=== PATIENT | male | born 1945 | race Caucasian/White ===

== ENCOUNTER 2017-02-10 12:51 | Inpatient (IN) | payer OTHER ==
[~2017-02-10] VITALS: Ht 198.1 cm; Wt 105.4 kg
[~2017-02-10 12:51] MED LIST: ALBU1NEB10 IN; FINA5TAB PO; METO50TA16 PO; SNG10 PO
[2017-02-10 13:45] LABS: BASO % 0.2 %; BASO ABS # 0.02 K/uL (0-0.2); COMPLETE YES; EOS % 2.7 %; HEMATOCRIT 46.3 % (42-52); IG% 0.4 %; LYMPH % 15.8 %; LYMPH ABS # 1.45 K/uL (1.2-3.4); MEAN CELL VOLUME 89.4 fL (80-100); MEAN CORPUSCULAR HEMOGLOBIN 29.3 pg (25-34); MEAN CORPUSCULAR HGB CONC 32.8 g/dl (32-36); MEAN PLATELET VOLUME 9.6 fL (7.4-10.4); MONO % 9.8 %; NEUT % 71.1 %; PLATELET COUNT 287 K/uL (130-400); RED BLOOD COUNT 5.18 M/uL (4.7-6.1); WHITE BLOOD COUNT 9.17 K/uL (4.8-10.8)
[2017-02-10] MEDS ORDERED: SODIUM CHLORIDE 0.9% 1000ML 1,000 ML IV STA (13:46)
[2017-02-10] MEDS ORDERED: ALBUT/IPRATROP 3MG/0.5MG NEB 3 ML VIAL INH STA (13:46)
[2017-02-10 13:53] LABS: ALT/SGPT 26 U/L (12-78); AST/SGOT 17 U/L (15-37); BLOOD UREA NITROGEN 12 mg/dl (7-18); BUN/CREATININE RATIO 13.6 (10-20); CARBON DIOXIDE 33 mmol/L (21-32); CHLORIDE 101 mmol/L (98-107); CREATININE 0.86 mg/dl (0.60-1.40); GLUCOSE 116 mg/dl (70-99); PARTIAL THROMBOPLASTIN RATIO 1.1; POTASSIUM 4.2 mmol/L (3.5-5.1); PROTHROMBIN TIME (PATIENT) 11.2 SECONDS (9.0-12.0); SODIUM 139 mmol/L (136-145)
[2017-02-10 13:56] LABS: ALB/GLOB RATIO 0.6 (0.9-2); ALKALINE PHOSPHATASE 76 U/L (45-117)
[2017-02-10] MEDS ORDERED: LEVA45AE INH (14:15)
[2017-02-10] MEDS ORDERED: PRS5 PO (14:15)
[2017-02-10] MEDS ORDERED: MONT1TAB3 PO (14:15)
[2017-02-10] MEDS ORDERED: METO50TA16 PO (14:15)
[2017-02-10] MEDS ORDERED: ASTN NAE (14:15)
[2017-02-10 14:20] LABS: URINE APPEARANCE CLOUDY (CLEAR); URINE BILIRUBIN NEG (NEG); URINE COLOR DK YELLOW; URINE NITRITE NEG (NEG); URINE SPECIFIC GRAVITY 1.017 (1.000-1.030); UROBILINOGEN NEG (NEG); ZZUR CULT IF INDIC CLEAN CATCH NO
[2017-02-10 14:26] LABS: CKMB/CK RATIO 2.3 (0-3.0); THYROID STIMULATING HORMONE 0.952 uIu/ml (0.300-4.500)
[2017-02-10 14:28] LABS: MANUAL MICROSCOPIC REQUIRED? NO; REVIEW REQ? NO
--- NOTE | 2017-02-10 14:35 | DIAGNOSTIC IMAGING REPORT ---
CHEST ONE VIEW PORTABLE CLINICAL HISTORY: Altered mental status. Weakness. COMPARISON STUDY: Chest radiograph December 11, 2014. FINDINGS: Lung volumes are at the upper limits of normal. No consolidation is identified. There is no evidence of pulmonary edema. Cardiomediastinal silhouette is normal. There is no pneumothorax or pleural effusion. IMPRESSION: No acute cardiopulmonary findings. Electronically signed by: Tim Hayden M.D. 02/10/2017 2:34 PM Dictated Date/Time: 02/10/2017 2:33 PM
--- NOTE | 2017-02-10 15:14 | EMERGENCY ROOM VISIT NOTE ---
History Report prepared by Galindo: Arnold Valdivia Under the Supervision of: Dr. Davey Maciel D.O. First contact with patient: 13:35 Chief Complaint: WEAKNESS Stated Complaint: GENERAL WEAKNESS History of Present Illness The patient is a 71 year old male with neuropathy in his legs who presents to the Emergency Room via EMS with complaints of intermittent weakness in his legs that started a couple weeks ago. He says that every once in a while, his knees just give out and buckle on him. The patient then falls, and he has a hard time getting up. He says that the weakness has been worsening, but he has had this intermittent weakness for a couple years. The patient says that his brother got nervous about these symptoms and called an ambulance. The patient adds that he has also been a bit short of breath the past few weeks. He has been coughing up white and yellow phlegm for the last few weeks. He notes that he has been putting cream on his knees for pain. The patient states that he has a history of asthma and bronchitis, and he is an ex-smoker. He quit more than 20 years ago. He says that he does not wear oxygen at home. The patient has been eating and drinking okay. The patient's brother says that the patient's left leg has specifically lost strength recently. The patient agrees that his left leg has been weaker than his right leg. Source of History: patient Onset: A couple weeks ago Position: leg (bilateral) Quality: other (weakness) Timing: intermittent, worsening Associated Symptoms: + SOB, + cough Note: Associated symptoms: Legs/knees buckle up and he falls, has hard time getting up. Knee pain. Left arm weaker than right arm. Review of Systems See HPI for pertinent positives & negatives. A total of 10 systems reviewed and were otherwise negative. Past Medical & Surgical Medical Problems: (1) Hypertension (2) Neuropathy Family History Cancer Heart disease Social History Smoking Status: Former Smoker Marital Status: single Housing Status: lives alone Occupation Status: retired Current/Historical Medications Scheduled Azelastine Hcl (Astelin Nasal [place]), 274 MCG RAIZA BID Finasteride (Finasteride), 5 MG PO DAILY Metoprolol Tartrate (Lopressor) (Lopressor), 100 MG PO BID Montelukast Sodium (Singulair), 10 MG PO DAILY Scheduled PRN Levalbuterol Tartrate (Levalbuterol Tartrate Hfa), 2 PUFFS INH Q4 PRN for SOB/ Wheezing Allergies Coded Allergies: BEE STING (Verified Allergy, Severe, 01/21/16) Cefadroxil (Unverified Allergy, Intermediate, UNKNOWN, 02/10/17) Cephalexin (Unverified Allergy, Intermediate, UNKNOWN, 02/10/17) Escitalopram (Unverified Allergy, Intermediate, UNKNOWN, 02/10/17) Omeprazole (Unverified Allergy, Intermediate, UNKNOWN, 02/10/17) Pantoprazole (Unverified Allergy, Intermediate, UNKNOWN, 02/10/17) Wheat (Unverified Allergy, Intermediate, UNKNOWN, 02/10/17) Physical Exam Vital Signs Date Time Temp Pulse Resp B/P Pulse Ox O2 Delivery O2 Flow Rate FiO2 02/10/17 14:24 93 18 141/73 91 Nasal Cannula 2.0 02/10/17 13:34 83 02/10/17 13:23 94 Nasal Cannula 2.0 02/10/17 13:04 Nasal Cannula 2.0 02/10/17 12:58 37.5 68 20 143/82 85 Room Air Physical Exam VITAL SIGNS: were reviewed as above. GENERAL:Non-toxic in appearance. SKIN: Warm dry and pink. HEAD: Normocephalic and atraumatic. OROPHARYNX: Is clear and moist NECK: Supple without lymphadenopathy or meningismus. LUNGS: clear. HEART: Regular rate and rhythm. ABDOMEN: Soft and nontender. EXTREMITIES: Warm and well perfused. NEUROLOGICALLY: Awake alert and oriented without focal deficit. Cranial nerves 2 -12 are intact. There is no pronator drift. Cerebellar testing is within normal limits. There is no nystagmus. There is no facial droop. Speech is clear. Vision is grossly normal. MUSCULOSKELETAL: Good muscle tone. No evidence of trauma. Medical Decision & Procedures ER Provider Diagnostic Interpretation: X ray results and stated below per my interpretation and radiology interpretation. CHEST ONE VIEW PORTABLE CLINICAL HISTORY: Altered mental status. Weakness. COMPARISON STUDY: Chest radiograph December 11, 2014. FINDINGS: Lung volumes are at the upper limits of normal. No consolidation is identified. There is no evidence of pulmonary edema. Cardiomediastinal silhouette is normal. There is no pneumothorax or pleural effusion. IMPRESSION: No acute cardiopulmonary findings. Electronically signed by: Tim Hayden M.D. 02/10/2017 2:34 PM Dictated Date/Time: 02/10/2017 2:33 PM Laboratory Results 02/10/17 13:19 Red Blood Count 5.18, Mean Corpuscular Volume 89.4, Mean Corpuscular Hemoglobin 29.3, Mean Corpuscular Hemoglobin Concent 32.8, Mean Platelet Volume 9.6, Neutrophils (%) (Auto) 71.1, Lymphocytes (%) (Auto) 15.8, Monocytes (%) (Auto) 9.8, Eosinophils (%) (Auto) 2.7, Basophils (%) (Auto) 0.2, Neutrophils # (Auto) 6.51, Lymphocytes # (Auto) 1.45, Monocytes # (Auto) 0.90, Eosinophils # (Auto) 0.25, Basophils # (Auto) 0.02 02/10/17 13:19 Test 02/10/17 13:19 02/10/17 14:03 White Blood Count 9.17 K/uL (4.8-10.8) Red Blood Count 5.18 M/uL (4.7-6.1) Hemoglobin 15.2 g/dL (14.0-18.0) Hematocrit 46.3 % (42-52) Mean Corpuscular Volume 89.4 fL (80-100) Mean Corpuscular Hemoglobin 29.3 pg (25-34) Mean Corpuscular Hemoglobin Concent 32.8 g/dl (32-36) Platelet Count 287 K/uL (130-400) Mean Platelet Volume 9.6 fL (7.4-10.4) Neutrophils (%) (Auto) 71.1 % Lymphocytes (%) (Auto) 15.8 % Monocytes (%) (Auto) 9.8 % Eosinophils (%) (Auto) 2.7 % Basophils (%) (Auto) 0.2 % Neutrophils # (Auto) 6.51 K/uL (1.4-6.5) Lymphocytes # (Auto) 1.45 K/uL (1.2-3.4) Monocytes # (Auto) 0.90 K/uL (0.11-0.59) Eosinophils # (Auto) 0.25 K/uL (0-0.5) Basophils # (Auto) 0.02 K/uL (0-0.2) RDW Standard Deviation 43.2 fL (36.4-46.3) RDW Coefficient of Variation 13.2 % (11.5-14.5) Immature Granulocyte % (Auto) 0.4 % Immature Granulocyte # (Auto) 0.04 K/uL (0.00-0.02) Prothrombin Time 11.2 SECONDS (9.0-12.0) Prothromb Time International Ratio 1.0 (0.9-1.1) Activated Partial Thromboplast Time 28.9 SECONDS (21.0-31.0) Partial Thromboplastin Ratio 1.1 Anion Gap 5.0 mmol/L (3-11) Estimated GFR () 102.5 Estimated GFR (Non- 88.5 BUN/Creatinine Ratio 13.6 (10-20) Calcium Level 9.0 mg/dl (8.5-10.1) Total Bilirubin 0.3 mg/dl (0.2-1) Aspartate Amino Transf (AST/SGOT) 17 U/L (15-37) Alanine Aminotransferase (ALT/SGPT) 26 U/L (12-78) Alkaline Phosphatase 76 U/L (45-117) Total Creatine Kinase 61 U/L (39-308) Creatine Kinase MB 1.4 ng/ml (0.5-3.6) Creatine Kinase MB Ratio 2.3 (0-3.0) Troponin I < 0.015 ng/ml (0-0.045) Total Protein 8.5 gm/dl (6.4-8.2) Albumin 3.3 gm/dl (3.4-5.0) Globulin 5.2 gm/dl (2.5-4.0) Albumin/Globulin Ratio 0.6 (0.9-2) Thyroid Stimulating Hormone (TSH) 0.952 uIu/ml (0.300-4.500) Urine Color DK YELLOW Urine Appearance CLOUDY (CLEAR) Urine pH 8.0 (4.5-7.5) Urine Specific [place] 1.017 (1.000-1.030) Urine Protein NEG (NEG) Urine Glucose (UA) NEG (NEG) Urine Ketones NEG (NEG) Urine Occult Blood NEG (NEG) Urine Nitrite NEG (NEG) Urine Bilirubin NEG (NEG) Urine Urobilinogen NEG (NEG) Urine Leukocyte Esterase NEG (NEG) Urine WBC (Auto) 0 /hpf (0-5) Urine RBC (Auto) 0-4 /hpf (0-4) Urine Hyaline Casts (Auto) 0 /lpf (0-5) Urine Epithelial Cells (Auto) 5-10 /lpf (0-5) Urine Bacteria (Auto) NEG (NEG) Laboratory results as stated above per my review. Medications Administered Medications (Trade) Dose Ordered Sig/Agustina Route Start Time Stop Time Status Last Admin Dose Admin Sodium Chloride (Nss 1000ml) 1,000 ml @ 100 mls/hr Q10H STAT IV 02/10/17 13:46 02/10/17 23:45 02/10/17 14:08 100 MLS/HR Albuterol/ Ipratropium (Duoneb) 3 ml NOW STAT INH 02/10/17 13:46 02/10/17 13:48 DC 02/10/17 14:06 3 ML ECG Indication: weakness Rate (beats per minute): 87 Rhythm: sinus rhythm Findings: PAC, no ectopy, other (no acute injury) ED Course 1336: Previous medical records were reviewed. The patient was evaluated in room B11B. A complete history and physical examination was performed. 1346: Ordered Duoneb 3 ml INH, NSS 1000 ml @ 100 mls/hr IV. 1501: I discussed the patient with Dr. Srikanth Person personal loan specialist - she will evaluate the patient for further treatment. 1505: I reevaluated the patient and he is resting comfortably. The patient verbally expressed understanding and agreement of the treatment plan. The patient will be evaluated for further treatment. Medical Decision Differential includes acute coronary syndrome, myocardial infarction, CVA, TIA, anemia, infection, pneumonia, UTI, pyelonephritis, poor nutrition, dehydration, electrolyte disturbance,hypoglycemia. Medication Reconciliation: I attest that I have personally reviewed the patient' s current medication list. Blood pressure Screening: Patient was found to have normal blood pressure on screening and does not require follow-up. This is a 71-year-old male who presents to the ED with a chief of generalized weakness, malaise bad as well as a cough. The patient has had the symptoms for several weeks. He states that he gets exertional dyspnea and has had a cough that is occasionally productive for yellow white sputum. He reports a history of sore in the past/COPD. The patient states that he has neuropathy and his legs occasionally give out on him. This has been occurring with increased frequency. The patient's oxygen saturations were 85% on room air. He is not on home oxygen. An EKG shows a sinus rhythm without ischemic changes. CBC and complete metabolic panel were unremarkable. Troponin is negative. Chest x-ray did not show acute disease. The patient's hypoxia improved with additional oxygen. He is in no distress. The patient's Brother would like to see him go to [facility] after his breathing issues are improved. His symptoms are likely related to COPD/acute bronchitis. Consults Time Called: [phone] Consulting Physician: Dr. Srikanth Person personal loan specialist Returned Call: [phone] I discussed the patient with Dr. Srikanth Person personal loan specialist - she will evaluate the patient for further treatment. Impression Primary Impression: COPD exacerbation Additional Impressions: Hypoxia Weakness Scribe Attestation The scribe's documentation has been prepared under my direction and personally reviewed by me in its entirety. I confirm that the note above accurately reflects all work, treatment, procedures, and medical decision making performed by me. Departure Information Dispostion Being Evaluated By Hospitalist Referrals No Doctor, Assigned (PCP) Patient Instructions My [facility] [address] Problem Qualifiers
[2017-02-10] MEDS ORDERED: ONDANSETRON INJ 2 MG/ML 2 ML VIAL IV PRN (16:00)
[2017-02-10] MEDS ORDERED: MAGNESIUM HYDROXIDE SUSP 30 ML UDC PO PRN (16:00)
[2017-02-10] MEDS ORDERED: ACETAMINOPHEN 325 MG TAB PO PRN (16:00)
--- NOTE | 2017-02-10 16:25 | History and Physical ---
History & Physical Date & Time of Service: February 10, 2017 at 16:11 Chief Complaint: General Weakness Primary Care Physician: No Doctor, Assigned History of Present Illness Source: patient, family, hospital records This patient is a 71-year-old male that presents the emergency department with his brother with complaints of more frequent falls over the last 1 -2 years. The patient's brother witnessed him fall today. He was having difficulty lifting his left leg, and then his left knee gave out. He reports landing on his knees. He did not hit his head area he denies any significant pain in his knees. He does note that he has been diagnosed with neuropathy and has numbness in his legs. He has seen Dr. Adorno in the outpatient setting. The patient does admit to having lower back pain that is chronic. He has reportedly had an MRI of his lumbar spine. No abnormalities were noted by the patient. Patient is a fairly poor historian. The patient's brother does also note that he has had a productive cough over the last several weeks. The patient denies any fever or chills. The patient denies any shortness of breath with rest. He does not get up and move around very well because of his neuropathy and weakness in his lower extremities. He does have a history of COPD. He quit smoking in his 40s. He denies any chest pain or pressure. He denies any dizziness or lightheadedness. No heart palpitations. The patient denies any nausea, vomiting or diarrhea. He reports eating and drinking normally at home. He does live by himself. The brother has concerns that he is having frequent falls, and that he may not be able to get up for severely injure himself with one of these falls. He is inquiring about the patient going to [facility]. Past Medical/Surgical History COPD Peripheral neuropathy Hypertension History of renal mass s/p surgery of some sort at [place] ?BPH Family History Cancer Heart disease Social History Smoking Status: Former Smoker Alcohol Use: none Marital Status: single Housing status: lives alone Occupational Status: retired Immunizations History of Influenza Vaccine: No Influenza Vaccine Date: Jul 20, 2009 History of Tetanus Vaccine?: No History of Pneumococcal: No History of Hepatitis B Vaccine: No Multi-Drug Resistant Organisms History of MDRO: No Allergies Coded Allergies: BEE STING (Verified Allergy, Severe, 01/21/16) Cefadroxil (Unverified Allergy, Intermediate, UNKNOWN, 02/10/17) Cephalexin (Unverified Allergy, Intermediate, UNKNOWN, 02/10/17) Escitalopram (Unverified Allergy, Intermediate, UNKNOWN, 02/10/17) Omeprazole (Unverified Allergy, Intermediate, UNKNOWN, 02/10/17) Pantoprazole (Unverified Allergy, Intermediate, UNKNOWN, 02/10/17) Wheat (Unverified Allergy, Intermediate, UNKNOWN, 02/10/17) Home Medications Scheduled Azelastine Hcl (Astelin Nasal [place]), 274 MCG RAIZA BID Finasteride (Finasteride), 5 MG PO DAILY Metoprolol Tartrate (Lopressor) (Lopressor), 100 MG PO BID Montelukast Sodium (Singulair), 10 MG PO DAILY Scheduled PRN Levalbuterol Tartrate (Levalbuterol Tartrate Hfa), 2 PUFFS INH Q4 PRN for SOB/ Wheezing Review of Systems 10 system review performed and negative unless noted in HPI or below Physical Exam Vital Signs Date Time Temp Pulse Resp B/P Pulse Ox O2 Delivery O2 Flow Rate FiO2 02/10/17 15:17 95 Nasal Cannula 6.0 02/10/17 15:01 127/85 02/10/17 14:51 82 19 91 02/10/17 14:24 93 18 141/73 91 Nasal Cannula 2.0 02/10/17 14:21 87 21 141/73 89 02/10/17 13:51 84 15 90 02/10/17 13:34 83 02/10/17 13:23 94 Nasal Cannula 2.0 02/10/17 13:22 131/85 02/10/17 13:04 Nasal Cannula 2.0 02/10/17 12:58 37.5 68 20 143/82 85 Room Air General Appearance: + mild distress (mild respiratory distress.) Head: normocephalic Eyes: EOMI Neck: no JVD Respiratory/Chest: + pertinent finding (moderate diffuse wheezing. Decreased breath sounds at the right base.) Cardiovascular: regular rate, rhythm Abdomen/GI: normal bowel sounds, non tender, soft Neurologic/Psych: oriented x 3, + pertinent finding (decreased sensation to sharp in the lateral aspect of the lower extremities distal to the knee bilaterally) Skin: warm/dry Diagnostics Laboratory Results Results Past 24 Hours Test 02/10/17 13:19 02/10/17 14:03 Range/Units White Blood Count 9.17 4.8-10.8 K/uL Red Blood Count 5.18 4.7-6.1 M/uL Hemoglobin 15.2 14.0-18.0 g/dL Hematocrit 46.3 42-52 % Mean Corpuscular Volume 89.4 80-100 fL Mean Corpuscular Hemoglobin 29.3 25-34 pg Mean Corpuscular Hemoglobin Concent 32.8 32-36 g/dl Platelet Count 287 130-400 K/uL Mean Platelet Volume 9.6 7.4-10.4 fL Neutrophils (%) (Auto) 71.1 % Lymphocytes (%) (Auto) 15.8 % Monocytes (%) (Auto) 9.8 % Eosinophils (%) (Auto) 2.7 % Basophils (%) (Auto) 0.2 % Neutrophils # (Auto) 6.51 1.4-6.5 K/uL Lymphocytes # (Auto) 1.45 1.2-3.4 K/uL Monocytes # (Auto) 0.90 0.11-0.59 K/uL Eosinophils # (Auto) 0.25 0-0.5 K/uL Basophils # (Auto) 0.02 0-0.2 K/uL RDW Standard Deviation 43.2 36.4-46.3 fL RDW Coefficient of Variation 13.2 11.5-14.5 % Immature Granulocyte % (Auto) 0.4 % Immature Granulocyte # (Auto) 0.04 0.00-0.02 K/uL Prothrombin Time 11.2 9.0-12.0 SECONDS Prothromb Time International Ratio 1.0 0.9-1.1 Activated Partial Thromboplast Time 28.9 21.0-31.0 SECONDS Partial Thromboplastin Ratio 1.1 Sodium Level 139 136-145 mmol/L Potassium Level 4.2 3.5-5.1 mmol/L Chloride Level 101 98-107 mmol/L Carbon Dioxide Level 33 21-32 mmol/L Anion Gap 5.0 3-11 mmol/L Blood Urea Nitrogen 12 7-18 mg/dl Creatinine 0.86 0.60-1.40 mg/dl Estimated GFR () 102.5 Estimated GFR (Non- 88.5 BUN/Creatinine Ratio 13.6 10-20 Random Glucose 116 70-99 mg/dl Calcium Level 9.0 8.5-10.1 mg/dl Total Bilirubin 0.3 0.2-1 mg/dl Aspartate Amino Transf (AST/SGOT) 17 15-37 U/L Alanine Aminotransferase (ALT/SGPT) 26 12-78 U/L Alkaline Phosphatase 76 45-117 U/L Total Creatine Kinase 61 39-308 U/L Creatine Kinase MB 1.4 0.5-3.6 ng/ml Creatine Kinase MB Ratio 2.3 0-3.0 Troponin I < 0.015 0-0.045 ng/ml Total Protein 8.5 6.4-8.2 gm/dl Albumin 3.3 3.4-5.0 gm/dl Globulin 5.2 2.5-4.0 gm/dl Albumin/Globulin Ratio 0.6 0.9-2 Thyroid Stimulating Hormone (TSH) 0.952 0.300-4.500 uIu/ml Urine Color DK YELLOW Urine Appearance CLOUDY CLEAR Urine pH 8.0 4.5-7.5 Urine Specific [place] 1.017 1.000-1.030 Urine Protein NEG NEG Urine Glucose (UA) NEG NEG Urine Ketones NEG NEG Urine Occult Blood NEG NEG Urine Nitrite NEG NEG Urine Bilirubin NEG NEG Urine Urobilinogen NEG NEG Urine Leukocyte Esterase NEG NEG Urine WBC (Auto) 0 0-5 /hpf Urine RBC (Auto) 0-4 0-4 /hpf Urine Hyaline Casts (Auto) 0 0-5 /lpf Urine Epithelial Cells (Auto) 5-10 0-5 /lpf Urine Bacteria (Auto) NEG NEG Diagnostic Radiology Patient: AHMET OWENS Address1: [address] Rec: [id number] Address2: Acct ID: [id number] [facility] Zip: [place] [address] Date: 1945 Sex: M Room/Bed: Ref Phy: No Doctor, Assigned SC: KATIA Att Phy: Report #: [id number] Michelle Phy: No Doctor, Assigned Test: [id number] Admit Phy: Silver Buffer: CARLOS Interpreting Phy: Tim Hayden MD Diagnosis: GENERAL WEAKNESS Ordering Phy: Davey Maciel D.O. Service Date: 02/10/17 Admit Date: 02/10/17 MNE: [id number] CONF: DICTATED BY: Tim Hayden MD]] CC: Davey Maciel D.O. No Doctor, Assigned Endcc: [~ rep ct add3]] CHEST ONE VIEW PORTABLE CLINICAL HISTORY: Altered mental status. Weakness. COMPARISON STUDY: Chest radiograph December 11, 2014. FINDINGS: Lung volumes are at the upper limits of normal. No consolidation is identified. There is no evidence of pulmonary edema. Cardiomediastinal silhouette is normal. There is no pneumothorax or pleural effusion. IMPRESSION: No acute cardiopulmonary findings. Electronically signed by: Tim Hayden M.D. 02/10/2017 2:34 PM Dictated Date/Time: 02/10/2017 2:33 PM The status of this report is Signed. Draft = Not yet reviewed or approved by Radiologist. Signed = Reviewed and approved by Radiologist. EKG Normal sinus rhythm 87 bpm PACs noted No ischemic changes noted Impression Assessment and Plan 71-year-old male presented to the emergency department with his brother for complaints of a fall today, and in general more frequent falls over the last year or so. He also has a productive cough. In the emergency department, the patient was found to be hypoxic at 89% on room air. The patient is not on oxygen at home. He does report a history of COPD. Acute respiratory failure with hypoxia likely secondary to COPD exacerbation/ acute bronchitis -Admit to medical floor -Duonebs every 6 hrs scheduled, every 2 hrs prn -solumedrol 40 mg q 12 hr -Mucinex 600 mg po BID -continuous pulse ox -If no improvement, consider adding Levaquin and getting CT of the chest Frequent falls, Neuropathy-pt does have impaired sensation in his LE -It sounds like pt has had an extensive w/u with Dr. Adorno as an outpt. Not sure if he has had nerve conduction studies or not. He reportedly has had MRI of his L spine -We will consult Neuro to see if they have any other recs -PT/OT-? may need rehab vs home with HHC/PT HTN -Continue Lopressor 100 mg po BID ? BPH -Continue finasteride 5 mg daily -Monitor for urinary retention DVT prophylaxis -Lovenox 40 mg subQ daily -TEDS, SCDs CODE STATUS -LEVEL I FULL CODE Contacts -Brother Ran [phone] (cell) This chart was completed in part utilizing Dragon Speech Voice Recognition software. Attempts were made to minimize the grammatical errors, random word insertions, pronoun errors and incomplete sentences. Any formal questions or concerns about the content, text or information contained within the body of this dictation should be directly addressed to the provider for clarification. Level of Care Med/Surg Resuscitation Status FULL RESUSCITATION VTE Prophylaxis VTE Risk Assessment Done? Y/N: Yes Risk Level: Moderate Given or contraindicated: Enoxaparin (Lovenox)SQ, T.E.D. Stockings, SCD's Reviewed: Pt Seen/Exam by Me History Pt states he feels he is breathing without issue. Ongoing LE weakness and falls. States he uses inhalers and did not miss dosing. No chest pain. Eating without issue. Agree with HPI/ROS as noted. General Appearance: WD/WN, no apparent distress Respiratory: no respiratory distress, crackles, wheezing Cardiovascular: normal peripheral pulses, regular rate, rhythm Gastrointestinal: non tender, soft Extremities: non-tender, no pedal edema Neurologic/Psychiatric: alert, oriented x 3 Skin Characteristics: normal color, warm/dry Assessment/Plan Agree with plan as outlined above Likely COPD exacerbation nebs/steroids Weakness and falls, hx of neuro w/u with Dr. Adorno, c/s pending Pt will likely need some sort of PT/OT, possibly rehab vs
[2017-02-10] MEDS ORDERED: ALBUT/IPRATROP 3MG/0.5MG NEB 3 ML VIAL INH PRN (17:15)
[2017-02-10] MEDS ORDERED: PATIENT'S HEIGHT AND/OR WEIGHT NEEDED SCH (18:00)
[2017-02-10 18:06] VITALS: BP 167/77; PULSE 82; TEMP 36.7; O2SAT 96
[2017-02-10 18:43] VITALS: Ht 198.1 cm; Wt 105.4 kg
[2017-02-10 19:03] VITALS: BP 156/84
[2017-02-10] MEDS: ALBUT/IPRATROP 3MG/0.5MG NEB 3 ML VIAL INH SCH (19:19)
[2017-02-10 19:27] VITALS: PULSE 88; O2SAT 94
[2017-02-10] MEDS: METOPROLOL TARTRATE 50 MG TAB PO SCH (20:20)
[2017-02-10] MEDS: METHYLPREDNISOLONE IV 40 MG in SYRINGE 0 ML IV SCH (20:20)
[2017-02-10] MEDS: GUAIFENESIN 600 MG TABCR PO SCH (20:22)
[2017-02-10] MEDS: ENOXAPARIN 40 MG/0.4 ML SYR SQ SCH (20:23)
[2017-02-11] VITALS (9 sets, daily range): BP systolic 122–166; BP diastolic 67–82; PULSE 62–77; TEMP 36.6–36.8; O2SAT 90–97
[2017-02-11] MEDS: ALBUT/IPRATROP 3MG/0.5MG NEB 3 ML VIAL INH SCH ×4 (07:14→19:01)
[2017-02-11] MEDS: GUAIFENESIN 600 MG TABCR PO SCH ×2 (08:05→20:20)
[2017-02-11] MEDS: MONTELUKAST SOD 10 MG TAB PO SCH (08:05)
[2017-02-11] MEDS: METHYLPREDNISOLONE IV 40 MG in SYRINGE 0 ML IV SCH ×2 (08:05→20:18)
[2017-02-11] MEDS: METOPROLOL TARTRATE 50 MG TAB PO SCH ×2 (08:05→20:19)
[2017-02-11] MEDS: FINASTERIDE 5 MG TAB PO SCH (08:05)
[2017-02-11] MEDS: POLYETHYLENE (MIRALAX) 17 GM PACK PO PRN ×2 (08:14→22:33)
[2017-02-11] MEDS ORDERED: ALUMINUM/MAGNESIUM SUSP 30 ML UDC PO STA (08:21)
--- NOTE | 2017-02-11 17:59 | Progress Note ---
Subjective Date of Service: February 11, 2017. Subjective Pt evaluation today including: conversation w/ patient, physical exam, chart review, lab review, review of inpatient medication list breathing feeling better just notes sinuses "are a mess" leg weakness ongoing - progressive - for years, but worse recently with more falling notes that L leg gives out more easily than R. feels like it's more of a weakness problem than a numbness problem. notes he's had MRI entire spine and EMG/NCV with conclusion that he has neuropathy but he's not sure what the underlying etiology is. wonders if it relates to sugar - on questioning he notes he's only prediabetic, and has only been so for abotu 7 years. believes he was told MRI Lspine was OK, but doesn't entirely recall specific results Problem List Medical Problems: (1) COPD exacerbation Status: Acute (2) Hypoxia Status: Acute (3) Weakness Status: Acute Review of Systems ros otherwise negative except for as above Objective Vital Signs Date Time Temp Pulse Resp B/P Pulse Ox O2 Delivery O2 Flow Rate FiO2 02/11/17 15:28 36.7 62 22 166/82 97 Nasal Cannula 2.0 02/11/17 15:25 Nasal Cannula 2.0 02/11/17 11:07 70 16 90 Nasal Cannula 2.0 02/11/17 08:30 Nasal Cannula 2.0 02/11/17 07:39 36.6 77 20 142/75 92 Nasal Cannula 2.0 02/11/17 07:15 74 16 96 Nasal Cannula 4.0 02/11/17 00:23 36.8 72 16 122/67 94 4.0 02/11/17 00:00 94 Nasal Cannula 4.0 02/10/17 19:27 88 18 94 Nasal Cannula 4.0 02/10/17 19:03 156/84 02/10/17 18:06 36.7 82 18 167/77 96 5.0 Physical Exam General Appearance: no apparent distress Eyes: EOMI ENT: hearing grossly normal Neck: trachea midline Respiratory/Chest: no respiratory distress, no accessory muscle use Extremities: + pertinent finding (see below for neuro otherwise, no c/c/e no calf tenderness) Neurologic/Psychiatric: therapist II-XII nml as tested, alert, + pertinent finding ( L leg ~4/5 strength flex/ex at knee. great toe raise weak both sides. R foot great toe raise weak but no other noted deficits. strong hip flex/ex b/l. no light touch deficit. bad proprioception b/l equally bad) Skin: normal color, warm/dry Assessment and Plan Frequent falls, Neuropathy- -with asymmetry would suspect low back disease as possible culprit, also ?B12 deficiency -before ordering other tests, will await neurology input as extensive w/u has already been done - neurology may already be aware of underlying etiology for neuropathy -PT/OT, likely to need rehab Acute respiratory failure with hypoxia likely secondary to COPD exacerbation/ acute bronchitis -improving - continue Duonebs every 6 hrs scheduled, every 2 hrs prn -continue solumedrol 40 mg q 12 hr - probably start to wean tomorrow -Mucinex 600 mg po BID HTN -Continue Lopressor 100 mg po BID, BP up some but given hospitalization/illness - continue meds as current ? BPH -Continue finasteride 5 mg daily -Monitor for urinary retention - none noted DVT prophylaxis -Lovenox 40 mg subQ daily -TEDS, SCDs CODE STATUS -LEVEL I FULL CODE Contacts -Brother Ran [phone] (cell)
--- NOTE | 2017-02-11 18:04 | CONSULTATION REPORT ---
DATE OF CONSULTATION: 02/11/2017 FOR: Dr. Fisher. 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 He has had extensive spinal imaging, brain imaging, EMGs, laboratory studies for the usual suspects in producing such as neuropathy and no cause has been found, and he has had progression with a lot of proprioceptive loss, lot of vibratory loss but not much in the way of actual muscle weakness and has had a lot of falling. I last saw him in 2014, send him off for physical therapy, he thinks that helped a little bit. He started using a cane but then has begun using a walker. He was going to have more physical therapy started, but unfortunately developed renal cell carcinoma and had to have a procedure done to eliminate this and is now inactive. He did not receive any chemotherapy, but he is not gotten back to evaluation of his peripheral nerve disease. Again, I have not seen him for about 2 years. Interestingly enough, he did seek chiropractor advice and was treated with some form of electrotherapy and hot water baths and according to him, he had return of a lot of his sensory function, but unfortunately not much of his ambulatory abilities returned. This was probably about a year ago and he has not gone back for another trial. He has been admitted now for frequent falls. He was said to have had a productive cough, but he denies a lot of this and thinks that because of his fall and his brother became alarmed, brought him to the hospital and he is now here being evaluated. He does live by himself and the brother is appropriately concerned that he needs to perhaps have an adjustment in his living condition and another evaluation. PAST MEDICAL HISTORY: Otherwise, reveals COPD, hypertension, history of a renal mass, now resected and BPH. FAMILY HISTORY: Positive for cancer and heart disease. SOCIAL HISTORY: Reveals him to be a former smoker. He is single. He lives alone. He does not consume ethanol. IMMUNIZATIONS: Theoretically up to date. He does not have a history of multiple drug-resistant organisms. ALLERGIES: HE HAS ALLERGIES TO BEE STINGS, CEPHALOSPORINS, OMEPRAZOLE, PANTOPRAZOLE, WHEAT AND POSSIBLY CITALOPRAM. MEDICATIONS AT HOME: Include finasteride, Astelin nasal spray, metoprolol and Singulair. Luckily, he does not have a lot of neuropathic pain, most of his pain is mechanical and he has failed in the past to respond to Neurontin and I believe Cymbalta. REVIEW OF SYSTEMS: Reveals some volitional weight loss, otherwise no systemic issues. He has no complaints referable to head, eyes, ears, nose and throat, cardiovascular, pulmonary, gastrointestinal, genitourinary, musculoskeletal systems other than those described above on his past medical history and his neuropathy does continue to progress with increasing gait instability, requirement of a walker for ambulation and frequent falls. PHYSICAL EXAMINATION: VITAL SIGNS: His blood pressure was 127/85, pulse was 82 and regular, respirations were 19. He was afebrile. GENERAL: He was well developed, well nourished; he was quite tall individual measuring about 6 feet 6 inches. He appeared to be in a little bit of respiratory distress. HEENT: There were no deformities or abnormalities on examination of head, eyes, ears, nose and throat. NECK: Supple. No carotid bruits were heard. LUNGS: Clear. HEART: Had a regular rhythm. No murmurs were heard. ABDOMEN: Soft, nontender. NEUROLOGICAL: He was alert, oriented in 3 spheres and has some loss of peripheral sensation. Today, neurologically, he is awake, alert, oriented in 3 spheres. Eye movements are normal. There is no nystagmus, no pupillary abnormalities. There is good. Visual acuity, normal visual gustafson, normal facial sensation, normal oropharyngeal and lingual movements. Gait is a little broad based and dystaxic. He has some slight tremor of the outstretched hands and legs, which apparently has been present intermittently for some time now. He has no cerebellar dysmetria. There is no choreiform activity, drift or pronation sign. Reflexes are absent at the ankles and reduced at the knees, normal in the upper extremities. Toes are downgoing. No Lois signs are seen. Strength testing is actually good without any significant distal weakness other than perhaps a half greater weakness in the anterior compartment muscles and there may be a little atrophy developing now. Sensory examination reveals a significant reduction in vibratory appreciation the knees, temperature to about the mid calves and proprioception being virtually absent over the toes and grossly present in the ankle and knee movements. LABORATORY AND IMAGING STUDIES: Unremarkable. There is no leukocytosis. Basic chemistry screen was unremarkable. Chest x-ray was clear and no active cardiopulmonary findings were noted. EKG showed normal sinus rhythm with a few PACs, no ischemic changes. IMPRESSION AND PLAN: At this point, neurology unfortunately does not have a lot more to offer at all. I think he probably could benefit from a little time in [facility] to have a reassessment of his gait and advice regarding some assistive devices he might need to beyond the walker. He wants to go back to the chiropractor, I have no problem with that but this is something can wait until he has had his [facility] evaluation. I do not think he is going to need an AFO as there really is not a significant degree of muscle weakness and the primary deficits here remain as they always have with proprioceptive loss and large fiber sensory modality loss. Apparently, he is being discharged to [facility]. I am going to sign off the case, I will see him on an as-needed basis and would be happy to take a look at him in the office again after his discharge from [facility]. ARUNA
[2017-02-11] MEDS: ENOXAPARIN 40 MG/0.4 ML SYR SQ SCH (20:18)
[2017-02-11] MEDS: ALUMINUM/MAGNESIUM SUSP 30 ML UDC PO PRN (22:33)
[2017-02-12] VITALS (10 sets, daily range): BP systolic 146–175; BP diastolic 71–97; PULSE 61–74; TEMP 36.5–36.8; O2SAT 93–98
[2017-02-12] MEDS: ALBUT/IPRATROP 3MG/0.5MG NEB 3 ML VIAL INH SCH ×4 (07:09→19:10)
[2017-02-12] MEDS: FINASTERIDE 5 MG TAB PO SCH (08:55)
[2017-02-12] MEDS: METOPROLOL TARTRATE 50 MG TAB PO SCH ×2 (08:55→19:53)
[2017-02-12] MEDS: MONTELUKAST SOD 10 MG TAB PO SCH (08:55)
[2017-02-12] MEDS: POLYETHYLENE (MIRALAX) 17 GM PACK PO PRN (08:55)
[2017-02-12] MEDS: ALUMINUM/MAGNESIUM SUSP 30 ML UDC PO PRN ×2 (08:55→16:14)
[2017-02-12] MEDS: GUAIFENESIN 600 MG TABCR PO SCH ×2 (08:55→19:53)
[2017-02-12] MEDS: METHYLPREDNISOLONE IV 40 MG in SYRINGE 0 ML IV SCH (09:34)
[2017-02-12] MEDS ORDERED: HYDROCORTISONE HC 2.5% CRM 30GM TUBE EXT PRN (14:45)
[2017-02-12] MEDS ORDERED: SIMETHICONE 40 MG/0.6 ML 30ML PO PRN (14:45)
--- NOTE | 2017-02-12 17:55 | Progress Note ---
Subjective Date of Service: Feb 12, 2017. Subjective Pt evaluation today including: conversation w/ patient, physical exam, chart review, lab review, review of inpatient medication list neurology input appreciated. pt notes feeling about the same. discussed rehab he wants to go. discussed chiropractic again since it seemed to help before. discussed idiopathic neruopathy - and while likely to be low yield after extensive w/u done by dr sutherland - would be worth considering tertiary neurology eval as outpt at some point in near future Problem List Medical Problems: (1) COPD exacerbation Status: Acute (2) Hypoxia Status: Acute (3) Weakness Status: Acute Review of Systems ros otherwise negative except for as above Objective Vital Signs Date Time Temp Pulse Resp B/P (MAP) Pulse Ox O2 Delivery O2 Flow Rate FiO2 02/12/17 16:00 94 Nasal Cannula 3.0 02/12/17 15:23 74 18 94 Nasal Cannula 3.0 02/12/17 14:58 36.5 69 20 175/97 (123) 98 02/12/17 11:06 61 16 95 Nasal Cannula 3.0 02/12/17 08:00 93 Nasal Cannula 3.0 02/12/17 07:09 65 16 93 Nasal Cannula 3.0 02/12/17 06:48 36.8 72 20 155/73 (100) 93 Nasal Cannula 3.0 02/12/17 00:00 94 Nasal Cannula 2.0 02/11/17 23:13 36.8 76 20 158/71 (100) 94 Nasal Cannula 3.0 02/11/17 20:00 94 Nasal Cannula 2.0 02/11/17 19:01 76 16 92 Nasal Cannula 2.0 Physical Exam General Appearance: no apparent distress Eyes: EOMI ENT: hearing grossly normal Neck: trachea midline Respiratory/Chest: no respiratory distress, no accessory muscle use Extremities: normal range of motion Neurologic/Psychiatric: landscaper II-XII nml as tested, alert, normal mood/affect Skin: normal color, warm/dry Laboratory Results Last 24 Hours Test 02/12/17 09:32 Vitamin B12 Level > 2000 pg/mL 25-Hydroxy Vitamin D Total 22.7 ng/ml Assessment and Plan Frequent falls, Neuropathy- -unfortunately currently appears to be idiopathic neuropathy despite extensive w /u -discussed resumption of chiropractic since it helped before, discussed tertiary neurology eval for further attempt at ?etiology although would likely be low yield -PT/OT, needs rehab Acute respiratory failure with hypoxia likely secondary to COPD exacerbation/ acute bronchitis -improving - continue Duonebs every 6 hrs scheduled, every 2 hrs prn -wean steroids -Mucinex 600 mg po BID vitamin D insufficiency -replace, recheck ~12wks HTN -Continue Lopressor 100 mg po BID, BP up some but given hospitalization/illness - continue meds as current, readings elevated but for now will continue to follow (asymptomatic) ? BPH -Continue finasteride 5 mg daily -Monitor for urinary retention - none noted still DVT prophylaxis -Lovenox 40 mg subQ daily -TEDS, SCDs CODE STATUS -LEVEL I FULL CODE Contacts -Brother Ran [phone] (cell)
[2017-02-12] MEDS ORDERED: ERGOCALCIFEROL 50,000 INTER.UNIT CAP PO ONE (19:00)
[2017-02-12] MEDS: ENOXAPARIN 40 MG/0.4 ML SYR SQ SCH (19:54)
[2017-02-13] VITALS (8 sets, daily range): BP systolic 144–156; BP diastolic 74–81; PULSE 60–76; TEMP 36.6; O2SAT 90–94
[2017-02-13 07:33] LABS: HEMATOCRIT 46.4 % (42-52); MEAN CELL VOLUME 87.2 fL (80-100); MEAN CORPUSCULAR HEMOGLOBIN 27.3 pg (25-34); MEAN CORPUSCULAR HGB CONC 31.3 g/dl (32-36); MEAN PLATELET VOLUME 9.2 fL (7.4-10.4); PLATELET COUNT 301 K/uL (130-400); RED BLOOD COUNT 5.32 M/uL (4.7-6.1); WHITE BLOOD COUNT 12.24 K/uL (4.8-10.8)
[2017-02-13] MEDS: ALBUT/IPRATROP 3MG/0.5MG NEB 3 ML VIAL INH SCH ×3 (07:40→15:26)
[2017-02-13 07:59] LABS: CREATININE 0.82 mg/dl (0.60-1.40)
[2017-02-13] MEDS ORDERED: CHOLECALCIFEROL 1000 INTER.UNIT TAB PO SCH (08:00)
[2017-02-13] MEDS: METOPROLOL TARTRATE 50 MG TAB PO SCH (08:37)
[2017-02-13] MEDS: POLYETHYLENE (MIRALAX) 17 GM PACK PO PRN (08:40)
[2017-02-13] MEDS: ALUMINUM/MAGNESIUM SUSP 30 ML UDC PO PRN (08:41)
[2017-02-13] MEDS: GUAIFENESIN 600 MG TABCR PO SCH (08:42)
[2017-02-13] MEDS: MONTELUKAST SOD 10 MG TAB PO SCH (08:43)
[2017-02-13] MEDS: FINASTERIDE 5 MG TAB PO SCH (08:43)
[2017-02-13] MEDS ORDERED: VTMD1000 PO (10:34)
[2017-02-13] MEDS ORDERED: ERGO50002 PO (10:34)
[2017-02-13] MEDS ORDERED: PRED10TA PO (10:34)
[2017-02-13] MEDS ORDERED: SPRIN/30 INH (10:37)
--- NOTE | 2017-02-13 10:37 | Discharge Instructions ---
Discharge Instructions Date of Service Feb 13, 2017. 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 Additional Information Patient informed of condition: Yes Advance Directives: Yes DNR: No Level of Care: Acute Rehab Communicable Disease: No Prognosis: Improving Instructions / Follow-Up Instructions / Follow-Up a) idiopathic neuropathy -has been worked up extensively by neurology - has neuropathy - exact etiology not clear -goal at rehab is to increase strength/functional independence -recommended return to caregivers non medical after discharge from [facility] because he had noted in the past when working with his chiropractor he actually had less weakness and less neurologic symptoms -recommend tertiary neurology evaluation as outpatient for another look at possible underlying etiologies b) COPD w bronchitis-type exacerbation -wean O2 as tolerated, currently stable on 2L -taper prednisone -inhalers as Rx'd c) vitamin D insufficiency -level was 22.7 -drisdol 50,000 IU weekly x 6wks -vitamin D3 2000 IU indefinitely -repeat D level in ~12wks Current Hospital Diet Patient's current hospital diet: Regular Diet Discharge Diet Recommended Diet: Regular Diet Pending Studies Studies pending at discharge: no Medical Emergencies . Who to Call and When: Medical Emergencies: If at any time you feel your situation is an emergency, please call 911 immediately. . Non-Emergent Contact Non-Emergency issues call your: Primary Care Provider . . "Provider Documentation" section prepared by Leonard Fisher. . Core Measure Problem Core Measures: None
--- NOTE | 2017-02-13 13:45 | Discharge Summary ---
Discharge Summary Date of Service Feb 13, 2017. Discharge Summary Admission Date: February 10, 2017 at 16:10 Discharge Date: Feb 13, 2017 Discharge Disposition: Rehab Principal Diagnosis: weakness Problems/Secondary Diagnoses: idiopathic neuropathy COPD exacerbation - mild - bronchitis-type Immunizations: Have You Had Influenza Vaccine: No Influenza Vaccine Date: Jul 20, 2009 History of Tetanus Vaccine?: No History of Pneumococcal: No History of Hepatitis B Vaccine: No Procedures: [~ rep ct add3]] CHEST ONE VIEW PORTABLE CLINICAL HISTORY: Altered mental status. Weakness. COMPARISON STUDY: Chest radiograph December 11, 2014. FINDINGS: Lung volumes are at the upper limits of normal. No consolidation is identified. There is no evidence of pulmonary edema. Cardiomediastinal silhouette is normal. There is no pneumothorax or pleural effusion. IMPRESSION: No acute cardiopulmonary findings. Electronically signed by: Tim Hayden M.D. 02/10/2017 2:34 PM Dictated Date/Time: 02/10/2017 2:33 PM Last Resulted CBC 02/13/17 07:05 Last Resulted BMP 02/10/17 13:19 02/13/17 07:05 Consultations: neurology Medication Reconciliation New Medications: Ergocalciferol (Drisdol) 50,000 Unit Cap 1 CAP PO WK, #6 CAP Prednisone Tab (Prednisone) 10 Mg Tab 10 MG PO UD, #6 TAB 20mg x 2 days then 10mg x 2 days then stop Tiotropium [place] (Spiriva Handihaler) 30 Puff/540 Mcg Aerp 1 CAP INH DAILY for 30 Days, #30 CAP 3 Refills Cholecalciferol (Vitamin D3) 1,000 Inter.unit Tab 2000 INTER.UNIT PO QAM, #30 TAB Continued Medications: Azelastine Hcl (Astelin Nasal [place]) 200 Sprays/30 Ml [place] 274 MCG RAIZA BID 137MCG DOSE. 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 II-XII nml as tested, alert Skin: normal color, warm/dry Hospital Course Frequent falls, Neuropathy- -unfortunately currently appears to be idiopathic neuropathy despite extensive w /u -discussed resumption of chiropractic since it helped before, discussed tertiary neurology eval for further attempt at ?etiology although would likely be low yield -PT/OT, for rehab today Acute respiratory failure with hypoxia likely secondary to COPD exacerbation/ acute bronchitis -improving -continue inhalers (home regimen and added spiriva) -wean steroids -Mucinex 600 mg po BID vitamin D insufficiency -replace, recheck ~12wks HTN -Continue Lopressor 100 mg po BID, BP up some but given hospitalization/illness - continue meds as current, readings elevated but for now will continue to follow (asymptomatic) ? BPH -Continue finasteride 5 mg daily -Monitor for urinary retention - none noted during his stay DVT prophylaxis -Lovenox 40 mg subQ daily -TEDJaneen SCDs CODE STATUS -LEVEL I FULL CODE Contacts -Brother Ran [phone] (cell) stable for transfer to rehab Total Time Spent: Less than 30 minutes This includes examination of the patient, discharge planning, medication reconciliation, and communication with other providers. Discharge Instructions Please refer to the electronic Patient Visit Report (Discharge Instructions) for additional information. Additional Copies To [facility]
[2017-03-04] MEDS ORDERED: LEVA45AE INH (16:36)
[2017-03-04] MEDS ORDERED: FRRS300 PO (16:36)
[2017-03-04] MEDS ORDERED: SDMC1 PO (16:36)
[2017-03-04] MEDS ORDERED: PRT40 PO (16:36)
[2017-05-21] MEDS ORDERED: IPRASOL4 INH ×2 (12:52)
[2017-05-21] MEDS ORDERED: CHOL1TAB42 PO (12:52)
[2017-05-21] MEDS ORDERED: FERR1TAB13 PO (12:52)
[2017-05-21] MEDS ORDERED: LEVA45AE INH (12:52)
[2017-05-21] MEDS ORDERED: CARB10TA4 PO (12:52)
[2017-05-21] MEDS ORDERED: SENN1TAB80 PO (12:52)
[2017-05-21] MEDS ORDERED: TERB1CRE32 TOP (12:52)
[2017-05-21] MEDS ORDERED: LANS15CA6 PO (12:52)
[2017-05-21] MEDS ORDERED: CARB25TA14 PO (12:52)
[2017-05-21] MEDS ORDERED: TRAM-10 PO (12:52)
== END 2017-02-13 19:08 | DRG 189 ==
LOC: ENRESERVDT → ENRESERVTM → C.EDB 12:52 → C.MS4W 16:10
PROVIDERS: ADMIT Family Medicine; ATTEND Family Medicine
DX: J96.01 Acute respiratory failure with hypoxia (principal); J44.1 Chronic obstructive pulmonary disease with (acute) exacerbation; J44.0 Chronic obstructive pulmonary disease with (acute) lower respiratory infection; J20.9 Acute bronchitis, unspecified; I10 Essential (primary) hypertension; N40.0 Benign prostatic hyperplasia without lower urinary tract symptoms; G60.9 Hereditary and idiopathic neuropathy, unspecified; G89.29 Other chronic pain; M54.9 Dorsalgia, unspecified; R26.9 Unspecified abnormalities of gait and mobility; E55.9 Vitamin D deficiency, unspecified; Z85.528 Personal history of other malignant neoplasm of kidney; Z91.030 Bee allergy status; Z91.018 Allergy to other foods; Z88.8 Allergy status to other drugs, medicaments and biological substances; Z79.899 Other long term (current) drug therapy; Z80.9 Family history of malignant neoplasm, unspecified; Z82.49 Family history of ischemic heart disease and other diseases of the circulatory system

== ENCOUNTER 2017-02-16 05:23 | Inpatient (IN) | payer OTHER ==
[~2017-02-16] VITALS: Ht 198.1 cm; Wt 106.7 kg
[~2017-02-16 05:23] MED LIST changes: -ALBU1NEB10 IN; +ASTN NAE; +ERGO50002 PO; -FINA5TAB PO; +LEVA45AE INH; +MONT1TAB3 PO; +PRED10TA PO; +PRS5 PO; -SNG10 PO; +SPRIN/30 INH; +VTMD1000 PO
[2017-02-16 05:54] LABS: ISTAT CREATININE 1.2 mg/dl (0.6-1.3); ISTAT HEMOGLOBIN 14.6 g/dl (14.0-18.0); ISTAT IONIZED CALCIUM 1.21 mmol/l (1.12-1.32)
[2017-02-16] MEDS ORDERED: DOCU-94 PO (05:54)
[2017-02-16] MEDS ORDERED: ENOX40IN SQ (05:55)
[2017-02-16] MEDS ORDERED: POLY335019 PO (05:56)
[2017-02-16 05:57] LABS: HEMATOCRIT 41.5 % (42-52); MEAN CELL VOLUME 87.4 fL (80-100); MEAN CORPUSCULAR HEMOGLOBIN 28.4 pg (25-34); MEAN CORPUSCULAR HGB CONC 32.5 g/dl (32-36); MEAN PLATELET VOLUME 9.7 fL (7.4-10.4); PLATELET COUNT 345 K/uL (130-400); RED BLOOD COUNT 4.75 M/uL (4.7-6.1); WHITE BLOOD COUNT 26.15 K/uL (4.8-10.8)
[2017-02-16] MEDS ORDERED: SENN-65 PO (05:57)
--- NOTE | 2017-02-16 05:57 | EMERGENCY ROOM VISIT NOTE ---
History Report prepared by Galindo: Kevon Eisenberg Under the Supervision of: Dr. Nitza Polk D.O. First contact with patient: 05:28 Chief Complaint: RECTAL BLEEDING Stated Complaint: RECTAL BLEED Nursing Triage Summary: Patient presents BLS from [facility] for evaluation of bright red rectal bleeding that began yesterday. 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 Patient also had a fall x2 days ago. Large ecchymotic area noted to chest. Patient states he hit his chest on the foot board of his bed; currently undergoing therapy for this. Denies any pain or complaints. History of Present Illness The patient is a 71 year old male who presents to the Emergency Room with complaints of intermittent rectal bleeding starting yesterday. He has been noticing blood with stool. He has had two blood bowel movements, one occurring yesterday and one occurring today. He has a history of rectal bleeding occurring many years ago with hemorrhoids. He has been having intermittent constipation for the past few months and has been occasionally straining to make a bowel movement. He had a fall on February 14 at [facility] where he hit his chest on a foot board of the bed. He has a chest contusion and is receiving therapy. He has worsening chest pain with coughing. He denies receiving any x- rays for the fall. He denies hitting anything else. He had a fever yesterday and received Tylenol. The patient is at [facility] for idiopathic neuropathy. He denies any history of blood transfusion. He has a history of COPD. Source of History: patient Onset: yesterday Position: other (global) Quality: other (rectal bleeding) Timing: intermittent Associated Symptoms: + fevers, + chest pain Review of Systems See HPI for pertinent positives & negatives. A total of 10 systems reviewed and were otherwise negative. Past Medical & Surgical Medical Problems: (1) Hypertension (2) Neuropathy COPD exacerbation Family History Cancer Heart disease Social History Smoking Status: Never Smoker Marital Status: single Housing Status: lives alone Occupation Status: retired Current/Historical Medications Scheduled Azelastine Hcl (Astelin Nasal [place]), 2 SPRAYS RAIZA DAILY Cholecalciferol (Vitamin D3), 2,000 INTER.UNIT PO QAM Docusate Sodium (Colace), 1 CAP PO BID Enoxaparin (Lovenox), 40 MG SQ DAILY Ergocalciferol (Drisdol), 1 CAP PO WK Finasteride (Finasteride), 5 MG PO DAILY Metoprolol Tartrate (Lopressor) (Lopressor), 100 MG PO BID Montelukast Sodium (Singulair), 10 MG PO DAILY Polyethylene Glycol 3350 (Miralax), 17 GM PO DAILY Prednisone Tab (Prednisone), 10 MG PO UD Senna/Docusate Sod (Senokot S), 1 TAB PO DAILY Tiotropium [place] (Spiriva Handihaler), 1 CAP INH DAILY Scheduled PRN Acetaminophen (Acetaminophen), 1 TAB PO Q4 PRN for Pain or Fever Alum & Mag Hydrox-Simethicone (Maalox Max Susp), 30 ML PO Q4 PRN for HEARTBURN/ GAS Bisacodyl (Bisacodyl), 10 MG RE Q24H PRN for NO BM >2DAYS/CONSTIPATION Levalbuterol Tartrate (Levalbuterol Tartrate Hfa), 2 PUFFS INH Q4 PRN for SOB/ Wheezing Magnesium Hydroxide (Milk Of Magnesia), 30 ML PO Q24H PRN for NO BM>1 DAY/ CONSTIPATION Phenylephrine-Shark Liver Oil- (Preparation H), 1 SUPP RE DAILY PRN for Hemorrhoids Simethicone (Gas Relief Extra Strength), 125 MG PO BID PRN for GAS Sodium Phosphate/Biphosphate (Fleet Enema), 1 EA AZ Q24 PRN for NO BM >3 DAYS/ CONSTIPATION Allergies Coded Allergies: BEE STING (Verified Allergy, Severe, 02/16/17) Cefadroxil (Unverified Allergy, Intermediate, UNKNOWN, 02/16/17) Cephalexin (Unverified Allergy, Intermediate, UNKNOWN, 02/16/17) Escitalopram (Unverified Allergy, Intermediate, UNKNOWN, 02/16/17) Omeprazole (Unverified Allergy, Intermediate, UNKNOWN, 02/16/17) Pantoprazole (Unverified Allergy, Intermediate, UNKNOWN, 02/16/17) Wheat (Unverified Allergy, Intermediate, UNKNOWN, 02/16/17) Physical Exam Vital Signs Date Time Temp Pulse Resp B/P (MAP) Pulse Ox O2 Delivery O2 Flow Rate FiO2 02/16/17 07:16 76 15 134/73 97 Nasal Cannula 2.0 02/16/17 06:33 80 18 119/55 98 Nasal Cannula 2.0 02/16/17 06:19 77 18 100/53 98 Nasal Cannula 2.0 02/16/17 05:50 94 18 86/57 96 Nasal Cannula 2.0 02/16/17 05:32 93 Room Air 02/16/17 05:29 94 02/16/17 05:28 36.7 94 18 86/61 93 Room Air Physical Exam HEENT: Head - normocephalic and atraumatic Pupils are equal, round, and reactive to light. Extraocular eye muscles are intact, and sclera are anicteric. Nose - moist nasal mucosa without discharge. Mouth - moist buccal mucosa. Oropharynx is nonerythematous and there is no tonsillar exudate or edema noted. Neck: Supple; no JVD, nuchal rigidity, cervical lymphadenopathy, or auscultated bruits. Chest: Contusion on anterior chest wall over the sternum. Heart: Regular rate and rhythm. There is a normal S1 and S2 with no murmurs, clicks, or gallops appreciated. Lungs: Clear to auscultation bilaterally with no wheezes, rales, or rhonchi. Abdomen: Soft, completely nontender, nondistended, with good bowel sounds. There are no palpable pulsatile masses or hepatosplenomegaly. There is no guarding, rigidity, or rebound noted. Rectal: Bloody stool noted. Extremities: No evidence of cyanosis, clubbing, or edema. There are easily palpable peripheral pulses. Skin: Pale and diaphoretic. Warm with good turgor and no rashes. Medical Decision & Procedures ER Provider Diagnostic Interpretation: CT results as stated below per my review and radiologist interpretation: CT ABD/PELVIS IV CONTRAST ONLY CLINICAL HISTORY: Abdominal trauma. Rectal bleeding. COMPARISON STUDY: 01/15/2016 TECHNIQUE: Following the IV administration of 93 mL of Optiray-320, CT scan of the abdomen and pelvis was performed from the lung bases to the proximal femurs. Images are reviewed in the axial, sagittal, and coronal planes. IV contrast was administered without complication. CT DOSE: 2186.25 mGy.cm FINDINGS: Lower chest: The heart is normal in size and configuration, without pericardial effusion. The lung bases and pleural spaces are clear. Liver: The contrast-enhanced liver is normal in size, contour, and attenuation. There is no intrahepatic biliary ductal dilatation. The hepatic veins and portal veins are patent. Gallbladder: Unremarkable. Spleen: Normal in size and attenuation. Pancreas: Unremarkable. Adrenal glands: Unremarkable. Kidneys: There is a 3.3 cm indeterminate right renal mass. The prior CT scan confirmed that this was an enhancing mass is therefore suspicious for a renal cell carcinoma. Bowel: There are no transition zones indicate bowel obstruction. There are no acute inflammatory changes. Peritoneum: There is no intraperitoneal free air or abdominal ascites. Vasculature: The abdominal aorta is normal in course and caliber. Adenopathy: None. Pelvic viscera: The bladder, and pelvic viscera are unremarkable. Skeletal structures: No destructive osseous lesions are seen. IMPRESSION: 1. Stable 3.3 cm indeterminate right renal mass, previously suspected to represent a renal cell carcinoma 2. No evidence of acute intra-abdominal or pelvic injury. Electronically signed by: Vineet Mallory M.D. 02/16/2017 6:51 AM Dictated Date/Time: 02/16/2017 6:[address] CHEST WITH CONTRAST Ground glass densities in the left lung anteriorly, may be due to pulmonary contusion. No pneumothorax. No pleural effusions. Acute nondepressed fracture of the sternum inferiorly with adjacent small hematoma, extending into the mediastinum. Acute fractures of the right third, fourth, fifth, and sixth ribs anteriorly. Anterior chest wall subcutaneous contusion. Evidence of air trapping. There are a few scattered pulmonary nodules. Followup to exclude malignancy may be useful. CT ABDOMEN & PELVIS Enhancing, exophytic right renal lesion measuring approximately 2.7 cm, likely representing renal cell carcinoma. No free air. No free fluid. No evidence of solid organ injury. No evidence of acute fracture or subluxation. Radiologist: Emily Lawrence MD Laboratory Results 02/16/17 05:35 Red Blood Count 4.75, Mean Corpuscular Volume 87.4, Mean Corpuscular Hemoglobin 28.4, Mean Corpuscular Hemoglobin Concent 32.5, Mean Platelet Volume 9.7, Neutrophils (%) (Auto) 84.0, Lymphocytes (%) (Auto) 6.7, Monocytes (%) (Auto) 8.5, Eosinophils (%) (Auto) 0.0, Basophils (%) (Auto) 0.0, Neutrophils # (Auto) 21.92, Lymphocytes # (Auto) 1.76, Monocytes # (Auto) 2.23, Eosinophils # (Auto) 0.01, Basophils # (Auto) 0.01 02/16/17 05:35 Test 02/16/17 05:35 02/16/17 05:36 02/16/17 05:41 02/16/17 07:05 White Blood Count 26.15 K/uL (4.8-10.8) Red Blood Count 4.75 M/uL (4.7-6.1) Hemoglobin 13.5 g/dL (14.0-18.0) Hematocrit 41.5 % (42-52) Mean Corpuscular Volume 87.4 fL (80-100) Mean Corpuscular Hemoglobin 28.4 pg (25-34) Mean Corpuscular Hemoglobin Concent 32.5 g/dl (32-36) Platelet Count 345 K/uL (130-400) Mean Platelet Volume 9.7 fL (7.4-10.4) Neutrophils (%) (Auto) 84.0 % Lymphocytes (%) (Auto) 6.7 % Monocytes (%) (Auto) 8.5 % Eosinophils (%) (Auto) 0.0 % Basophils (%) (Auto) 0.0 % Neutrophils # (Auto) 21.92 K/uL (1.4-6.5) Lymphocytes # (Auto) 1.76 K/uL (1.2-3.4) Monocytes # (Auto) 2.23 K/uL (0.11-0.59) Eosinophils # (Auto) 0.01 K/uL (0-0.5) Basophils # (Auto) 0.01 K/uL (0-0.2) RDW Standard Deviation 42.3 fL (36.4-46.3) RDW Coefficient of Variation 13.2 % (11.5-14.5) Immature Granulocyte % (Auto) 0.8 % Immature Granulocyte # (Auto) 0.22 K/uL (0.00-0.02) Hypersegmented Polys 1+ Prothrombin Time 11.6 SECONDS (9.0-12.0) Prothromb Time International Ratio 1.1 (0.9-1.1) Activated Partial Thromboplast Time 26.5 SECONDS (21.0-31.0) Partial Thromboplastin Ratio 1.0 Est Creatinine Clear Calc Drug Dose 75.1 ml/min Estimated GFR () 71.1 Estimated GFR (Non- 61.3 BUN/Creatinine Ratio 57.3 (10-20) Calcium Level 8.5 mg/dl (8.5-10.1) Total Bilirubin 0.8 mg/dl (0.2-1) Aspartate Amino Transf (AST/SGOT) 15 U/L (15-37) Alanine Aminotransferase (ALT/SGPT) 44 U/L (12-78) Alkaline Phosphatase 53 U/L (45-117) Total Creatine Kinase 67 U/L (39-308) Creatine Kinase MB 1.0 ng/ml (0.5-3.6) Creatine Kinase MB Ratio 1.5 (0-3.0) Troponin I 0.027 ng/ml (0-0.045) Total Protein 7.1 gm/dl (6.4-8.2) Albumin 2.9 gm/dl (3.4-5.0) Globulin 4.2 gm/dl (2.5-4.0) Albumin/Globulin Ratio 0.7 (0.9-2) Bedside Lactic Acid Venous 2.05 mmol/L (0.90-1.70) Bedside Troponin I 0.010 ng/ml (0-0.045) Bedside Hemoglobin 14.6 g/dl (14.0-18.0) Bedside Hematocrit 43 % (42-52) Bedside Sodium 131 mEq/L (135-144) Bedside Potassium 5.6 mEq/L (3.3-5.0) Bedside Chloride 96 mEq/L (101-112) Bedside Total CO2 25 mEq/l (24-31) Anion Gap 16.0 mmol/L (16-25) Bedside Blood Urea Nitrogen 62 mg/dl (7-18) Bedside Creatinine 1.2 mg/dl (0.6-1.3) Bedside Glucose (other) 130 mg/dl (70-99) Bedside Ionized Calcium (Arleen) 1.21 mmol/l (1.12-1.32) Laboratory results per my review. Medications Administered Medications (Trade) Dose Ordered Sig/Agustina Route Start Time Stop Time Status Last Admin Dose Admin Sodium Chloride 1,000 ml @ 999 mls/hr Q1H1M STAT IV 02/16/17 06:11 02/16/17 07:11 DC 02/16/17 06:18 999 MLS/HR Piperacillin Sod/ Tazobactam Sod (Zosyn Iv) 4.5 gm NOW STAT IV 02/16/17 06:11 6/5/17 06:12 DC 02/16/17 06:18 4.5 GM Daptomycin 600 mg/ Sodium Chloride 62 ml @ 100 mls/hr NOW STAT IV 02/16/17 06:11 02/16/17 06:48 DC 02/16/17 06:51 100 MLS/HR Procedure Daptomycin 600 mg/Sodium Chloride 62 ml @ 100 mls/hr IV, Zosyn IV 4.5 gm IV, Sodium Chloride 1000 ml @ 999 mls/hr IV ECG Indication: chest pain Rate (beats per minute): 97 Rhythm: normal sinus Findings: no acute ischemic change, no ectopy ED Course 05: Past medical records reviewed. The patient was evaluated in room B07. A complete history and physical exam was performed. 2 IV locks were initiated and the patient was bolused with IV normal saline solution for hypotension. A twelve-lead EKG was obtained I attest that I have personally reviewed the patient's current medication list. Patient was found to have normal blood pressure on screening and does not require follow-up. As the patient received IV fluids, he went for CT scan of the chest, abdomen and pelvis as described above. 0608: I discussed the patient's case with Dr. Green, from [facility]. 0611: The patient had a significant leukocytosis and elevated lactate. I was concerned for septic shock. The patient was given Daptomycin 600 mg/Sodium Chloride 62 ml @ 100 mls/hr IV, Zosyn IV 4.5 gm IV, Sodium Chloride 1000 ml @ 999 mls/hr IV 0619: I reevaluated the patient. His blood pressure is no 100/53. 0646: I reevaluated the patient who is feeling better. His systolic blood pressure was 119. 0709: I discussed the patient's case with Dr. Santos, 3d specialist with [facility]. 0720: I discussed the patient's case with Silke Crystal PA-C with [facility]. 0725: Upon reevaluation, I discussed findings and results of the CT scans with him. He verbalized agreement of the treatment plan. The patient will be evaluated for further management and care. Medical Decision The patient presents to the Emergency Room with complaints of rectal bleeding. Differential diagnosis includes but is not limited to sepsis, abdominal trauma, chest trauma, GI bleeding. His labs showed white blood cell count of 26.1, hemoglobin 13.5, patellate count of 345, last lactic acid 2.0, troponin of 0.027, glucose 124, LFTs are normal, BUN 69, creatinine 1.2, sodium 133, potassium 5.4, normal coags. Previous records from February 14 showed the patient had a white count of 12 and hemoglobin of 15.2. This is a 71-year-old male patient with a history of COPD who was currently admitted at [facility] for idiopathic neuropathy. Over the past 2 days, the patient has developed a fever and some rectal bleeding. The patient describes suffering a fall days ago where he struck his chest on the footboard. It seems that he suffered an acute sternal fracture along with multiple rib fractures and pulmonary contusion as a result of this. During the patient's most recent admission to the hospital, he was treated for COPD exacerbation and had a cough. The cough continues. He is in no respiratory distress and has adequate O2 saturation. The patient was treated with daptomycin and Zosyn out of concern for septic shock with an unknown source. I discussed the case with the 3d specialist as well as the hospitalist and they will admit the patient to the ICU. Consults Time Called: 06 Consulting Physician: Dr. Green, from [facility] Returned Call: [phone] I discussed the patient's case with Dr. Green, from [facility]. Additional Consults: Time Called: 06 Consulted Physician: Dr. Santos, 3d specialist with [facility] Returned Call: [phone] Additional Comments: I discussed the patient's case with Dr. Santos, 3d specialist with [facility]. Time Called: 06 Consulted Physician: Silke Crystal PA-C with [facility] Returned Call: 0720 Additional Comments: I discussed the patient's case with Silke Crystal PA-C with [facility]. Impression Primary Impression: Septic shock Additional Impressions: GI bleed Sternal fracture Fracture of rib of right side Critical Care I have personally spent greater than 90 minutes of critical care time in the direct management of this patient. This includes bedside care, interpretation of diagnostic studies, and testing, discussion with consultants, patient, and family members, and other required patient management activities. This 90 minutes is in excess of all separately billable procedures. Scribe Attestation The scribe's documentation has been prepared under my direction and personally reviewed by me in its entirety. I confirm that the note above accurately reflects all work, treatment, procedures, and medical decision making performed by me. Departure Information Dispostion Being Evaluated By Hospitalist Referrals No Doctor, Assigned (PCP) Patient Instructions My [facility] Problem Qualifiers
[2017-02-16] MEDS ORDERED: OPTIRAY 320 IV PRN (06:00)
[2017-02-16] MEDS ORDERED: ACET500T57 PO (06:02)
[2017-02-16] MEDS ORDERED: BISA10SU5 RE (06:04)
[2017-02-16] MEDS ORDERED: ALUMSUS2 PO (06:06)
[2017-02-16] MEDS ORDERED: MOML PO (06:06)
[2017-02-16] MEDS ORDERED: SODIENE PR (06:07)
[2017-02-16 06:08] LABS: BUN/CREATININE RATIO 57.3 (10-20); CALCIUM 8.5 mg/dl (8.5-10.1); CREATININE 1.2 mg/dl (0.60-1.40); POTASSIUM 5.4 mmol/L (3.5-5.1)
[2017-02-16] MEDS ORDERED: PHENSUP RE (06:09)
[2017-02-16] MEDS ORDERED: SIME125C52 PO (06:09)
[2017-02-16] MEDS ORDERED: PIPERACILLIN/TAZOBACTAM 4.5 GM/100ML D5W IV STA (06:11)
[2017-02-16] MEDS ORDERED: DAPTOmycin IV 600 MG in SODIUM CHLORIDE 0.9% 50ML 50 ML IV STA (06:11)
[2017-02-16] MEDS ORDERED: SODIUM CHLORIDE 0.9% 1000ML 1,000 ML IV STA (06:11)
[2017-02-16 06:13] LABS: ALB/GLOB RATIO 0.7 (0.9-2); CKMB/CK RATIO 1.5 (0-3.0)
[2017-02-16 06:22] LABS: INR 1.1 (0.9-1.1); PROTHROMBIN TIME (PATIENT) 11.6 SECONDS (9.0-12.0)
[2017-02-16 06:31] LABS: BASO ABS # 0.01 K/uL (0-0.2); COMPLETE YES; HYPERSEGMENTED POLYS 1+; IG% 0.8 %; LYMPH % 6.7 %; LYMPH ABS # 1.76 K/uL (1.2-3.4); MONO % 8.5 %
--- NOTE | 2017-02-16 06:52 | DIAGNOSTIC IMAGING REPORT ---
CT ABD/PELVIS IV CONTRAST ONLY CLINICAL HISTORY: Abdominal trauma. Rectal bleeding. COMPARISON STUDY: 01/15/2016 TECHNIQUE: Following the IV administration of 93 mL of Optiray-320, CT scan of the abdomen and pelvis was performed from the lung bases to the proximal femurs. Images are reviewed in the axial, sagittal, and coronal planes. IV contrast was administered without complication. CT DOSE: 2186.25 mGy.cm FINDINGS: Lower chest: The heart is normal in size and configuration, without pericardial effusion. The lung bases and pleural spaces are clear. Liver: The contrast-enhanced liver is normal in size, contour, and attenuation. There is no intrahepatic biliary ductal dilatation. The hepatic veins and portal veins are patent. Gallbladder: Unremarkable. Spleen: Normal in size and attenuation. Pancreas: Unremarkable. Adrenal glands: Unremarkable. Kidneys: There is a 3.3 cm indeterminate right renal mass. The prior CT scan confirmed that this was an enhancing mass is therefore suspicious for a renal cell carcinoma. Bowel: There are no transition zones indicate bowel obstruction. There are no acute inflammatory changes. Peritoneum: There is no intraperitoneal free air or abdominal ascites. Vasculature: The abdominal aorta is normal in course and caliber. Adenopathy: None. Pelvic viscera: The bladder, and pelvic viscera are unremarkable. Skeletal structures: No destructive osseous lesions are seen. IMPRESSION: 1. Stable 3.3 cm indeterminate right renal mass, previously suspected to represent a renal cell carcinoma 2. No evidence of acute intra-abdominal or pelvic injury. Electronically signed by: Vineet Mallory M.D. 02/16/2017 6:51 AM Dictated Date/Time: 02/16/2017 6:44 AM
--- NOTE | 2017-02-16 07:25 | DIAGNOSTIC IMAGING REPORT ---
CT OF THE CHEST WITH IV CONTRAST CLINICAL HISTORY: Trauma. COMPARISON STUDY: Chest CT September 08, 2006 and chest radiograph February 10, 2017. TECHNIQUE: Following IV administration of 93 mL of Optiray-320, helical axial images of the chest were obtained. Images were viewed in the axial, sagittal and coronal planes. IV contrast was administered without complication. FINDINGS: There is no evidence of traumatic injury to the thoracic aorta. The size of the heart is normal. There are calcified mediastinal and hilar lymph nodes. There is a contusion of the subcutaneous tissues anterior to the sternum with an acute nondisplaced transverse fracture through the inferior sternum. There are acute nondisplaced fractures of the anterior right fourth, fifth and sixth ribs. There is no pneumothorax or pleural effusion. There is no acute thoracic spine fracture. There are scattered groundglass opacities with patchy airspace opacities with the left upper lobe. There is a 7 mm right upper lobe airspace opacity shown on image 135 of 371. The abdomen and pelvis will be reported separately but a right renal mass suspicious for renal cell carcinoma is partially imaged. IMPRESSION: 1. Acute nondisplaced transverse fracture of the inferior sternum. Overlying subcutaneous contusion and small adjacent hematoma. 2. Acute nondisplaced fractures of the right fourth, fifth and sixth ribs. No pneumothorax. 3. Mild left upper lobe opacity which could reflect an infectious process or less likely pulmonary contusion. Scattered groundglass opacities including a few nodular opacities which measure up to 7 mm. These findings are likely benign but a follow-up chest CT in 3 months to ensure resolution is recommended. 4. Redemonstration of the right renal lesion which is suggestive of renal cell carcinoma. Electronically signed by: Tim Hayden M.D. 02/16/2017 7:24 AM Dictated Date/Time: 02/16/2017 7:16 AM
[2017-02-16 07:30] LABS: URINE APPEARANCE CLEAR (CLEAR); URINE BILIRUBIN NEG (NEG); URINE COLOR YELLOW; URINE EPITHELIAL CELL AUTO 20-30 /lpf (0-5); URINE NITRITE NEG (NEG); URINE PH 5.5 (4.5-7.5); URINE SPECIFIC GRAVITY 1.041 (1.000-1.030); UROBILINOGEN NEG (NEG); ZZUR CULT IF INDIC CLEAN CATCH NO
[2017-02-16 07:37] LABS: MANUAL MICROSCOPIC REQUIRED? NO; REVIEW REQ? NO
[2017-02-16 07:57] VITALS: O2SAT 97; Ht 198.1 cm; Wt 106.7 kg
[2017-02-16] MEDS ORDERED: ONDANSETRON INJ 2 MG/ML 2 ML VIAL IV PRN (08:00)
[2017-02-16] MEDS ORDERED: ENOXAPARIN 40 MG/0.4 ML SYR SC SCH (08:00)
[2017-02-16] MEDS ORDERED: POLYETHYLENE (MIRALAX) 17 GM PACK PO PRN (08:00)
[2017-02-16] MEDS ORDERED: LEValbuterol HFA 15GM INHALER INH PRN (08:00)
--- NOTE | 2017-02-16 08:01 | History and Physical ---
History & Physical Date & Time of Service: Feb 16, 2017 at 07:41 Chief Complaint: Rectal Bleed Primary Care Physician: Jose Avila M.D. History of Present Illness Source: patient, family This is a 71 yo M with PMHx of COPD, HTN, hyperlipidemia, hx of hemorrhoids, and frequent falls who presents from [facility] with increased cough, fever, rectal bleed and s/p fall with trauma to the chest wall. 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 The patient notes that he has had a cough for several weeks now, which is nonproductive, but then last night developed a fever. He became diaporetic, although denies any chills or shakes. He admits to some shortness of breath but says its improved since being in the hospital for COPD exacerbation, and was finishing a prednisone taper. His last day of prednisone taper is tomorrow. He reports that he fell on February 14, while he was up walking from the bathroom back to his bed at night he tripped and fell into the foot board injuring his chest, hitting his sternum. He denies losing consciousness or dizziness at that time, or any injury to the head. The patient also notes that he had recently been constipated and had been straining to have a bowel movement. He notes that there was some bright red blood streaking in his stools. The patient does admit to a history of this although has not had a bleed in his bowels for a long time. He was on a daily Lovenox injection while staying at [facility]. He denies any lightheadedness or dizziness recently. Here in the ER upon admission the patient was hypotensive with BP=86/61, blood cultures were drawn, 2 L of NSS administered, and Zosyn and daptomycin were administered. The patient has a WBC 26 with left shift, which is increased from 12K at time of discharge from hospital on February 13. His hemoglobin has dropped in the last 2 days from 15 to13. An EKG was performed that shows normal sinus rhythm without any signs of pericarditis, ischemia or ST wave inversions. CT of the chest completed showing fractures of the distal third sternum, and right 3rd-5th ribs. Past Medical/Surgical History COPD Hypertension Hyperlipidemia Frequent falls Vitamin D deficiency History of hemorrhoids Family History Cancer Heart disease Social History Smoking Status: Never Smoker Smokeless Tobacco Use: No Alcohol Use: none Drug Use: none Marital Status: single Housing status: lives alone Occupational Status: retired Immunizations History of Influenza Vaccine: No Influenza Vaccine Date: Jul 20, 2009 History of Tetanus Vaccine?: No History of Pneumococcal: No History of Hepatitis B Vaccine: No Multi-Drug Resistant Organisms History of MDRO: No Allergies Coded Allergies: BEE STING (Verified Allergy, Severe, 02/16/17) Cefadroxil (Unverified Allergy, Intermediate, UNKNOWN, 02/16/17) Cephalexin (Unverified Allergy, Intermediate, UNKNOWN, 02/16/17) Escitalopram (Unverified Allergy, Intermediate, UNKNOWN, 02/16/17) Omeprazole (Unverified Allergy, Intermediate, UNKNOWN, 02/16/17) Pantoprazole (Unverified Allergy, Intermediate, UNKNOWN, 02/16/17) Wheat (Unverified Allergy, Intermediate, UNKNOWN, 02/16/17) Home Medications Scheduled Azelastine Hcl (Astelin Nasal [place]), 2 SPRAYS RAIZA DAILY Cholecalciferol (Vitamin D3), 2,000 INTER.UNIT PO QAM Docusate Sodium (Colace), 1 CAP PO BID Enoxaparin (Lovenox), 40 MG SQ DAILY Ergocalciferol (Drisdol), 1 CAP PO WK Finasteride (Finasteride), 5 MG PO DAILY Metoprolol Tartrate (Lopressor) (Lopressor), 100 MG PO BID Montelukast Sodium (Singulair), 10 MG PO DAILY Polyethylene Glycol 3350 (Miralax), 17 GM PO DAILY Prednisone Tab (Prednisone), 10 MG PO UD Senna/Docusate Sod (Senokot S), 1 TAB PO DAILY Tiotropium [place] (Spiriva Handihaler), 1 CAP INH DAILY Scheduled PRN Acetaminophen (Acetaminophen), 1 TAB PO Q4 PRN for Pain or Fever Alum & Mag Hydrox-Simethicone (Maalox Max Susp), 30 ML PO Q4 PRN for HEARTBURN/ GAS Bisacodyl (Bisacodyl), 10 MG RE Q24H PRN for NO BM >2DAYS/CONSTIPATION Levalbuterol Tartrate (Levalbuterol Tartrate Hfa), 2 PUFFS INH Q4 PRN for SOB/ Wheezing Magnesium Hydroxide (Milk Of Magnesia), 30 ML PO Q24H PRN for NO BM>1 DAY/ CONSTIPATION Phenylephrine-Shark Liver Oil- (Preparation H), 1 SUPP RE DAILY PRN for Hemorrhoids Simethicone (Gas Relief Extra Strength), 125 MG PO BID PRN for GAS Sodium Phosphate/Biphosphate (Fleet Enema), 1 EA [place] Q24 PRN for NO BM >3 DAYS/ CONSTIPATION Review of Systems Constitutional: + fever, No sweats or chills Eyes: No diplopia, no worsening or blurred vision ENT: normal hearing, no trouble swallowing Respiratory: + cough, no sputum, ongoing minor SOB with exertion, no dyspnea at rest, + R chest wall pain Cardiovascular: No flutter or palpitations Abdomen: No pain, nausea, vomiting, diarrhea . + constipation w/ hx of blood streaked stools Musculoskeletal: No joint pain, calf pain, swelling Neurologic: No weakness, numbness/tingling, + gait disturbance, + frequent falls , + balance problems Psychiatric: No anxiety or depression Skin: No rash or itch Physical Exam Vital Signs Date Time Temp Pulse Resp B/P (MAP) Pulse Ox O2 Delivery O2 Flow Rate FiO2 02/16/17 07:16 76 15 134/73 97 Nasal Cannula 2.0 02/16/17 06:33 80 18 119/55 98 Nasal Cannula 2.0 02/16/17 06:19 77 18 100/53 98 Nasal Cannula 2.0 02/16/17 05:50 94 18 86/57 96 Nasal Cannula 2.0 02/16/17 05:32 93 Room Air 02/16/17 05:29 94 02/16/17 05:28 36.7 94 18 86/61 93 Room Air General: awake, alert, mild apparent distress Head: Normocephalic, atraumatic ENT: PERRL, EOMI, no phangeal exudate, mucous membranes moist Chest: On 2 L O2 via NC, slightly diminished breath sounds in the left upper posterior gustafson. + wheeze, + ecchymosis forming over the distal third of the sternum. Cardiac: Regular rate and rhythm, no murmur, no JVD, normal peripheral pulses, good capillary refill. + orthostatic BP, dropped 20 points from laying flat to sitting. Abdominal: NABS x 4 quadrants, soft, nontender to palpation, no rebound, guarding or tenderness Extremities: Normal inspection, no peripheral edema or erythema, calfs nontender to palpation Psych: Normal mood and affect Neuro: AAO x 3, speech is clear, no peripheral sensory deficits Diagnostics Laboratory Results Results Past 24 Hours Test 02/16/17 05:35 02/16/17 05:36 02/16/17 05:41 02/16/17 07:05 Range/Units White Blood Count 26.15 4.8-10.8 K/uL Red Blood Count 4.75 4.7-6.1 M/uL Hemoglobin 13.5 14.0-18.0 g/dL Hematocrit 41.5 42-52 % Mean Corpuscular Volume 87.4 80-100 fL Mean Corpuscular Hemoglobin 28.4 25-34 pg Mean Corpuscular Hemoglobin Concent 32.5 32-36 g/dl Platelet Count 345 130-400 K/uL Mean Platelet Volume 9.7 7.4-10.4 fL Neutrophils (%) (Auto) 84.0 % Lymphocytes (%) (Auto) 6.7 % Monocytes (%) (Auto) 8.5 % Eosinophils (%) (Auto) 0.0 % Basophils (%) (Auto) 0.0 % Neutrophils # (Auto) 21.92 1.4-6.5 K/uL Lymphocytes # (Auto) 1.76 1.2-3.4 K/uL Monocytes # (Auto) 2.23 0.11-0.59 K/uL Eosinophils # (Auto) 0.01 0-0.5 K/uL Basophils # (Auto) 0.01 0-0.2 K/uL RDW Standard Deviation 42.3 36.4-46.3 fL RDW Coefficient of Variation 13.2 11.5-14.5 % Immature Granulocyte % (Auto) 0.8 % Immature Granulocyte # (Auto) 0.22 0.00-0.02 K/uL Hypersegmented Polys 1+ Prothrombin Time 11.6 9.0-12.0 SECONDS Prothromb Time International Ratio 1.1 0.9-1.1 Activated Partial Thromboplast Time 26.5 21.0-31.0 SECONDS Partial Thromboplastin Ratio 1.0 Sodium Level 133 136-145 mmol/L Potassium Level 5.4 3.5-5.1 mmol/L Chloride Level 97 98-107 mmol/L Carbon Dioxide Level 27 21-32 mmol/L Anion Gap 9.0 16.0 16-25 mmol/L Blood Urea Nitrogen 69 7-18 mg/dl Creatinine 1.20 0.60-1.40 mg/dl Est Creatinine Clear Calc Drug Dose 75.1 ml/min Estimated GFR () 71.1 Estimated GFR (Non- 61.3 BUN/Creatinine Ratio 57.3 10-20 Random Glucose 124 70-99 mg/dl Calcium Level 8.5 8.5-10.1 mg/dl Total Bilirubin 0.8 0.2-1 mg/dl Aspartate Amino Transf (AST/SGOT) 15 15-37 U/L Alanine Aminotransferase (ALT/SGPT) 44 12-78 U/L Alkaline Phosphatase 53 45-117 U/L Total Creatine Kinase 67 39-308 U/L Creatine Kinase MB 1.0 0.5-3.6 ng/ml Creatine Kinase MB Ratio 1.5 0-3.0 Troponin I 0.027 0-0.045 ng/ml Total Protein 7.1 6.4-8.2 gm/dl Albumin 2.9 3.4-5.0 gm/dl Globulin 4.2 2.5-4.0 gm/dl Albumin/Globulin Ratio 0.7 0.9-2 Bedside Lactic Acid Venous 2.05 0.90-1.70 mmol/L Bedside Troponin I 0.010 0-0.045 ng/ml Bedside Hemoglobin 14.6 14.0-18.0 g/dl Bedside Hematocrit 43 42-52 % Bedside Sodium 131 135-144 mEq/L Bedside Potassium 5.6 3.3-5.0 mEq/L Bedside Chloride 96 101-112 mEq/L Bedside Total CO2 25 24-31 mEq/l Bedside Blood Urea Nitrogen 62 7-18 mg/dl Bedside Creatinine 1.2 0.6-1.3 mg/dl Bedside Glucose (other) 130 70-99 mg/dl Bedside Ionized Calcium (Arleen) 1.21 1.12-1.32 mmol/l Urine Color YELLOW Urine Appearance CLEAR CLEAR Urine pH 5.5 4.5-7.5 Urine Specific [place] 1.041 1.000-1.030 Urine Protein NEG NEG Urine Glucose (UA) NEG NEG Urine Ketones NEG NEG Urine Occult Blood NEG NEG Urine Nitrite NEG NEG Urine Bilirubin NEG NEG Urine Urobilinogen NEG NEG Urine Leukocyte Esterase NEG NEG Urine WBC (Auto) 1-5 0-5 /hpf Urine RBC (Auto) 0-4 0-4 /hpf Urine Hyaline Casts (Auto) 1-5 0-5 /lpf Urine Epithelial Cells (Auto) 20-30 0-5 /lpf Urine Bacteria (Auto) NEG NEG Microbiology Results 02/16/17 Blood Culture, Received Pending 02/16/17 Blood Culture, Received Pending Diagnostic Radiology CT of the chest IMPRESSION: 1. Acute nondisplaced transverse fracture of the inferior sternum. Overlying subcutaneous contusion and small adjacent hematoma. 2. Acute nondisplaced fractures of the right fourth, fifth and sixth ribs. No pneumothorax. 3. Mild left upper lobe opacity which could reflect an infectious process or less likely pulmonary contusion. Scattered groundglass opacities including a few nodular opacities which measure up to 7 mm. These findings are likely benign but a follow-up chest CT in 3 months to ensure resolution is recommended. 4. Redemonstration of the right renal lesion which is suggestive of renal cell carcinoma. CT of the abdomen and pelvis IMPRESSION: 1. Stable 3.3 cm indeterminate right renal mass, previously suspected to represent a renal cell carcinoma 2. No evidence of acute intra-abdominal or pelvic injury. EKG EKG reviewed, normal sinus rhythm, no ST-T wave inversions or signs of ischemia. No signs of pericarditis. Impression Assessment and Plan This is a 71 yo M with PMHx of COPD, HTN, hyperlipidemia, hx of hemorrhoids, and frequent falls who presents from [facility] with increased cough, fever, rectal bleed and s/p fall with trauma to the chest wall. Septic shock - Admit to telemetry - Blood cultures, UA, urine culture in process - Patient received 2 L normal saline in the ER, continue IV fluids at 100mL/hr for fluid resuscitation - Orthostatic BPs - Possible source of infection in the left upper lobe, CT of the chest was reviewed. - Continue Zosyn and vancomycin, patient received 1 dose daptomycin ER. - We will hold metoprolol 100 mg twice a day for now with low blood pressures. S/p fall, distal sternal fracture, Right 3,4,5 rib fx. - Supportive therapy with incentive spirometry and flutter to prevent any collapse of lung, - 2D echocardiogram to r/o pericardial effusion Rectal bleed - Continue patient on stool softener with hx of constipation and blood streaked stools. - Start the patient on famotidine 20mg twice a day since he's allergic to omeprazole and pantoprazole. - consider a GI consult - Follow hgb with am labs COPD - Patient was recently admitted for a COPD exacerbation and mild bronchitis, CT of the chest or to review. - We'll continue incentive spirometry, flutter therapy along with his home inhaler therapies including Spiriva and Singulair - Was on prednisone taper and received 10 mg this morning, last dose was scheduled for 02/17/17 of 10 mg. Will hold for now. Frequent falls - PT OT - Ambulation with assistance -Checking a Lyme's titer Hypertension - Hold metoprolol 100 mg BID for now Hyperlipidemia - Diet and exercise - We'll check a lipid panel with a.m. labs Hx Renal Cell Carcinoma? - CT abd pelvis shows a 3.3 cm lesion in the right kidney suggestive of RCC- appears stable, old finding on imaging. - Will run urine cytology to check. DVT prophylaxis: lovenox, teds, scds CODE STATUS: DNR Disposition: From [facility], likely will need rehab stay again. PA Physician Supervision Note: I interviewed and examined the patient. Discussed with Silke Crystal PAC and agree with findings and plan as documented in the note. Any exceptions or clarifications are listed here: None this pt is much improved from his initial presentation, is mentating well and states he just tripped but was lightheaded, he has mostly complaints of dyspepsis and pain in chest consitent with his sternal and rib fractures vitals reviewed car is reg, painful to palpate chest wall lungs decreased at bases, splinting Hypotension with initial concern for Septic shock - Blood cultures, UA, urine culture pending, given markedly high WBC(26K) will also check C Diff Fluid recussitaiton in er and , CT of the chest may suggest pneumonia on Zosyn and vancomycin, hold metoprolol due to low blood pressures. S/p fall, distal sternal fracture, Right 3,4,5 rib fx. -pain control and rule out pericardia or myocardial injury with echo Rectal bleed, clinically follow at present renal mass, / Hx Renal Cell Carcinoma? - CT abd pelvis shows a 3.3 cm lesion in the right kidney suggestive of RCC- appears old DVT prophylaxis: lovenox,cautiously with rectal bleeding CODE STATUS: DNR Documented By: Randell Jones Level of Care Telemetry Resuscitation Status DO NOT RESUSCITATE VTE Prophylaxis Given or contraindicated: Tobin Stockings, SCD's
[2017-02-16 08:54] LABS: LYME DISEASE AB IGG NEG (NEG); LYME DISEASE AB IGM NEG (NEG)
--- NOTE | 2017-02-16 09:01 | Progress Note ---
Progress Note Date of Service Feb 16, 2017. Progress Note ICU Note - We were called by Dr Polk that the pt may be admitted to the ICU, hence we reviewed the chart, and then he was admitted to Telemetry Clare Carrion MD PGY-2 Resident
[2017-02-16] MEDS ORDERED: VANCOMYCIN CONSULT ACTIVE PRN (10:15)
[2017-02-16] MEDS ORDERED: PIPERACILL/TAZOBAC CONSULT ACTIVE PRN (10:15)
[2017-02-16] MEDS: SODIUM CHLORIDE 0.9% 1000ML 1,000 ML IV SCH ×2 (10:19→20:05)
[2017-02-16] MEDS: FAMOTIDINE IV INJ 20 MG in DEXTROSE 5% 100ML 100 ML IV SCH ×2 (10:19→20:32)
[2017-02-16] MEDS: ALUMINUM/MAGNESIUM/SIMETH (MAALOX MAX) 30 ML UDC PO PRN (10:25)
[2017-02-16] MEDS: ACETAMINOPHEN 325 MG TAB PO PRN (10:25)
[2017-02-16] MEDS: DOCUSATE SODIUM 100 MG CAP PO SCH ×2 (10:30→20:32)
[2017-02-16] MEDS: MONTELUKAST SOD 10 MG TAB PO SCH (10:30)
[2017-02-16] MEDS: CHOLECALCIFEROL 1000 INTER.UNIT TAB PO SCH (10:30)
[2017-02-16] MEDS: FINASTERIDE 5 MG TAB PO SCH (10:31)
[2017-02-16] MEDS: TIOTROPIUM BROMIDE 5 PUFF/90 MCG INH INH SCH (10:31)
[2017-02-16 10:41] VITALS: BP 95/57; PULSE 73; TEMP 37.5; O2SAT 96
[2017-02-16] MEDS ORDERED: VANCOMYCIN INJ 2,600 MG in SODIUM CHLORIDE 0.9% 500ML 500 ML IV ONE (11:00)
[2017-02-16] MEDS: PIPERACILL/TAZOBAC IV 4.5 GM in DEXTROSE 5% 100ML 100 ML IV SCH ×2 (12:23→20:05)
[2017-02-16] MEDS ORDERED: ALUMINUM/MAGNESIUM/SIMETH (MAALOX MAX) 30 ML UDC PO PRN (12:45)
[2017-02-16] MEDS ORDERED: MoRPHine SULFATE 2 MG/ML CARP IV PRN (12:45)
[2017-02-16] MEDS ORDERED: OXYCODONE HCL IR 5 MG TAB (IMMEDIATE RELEASE) ONE (13:10)
--- NOTE | 2017-02-16 13:55 | Pharmacy Progress Note ---
Pharmacy Abx Initial Consult Date of Service Feb 16, 2017. Pharmacy Dosing Scope Date of Consult: 02/16/17 Consultation requested by: PITO Clancy Pharmacy is consulted to initiate Vancomycin/Zosyn IV dosing therapy, order appropriate labs and adjust drug dose/frequency. Subjective The patient is a 71 year old male admitted on Feb 16, 2017 at 07:56. Objective Height (Feet): 6 Height (Inches): 6.00 Weight (Kilograms): 104.000 Vital Signs (Past 12Hrs) Vital Signs Past 12 Hours Date Time Temp Pulse Resp B/P (MAP) Pulse Ox O2 Delivery O2 Flow Rate FiO2 02/16/17 10:41 37.5 73 20 95/57 (70) 96 96.0 02/16/17 05:28 36.7 94 18 86/61 93 Room Air Lab Results (24Hrs) Item Value Date Time White Blood Count 26.15 K/uL H 02/16/17 0535 Neutrophils # (Auto) 21.92 K/uL H 02/16/17 0535 Creatinine 1.20 mg/dl 02/16/17 0535 Est Creatinine Clear Calc Drug Dose 75.1 ml/min 02/16/17 0535 Bedside Lactic Acid Venous 2.05 mmol/L H 02/16/17 0536 Item Value Date Time Urine Color YELLOW 02/16/17 0705 Urine Appearance CLEAR 02/16/17 0705 Urine pH 5.5 02/16/17 0705 Urine Specific [place] 1.041 H 02/16/17 0705 Urine Protein NEG 02/16/17 0705 Urine Glucose (UA) NEG 02/16/17 0705 Urine Ketones NEG 02/16/17 0705 Urine Occult Blood NEG 02/16/17 0705 Urine Nitrite NEG 02/16/17 0705 Urine Bilirubin NEG 02/16/17 0705 Urine Urobilinogen NEG 02/16/17 0705 Urine Leukocyte Esterase NEG 02/16/17 0705 Urine WBC (Auto) 1-5 /hpf 02/16/17 0705 Urine RBC (Auto) 0-4 /hpf 02/16/17 0705 Urine Hyaline Casts (Auto) 1-5 /lpf 02/16/17 0705 Urine Epithelial Cells (Auto) 20-30 /lpf H 02/16/17 0705 Urine Bacteria (Auto) NEG 02/16/17 0705 Serology Item Value Date Time Lyme Disease IgG Antibody NEG 02/16/17 0735 Lyme Disease IgM Antibody NEG 02/16/17 0735 Micro Results Date/Time Source Procedure Growth Status 02/16/17 05:35 Blood Blood Culture Pending Received 02/16/17 05:30 Blood Blood Culture Pending Received Risk Factors for Resistance * Resident in a penitentiary or extended-care facility * [facility] * Hospitalization for 48 hours or more within the past 90 days * Admitted 02/10-02/13 for bronchitis/COPD exac * Immunocompromised * Steroids for COPD (near completion of prednisone taper) Assessment & Plan Assessment * 71 year old male admitted with septic shock, ?pneumonia. * On admission: * WBC 26.15, lactic acid 2.05, BP 86/61, HR 94, RR 18, afebrile * Patient received Daptomycin 600mg IV x1 dose and Zosyn 4.5gm IV x1 dose in the ED Plan Vancomycin IV * Loading dose: 2600 mg (25 mg/kg) * Maintenance dose: 1650 mg IV (~16 mg/kg) every 12 hours * Estimated p'kinetic parameters (based on CrCl 75mL/min): * Vd ~ 0.7L/kg Ke ~ 0.067/hr t1/2 ~ 10.3hr * Expect that renal function may improve after hydration (b/l SCr ~ 0.8mg/dL) * Goal trough level for sepsis/pna : 15 to 20 mcg/mL * Trough level ordered for 02/18/17 prior to the 4th maintenance dose. Piperacillin/tazobactam * 4.5 g bolus administered over 30 minutes, then 4.5 g IV extended infusion every 8 hours for CrCl greater than 20 mL/min * Aggressive dosing selected due to critically ill status/BMI 35 or more/ history of cystic fibrosis. Pharmacy will continue to follow and will adjust dose/frequency as necessary. Thank you.
[2017-02-16] MEDS ORDERED: PERFLUTREN LIPID MICROSPHERE (DEFINITY) IV ONE (13:56)
[2017-02-16 15:10] VITALS: BP 122/72; PULSE 99; TEMP 36.7; O2SAT 92
[2017-02-16] MEDS ORDERED: GI COCKTAIL PO PRN (17:30)
--- NOTE | 2017-02-16 18:41 | ECHOCARDIOGRAM REPORT ---
*NOTICE TO RECEIVING DEMOCRAT AGENCY This information is strictly Confidential and protected under [place] law. [place] law prohibits you from making any further disclosure of this information unless further disclosure is expressly permitted by the written consent of the person to whom it pertains or is authorized by law. A general authorization for the release of medical or other information is not sufficient for this purpose. Hospital accepts no responsibility if the information is made available to any other person, INCLUDING THE PATIENT. Interpretation Summary * Name: AHMET OWENS Study Date: 02/16/2017 01:26 PM BP: 95/57 mmHg * Patient Location: .2E\S\E201\S\1 HR: 73 * : 1945 (M/d/yyyy) Gender: Male Height: 78 in * Age: 71 yrs Ethnicity: CA Weight: 229 lb * Ordering Physician: Silke Crystal * Referring Physician: Leonard Fisher D.O. * Performed By: Cookie Charles RDCS * * Reason For Study: pericardial disease * BSA: 2.4 m2 * -- Conclusions -- * 1. Normal LV size. Borderline concentric LVH. * 2. Hyperdynamic LV function. LVEF >70%. No regional wall motion abnormalities. * 3. Normal RV size and function. * 4. No significant valvular pathology. * 5. Normal estimated CVP * 6. No significant pericardial disease * 7. Compared with prior study on 10/10/2011: No significant change Procedure Details * A complete two-dimensional transthoracic echocardiogram was performed (2D, M-mode, Doppler and color flow Doppler). * A contrast injection of Definity was performed to improve assessment of LV function. * Contrast was injected into an intravenous site in the left arm. * One vial of Definity ultrasound contrast was diluted in normal saline to a total volume of 10 ml. A total of '2' ml of solution was administered during imaging. * Lot # [id number] of Definity utilized for procedure. * Expiration date 1 MAR 01. * The attending nurse who injected the contrast agent was Leah Antoine RN. Left Ventricle * The left ventricle is grossly normal size. * There is borderline concentric left ventricular hypertrophy. * Ejection Fraction = >70 %. * No regional wall motion abnormalities noted. Right Ventricle * The right ventricle is grossly normal size. * The right ventricular systolic function is normal as assessed by tricuspid annular plane systolic excursion (TAPSE) (normal >1.5 cm). Atria * The left atrial size is normal. * Right atrial size is normal. * No ASD detected; PFO is not assessed. Mitral Valve * The mitral valve is grossly normal. * There is mild mitral annular calcification. * Mitral stenosis is absent. * Significant mitral regurgitation is absent. Tricuspid Valve * The tricuspid valve is not well visualized, but is grossly normal. * There is no tricuspid stenosis. * Significant tricuspid regurgitation is absent. Aortic Valve * The aortic valve opens well. * The aortic valve is trileaflet. * No hemodynamically significant valvular aortic stenosis. * There is no significant aortic regurgitation. Pulmonic Valve * The pulmonary valve is inadequately visualized, but the Doppler data is adequate for interpretation. * Pulmonic stenosis is absent. * Trace pulmonic valvular regurgitation. Great Vessels * The aortic root and proximal ascending aorta are normal sized. Pericardium/Pleural * There is no pericardial effusion. Great Vessels * Normal inferior vena cava size and collapsability with sniff indicates a normal right atrial pressure of 3 mmHg MMode 2D Measurements and Calculations IVSd 1.2 cm LVIDd 4.1 cm LVIDs 2.5 cm LVPWd 1.1 cm IVS/LVPW 1.1 FS 38.3 % EDV(Teich) 75.3 ml ESV(Teich) 23.4 ml EF(Teich) 68.9 % EDV(cubed) 70.1 ml ESV(cubed) 16.5 ml EF(cubed) 76.5 % LV mass(C)d 161.4 grams LV mass(C)dI 67.5 grams/m\S\2 CO(Teich) 4.8 l/min CI(Teich) 2.0 l/min/m\S\2 SV(Teich) 51.9 ml SI(Teich) 21.7 ml/m\S\2 CO(cubed) 5.0 l/min CI(cubed) 2.1 l/min/m\S\2 SV(cubed) 53.6 ml SI(cubed) 22.4 ml/m\S\2 Ao root diam 3.6 cm Ao root area 10.1 cm\S\2 ACS 1.9 cm asc Aorta Diam 2.7 cm LVOT diam 2.0 cm LVOT area 3.2 cm\S\2 LVAd ap4 28.5 cm\S\2 LVLd ap4 8.2 cm EDV(MOD-sp4) 81.3 ml LVAs ap4 11.2 cm\S\2 LVLs ap4 6.3 cm ESV(MOD-sp4) 16.7 ml EF(MOD-sp4) 79.5 % LVAd ap2 22.1 cm\S\2 LVLd ap2 7.5 cm EDV(MOD-sp2) 54.6 ml LVAs ap2 8.1 cm\S\2 LVLs ap2 4.9 cm ESV(MOD-sp2) 12.1 ml EF(MOD-sp2) 77.8 % CO(MOD-sp4) 6.0 l/min CI(MOD-sp4) 2.5 l/min/m\S\2 SV(MOD-sp4) 64.6 ml SI(MOD-sp4) 27.0 ml/m\S\2 CO(MOD-sp2) 4.0 l/min CI(MOD-sp2) 1.7 l/min/m\S\2 SV(MOD-sp2) 42.5 ml SI(MOD-sp2) 17.8 ml/m\S\2 Doppler Measurements and Calculations MV E max rain 73.2 cm/sec MV A max rain 69.4 cm/sec MV E/A 1.1 MV dec time 0.26 sec Ao V2 max 139.8 cm/sec Ao max PG 7.8 mmHg Ao max PG (full) 3.6 mmHg KAYKAY(V,A) 2.4 cm\S\2 KAYKAY(V,D) 2.4 cm\S\2 LV V1 max PG 4.2 mmHg LV V1 max 102.3 cm/sec PA V2 max 97.7 cm/sec PA max PG 3.8 mmHg PA acc slope 424.4 cm/sec\S\2 PA acc time 0.13 sec PA pr(Accel) 20.4 mmHg
[2017-02-16 18:55] VITALS: BP 127/77; PULSE 106; TEMP 37.2; O2SAT 90
[2017-02-16] MEDS: SUCRALFATE 1 GM TAB PO SCH (20:32)
[2017-02-16] MEDS: OXYCODONE HCL IR 5 MG TAB (IMMEDIATE RELEASE) PO PRN (20:32)
[2017-02-16] MEDS: VANCOMYCIN INJ 1,650 MG in SODIUM CHLORIDE 0.9% 500ML 500 ML IV SCH (21:27)
[2017-02-17] VITALS (7 sets, daily range): BP systolic 116–155; BP diastolic 61–81; PULSE 91–124; TEMP 36.7–37.7; O2SAT 92–97
[2017-02-17] MEDS: SODIUM CHLORIDE 0.9% 1000ML 1,000 ML IV SCH ×2 (03:37→15:52)
[2017-02-17] MEDS: PIPERACILL/TAZOBAC IV 4.5 GM in DEXTROSE 5% 100ML 100 ML IV SCH ×3 (03:37→19:40)
--- NOTE | 2017-02-17 07:14 | Hospitalist Progress Note ---
Hospitalist Progress Note Date of Service Feb 17, 2017. (Silke Crystal PA-C) Subjective Pt evaluation today including: conversation w/ patient, physical exam, chart review, lab review, review of studies Pain: None PO Intake: Good Voiding: no voiding problems, incontinence The patient was seen and examined this morning. Pt reports he's doing better today. His mood is down because he's "tired of being sick", but he denies any acute complaints like shortness of breath, chest pain, abd pain. He has c/o last bowel movement being 3 days ago and is requesting something for this. He takes miralax, maalox and silmethicone for gas relief religiously at home. Constitutional: + fatigue, No fever, No sweats Eyes: No redness, No diplopia ENT: No nasal symptoms, No sore throat, No trouble swallowing Respiratory: + cough, + problem reported (does not wear chronic o2), No sputum, No shortness of breath, No dyspnea on exertion Cardiovascular: No chest pain, No palpitations Abdomen: + constipation, No pain, No nausea, No vomiting, No diarrhea Male : + incontinence, No dysuria Neurologic: No weakness, No numbness/tingling Psychiatric: No anxiety, No insomnia Endo: No fatigue Skin: No rash, No itch (Silke Crystal PA-C) Objective Vital Signs Date Time Temp Pulse Resp B/P (MAP) Pulse Ox O2 Delivery O2 Flow Rate FiO2 02/17/17 04:04 Nasal Cannula 2.0 02/17/17 03:57 36.9 91 18 134/81 (98) 93 1.0 02/17/17 00:44 Nasal Cannula 2.0 02/17/17 00:15 36.7 95 18 116/77 (90) 94 1.0 02/16/17 20:22 Nasal Cannula 2.0 02/16/17 18:55 37.2 106 20 127/77 (94) 90 Nasal Cannula 1.0 02/16/17 16:05 Nasal Cannula 2.0 02/16/17 15:10 36.7 99 18 122/72 (89) 92 Room Air 1.0 02/16/17 12:00 Nasal Cannula 2.0 02/16/17 10:41 37.5 73 20 95/57 (70) 96 96.0 02/16/17 09:30 91 18 106/64 91 02/16/17 08:55 91 18 106/64 91 Nasal Cannula 2.0 02/16/17 08:07 83 14 111/65 97 Nasal Cannula 2.0 02/16/17 08:03 90 02/16/17 07:57 97 Nasal Cannula 2.0 02/16/17 07:16 76 15 134/73 97 Nasal Cannula 2.0 (Silke Crystal PA-C) Physical Exam General Appearance: WD/WN, no apparent distress Eyes: PERRL, EOMI ENT: hearing grossly normal, pharynx normal Neck: supple, no JVD Respiratory/Chest: no respiratory distress, no accessory muscle use, + pertinent finding (On 2 L via NC, + expiratory wheeze, diminished breath sounds at bases) Cardiovascular: regular rate, rhythm, no murmur Abdomen: non tender, soft, no organomegaly, + pertinent finding (hypoactive bowel sounds) Extremities: non-tender, no pedal edema, no calf tenderness Neurologic/Psychiatric: alert, oriented x 3, + pertinent finding (+ mild ataxia with upper extremities, likely baseline.) Skin: normal color, warm/dry (Silke Crystal, [id number]) Laboratory Results Last 24 Hours Test 02/16/17 07:35 02/17/17 05:25 Lyme Disease IgG Antibody NEG Lyme Disease IgM Antibody NEG (Silke Crystal PA-C) Assessment and Plan This is a 71 yo M with PMHx of COPD, HTN, hyperlipidemia, hx of hemorrhoids, and frequent falls who presents from [facility] with increased cough, fever, rectal bleed and s/p fall with trauma to the chest wall. Septic shock - Hypotension resolved with fluid resuscitation and with holding antihypertensives - Leukocytosis with left shift is improving. Down from 26K to 16K - Blood cultures in process, - follow - UA was clean - Orthostatic BPs continue for now - Possible source of infection in the left upper lobe, CT of the chest was reviewed, pt with cough but was recently admitted with copd exacerbation and bronchitis. - Continue Zosyn and vancomycin, patient received 1 dose daptomycin ER. = can switch to po once blood cultures come back - We will hold metoprolol 100 mg BID S/p fall, distal sternal fracture, Right 3,4,5 rib fx. - Supportive therapy with incentive spirometry and flutter to prevent any collapse of lung, - 2D echocardiogram 02/16/17, no pericardial effusion * -- Conclusions -- * 1. Normal LV size. Borderline concentric LVH. * 2. Hyperdynamic LV function. LVEF >70%. No regional wall motion abnormalities. * 3. Normal RV size and function. * 4. No significant valvular pathology. * 5. Normal estimated CVP * 6. No significant pericardial disease * 7. Compared with prior study on 10/10/2011: No significant change Rectal bleed - Continue patient on stool softener with hx of constipation and blood streaked stools. - Continue on famotidine 20mg BID since he's allergic to omeprazole and pantoprazole. - Hgb dropped from 13 to 10.2, got large amount of fluid resuscitation yesterday. Will recheck at hgb at 1800 tonight. Follow hgb with am labs COPD - Patient was recently admitted for a COPD exacerbation and mild bronchitis, CT of the chest or to review. - We'll continue incentive spirometry, flutter therapy along with his home inhaler therapies including Spiriva and Singulair - Was on prednisone taper and received 10 mg this morning, last dose was scheduled for 02/17/17 of 10 mg. Will hold for now. - PT still on 2 L O2 via NC, wean as able. Frequent falls - PT OT - likely discharge back to [facility] - Ambulation with assistance - Lyme's titer is negative. Hypertension - Hold metoprolol 100 mg BID for now Hyperlipidemia - Diet and exercise - We'll check a lipid panel with a.m. labs Hx Renal Cell Carcinoma? - CT abd pelvis shows a 3.3 cm lesion in the right kidney suggestive of RCC- appears stable, old finding on imaging. - Will run urine cytology to check. DVT prophylaxis: lovenox, teds, scds CODE STATUS: DNR Disposition: From [facility], likely will need rehab stay again. (Silke Crystal PA-C) Reviewed: Pt Seen/Exam by Me (Bethany Duke DO) History Feeling improved. Still SOB at times and weak. Did not have a bowel movement for several days, nursing reports large bowel movement with black, tarry, sticky stool. No abd pain. Has been tolerating PO with decreased appetite. Ongoing pain related to sternal and rib fractures Agree with HPI/ROS as noted (Bethany Duke, DO) General Appearance: WD/WN, no apparent distress Respiratory: normal breath sounds, no respiratory distress Cardiovascular: normal peripheral pulses, regular rate, rhythm Gastrointestinal: non tender, soft Extremities: non-tender, no pedal edema Neurologic/Psychiatric: alert, oriented x 3 Skin Characteristics: normal color, warm/dry (Bethany Duke, ) Assessment/Plan Agree with plan as outlined above Sister is present, discussed with her also Stool heme + H/H did decrease, but was on IVF Repeat H/H later tonight and again in AM PNA: ongoing abx Down to 1L NC Sternal/rib fractures: pain meds as able Will need to return to [facility] on d/c (Bethany Duke, DO)
[2017-02-17 07:22] LABS: BUN/CREATININE RATIO 52.8 (10-20); CREATININE 0.67 mg/dl (0.60-1.40); POTASSIUM 4.5 mmol/L (3.5-5.1)
[2017-02-17 07:32] LABS: BASO % 0.1 %; BASO ABS # 0.01 K/uL (0-0.2); COMPLETE YES; EOS % 0.3 %; HEMATOCRIT 30.4 % (42-52); IG% 0.4 %; LYMPH % 12.1 %; LYMPH ABS # 1.97 K/uL (1.2-3.4); MEAN CELL VOLUME 87.1 fL (80-100); MEAN CORPUSCULAR HEMOGLOBIN 29.2 pg (25-34); MEAN CORPUSCULAR HGB CONC 33.6 g/dl (32-36); MEAN PLATELET VOLUME 9.6 fL (7.4-10.4); MONO % 10.8 %; NEUT % 76.3 %; PLATELET COUNT 241 K/uL (130-400); RED BLOOD COUNT 3.49 M/uL (4.7-6.1)
[2017-02-17] MEDS: OXYCODONE HCL IR 5 MG TAB (IMMEDIATE RELEASE) PO PRN (08:04)
[2017-02-17] MEDS: BISACODYL 10 MG SUPP PR PRN (08:05)
[2017-02-17] MEDS: CHOLECALCIFEROL 1000 INTER.UNIT TAB PO SCH (08:05)
[2017-02-17] MEDS: SUCRALFATE 1 GM TAB PO SCH ×4 (08:06→20:12)
[2017-02-17] MEDS: HYDROCORTISONE HC 2.5% CRM 30GM TUBE EXT PRN (08:06)
[2017-02-17] MEDS: TIOTROPIUM BROMIDE 5 PUFF/90 MCG INH INH SCH (08:06)
[2017-02-17] MEDS: NICOTINE 14 MG/24 HR TDSY TD SCH (08:06)
[2017-02-17] MEDS: MONTELUKAST SOD 10 MG TAB PO SCH (08:07)
[2017-02-17] MEDS: DOCUSATE SODIUM 100 MG CAP PO SCH ×2 (08:07→20:12)
[2017-02-17] MEDS: FINASTERIDE 5 MG TAB PO SCH (08:07)
[2017-02-17] MEDS: ALUMINUM/MAGNESIUM SUSP 72 ML, LIDOCAINE HCL 2% VISCOUS SOLN 24 ML, BARCODE IDENTIFIER ... PO PRN ×2 (08:15)
[2017-02-17] MEDS: FAMOTIDINE IV INJ 20 MG in DEXTROSE 5% 100ML 100 ML IV SCH ×2 (08:15→20:12)
[2017-02-17] MEDS: SIMETHICONE 80 MG CHEW PO PRN (09:06)
[2017-02-17] MEDS: POLYETHYLENE (MIRALAX) 17 GM PACK PO SCH (09:06)
[2017-02-17 09:43] LABS: ESTIMATED AVERAGE GLUCOSE 134 mg/dl; HA1C FLAG Normal (Normal)
[2017-02-17] MEDS: VANCOMYCIN INJ 1,650 MG in SODIUM CHLORIDE 0.9% 500ML 500 ML IV SCH ×2 (09:58→21:15)
[2017-02-17] MEDS: ALUMINUM/MAGNESIUM/SIMETH (MAALOX MAX) 30 ML UDC PO PRN (15:52)
[2017-02-17] MEDS: ACETAMINOPHEN 325 MG TAB PO PRN (15:53)
[2017-02-17 18:38] LABS: HEMATOCRIT 25.1 % (42-52)
[2017-02-18 03:00] VITALS: BP 129/75; PULSE 93; TEMP 36.8; O2SAT 96
[2017-02-18] MEDS: PIPERACILL/TAZOBAC IV 4.5 GM in DEXTROSE 5% 100ML 100 ML IV SCH (03:57)
[2017-02-18] MEDS: SODIUM CHLORIDE 0.9% 1000ML 1,000 ML IV SCH ×3 (03:57→20:47)
[2017-02-18 06:19] LABS: BASO % 0.1 %; BASO ABS # 0.01 K/uL (0-0.2); EOS % 1.5 %; HEMATOCRIT 24.5 % (42-52); IG% 0.4 %; LYMPH % 16.2 %; LYMPH ABS # 1.51 K/uL (1.2-3.4); MEAN CELL VOLUME 87.2 fL (80-100); MEAN CORPUSCULAR HEMOGLOBIN 29.9 pg (25-34); MEAN CORPUSCULAR HGB CONC 34.3 g/dl (32-36); MEAN PLATELET VOLUME 9.4 fL (7.4-10.4); MONO % 11.5 %; NEUT % 70.3 %; PLATELET COUNT 218 K/uL (130-400); RED BLOOD COUNT 2.81 M/uL (4.7-6.1); WHITE BLOOD COUNT 9.31 K/uL (4.8-10.8)
[2017-02-18 06:59] LABS: COMPLETE YES
[2017-02-18 07:09] LABS: BUN/CREATININE RATIO 21.3 (10-20); CALCIUM 7.8 mg/dl (8.5-10.1); CREATININE 0.66 mg/dl (0.60-1.40); POTASSIUM 4.2 mmol/L (3.5-5.1)
[2017-02-18 07:28] VITALS: BP 161/92; PULSE 111; TEMP 37; O2SAT 94
--- NOTE | 2017-02-18 07:46 | Clinical Documentation Query ---
QUERY 1 OF 2 CLINICAL DOCUMENTATION QUERY Ms MULLER, In your clinical opinion is this patient being managed for: ( x ) Acute kidney failure ( ) Other explanation of clinical findings (Please Explain) ( ) Unable to determine (Please Define) ( ) Need to Discuss ( ) Not Agree The medical record reflects the following clinical findings, treatment, and risk factors. Clinical Indicators: 71 yo male presenting with hypotension, rectal bleeding, septic shock. BUN 69, Cr 1.20 which has trended down to Cr 0.67. Review of historical Cr shows range of 0.82-0.89 over the past 2 years Treatment: 2L NSS bolus in ER then continuous IV fluids, monitor PRP's. Risk Factors: age, HTN, hypotension, dehydration, septic shock QUERY 2 OF 2 In your clinical opinion is this patient being managed for: ( ) GI bleed due to lovenox therapy ( x ) Other explanation of clinical findings (Please Explain) ( ) Unable to determine (Please Define) ( ) Need to Discuss ( ) Not Agree The medical record reflects the following clinical findings, treatment, and risk factors. Clinical Indicators: Pt presented with rectal bleeding. Documentation by nursing reflects pt with large black tarry stools. FOCB +. H/H initially 13.5/41.5 dropping to 8.4/24.5. Treatment: IV pepcid, serial CBC/H/H, hold lovenox Risk Factors: lovenox therapy Please clarify and document your clinical opinion in the progress notes and discharge summary. Terms such as "probable", "suspected", "likely", "questionable", "possible", or "still to be ruled out" are acceptable. IF IN AGREEMENT, YOU MUST DOCUMENT ABOVE DIAGNOSTIC STATEMENT IN DAILY PROGRESS NOTES AND DISCHARGE SUMMARY. This document is not part of the patient's record. Thank You, Johanna Hidalgo, RN [phone]
--- NOTE | 2017-02-18 07:48 | Clinical Documentation Query ---
QUERY 1 OF [address] RUIZ, In your clinical opinion is this patient being managed for: ( ) Acute kidney failure ( ) Other explanation of clinical findings (Please Explain) ( ) Unable to determine (Please Define) ( ) Need to Discuss (x ) Not Agree The medical record reflects the following clinical findings, treatment, and risk factors. Clinical Indicators: 71 yo male presenting with hypotension, rectal bleeding, septic shock. BUN 69, Cr 1.20 which has trended down to Cr 0.67. Review of historical Cr shows range of 0.82-0.89 over the past 2 years Treatment: 2L NSS bolus in ER then continuous IV fluids, monitor PRP's. Risk Factors: age, HTN, hypotension, dehydration, septic shock QUERY 2 OF 2 In your clinical opinion is this patient being managed for: ( ) GI bleed due to lovenox therapy ( ) Other explanation of clinical findings (Please Explain) ( x ) Unable to determine (Please Define) Uncertain cause of GIB ( ) Need to Discuss ( ) Not Agree The medical record reflects the following clinical findings, treatment, and risk factors. Clinical Indicators: Pt presented with rectal bleeding. Documentation by nursing reflects pt with large black tarry stools. FOCB +. H/H initially 13.5/41.5 dropping to 8.4/24.5. Treatment: IV pepcid, serial CBC/H/H, hold lovenox Risk Factors: lovenox therapy Please clarify and document your clinical opinion in the progress notes and discharge summary. Terms such as "probable", "suspected", "likely", "questionable", "possible", or "still to be ruled out" are acceptable. IF IN AGREEMENT, YOU MUST DOCUMENT ABOVE DIAGNOSTIC STATEMENT IN DAILY PROGRESS NOTES AND DISCHARGE SUMMARY. This document is not part of the patient's record. Thank You, Johanna Hidalgo, DEBRA [phone]
--- NOTE | 2017-02-18 08:15 | Hospitalist Progress Note ---
Hospitalist Progress Note Date of Service Feb 18, 2017. (Silke Crystal PA-C) Subjective Pt evaluation today including: conversation w/ patient, physical exam, chart review, lab review, review of studies Pain: none PO Intake: good Voiding: no voiding problems The patient was seen and examined this morning. Patient reports feeling better today compared to yesterday. She denies having acute abdominal pain and his nausea has improved. He has still not have a bowel movement. Patient is taking his normal home regimen of MiraLAX simethicone Dulcolax , and a Dulcolax suppository if needed. Patient was informed about his dropping hemoglobin, and GI has already been in to see the patient who decided on an KUB today. He is not particularly thrilled with the idea of having a colonoscopy or an endoscopy done, he reports last time this occurred he had severe pain and gas afterwards. This was approximately 5+ years ago. He denies any dark tarry black bowel movements. Additional Comments: 6 point ROS reviewed and otherwise negative. (Silke Crystal PA-C) Objective Vital Signs Date Time Temp Pulse Resp B/P (MAP) Pulse Ox O2 Delivery O2 Flow Rate FiO2 02/18/17 04:00 Nasal Cannula 2.0 02/18/17 03:00 36.8 93 18 129/75 (93) 96 Nasal Cannula 2.0 02/17/17 23:59 Nasal Cannula 2.0 02/17/17 23:00 36.7 103 20 155/75 (101) 97 Nasal Cannula 1.0 02/17/17 20:00 Nasal Cannula 2.0 02/17/17 18:50 37.0 94 18 139/61 (87) 93 Nasal Cannula 1.0 02/17/17 16:24 Nasal Cannula 2.0 02/17/17 15:38 37.5 98 21 121/72 (88) 92 Nasal Cannula 1.0 02/17/17 11:36 37.7 124 20 131/74 (93) 93 02/17/17 08:01 37.3 121 20 120/73 (89) 96 Nasal Cannula 1.0 (Silke Crystal PA-C) Physical Exam Notes: General Appearance: WD/WN, no apparent distress Eyes: PERRL, EOMI ENT: hearing grossly normal, pharynx normal Neck: supple, no JVD Respiratory/Chest: no respiratory distress, no accessory muscle use, + pertinent finding (On 2 L via NC, coarse breath sounds throughout with + expiratory wheeze, diminished breath sounds at bases) Cardiovascular: regular rate, rhythm, no murmur Abdomen: non tender, soft, no organomegaly, + pertinent finding (hypoactive bowel sounds) Extremities: non-tender, no pedal edema, no calf tenderness Neurologic/Psychiatric: alert, oriented x 3, + pertinent finding (+ mild ataxia with upper extremities, likely baseline.) Skin: normal color, warm/dry (Silke Crystal PA-C) Laboratory Results Last 24 Hours Test 02/17/17 11:25 02/17/17 18:20 02/18/17 05:12 Stool Occult Blood POSITIVE Hemoglobin 8.5 g/dL 8.4 g/dL Hematocrit 25.1 % 24.5 % White Blood Count 9.31 K/uL Red Blood Count 2.81 M/uL Mean Corpuscular Volume 87.2 fL Mean Corpuscular Hemoglobin 29.9 pg Mean Corpuscular Hemoglobin Concent 34.3 g/dl Platelet Count 218 K/uL Mean Platelet Volume 9.4 fL Neutrophils (%) (Auto) 70.3 % Lymphocytes (%) (Auto) 16.2 % Monocytes (%) (Auto) 11.5 % Eosinophils (%) (Auto) 1.5 % Basophils (%) (Auto) 0.1 % Neutrophils # (Auto) 6.54 K/uL Lymphocytes # (Auto) 1.51 K/uL Monocytes # (Auto) 1.07 K/uL Eosinophils # (Auto) 0.14 K/uL Basophils # (Auto) 0.01 K/uL RDW Standard Deviation 43.4 fL RDW Coefficient of Variation 13.6 % Immature Granulocyte % (Auto) 0.4 % Immature Granulocyte # (Auto) 0.04 K/uL Red Blood Cell Morphology Unremarkable Sodium Level 136 mmol/L Potassium Level 4.2 mmol/L Chloride Level 102 mmol/L Carbon Dioxide Level 28 mmol/L Anion Gap 6.0 mmol/L Blood Urea Nitrogen 14 mg/dl Creatinine 0.66 mg/dl Est Creatinine Clear Calc Drug Dose 136.5 ml/min Estimated GFR () 114.3 Estimated GFR (Non- 98.6 BUN/Creatinine Ratio 21.3 Random Glucose 140 mg/dl Calcium Level 7.8 mg/dl (Silke Crystal, PITO) Assessment and Plan This is a 71 yo M with PMHx of COPD, HTN, hyperlipidemia, hx of hemorrhoids, and frequent falls who presents from [facility] with increased cough, fever, rectal bleed and s/p fall with trauma to the chest wall. Septic shock - Hypotension resolved with fluid resuscitation and with holding antihypertensives - Leukocytosis with left shift is improving. Down from 26K to 9K - Blood cultures are NGTD, Will deescalate Zosyn and vancomycin to Augmentin and continue for at least 10 days. - UA was clean - Orthostatic BPs continue for now - Possible source of infection in the left upper lobe, CT of the chest was reviewed, pt with cough but was recently admitted with copd exacerbation and bronchitis. - We will hold metoprolol 100 mg BID S/p fall, distal sternal fracture, Right 3,4,5 rib fx. - Supportive therapy with incentive spirometry and flutter to prevent any collapse of lung, - 2D echocardiogram 02/16/17, no pericardial effusion * -- Conclusions -- * 1. Normal LV size. Borderline concentric LVH. * 2. Hyperdynamic LV function. LVEF >70%. No regional wall motion abnormalities. * 3. Normal RV size and function. * 4. No significant valvular pathology. * 5. Normal estimated CVP * 6. No significant pericardial disease * 7. Compared with prior study on 10/10/2011: No significant change Rectal bleed - Hgb continues to trend downward- Hgb dropped from 13 to 8.2 now, got large amount of fluid resuscitation at time of admission, follow H&H. - Will consult GI today for continued hgb drop. - appreciate recs, no acute GI bleed, pt may benefit from edg and colonoscopy although at this time he is not agreeable. - Continue patient on stool softener with hx of constipation and blood streaked stools. - Continue on famotidine 20mg BID since he's allergic to omeprazole and pantoprazole. COPD - Patient was recently admitted for a COPD exacerbation and mild bronchitis, CT of the chest or to review. - Pt with coarse breath sounds, will make xopenex duonebs scheduled Q4H while awake rather than prn. - I spoke with Ananth Dempsey PA-C who see's him as an outpatient. He would like to see him within 1 week after discharge from this admission. Greatly appreciate. - We'll continue incentive spirometry, flutter therapy along with his home inhaler therapies including Spiriva and Singulair - PT still on 2 L O2 via NC, wean as able. Frequent falls - PT OT - likely discharge back to [facility] - Ambulation with assistance - Lyme's titer is negative. Hypertension - Hold metoprolol 100 mg BID for now Hyperlipidemia - Diet and exercise - Lipid panel Hx Renal Cell Carcinoma? - CT abd pelvis shows a 3.3 cm lesion in the right kidney suggestive of RCC- appears stable, old finding on imaging. - urine cytology in process DVT prophylaxis: massiel, jim, scds CODE STATUS: DNR Disposition: From [facility], likely will need rehab stay again (Silke Crystal PA-C) Reviewed: Pt Seen/Exam by Me (Bethany Duke, ) History Pt feels his breathing is doing well. No abd pain. Tolerated PO without issue. He has not had further bowel movements, but also no BRBPR. Feels chest congestion "like I can't bring anything up". Agree with HPI/ROS as noted. (Bethany Duke, DO) General Appearance: WD/WN, no apparent distress Respiratory: normal breath sounds, no respiratory distress Cardiovascular: normal peripheral pulses, regular rate, rhythm Gastrointestinal: non tender, soft Extremities: non-tender, no pedal edema Neurologic/Psychiatric: alert, oriented x 3 Skin Characteristics: normal color, warm/dry (Bethany Duke, DO) Assessment/Plan Agree with plan as outlined above Stool heme +, uncertain cause for GIB H/H with ongoing decrease KUB neg EGD and possible c-scope tomorrow Repeat H/H in AM PNA: ongoing abx Down to 1L NC Add mucinex Sternal/rib fractures: pain meds as able Will need to return to [facility] on d/c (Bethany Duke, DO)
[2017-02-18] MEDS: MONTELUKAST SOD 10 MG TAB PO SCH (09:27)
[2017-02-18] MEDS: FINASTERIDE 5 MG TAB PO SCH (09:27)
[2017-02-18] MEDS: CHOLECALCIFEROL 1000 INTER.UNIT TAB PO SCH (09:27)
[2017-02-18] MEDS: FAMOTIDINE IV INJ 20 MG in DEXTROSE 5% 100ML 100 ML IV SCH ×2 (09:28→20:44)
[2017-02-18] MEDS: SUCRALFATE 1 GM TAB PO SCH ×4 (09:28→20:48)
[2017-02-18] MEDS: TIOTROPIUM BROMIDE 5 PUFF/90 MCG INH INH SCH (09:28)
[2017-02-18] MEDS: SIMETHICONE 80 MG CHEW PO PRN ×2 (09:29→19:07)
[2017-02-18] MEDS: NICOTINE 14 MG/24 HR TDSY TD SCH (09:29)
[2017-02-18] MEDS: POLYETHYLENE (MIRALAX) 17 GM PACK PO SCH ×2 (09:30→20:48)
[2017-02-18] MEDS ORDERED: VANCOMYCIN TROUGH SCH (09:30)
--- NOTE | 2017-02-18 10:00 | Gastrointestinal Consultation ---
Gastrointestinal Consultation Date of Consultation: Feb 18, 2017 Consulting Physician: Hardy Reason for Consultation: anemia, heme + stool History of Present Illness Patient is a 71 year old male with a PMH significant for COPD, HTN, hyperlipidemia, hx of hemorrhoids and falls who presents through the ED for numerous concerns. GI was consulted for rectal bleeding and anemia. Pt was seen and evaluated this AM. He tells me he has not had a BM in two days and has not been passing gas as he normally does. He was experiencing rectal bleeding prior to admission - none presently. He denies any upper abdominal symptoms - no epigastric pain, burning, regurgitation, nausea or vomiting. He has not had a colonoscopy or EGD in many years - he is over due for a colonoscopy for colon CA screening. CT 02/16/17: Stable 3.3 cm indeterminate right renal mass, previously suspected to represent a renal cell carcinoma No evidence of acute intra-abdominal or pelvic injury. Past Medical/Surgical History Medical Problems: (1) COPD exacerbation Status: Acute (2) Fracture of rib of right side Status: Acute (3) GI bleed Status: Acute (4) Hypoxia Status: Acute (5) Septic shock Status: Acute (6) Sternal fracture Status: Acute (7) Weakness Status: Acute Past Medical History: COPD, Hypertension, Hyperlipidemia, Frequent falls, Vitamin D deficiency, History of hemorrhoids, IBS Past Surgical History: Colonoscopy Family History Cancer Heart disease Social History Smoking Status: Never Smoker Drug Use: none Marital Status: single Housing Status: lives alone Occupation Status: retired Allergies Coded Allergies: BEE STING (Verified Allergy, Severe, 02/16/17) Cefadroxil (Unverified Allergy, Intermediate, UNKNOWN, 02/16/17) Cephalexin (Unverified Allergy, Intermediate, UNKNOWN, 02/16/17) Escitalopram (Unverified Allergy, Intermediate, UNKNOWN, 02/16/17) Omeprazole (Unverified Allergy, Intermediate, UNKNOWN, 02/16/17) Pantoprazole (Unverified Allergy, Intermediate, UNKNOWN, 02/16/17) Wheat (Unverified Allergy, Intermediate, UNKNOWN, 02/16/17) Current Medications Home Meds and Scripts Medications Dose Route/Sig Max Daily Dose Days Date Category Dose Instructions Gas Relief Extra Strength (Simethicone) 125 Mg Cap 125 Mg PO BID PRN 02/16/17 Reported Preparation H (Phenylephrine-Shark Liver Oil-) 1 Sup Sup 1 Supp RE DAILY PRN 02/16/17 Reported Fleet Enema (Sodium Phosphate/Biphosphate) Krysta 1 Ea NM Q24 PRN 02/16/17 Reported Maalox Max Susp (Alum & Mag Hydrox-Simethicone) 1 Hali Ahli 30 Ml PO Q4 PRN 02/16/17 Reported Milk Of Magnesia (Magnesium Hydroxide) 30 Ml Susp 30 Ml PO Q24H PRN 02/16/17 Reported Bisacodyl 10 Mg Sup 10 Mg RE Q24H PRN 02/16/17 Reported Acetaminophen 500 Mg Tab 1 Tab PO Q4 PRN 02/16/17 Reported MAX 3GM/24HR USE FOR MILD PAIN RATED 1-3 OR FEVER >101F Senokot S (Senna/Docusate Sodium) 1 Tab Tab 1 Tab PO DAILY 02/16/17 Reported Miralax (Polyethylene Glycol 3350) 1 Pow Pow 17 Gm PO DAILY 02/16/17 Reported Lovenox (Enoxaparin Sodium) 40 Mg/0.4 Ml Inj 40 Mg SQ DAILY 02/16/17 Reported Colace (Docusate Sodium) 100 Mg Cap 1 Cap PO BID 30 02/16/17 Reported Spiriva Handihaler (Tiotropium [place]) 30 Puff/540 Mcg Aerp 1 Cap INH DAILY 30 02/13/17 Rx Drisdol (Ergocalciferol) 50,000 Unit Cap 1 Cap PO WK 02/13/17 Rx Vitamin D3 (Cholecalciferol) 1,000 Inter.unit Tab 2,000 Inter.unit PO QAM 02/13/17 Rx Prednisone 10 Mg Tab 10 Mg PO UD 02/13/17 Rx 20mg x 2 days then 10mg x 2 days then stop Lopressor (Metoprolol Tartrate) 50 Mg Tab 100 Mg PO BID 02/10/17 Reported Astelin Nasal [place] (Azelastine Hcl) 200 Sprays/30 Ml [place] 2 Sprays RAIZA DAILY 02/10/17 Reported Finasteride 5 Mg Tab 5 Mg PO DAILY 02/10/17 Reported Singulair (Montelukast Sodium) 10 Mg Tab 10 Mg PO DAILY 02/10/17 Reported Levalbuterol Tartrate Hfa (Levalbuterol Tartrate) 45 Mcg/Act Aer 2 Puffs INH Q4 PRN 02/10/17 Reported Review of Systems Constitutional: No fever, No chills Respiratory: + cough, + shortness of breath Cardiac: No chest pain Abdomen: + constipation (no BM in 2 days), + GI bleeding (BRBPR on admission), + problem reported (minimal flatus), No pain, No nausea, No vomiting, No diarrhea Musculoskeletal: + see HPI Physical Exam Date Time Temp Pulse Resp B/P (MAP) Pulse Ox O2 Delivery O2 Flow Rate FiO2 02/18/17 07:28 37.0 111 20 161/92 (115) 94 Nasal Cannula 2.0 02/18/17 04:00 Nasal Cannula 2.0 02/18/17 03:00 36.8 93 18 129/75 (93) 96 Nasal Cannula 2.0 02/17/17 23:59 Nasal Cannula 2.0 02/17/17 23:00 36.7 103 20 155/75 (101) 97 Nasal Cannula 1.0 02/17/17 20:00 Nasal Cannula 2.0 02/17/17 18:50 37.0 94 18 139/61 (87) 93 Nasal Cannula 1.0 02/17/17 16:24 Nasal Cannula 2.0 02/17/17 15:38 37.5 98 21 121/72 (88) 92 Nasal Cannula 1.0 02/17/17 11:36 37.7 124 20 131/74 (93) 93 General Appearance: no apparent distress Eyes: PERRL ENT: hearing grossly normal Neck: supple Respiratory/Chest: no respiratory distress, no accessory muscle use, + decreased breath sounds, + crackles, + wheezing, + pertinent finding (wearing O2 ) Cardiovascular: regular rate, rhythm, no gallop Abdomen: non tender, soft, no organomegaly, no pulsatile mass, + abnormal bowel sounds (present but hypoactive) Neurologic/Psych: alert, normal mood/affect, oriented x 3 Skin: normal color Laboratory Results Last 24 Hours Test 02/17/17 11:25 02/17/17 18:20 02/18/17 05:12 02/18/17 09:27 Stool Occult Blood POSITIVE Hemoglobin 8.5 g/dL 8.4 g/dL Hematocrit 25.1 % 24.5 % White Blood Count 9.31 K/uL Red Blood Count 2.81 M/uL Mean Corpuscular Volume 87.2 fL Mean Corpuscular Hemoglobin 29.9 pg Mean Corpuscular Hemoglobin Concent 34.3 g/dl Platelet Count 218 K/uL Mean Platelet Volume 9.4 fL Neutrophils (%) (Auto) 70.3 % Lymphocytes (%) (Auto) 16.2 % Monocytes (%) (Auto) 11.5 % Eosinophils (%) (Auto) 1.5 % Basophils (%) (Auto) 0.1 % Neutrophils # (Auto) 6.54 K/uL Lymphocytes # (Auto) 1.51 K/uL Monocytes # (Auto) 1.07 K/uL Eosinophils # (Auto) 0.14 K/uL Basophils # (Auto) 0.01 K/uL RDW Standard Deviation 43.4 fL RDW Coefficient of Variation 13.6 % Immature Granulocyte % (Auto) 0.4 % Immature Granulocyte # (Auto) 0.04 K/uL Red Blood Cell Morphology Unremarkable Sodium Level 136 mmol/L Potassium Level 4.2 mmol/L Chloride Level 102 mmol/L Carbon Dioxide Level 28 mmol/L Anion Gap 6.0 mmol/L Blood Urea Nitrogen 14 mg/dl Creatinine 0.66 mg/dl Est Creatinine Clear Calc Drug Dose 136.5 ml/min Estimated GFR () 114.3 Estimated GFR (Non- 98.6 BUN/Creatinine Ratio 21.3 Random Glucose 140 mg/dl Calcium Level 7.8 mg/dl Impression Patient is a 71 year old male with anemia without any ongoing evidence of rectal bleeding with a history of a heme + stool. He is overdue for a colonoscopy for colon CA screening.EGD is warranted for evaluation of anemia. Pt tells me he is not interested in either procedure at this time due to his MSK complaints and fractures. Of note he is on O2 with a productive cough and abnormal breath sounds. Plan Trend H&H Transfuse as needed KUB to rule out ileus/obstruction Continue current bowel regimen until imaging is obtained Monitor stools for s/s of GI bleeding EGD/Colonoscopy suggested as an out patient - pt is not agreeable to colonoscopy but would consider EGD as out patient Suggest to optimize respiratory status and acute MSK injuries as he remains stable from a GI standpoint GI will follow. Call with questions. I performed a history and physical examination of the patient. I have discussed the patient's case, impression and plan with GREGG Herman. Her note reflects my findings and plan. Agree with following clinically. No signs of aggressive GI bleeding (no BM in 3 days). Yaw Dash MD
[2017-02-18] MEDS ORDERED: VANCOMYCIN INJ 1,650 MG in SODIUM CHLORIDE 0.9% 500ML 500 ML IV SCH (11:00)
--- NOTE | 2017-02-18 11:03 | DIAGNOSTIC IMAGING REPORT ---
KUB CLINICAL HISTORY: hypoactive bowel sounds, constipation, minimal flatus COMPARISON STUDY: No previous studies for comparison. FINDINGS: The soft tissues, psoas shadows, renal outlines and intestinal gas pattern appear normal. There is no evidence for bowel obstruction. No abnormal abdominal calcifications are seen. IMPRESSION: Normal study. Electronically signed by: Josh Gallardo M.D. 02/18/2017 11:01 AM Dictated Date/Time: 02/18/2017 10:55 AM
[2017-02-18 11:24] VITALS: BP 127/88; PULSE 94; TEMP 37.7; O2SAT 98
[2017-02-18] MEDS: DOCUSATE SODIUM 100 MG CAP PO SCH ×2 (12:27→20:49)
[2017-02-18] MEDS: LEValbuterol HFA 15GM INHALER INH SCH ×3 (12:28→20:44)
[2017-02-18] MEDS: ALUMINUM/MAGNESIUM/SIMETH (MAALOX MAX) 30 ML UDC PO PRN (14:33)
[2017-02-18] MEDS: OXYCODONE HCL IR 5 MG TAB (IMMEDIATE RELEASE) PO PRN (14:33)
[2017-02-18] MEDS: HYDROCORTISONE HC 2.5% CRM 30GM TUBE EXT PRN (14:34)
[2017-02-18 14:40] VITALS: BP 138/86; PULSE 108; TEMP 36.8; O2SAT 96
[2017-02-18] MEDS: AMOXICILLIN/CLAVULANATE TAB 875 MG TAB PO SCH (16:30)
[2017-02-18 18:44] VITALS: BP 114/76; PULSE 112; TEMP 37.3; O2SAT 96
[2017-02-18] MEDS: ALUMINUM/MAGNESIUM SUSP 72 ML, LIDOCAINE HCL 2% VISCOUS SOLN 24 ML, BARCODE IDENTIFIER ... PO PRN ×2 (20:46)
[2017-02-18] MEDS: GUAIFENESIN 600 MG TABCR PO SCH (21:10)
[2017-02-18 23:16] VITALS: BP 166/77; PULSE 94; TEMP 37; O2SAT 96
[2017-02-19] VITALS (8 sets, daily range): BP systolic 110–180; BP diastolic 69–94; PULSE 93–113; TEMP 36.8–37.3; O2SAT 95–99
[2017-02-19] MEDS: SODIUM CHLORIDE 0.9% 1000ML 1,000 ML IV SCH (05:22)
[2017-02-19 07:10] LABS: BASO % 0.2 %; BASO ABS # 0.02 K/uL (0-0.2); EOS % 3.5 %; HEMATOCRIT 25.3 % (42-52); IG% 0.7 %; LYMPH % 13.6 %; LYMPH ABS # 1.33 K/uL (1.2-3.4); MEAN CELL VOLUME 87.5 fL (80-100); MEAN CORPUSCULAR HEMOGLOBIN 29.4 pg (25-34); MEAN CORPUSCULAR HGB CONC 33.6 g/dl (32-36); MEAN PLATELET VOLUME 9.2 fL (7.4-10.4); MONO % 12.8 %; NEUT % 69.2 %; PLATELET COUNT 244 K/uL (130-400); RED BLOOD COUNT 2.89 M/uL (4.7-6.1); WHITE BLOOD COUNT 9.75 K/uL (4.8-10.8)
[2017-02-19] MEDS: OXYCODONE HCL IR 5 MG TAB (IMMEDIATE RELEASE) PO PRN (07:26)
[2017-02-19] MEDS: ALUMINUM/MAGNESIUM/SIMETH (MAALOX MAX) 30 ML UDC PO PRN ×3 (07:26→21:50)
[2017-02-19] MEDS: FAMOTIDINE 20 MG TAB PO SCH ×2 (07:27→21:38)
[2017-02-19] MEDS: DOCUSATE SODIUM 100 MG CAP PO SCH ×2 (07:28→21:37)
[2017-02-19] MEDS: GUAIFENESIN 600 MG TABCR PO SCH ×2 (07:28→21:38)
[2017-02-19] MEDS: MONTELUKAST SOD 10 MG TAB PO SCH (07:28)
[2017-02-19] MEDS: SUCRALFATE 1 GM TAB PO SCH ×4 (07:29→21:36)
[2017-02-19] MEDS: CHOLECALCIFEROL 1000 INTER.UNIT TAB PO SCH (07:29)
[2017-02-19] MEDS: POLYETHYLENE (MIRALAX) 17 GM PACK PO SCH ×2 (07:31→21:37)
[2017-02-19] MEDS: FINASTERIDE 5 MG TAB PO SCH (07:31)
[2017-02-19] MEDS: NICOTINE 14 MG/24 HR TDSY TD SCH (07:32)
[2017-02-19] MEDS: TIOTROPIUM BROMIDE 5 PUFF/90 MCG INH INH SCH (07:33)
[2017-02-19] MEDS: LEValbuterol HFA 15GM INHALER INH SCH ×4 (07:33→21:38)
[2017-02-19] MEDS: AMOXICILLIN/CLAVULANATE TAB 875 MG TAB PO SCH ×2 (07:45→17:11)
[2017-02-19 08:07] LABS: COMPLETE YES
[2017-02-19] MEDS: BISACODYL 10 MG SUPP PR PRN (08:43)
--- NOTE | 2017-02-19 09:04 | Gastroenterology Progress Note ---
Progress Note Date of Service: Feb 19, 2017 Subjective Pt evaluation today including: conversation w/ patient, physical exam, chart review, lab review Pt was seen and examined this AM. No BM x 4 days. KUB without obstruction. No evidence of GI bleeding. No vomiting, no black/bloody stools. + nausea. Main concern is his MSK pain. Perhaps his anemia is secondary to his MSK fractures. KUB: The soft tissues, psoas shadows, renal outlines and intestinal gas pattern appear normal. There is no evidence for bowel obstruction. No abnormal abdominal calcifications are seen. Normal study. Review of Systems Constitutional: No fever, No chills Respiratory: + cough, + shortness of breath Cardiac: No chest pain, No edema Abdomen: + nausea, + constipation, No pain, No vomiting, No diarrhea Medications Current Inpatient Medications Medications (Trade) Dose Ordered Sig/Agustina Route Start Time Stop Time Status Last Admin Dose Admin Ioversol (Optiray 320) 100 ml UD PRN IV 02/16/17 06:00 02/20/17 05:59 Acetaminophen (Tylenol Tab) 650 mg Q4H PRN PO 02/16/17 08:00 03/18/17 07:59 02/17/17 15:53 650 MG Ondansetron HCl (Zofran Inj) 4 mg Q6H PRN IV 02/16/17 08:00 03/18/17 07:59 Al Hydrox/Mg Hydrox/Simethicone (Maalox Max Susp) 30 ml Q4 PRN PO 02/16/17 08:00 03/18/17 07:59 02/19/17 07:26 30 ML Bisacodyl (Dulcolax Supp) 10 mg Q24H PRN OK 02/16/17 08:00 03/18/17 07:59 02/19/17 08:43 10 MG Cholecalciferol (Vitamin D Tab) 2,000 inter.unit QAM PO 02/16/17 09:00 03/18/17 08:59 02/19/17 07:29 2,000 INTER.UNIT Docusate Sodium (coLACE CAP) 100 mg BID PO 02/16/17 09:00 03/18/17 08:59 02/19/17 07:28 100 MG Finasteride (Proscar Tab) 5 mg DAILY PO 02/16/17 09:00 03/18/17 08:59 02/19/17 07:31 5 MG Montelukast Sodium (Singulair Tab) 10 mg DAILY PO 02/16/17 09:00 03/18/17 08:59 02/19/17 07:28 10 MG Tiotropium [place] (Spiriva Handihaler Inhaler) 1 puff DAILY INH 02/16/17 09:00 03/18/17 08:59 02/19/17 07:33 1 PUFF Oxycodone HCl (Roxicodone Immediate Rel Tab) 5 mg Q4H PRN PO 02/16/17 12:45 03/02/17 12:44 02/19/17 07:26 5 MG Al Hydrox/Mg Hydrox/Simethicone (Maalox Max Susp) 15 ml Q6H PRN PO 02/16/17 12:45 03/18/17 12:44 Morphine Sulfate (MoRPHine SULFATE INJ) 1 mg Q1H PRN IV 02/16/17 12:45 03/02/17 12:44 02/18/17 14:34 1 MG Sucralfate (Carafate Tab) 1 gm QID PO 02/16/17 21:00 03/18/17 20:59 02/19/17 07:29 1 GM Hydrocortisone (Proctozone Hc 2.5% Crm) 1 appln Q8H PRN EXT 02/16/17 18:15 03/18/17 18:14 02/18/17 14:34 1 APPLN Nicotine (Nicoderm Cq 14MG Patch) 1 patch QAM TD 02/16/17 18:15 03/18/17 18:14 02/19/17 07:32 1 PATCH Miscellaneous (Remove Nicoderm Patch) 1 ea HS N/A 02/16/17 21:00 03/18/17 20:59 02/18/17 20:48 1 EA Al Hydroxide/Mg Hydroxide/ Lidocaine HCl/ Barcode Q8H PRN PO 02/16/17 18:45 03/18/17 18:44 02/18/17 20:46 24 ML Simethicone (Mylicon Chew Tab) 160 mg BID PRN PO 02/17/17 08:45 03/19/17 08:44 02/18/17 19:07 160 MG Levalbuterol (Xopenex Hfa Inhaler) 2 puffs Q4HWA INH 02/18/17 12:00 03/20/17 11:59 02/19/17 07:33 2 PUFFS Amoxicillin/ Clavulanate Potassium (Augmentin Tab) 875 mg BIDM PO 02/18/17 16:45 02/25/17 16:44 02/19/17 07:45 875 MG Polyethylene (Miralax Powder Packet) 17 gm BID PO 02/18/17 21:00 03/18/17 07:59 02/19/17 07:31 17 GM Guaifenesin (Mucinex Contr Rel Tab) 600 mg Q12 PO 02/18/17 21:00 03/20/17 20:59 02/19/17 07:28 600 MG Famotidine (Pepcid Tab) 20 mg BID PO 02/19/17 09:00 03/18/17 08:59 02/19/17 07:27 20 MG Objective Vital Signs Date Time Temp Pulse Resp B/P (MAP) Pulse Ox O2 Delivery O2 Flow Rate FiO2 02/19/17 04:58 37.3 95 20 151/82 (105) 99 Nasal Cannula 2.0 02/19/17 04:00 Nasal Cannula 2.0 02/19/17 00:00 Nasal Cannula 02/18/17 23:16 37.0 94 20 166/77 (106) 96 Nasal Cannula 2.5 02/18/17 20:00 Nasal Cannula 2.0 02/18/17 18:44 37.3 112 18 114/76 (89) 96 Nasal Cannula 2.0 02/18/17 15:30 Nasal Cannula 2.0 02/18/17 14:40 36.8 108 24 138/86 (103) 96 Nasal Cannula 2.0 02/18/17 12:00 Nasal Cannula 2.0 02/18/17 11:24 37.7 94 20 127/88 (101) 98 Nasal Cannula 2.0 Physical Exam General Appearance: no apparent distress Eyes: PERRL ENT: hearing grossly normal Neck: supple Respiratory/Chest: + decreased breath sounds, + wheezing Abdomen: normal bowel sounds Neurologic/Psych: alert, normal mood/affect, oriented x 3 Skin: normal color Laboratory Results Last 24 Hours Test 02/18/17 09:27 02/19/17 05:49 Vancomycin Level Trough 7.9 mcg/ml White Blood Count 9.75 K/uL Red Blood Count 2.89 M/uL Hemoglobin 8.5 g/dL Hematocrit 25.3 % Mean Corpuscular Volume 87.5 fL Mean Corpuscular Hemoglobin 29.4 pg Mean Corpuscular Hemoglobin Concent 33.6 g/dl Platelet Count 244 K/uL Mean Platelet Volume 9.2 fL Neutrophils (%) (Auto) 69.2 % Lymphocytes (%) (Auto) 13.6 % Monocytes (%) (Auto) 12.8 % Eosinophils (%) (Auto) 3.5 % Basophils (%) (Auto) 0.2 % Neutrophils # (Auto) 6.74 K/uL Lymphocytes # (Auto) 1.33 K/uL Monocytes # (Auto) 1.25 K/uL Eosinophils # (Auto) 0.34 K/uL Basophils # (Auto) 0.02 K/uL RDW Standard Deviation 43.9 fL RDW Coefficient of Variation 13.7 % Immature Granulocyte % (Auto) 0.7 % Immature Granulocyte # (Auto) 0.07 K/uL Red Blood Cell Morphology Unremarkable Assessment and Plan Patient is a 71 year old male with anemia without any ongoing evidence of rectal bleeding with a history of a heme + stool. He is overdue for a colonoscopy for colon CA screening.EGD is warranted for evaluation of anemia. Pt tells me he is not interested in either procedure at this time due to his MSK complaints and fractures. Of note he is on O2 with a productive cough and abnormal breath sounds. No BM in 4 days - KUB unremarkable. Trend H&H Transfuse as needed Miralax BID Colace Suppository --> Enema today if no BM Limit narcotics Relistor tomorrow if no BM Monitor stools for s/s of GI bleeding EGD/Colonoscopy suggested as an out patient - pt is not agreeable to colonoscopy but would consider EGD as out patient Suggest to optimize respiratory status and acute MSK injuries as he remains stable from a GI standpoint Added milk of magnesia. He will need relistor tomorrow if no BM. GI will follow. Call with questions. I performed a history and physical examination of the patient. I have discussed the patient's case, impression and plan with Yelena ESCOBEDO. Her note reflects my findings and plan. Try MOM today and continue Miralax. Yaw Dash MD
--- NOTE | 2017-02-19 09:14 | Hospitalist Progress Note ---
Hospitalist Progress Note Date of Service Feb 19, 2017. (Silke Crystal PA-C) Subjective Pt evaluation today including: conversation w/ patient, physical exam, chart review, lab review, review of studies Pain: Mild PO Intake: Fair Voiding: no voiding problems The patient was seen and examined this morning. Pt reports feeling "lousy" today. He slept well overnight. C/o pain in right chest wall overlying ribs and sternum when he coughs or moves, but otherwise no pain there. He is worried about not having a bowel movement, today is day 4. His breathing is improved today, not wheezing, he is not c/o sob at rest, but states he has not been ambulating much due to unsteady gait and falling prior to this admission. He says "if I'd fall again, it would be hell" Constitutional: No fever, No chills, No sweats Eyes: No eye pain, No diplopia ENT: No nasal symptoms, No trouble swallowing Respiratory: + cough (occasional, nonproductive), No wheezing, No shortness of breath Cardiovascular: No chest pain, No palpitations Abdomen: + nausea (occasional), + constipation, No pain, No vomiting, No diarrhea Musculoskeletal: No joint pain, No muscle pain, No swelling Male : + incontinence, No dysuria Neurologic: + weakness, + balance problems, No vertigo Skin: No rash, No itch (Silke Crystal, PITO) Objective Vital Signs Date Time Temp Pulse Resp B/P (MAP) Pulse Ox O2 Delivery O2 Flow Rate FiO2 02/19/17 04:58 37.3 95 20 151/82 (105) 99 Nasal Cannula 2.0 02/19/17 04:00 Nasal Cannula 2.0 02/19/17 00:00 Nasal Cannula 02/18/17 23:16 37.0 94 20 166/77 (106) 96 Nasal Cannula 2.5 02/18/17 20:00 Nasal Cannula 2.0 02/18/17 18:44 37.3 112 18 114/76 (89) 96 Nasal Cannula 2.0 02/18/17 15:30 Nasal Cannula 2.0 02/18/17 14:40 36.8 108 24 138/86 (103) 96 Nasal Cannula 2.0 02/18/17 12:00 Nasal Cannula 2.0 02/18/17 11:24 37.7 94 20 127/88 (101) 98 Nasal Cannula 2.0 (Silke Crystal PA-C) Physical Exam Notes: General Appearance: WD/WN, no apparent distress, sitting up in bedside chair Eyes: PERRL, EOMI ENT: hearing grossly normal, pharynx normal Neck: supple, no JVD Respiratory/Chest: no respiratory distress, no accessory muscle use, + pertinent finding (On 2 L via NC, breath sounds improved, no rhonchi or crackles , slightly diminished breath sounds at bases) Cardiovascular: regular rate, rhythm, no murmur Abdomen: non tender, soft, no organomegaly, + pertinent finding (hypoactive bowel sounds) Extremities: non-tender, no pedal edema, no calf tenderness Neurologic/Psychiatric: alert, oriented x 3, + pertinent finding (+ mild ataxia with upper extremities, likely baseline.) Skin: normal color, warm/dry (Silke Crystal PA-C) Laboratory Results Last 24 Hours Test 02/18/17 09:27 02/19/17 05:49 Vancomycin Level Trough 7.9 mcg/ml White Blood Count 9.75 K/uL Red Blood Count 2.89 M/uL Hemoglobin 8.5 g/dL Hematocrit 25.3 % Mean Corpuscular Volume 87.5 fL Mean Corpuscular Hemoglobin 29.4 pg Mean Corpuscular Hemoglobin Concent 33.6 g/dl Platelet Count 244 K/uL Mean Platelet Volume 9.2 fL Neutrophils (%) (Auto) 69.2 % Lymphocytes (%) (Auto) 13.6 % Monocytes (%) (Auto) 12.8 % Eosinophils (%) (Auto) 3.5 % Basophils (%) (Auto) 0.2 % Neutrophils # (Auto) 6.74 K/uL Lymphocytes # (Auto) 1.33 K/uL Monocytes # (Auto) 1.25 K/uL Eosinophils # (Auto) 0.34 K/uL Basophils # (Auto) 0.02 K/uL RDW Standard Deviation 43.9 fL RDW Coefficient of Variation 13.7 % Immature Granulocyte % (Auto) 0.7 % Immature Granulocyte # (Auto) 0.07 K/uL Red Blood Cell Morphology Unremarkable (Silke Crystal, PITO) Assessment and Plan This is a 71 yo M with PMHx of COPD, HTN, hyperlipidemia, hx of hemorrhoids, and frequent falls who presents from [facility] with increased cough, fever, rectal bleed and s/p fall with trauma to the chest wall. Septic shock - Hypotension resolved with fluid resuscitation and with holding antihypertensives - Leukocytosis improved, decreased from 26K to 9K - Blood cultures are NGTD, Cont Augmentin (day 2) and continue for at least 10 days. - UA was clean - Orthostatic BPs improved - Possible source of infection in the left upper lobe, CT of the chest was reviewed, pt with cough but was recently admitted with copd exacerbation and bronchitis. - We will hold metoprolol 100 mg BID S/p fall, distal sternal fracture, Right 3,4,5 rib fx. - Supportive therapy with incentive spirometry and flutter to prevent any collapse of lung, - 2D echocardiogram 02/16/17, no pericardial effusion * -- Conclusions -- * 1. Normal LV size. Borderline concentric LVH. * 2. Hyperdynamic LV function. LVEF >70%. No regional wall motion abnormalities. * 3. Normal RV size and function. * 4. No significant valvular pathology. * 5. Normal estimated CVP * 6. No significant pericardial disease * 7. Compared with prior study on 10/10/2011: No significant change Hgb decrease - Trending, has been stable around 8.2-8.4 x 3 days - Source ultimately unknown at this time, possible dilutional as his baseline appears to be 10 as an outpatient and he received large fluid resuscitation at time of admission with septic shock. GI bleed seems to be ruled out at this time without BMs and constipation, no abd pain. More likely, this could be d/t a hematoma/bleed in pleural cavity secondary to trauma to sternum and rib fractures. - Rechecking coags today, at time of admit were negative, not on blood thinners. - Will recheck CXR portable, if worse will obtain ultrasound of the pleural space, can also consider CT of the chest. Rectal bleed - GI consulted- appreciate recs, no acute GI bleed, pt may benefit from edg and colonoscopy- will plan on outpatient scopes per GI. - No Bm in 4 days now, unlikely bleed from GI source Constipation - Continue patient on stool softener, mirilax BID, dulcolax suppository today, GI recs relistor tomorrow if no BM - Continue on famotidine 20mg BID since he's allergic to omeprazole and pantoprazole. COPD - Patient was recently admitted for a COPD exacerbation and mild bronchitis, CT of the chest or to review. - Pt with coarse breath sounds, will make xopenex duonebs scheduled Q4H while awake rather than prn. - breaths sounds improved today. - Will need f/u with pulm: Ananth Dempsey PA-C who see's him as an outpatient. He would like to see him within 1 week after discharge from this admission. Greatly appreciate. - We'll continue incentive spirometry, flutter therapy along with his home inhaler therapies including Spiriva and Singulair - PT still on 2 L O2 via NC, wean as able. Frequent falls - PT OT - likely discharge back to medical center clinic - Ambulation with assistance - Lyme's titer is negative. Hypertension - Hold metoprolol 100 mg BID for now Hyperlipidemia - Diet and exercise - Lipid panel Hx Renal Cell Carcinoma? - CT abd pelvis shows a 3.3 cm lesion in the right kidney suggestive of RCC- appears stable, old finding on imaging. - urine cytology in process DVT prophylaxis: jim rankin, krystynas CODE STATUS: DNR Disposition: From [facility], likely will need rehab stay again (Silke Crystal PA-C) Reviewed: Pt Seen/Exam by Me (Bethany Duke, ) History Pt still has not had a bowel movement, but feels like he is ready to do so. Feeling a bit bloated at times. No issues with PO. No abd pain or SOB. Still with chest pain when coughing related to his fractures. Agree with HPI/ROS as noted. (Bethany Duke, DO) General Appearance: WD/WN, no apparent distress Respiratory: normal breath sounds, no respiratory distress Cardiovascular: normal peripheral pulses, regular rate, rhythm Gastrointestinal: non tender, soft Extremities: non-tender, no pedal edema Neurologic/Psychiatric: alert, oriented x 3 Skin Characteristics: normal color, warm/dry (Bethany Duke, ) Assessment/Plan Agree with plan as outlined above Stool heme +, uncertain cause for GIB H/H stable KUB neg EGD and possible c-scope tomorrow Repeat H/H in AM PNA: ongoing abx Add mucinex Sternal/rib fractures: pain meds as able Pt had large, black, sticky bowel movement late in the afternoon. GI planning for scope tomorrow rather than outpt now. (Bethany Duke, DO)
--- NOTE | 2017-02-19 10:18 | DIAGNOSTIC IMAGING REPORT ---
CHEST ONE VIEW PORTABLE CLINICAL HISTORY: Assess for blood loss into the chest COMPARISON STUDY: Chest CT February 16, 2017. FINDINGS: There is no pneumothorax or pleural effusion. Cardiac size is normal. Mediastinal contours are normal. Pulmonary vascularity is normal. IMPRESSION: No acute cardiopulmonary findings. Electronically signed by: Tim Hayden M.D. 02/19/2017 10:16 AM Dictated Date/Time: 02/19/2017 10:14 AM
[2017-02-19 10:56] LABS: PARTIAL THROMBOPLASTIN RATIO 0.9; PROTHROMBIN TIME (PATIENT) 10.5 SECONDS (9.0-12.0)
[2017-02-19] MEDS ORDERED: MAGNESIUM HYDROXIDE SUSP 30 ML UDC PO PRN (12:30)
[2017-02-19] MEDS: ACETAMINOPHEN 325 MG TAB PO PRN (13:09)
[2017-02-19] MEDS ORDERED: TRAMADOL HCL 50 MG TAB PO PRN (14:00)
[2017-02-19] MEDS ORDERED: MRLP17 PO (14:17)
[2017-02-19] MEDS ORDERED: FAMO20TA12 PO (14:17)
[2017-02-19] MEDS ORDERED: AMOX1TAB43 PO (14:17)
[2017-02-19] MEDS ORDERED: SOD PHOSPHATE/SOD BIPHOSPHATE ENEMA 132 ML BTL PR ONE (14:30)
--- NOTE | 2017-02-19 14:32 | Discharge Instructions ---
Discharge Instructions Date of Service Feb 20, 2017. Admission Reason for Admission: Septic Shock Discharge Discharge Diagnosis / Problem: Septic shock from RML pneumonia Discharge Goals Goal(s): Decrease discomfort, Improve function, Increase independence, Improve disease control Activity Recommendations Activity Limitations: resume your previous activity Lifting Limitations: no more than 10 pounds, gradually increase as tolerated Exercise/Sports Limitations: rest today, gradually increase as tolerated Shower/Bathe: no limitations (with assistance) Driving or Machine Use: DO NOT DRIVE . Instructions / Follow-Up Instructions / Follow-Up You were admitted to [facility] with low blood pressure, fall, and worsening cough/ shortness of breath with an elevated WBC (white blood count) and diagnosed with Right lobe pneumonia, Right 3rd-5th rib fractures, distal sternum fracture, and septic shock secondary to pneumonia. For septic shock due to pneumonia: - You were treated with volume resuscitation and your blood pressure improved. IV Antibiotics were started then were transitioned to oral meds. Blood cultures were negative - You should continue taking Augmentin 875 mg x 7 more days to complete the 10 day course. - Continue using incentive spirometry, flutter, mucinex to help with keeping mucous loose, and inhalers. Hemoglobin - Gastroenterology saw you while admitted and an EGD was completed showing gastritis and inflammation of the stomach, but NO active bleed. - You will need an outpatient colonoscopy, please follow up with GI for this. - Your low hemoglobin was due to fluid resuscitation. - Please have your CBC checked within 2-3 days at [facility] to make sure it's stable. * NURSING: please expect the patient to possibly have dark tarry bowel movements with EGD findings on 02/20. If pt becomes symptomatic with lightheadedness, dizziness, decreased blood pressure, bright red blood per rectum, or increased frequency of bowel movements, etc. then the physician retail personal banker should be contacted immediately For rib and sternum fractures - Continue taking tramadol and oxycodone as needed for pain. Caution with taking oxycodone as this can cause constipation. - Continue taking your increased bowel regimen while taking pain medication Gait instability - You are being discharge to [facility] to continue therapy. Continue taking all other medications as prescribed. Follow up: Follow up with your Primary Care Provider within 1 week. Follow up with pulmonology within 1 week, prior to finishing your course of antibiotics Follow up with Gastroenterology within 1-2 weeks to schedule outpatient upper endoscopy and colonoscopy. Current Hospital Diet Patient's current hospital diet: Diabetes Type 2 Diet Discharge Diet Recommended Diet: Diabetes Type 2 Diet Pending Studies Studies pending at discharge: no Laboratory Results Hemoglobin A1c Test 02/17/17 05:25 Range/Units Estimated Average Glucose 134 mg/dl Hemoglobin A1c 6.3 H 4.5-5.6 % Medical Emergencies . Who to Call and When: Medical Emergencies: If at any time you feel your situation is an emergency, please call 911 immediately. . Non-Emergent Contact Non-Emergency issues call your: Primary Care Provider Call Non-Emergent contact if: you have a fever, temperature is above 100.5, your pain is not controlled, your pain is worsening, you have any medication questions . Past History Medical & Surgical History: (1) Sternal fracture (2) Fracture of rib of right side (3) Septic shock (4) Hypertension (5) Rib contusion (6) GI bleed . "Provider Documentation" section prepared by Christi Crystal. . VTE Core Measure Inpt VTE Proph given/why not?: Tobin Romero, SCD's
--- NOTE | 2017-02-19 14:41 | Discharge Summary ---
Discharge Summary Date of Service Feb 19, 2017. (Silke Crystal PA-C) Discharge Summary Admission Date: Feb 16, 2017 at 07:56 Discharge Date: Feb 20, 2017 Discharge Disposition: Rehab Principal Diagnosis: Septic shock d/t RML pneumonia Problems/Secondary Diagnoses: COPD, HTN, hyperlipidemia, hx of hemorrhoids, and frequent falls, R 3-5 rib fractures, and distal sternum fracture. Immunizations: Have You Had Influenza Vaccine: No Influenza Vaccine Date: Jul 20, 2009 History of Tetanus Vaccine?: No History of Pneumococcal: No History of Hepatitis B Vaccine: No Procedures: CT OF THE CHEST WITH IV CONTRAST 02/16/17 IMPRESSION: 1. Acute nondisplaced transverse fracture of the inferior sternum. Overlying subcutaneous contusion and small adjacent hematoma. 2. Acute nondisplaced fractures of the right fourth, fifth and sixth ribs. No pneumothorax. 3. Mild left upper lobe opacity which could reflect an infectious process or less likely pulmonary contusion. Scattered groundglass opacities including a few nodular opacities which measure up to 7 mm. These findings are likely benign but a follow-up chest CT in 3 months to ensure resolution is recommended. 4. Redemonstration of the right renal lesion which is suggestive of renal cell carcinoma CT ABD/PELVIS IV CONTRAST ONLY 02/16/17 IMPRESSION: 1. Stable 3.3 cm indeterminate right renal mass, previously suspected to represent a renal cell carcinoma 2. No evidence of acute intra-abdominal or pelvic injury. KUB 02/18/17 IMPRESSION: Normal study. CHEST ONE VIEW PORTABLE 02/19/17 IMPRESSION: No acute cardiopulmonary findings. Consultations: Gastroenterology PT/OT (Silke Crystal PA-C) Medication Reconciliation New Medications: Amoxicillin & Pot Clavulanate (Amoxicillin/Clavulanate P) 1 Tab Tab 875 MG PO BIDM for 8 Days, #16 TAB Famotidine (Famotidine) 20 Mg Tab 20 MG PO BID for 30 Days, #60 TAB Nicotine (Nicotine) 14 Mg/24 Hr Dis 1 PATCH TD QAM for 14 Days, #14 PATCH Oxycodone HCl (Oxycodone HCl) 5 Mg Tab 5 MG PO Q4H PRN for Pain for 15 Days, #60 TAB Polyethylene (Miralax) 17 Gm Pow 17 GM PO BID for 30 Days, #60 DOSE Tramadol HCl (Tramadol HCl) 50 Mg Tab 50 MG PO Q4H PRN for Pain for 30 Days, #120 TAB Continued Medications: Acetaminophen (Acetaminophen) 500 Mg Tab 1 TAB PO Q4 PRN for Pain or Fever MAX 3GM/24HR USE FOR MILD PAIN RATED 1-3 OR FEVER >101F Alum & Mag Hydrox-Simethicone (Maalox Max Susp) 1 Hali Hali 30 ML PO Q4 PRN for HEARTBURN/GAS Azelastine Hcl (Astelin Nasal [place]) 200 Sprays/30 Ml [place] 2 SPRAYS RAIZA DAILY Bisacodyl (Bisacodyl) 10 Mg Sup 10 MG RE Q24H PRN for NO BM >2DAYS/CONSTIPATION Cholecalciferol (Vitamin D3) 1,000 Inter.unit Tab 2000 INTER.UNIT PO QAM, #30 TAB Docusate Sodium (Colace) 100 Mg Cap 1 CAP PO BID for 30 Days, #60 CAP Enoxaparin (Lovenox) 40 Mg/0.4 Ml Inj 40 MG SQ DAILY, SYR Ergocalciferol (Drisdol) 50,000 Unit Cap 1 CAP PO WK, #6 CAP Finasteride (Finasteride) 5 Mg Tab 5 MG PO DAILY Levalbuterol Tartrate (Levalbuterol Tartrate Hfa) 45 Mcg/Act Aer 2 PUFFS INH Q4 PRN for SOB/Wheezing Magnesium Hydroxide (Milk Of Magnesia) 30 Ml Susp 30 ML PO Q24H PRN for NO BM>1 DAY/CONSTIPATION Metoprolol Tartrate (Lopressor) (Lopressor) 50 Mg Tab 100 MG PO BID Montelukast Sodium (Singulair) 10 Mg Tab 10 MG PO DAILY Phenylephrine-Shark Liver Oil- (Preparation H) 1 Sup Sup 1 SUPP RE DAILY PRN for Hemorrhoids Senna/Docusate Sod (Senokot S) 1 Tab Tab 1 TAB PO DAILY, TAB Simethicone (Gas Relief Extra Strength) 125 Mg Cap 125 MG PO BID PRN for GAS Sodium Phosphate/Biphosphate (Fleet Enema) Krysta 1 EA DE Q24 PRN for NO BM >3 DAYS/CONSTIPATION, BTL Tiotropium [place] (Spiriva Handihaler) 30 Puff/540 Mcg Aerp 1 CAP INH DAILY for 30 Days, #30 CAP 3 Refills Discontinued Medications: Polyethylene Glycol 3350 (Miralax) 1 Pow Pow 17 GM PO DAILY, #255 GM Prednisone Tab (Prednisone) 10 Mg Tab 10 MG PO UD, #6 TAB 20mg x 2 days then 10mg x 2 days then stop Discharge Exam Subjective Pt evaluation today including: conversation w/ patient, physical exam, chart review, lab review, review of studies Pain: Very minimal PO Intake: NPO Voiding: no voiding problems The patient was seen and examined this morning. Pt reports after having fleets enema yesterday he had dark and tarry bowel movement. He has not had a bowel movement since yesterday afternoon. He denies nausea and vomiting but is irritated that he's not allowed to eat. He denies lightheadedness or dizziness , sob, cp, palpitations or flutter. He has not ambulated much since being here but is working with PT/OT. Constitutional: No fever, No chills, No sweats Eyes: No diplopia ENT: No nasal symptoms, No trouble swallowing Respiratory: + cough, + wheezing, No sputum, No shortness of breath, No dyspnea at rest Cardiovascular: No chest pain, No orthopnea, No palpitations Abdomen: No pain, No nausea, No vomiting, No diarrhea, No constipation Musculoskeletal: No joint pain, No muscle pain Male : No dysuria Endo: No fatigue Skin: No rash, No itch Objective Vital Signs Date Time Temp Pulse Resp B/P (MAP) Pulse Ox O2 Delivery O2 Flow Rate FiO2 02/20/17 08:46 36.9 82 18 137/75 91 Room Air 2.0 02/20/17 08:00 Room Air 02/20/17 07:17 36.9 82 18 137/75 (95) 91 Room Air 02/20/17 03:20 36.9 85 18 163/81 (108) 95 Room Air 02/20/17 03:20 95 Nasal Cannula 2.0 02/20/17 00:17 36.9 81 17 157/82 (107) 97 Nasal Cannula 2.0 02/20/17 00:00 Room Air 02/19/17 21:42 100 143/74 (97) 02/19/17 20:00 98 Nasal Cannula 2.0 02/19/17 20:00 Nasal Cannula 2.0 02/19/17 18:50 37.1 105 16 110/69 (83) 96 Nasal Cannula 2.0 02/19/17 16:00 98 Nasal Cannula 2.0 02/19/17 15:00 36.8 93 15 112/86 (95) 98 Nasal Cannula 2.0 02/19/17 12:00 Nasal Cannula 2.0 02/19/17 11:29 37.1 113 20 141/94 (110) 98 Nasal Cannula 2.0 Physical Exam Notes: General Appearance: WD/WN, no apparent distress, sitting up in bedside chair Eyes: PERRL, EOMI ENT: hearing grossly normal, pharynx normal Neck: supple, no JVD Respiratory/Chest: no respiratory distress, no accessory muscle use, + pertinent finding (On room air, breath sounds improved, no rhonchi or crackles, slightly diminished breath sounds at bases) Cardiovascular: regular rate, rhythm, no murmur Abdomen: non tender, soft, no organomegaly, + pertinent finding (hypoactive bowel sounds) Extremities: non-tender, no pedal edema, no calf tenderness Neurologic/Psychiatric: alert, oriented x 3, + pertinent finding (+ mild ataxia with upper extremities, likely baseline.) Skin: normal color, warm/dry (Silke Crystal PA-C) Hospital Course H&P per Christi Crystal PA-C History of Present Illness Source: patient, family This is a 71 yo M with PMHx of COPD, HTN, hyperlipidemia, hx of hemorrhoids, and frequent falls who presents from [facility] with increased cough, fever, rectal bleed and s/p fall with trauma to the chest wall. 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 The patient notes that he has had a cough for several weeks now, which is nonproductive, but then last night developed a fever. He became diaporetic, although denies any chills or shakes. He admits to some shortness of breath but says its improved since being in the hospital for COPD exacerbation, and was finishing a prednisone taper. His last day of prednisone taper is tomorrow. He reports that he fell on February 14, while he was up walking from the bathroom back to his bed at night he tripped and fell into the foot board injuring his chest, hitting his sternum. He denies losing consciousness or dizziness at that time, or any injury to the head. The patient also notes that he had recently been constipated and had been straining to have a bowel movement. He notes that there was some bright red blood streaking in his stools. The patient does admit to a history of this although has not had a bleed in his bowels for a long time. He was on a daily Lovenox injection while staying at [facility]. He denies any lightheadedness or dizziness recently. Here in the ER upon admission the patient was hypotensive with BP=86/61, blood cultures were drawn, 2 L of NSS administered, and Zosyn and daptomycin were administered. The patient has a WBC 26 with left shift, which is increased from 12K at time of discharge from hospital on February 13. His hemoglobin has dropped in the last 2 days from 15 to13. An EKG was performed that shows normal sinus rhythm without any signs of pericarditis, ischemia or ST wave inversions. CT of the chest completed showing fractures of the distal third sternum, and right 3rd-5th ribs. Physical Exam Vital Signs Date Time Temp Pulse Resp B/P (MAP) Pulse Ox O2 Delivery O2 Flow Rate FiO2 02/16/17 07:16 76 15 134/73 97 Nasal Cannula 2.0 02/16/17 06:33 80 18 119/55 98 Nasal Cannula 2.0 02/16/17 06:19 77 18 100/53 98 Nasal Cannula 2.0 02/16/17 05:50 94 18 86/57 96 Nasal Cannula 2.0 02/16/17 05:32 93 Room Air 02/16/17 05:29 94 02/16/17 05:28 36.7 94 18 86/61 93 Room Air General: awake, alert, mild apparent distress Head: Normocephalic, atraumatic ENT: PERRL, EOMI, no phangeal exudate, mucous membranes moist Chest: On 2 L O2 via NC, slightly diminished breath sounds in the left upper posterior gustafson. + wheeze, + ecchymosis forming over the distal third of the sternum. Cardiac: Regular rate and rhythm, no murmur, no JVD, normal peripheral pulses, good capillary refill. + orthostatic BP, dropped 20 points from laying flat to sitting. Abdominal: NABS x 4 quadrants, soft, nontender to palpation, no rebound, guarding or tenderness Extremities: Normal inspection, no peripheral edema or erythema, calfs nontender to palpation Psych: Normal mood and affect Neuro: AAO x 3, speech is clear, no peripheral sensory deficits Hospital Course: This is a 71 yo M with PMHx of COPD, HTN, hyperlipidemia, hx of hemorrhoids, and frequent falls who presents from [facility] with increased cough, fever, rectal bleed and s/p fall with trauma to the chest wall. Septic shock secondary to RML pneumonia - Hypotension resolved with fluid resuscitation and with holding antihypertensives - BP remained stable without the need for vasopressors. - Leukocytosis from 9K to 14K today, possibly reactive, will trend. - Blood cultures are NGTD, Cont Augmentin (day 3) and continue for at least 10 days. - UA was clean - Orthostatic BPs improved - Pt will follow up with pulm within 1 week with Ananth Dempsey PA-C. Since he was recently admitted prior to this admission with copd exacerbation and bronchitis. - Restarted metoprolol 100 mg BID on 02/19 with increased BP and KI=304 S/p fall, distal sternal fracture, Right 3,4,5 rib fx. - Supportive therapy with incentive spirometry and flutter to prevent any collapse of lung, - 2D echocardiogram 02/16/17, no pericardial effusion * -- Conclusions -- * 1. Normal LV size. Borderline concentric LVH. * 2. Hyperdynamic LV function. LVEF >70%. No regional wall motion abnormalities. * 3. Normal RV size and function. * 4. No significant valvular pathology. * 5. Normal estimated CVP * 6. No significant pericardial disease * 7. Compared with prior study on 10/10/2011: No significant change - Pain controlled with oxycodone and tramadol. Bowel regimen was in place. - Repeat CXR was completed on 02/19 to assess for any sign of bleeding into the chest, however this study showed improvement, Coags were normal, and hgb remained stable above 8. Hgb decrease - stable - Trending, has been stable around 8.2-8.4 x 3 days -- improved to 9.3 today - After fleets enema pt had 1 large tarry bowel movement - EGD was completed 6/9/17: Showing: Large Grade C esophagitis (one more mucosal breaks continuously between one or more mucosal folds, less than 75% with no bleeding, and diffuse moderate inflammation characterized by adherent clot and friability was found in the gastric body and gastric antrum, biopsies were obtained for histology. Duodenum was normal - Source likely also partially due to volume resuscitation as his baseline appears to be 10 as an outpatient and he received large fluid resuscitation at time of admission with septic shock. - hematoma/bleed in pleural cavity secondary to trauma to sternum and rib fractures was ruled out with normal coags and improved CXR. Breath sounds improved although still coarse. Follow up with pulm has been arranged. Rectal bleed - GI consulted- appreciate recs, no acute GI bleed, pt may benefit from edg and colonoscopy- will plan on outpatient scopes per GI. - BM prior to discharge with aggressive bowel regimen. Constipation - Continue patient on stool softener, mirilax BID, dulcolax suppository today, pt did not need relistor, but if needed in the future this could be considered - Very important to continue the patient on a bowel regimen if he requires oxycodone for rib and sternum fx pain. - Continue on famotidine 20mg BID since he's allergic to omeprazole and pantoprazole. COPD - Patient was recently admitted for a COPD exacerbation and mild bronchitis, CT of the chest or to review. - Continue xopenex duonebs scheduled Q4H while awake rather than prn. - breaths sounds slightly improved today, still coarse. Continue Augmentin. No steroids with esophagitis and gastritis. - Will need f/u with pulm: Ananth Dempsey PA-C who see's him as an outpatient. He would like to see him within 1 week after discharge from this admission. Greatly appreciate. - We'll continue incentive spirometry, flutter therapy along with his home inhaler therapies including Spiriva and Singulair - PT still on 2 L O2 via NC, wean as able. Frequent falls - PT OT - discharge back to [facility] for continued gait stability training. - Ambulation with assistance - Lyme's titer is negative. Hypertension -Restarted metoprolol 100 mg BID for now - stable Hyperlipidemia - Diet and exercise - Lipid panel Hx Renal Cell Carcinoma? - CT abd pelvis shows a 3.3 cm lesion in the right kidney suggestive of RCC- appears stable, old finding on imaging. - urine cytology in process DVT prophylaxis: lovenox, teds, scds CODE STATUS: DNR Disposition: From [facility], discharge when medically stable, today. Total Time Spent: Greater than 30 minutes This includes examination of the patient, discharge planning, medication reconciliation, and communication with other providers. (Silke Crystal PA-C) Discharge Instructions Please refer to the electronic Patient Visit Report (Discharge Instructions) for additional information. (Silke Crystal PA-C) Follow-Up Follow up with your Primary Care Provider within 1 week. Follow up with Pulmonology within 1 week. Follow up with GI within 1-2 weeks to schedule outpatient upper endoscopy and colonoscopy. (Silke Crystal PA-C) Additional Copies To Jose Avila M.D. Reviewed: Pt Seen/Exam by Me (Bethany Duke, DO) History Pt is stable. Tolerating full diet as prior. No chest pain or SOB. No further bowel movements today. Agree with HPI/ROS as noted. (Bethany Duke, DO) General Appearance: WD/WN, no apparent distress Respiratory: no respiratory distress, other (coarse but improved) Cardiovascular: normal peripheral pulses, regular rate, rhythm Gastrointestinal: non tender, soft Extremities: non-tender, no pedal edema Neurologic/Psychiatric: alert, oriented x 3 Skin Characteristics: normal color, warm/dry (Bethany Duke, DO) Assessment/Plan Agree with plan as outlined above Stool heme +, gastritis/esophagitis H/H stable but low, monitor KUB neg EGD as noted PNA: ongoing abx Add mucinex Sternal/rib fractures: pain meds as able Pt has had two large, black, sticky bowel movements since admission. This is likely to continue until blood is cleared and should not be returned to [facility] unless his Hb has dropped or there is new bright red bleeding noted. (Bethany Duke, DO)
[2017-02-19] MEDS ORDERED: NICO14DI9 TD (14:44)
[2017-02-19] MEDS ORDERED: ULT50X PO (14:44)
[2017-02-19] MEDS ORDERED: RXC5 PO (14:44)
--- NOTE | 2017-02-19 18:23 | Anesthesiology Progress Note ---
Anesthesia Progress Note Date of Service Feb 19, 2017. Progress Notes Pt is scheduled for EGD on 02/20/17. Pt is a 71M h/o recent COPD exacerbation, HTN , former smoker, frequent falls, LE neuropathy, GERD, borderline DM, renal ca, anemia, BPH who recently presented with septic shock and subsequent anemia. The pt has poor functional status 2/2 LE neuropathy. EKG and echo are unremarkable. The pt is anemic with Hgb at 8.5. On examination, he has coarse rhonchi throughout his lungs. The pt is an acceptable candidate for MAC anesthesia. I received consent from the patient. All questions/concerns were addressed.
[2017-02-19] MEDS: METOPROLOL TARTRATE 50 MG TAB PO SCH (21:42)
[2017-02-20] VITALS (8 sets, daily range): BP systolic 137–163; BP diastolic 75–86; PULSE 72–85; TEMP 36.7–36.9; O2SAT 91–99
[2017-02-20] MEDS: SUCRALFATE 1 GM TAB PO SCH ×3 (07:19→15:35)
[2017-02-20] MEDS: METOPROLOL TARTRATE 50 MG TAB PO SCH (07:20)
[2017-02-20] MEDS: GUAIFENESIN 600 MG TABCR PO SCH (07:20)
[2017-02-20] MEDS: FAMOTIDINE 20 MG TAB PO SCH (07:20)
[2017-02-20] MEDS: SIMETHICONE 80 MG CHEW PO PRN (07:20)
[2017-02-20] MEDS: DOCUSATE SODIUM 100 MG CAP PO SCH (07:20)
[2017-02-20] MEDS: NICOTINE 14 MG/24 HR TDSY TD SCH (07:21)
[2017-02-20] MEDS: CHOLECALCIFEROL 1000 INTER.UNIT TAB PO SCH (07:21)
[2017-02-20] MEDS: FINASTERIDE 5 MG TAB PO SCH (07:21)
[2017-02-20] MEDS: POLYETHYLENE (MIRALAX) 17 GM PACK PO SCH (07:21)
[2017-02-20] MEDS: MONTELUKAST SOD 10 MG TAB PO SCH (07:21)
[2017-02-20] MEDS: TIOTROPIUM BROMIDE 5 PUFF/90 MCG INH INH SCH (07:22)
[2017-02-20] MEDS: LEValbuterol HFA 15GM INHALER INH SCH ×3 (07:22→15:39)
[2017-02-20] MEDS: AMOXICILLIN/CLAVULANATE TAB 875 MG TAB PO SCH ×2 (08:15→15:35)
--- NOTE | 2017-02-20 08:24 | Progress Note ---
Progress Note Date of Service Feb 20, 2017. (Yelena Bahena ., GREGG) Progress Note GI notified of large black, loose sticky BM yesterday before anticipated discharge. No acute events overnight. Anesthesia cleared for EGD in endoscopy this AM. Pt agrees with EGD this AM. (Yelena Bahena ., GREGG)
[2017-02-20 09:17] LABS: BASO % 0.1 %; BASO ABS # 0.01 K/uL (0-0.2); COMPLETE YES; EOS % 1.9 %; HEMATOCRIT 27.2 % (42-52); IG% 0.8 %; LYMPH ABS # 1.57 K/uL (1.2-3.4); MEAN CELL VOLUME 86.9 fL (80-100); MEAN CORPUSCULAR HEMOGLOBIN 29.7 pg (25-34); MEAN CORPUSCULAR HGB CONC 34.2 g/dl (32-36); MEAN PLATELET VOLUME 8.7 fL (7.4-10.4); MONO % 11.1 %; NEUT % 75.1 %; PLATELET COUNT 310 K/uL (130-400); RED BLOOD COUNT 3.13 M/uL (4.7-6.1); WHITE BLOOD COUNT 14.31 K/uL (4.8-10.8)
[2017-02-20] MEDS ORDERED: PROPOFOL IV EMULSION 10 MG/ML 20 ML VIAL IV ONE (09:43)
[2017-02-20] MEDS ORDERED: LIDOCAINE HCL 2% 2 ML VIAL (20MG/ML) ONE (09:43)
--- NOTE | 2017-02-20 09:44 | Hospitalist Progress Note ---
Hospitalist Progress Note Date of Service Feb 20, 2017. (Silke Crystal PA-C) Subjective Pt evaluation today including: conversation w/ patient, physical exam, chart review, lab review, review of studies Pain: Very minimal PO Intake: NPO Voiding: no voiding problems The patient was seen and examined this morning. Pt reports after having fleets enema yesterday he had dark and tarry bowel movement. He has not had a bowel movement since yesterday afternoon. He denies nausea and vomiting but is irritated that he's not allowed to eat. He denies lightheadedness or dizziness , sob, cp, palpitations or flutter. He has not ambulated much since being here but is working with PT/OT. Constitutional: No fever, No chills, No sweats Eyes: No diplopia ENT: No nasal symptoms, No trouble swallowing Respiratory: + cough, + wheezing, No sputum, No shortness of breath, No dyspnea at rest Cardiovascular: No chest pain, No orthopnea, No palpitations Abdomen: No pain, No nausea, No vomiting, No diarrhea, No constipation Musculoskeletal: No joint pain, No muscle pain Male : No dysuria Endo: No fatigue Skin: No rash, No itch (Silke Crystal PA-C) Objective Vital Signs Date Time Temp Pulse Resp B/P (MAP) Pulse Ox O2 Delivery O2 Flow Rate FiO2 02/20/17 08:46 36.9 82 18 137/75 91 Room Air 2.0 02/20/17 08:00 Room Air 02/20/17 07:17 36.9 82 18 137/75 (95) 91 Room Air 02/20/17 03:20 36.9 85 18 163/81 (108) 95 Room Air 02/20/17 03:20 95 Nasal Cannula 2.0 02/20/17 00:17 36.9 81 17 157/82 (107) 97 Nasal Cannula 2.0 02/20/17 00:00 Room Air 02/19/17 21:42 100 143/74 (97) 02/19/17 20:00 98 Nasal Cannula 2.0 02/19/17 20:00 Nasal Cannula 2.0 02/19/17 18:50 37.1 105 16 110/69 (83) 96 Nasal Cannula 2.0 02/19/17 16:00 98 Nasal Cannula 2.0 02/19/17 15:00 36.8 93 15 112/86 (95) 98 Nasal Cannula 2.0 02/19/17 12:00 Nasal Cannula 2.0 02/19/17 11:29 37.1 113 20 141/94 (110) 98 Nasal Cannula 2.0 (Silke Crystal PA-C) Physical Exam Notes: General Appearance: WD/WN, no apparent distress, sitting up in bedside chair Eyes: PERRL, EOMI ENT: hearing grossly normal, pharynx normal Neck: supple, no JVD Respiratory/Chest: no respiratory distress, no accessory muscle use, + pertinent finding (On room air, breath sounds improved, no rhonchi or crackles, slightly diminished breath sounds at bases) Cardiovascular: regular rate, rhythm, no murmur Abdomen: non tender, soft, no organomegaly, + pertinent finding (hypoactive bowel sounds) Extremities: non-tender, no pedal edema, no calf tenderness Neurologic/Psychiatric: alert, oriented x 3, + pertinent finding (+ mild ataxia with upper extremities, likely baseline.) Skin: normal color, warm/dry (Silke Crystal PA-C) Laboratory Results Last 24 Hours Test 02/19/17 10:22 02/20/17 09:10 Prothrombin Time 10.5 SECONDS Prothromb Time International Ratio 1.0 Activated Partial Thromboplast Time 23.0 SECONDS Partial Thromboplastin Ratio 0.9 White Blood Count 14.31 K/uL Red Blood Count 3.13 M/uL Hemoglobin 9.3 g/dL Hematocrit 27.2 % Mean Corpuscular Volume 86.9 fL Mean Corpuscular Hemoglobin 29.7 pg Mean Corpuscular Hemoglobin Concent 34.2 g/dl Platelet Count 310 K/uL Mean Platelet Volume 8.7 fL Neutrophils (%) (Auto) 75.1 % Lymphocytes (%) (Auto) 11.0 % Monocytes (%) (Auto) 11.1 % Eosinophils (%) (Auto) 1.9 % Basophils (%) (Auto) 0.1 % Neutrophils # (Auto) 10.75 K/uL Lymphocytes # (Auto) 1.57 K/uL Monocytes # (Auto) 1.59 K/uL Eosinophils # (Auto) 0.27 K/uL Basophils # (Auto) 0.01 K/uL RDW Standard Deviation 42.6 fL RDW Coefficient of Variation 13.4 % Immature Granulocyte % (Auto) 0.8 % Immature Granulocyte # (Auto) 0.12 K/uL (Silke Crystal PA-C) Assessment and Plan Hospital Course: This is a 71 yo M with PMHx of COPD, HTN, hyperlipidemia, hx of hemorrhoids, and frequent falls who presents from [facility] with increased cough, fever, rectal bleed and s/p fall with trauma to the chest wall. Septic shock secondary to RML pneumonia - Hypotension resolved with fluid resuscitation and with holding antihypertensives - BP remained stable without the need for vasopressors. - Leukocytosis from 9K to 14K today, possibly reactive, will trend. - Blood cultures are NGTD, Cont Augmentin (day 3) and continue for at least 10 days. - UA was clean - Orthostatic BPs improved - Pt will follow up with pulm within 1 week with Ananth Dempsey PA-C. Since he was recently admitted prior to this admission with copd exacerbation and bronchitis. - Restarted metoprolol 100 mg BID on 02/19 with increased BP and NP=771 S/p fall, distal sternal fracture, Right 3,4,5 rib fx. - Supportive therapy with incentive spirometry and flutter to prevent any collapse of lung, - 2D echocardiogram 02/16/17, no pericardial effusion * -- Conclusions -- * 1. Normal LV size. Borderline concentric LVH. * 2. Hyperdynamic LV function. LVEF >70%. No regional wall motion abnormalities. * 3. Normal RV size and function. * 4. No significant valvular pathology. * 5. Normal estimated CVP * 6. No significant pericardial disease * 7. Compared with prior study on 10/10/2011: No significant change - Pain controlled with oxycodone and tramadol. Bowel regimen was in place. - Repeat CXR was completed on 02/19 to assess for any sign of bleeding into the chest, however this study showed improvement, Coags were normal, and hgb remained stable above 8. Hgb decrease - stable - Trending, has been stable around 8.2-8.4 x 3 days -- improved to 9.3 today - After fleets enema pt had 1 large tarry bowel movement and with this GI decided it would be better to perform EGD, scheduled today. - Source likely also partially due to volume resuscitation as his baseline appears to be 10 as an outpatient and he received large fluid resuscitation at time of admission with septic shock. - hematoma/bleed in pleural cavity secondary to trauma to sternum and rib fractures was ruled out with normal coags and improved CXR. Breath sounds improved although still coarse. Follow up with pulm has been arranged. Rectal bleed - GI consulted- appreciate recs, no acute GI bleed, pt may benefit from edg and colonoscopy- will plan on outpatient scopes per GI. - BM prior to discharge with aggressive bowel regimen. Constipation - Continue patient on stool softener, mirilax BID, dulcolax suppository today, pt did not need relistor, but if needed in the future this could be considered - Very important to continue the patient on a bowel regimen if he requires oxycodone for rib and sternum fx pain. - Continue on famotidine 20mg BID since he's allergic to omeprazole and pantoprazole. COPD - Patient was recently admitted for a COPD exacerbation and mild bronchitis, CT of the chest or to review. - Continue xopenex duonebs scheduled Q4H while awake rather than prn. - breaths sounds slightly improved today, still coarse. Continue Augmentin. Will consider adding a prednisone taper today after EGD results. - Will need f/u with pulm: Ananth Dempsey PA-C who see's him as an outpatient. He would like to see him within 1 week after discharge from this admission. Greatly appreciate. - We'll continue incentive spirometry, flutter therapy along with his home inhaler therapies including Spiriva and Singulair - PT still on 2 L O2 via NC, wean as able. Frequent falls - PT OT - discharge back to [facility] for continued gait stability training. - Ambulation with assistance - Lyme's titer is negative. Hypertension -Restarted metoprolol 100 mg BID for now - stable Hyperlipidemia - Diet and exercise - Lipid panel Hx Renal Cell Carcinoma? - CT abd pelvis shows a 3.3 cm lesion in the right kidney suggestive of RCC- appears stable, old finding on imaging. - urine cytology in process DVT prophylaxis: lovenox, teds, scds CODE STATUS: DNR Disposition: From [facility], discharge when medically stable. (Silke Crystal, PITO) Reviewed: Pt Seen/Exam by Me (Bethany Duke, ) History See d/c summary for details. (Bethany Duke, ) Assessment/Plan Agree with plan as outlined above Stool heme +, gastritis/esophagitis H/H stable but low, monitor KUB neg EGD as noted PNA: ongoing abx Add mucinex Sternal/rib fractures: pain meds as able Pt has had two large, black, sticky bowel movements since admission. This is likely to continue until blood is cleared and should not be returned to [facility] unless his Hb has dropped or there is new bright red bleeding noted. (Bethany Duke, )
[2017-02-20 09:50] LABS: BUN/CREATININE RATIO 20.8 (10-20); CALCIUM 8.1 mg/dl (8.5-10.1); CREATININE 0.52 mg/dl (0.60-1.40); POTASSIUM 4.3 mmol/L (3.5-5.1)
--- NOTE | 2017-02-20 10:10 | GI REPORT ---
Procedure Date: 02/20/2017 9:42 AM Procedure: Upper GI endoscopy Indications: Melena Medicines: General Anesthesia Complications: No immediate complications. Estimated blood loss: None. Estimated Blood Loss: Estimated blood loss: none. Procedure: Pre-Anesthesia Assessment: - Pre-Anesthesia Assessment: - Prior to the procedure, a History and Physical was performed, and patient medications, allergies and sensitivities were reviewed. The patient's tolerance of previous anesthesia was reviewed. Please see [employer] for complete details. - The risks and benefits of the procedure and the sedation options and risks were discussed with the patient. All questions were answered and informed consent was obtained. - Patient identification and proposed procedure were verified prior to the procedure by the physician and the nurse. The procedure was verified in the pre-procedure area in the procedure room. After obtaining informed consent, the endoscope was passed carefully and meticuously under direct vision and only advanced when the lumen was clearly identified, C02 insuflation was utilized throughout the entirity of the procedure. Throughout the procedure, the patient's blood pressure, pulse, and oxygen saturations were monitored continuously. After obtaining informed consent, the endoscope was passed under direct vision. Throughout the procedure, the patient's blood pressure, pulse, and oxygen saturations were monitored continuously. The scope was introduced through the mouth, and advanced to the second part of duodenum. The upper GI endoscopy was accomplished without difficulty. The patient tolerated the procedure well. Findings: LA Grade C (one or more mucosal breaks continuous between tops of 2 or more mucosal folds, less than 75% circumference) esophagitis with no bleeding was found. Diffuse moderate inflammation characterized by adherent blood and friability was found in the gastric body and in the gastric antrum. Biopsies were taken with a cold forceps for histology. The examined duodenum was normal. Impression: - LA Grade C reflux esophagitis. - Gastritis. Biopsied. - Normal examined duodenum. Recommendation: - Await pathology results. - Return patient to hospital [facility] for ongoing care. - Use Prilosec (omeprazole) 40 mg PO BID for 2 months. - After confirming allergy to medication, patient reports that reaction is diarrhea, not true allergy. - Ok to advance diet Rafael Beauchamp MD 02/20/2017 10:09:05 AM This report has been signed electronically. Note Initiated On: 02/20/2017 9:42 AM I attest to the content of the Intraoperative Record and orders documented therein, exceptions below
--- NOTE | 2017-02-20 10:28 | Anesthesiology Progress Note ---
Anesthesia Post Op Note Date & Time Feb 20, 2017 at 10:28 Vital Signs Pain Intensity: 0.0 Vital Signs Past 12 Hours Date Time Temp Pulse Resp B/P (MAP) Pulse Ox O2 Delivery O2 Flow Rate FiO2 02/20/17 10:15 66 18 126/67 (86) 99 Nasal Cannula 2 02/20/17 09:58 66 18 110/65 (80) 100 Mask 10 02/20/17 09:38 36.7 69 20 143/ (47) 95 Room Air 02/20/17 08:46 36.9 82 18 137/75 91 Room Air 2.0 02/20/17 08:00 Room Air 02/20/17 07:17 36.9 82 18 137/75 (95) 91 Room Air 02/20/17 03:20 36.9 85 18 163/81 (108) 95 Room Air 02/20/17 03:20 95 Nasal Cannula 2.0 02/20/17 00:17 36.9 81 17 157/82 (107) 97 Nasal Cannula 2.0 02/20/17 00:00 Room Air Notes Mental Status: alert / awake / arousable, participated in evaluation Pt Amnestic to Procedure: Yes Nausea / Vomiting: adequately controlled Pain: adequately controlled Airway Patency, RR, SpO2: stable & adequate BP & HR: stable & adequate Hydration State: stable & adequate Anesthetic Complications: no major complications apparent
[2017-02-20] MEDS: ALUMINUM/MAGNESIUM/SIMETH (MAALOX MAX) 30 ML UDC PO PRN (12:30)
[2017-03-04] MEDS ORDERED: FRRS300 PO (16:36)
[2017-03-04] MEDS ORDERED: PRT40 PO (16:36)
[2017-03-04] MEDS ORDERED: SDMC1 PO (16:36)
[2017-03-04] MEDS ORDERED: LEVA45AE INH (16:36)
[2017-05-21] MEDS ORDERED: TERB1CRE32 TOP (12:52)
[2017-05-21] MEDS ORDERED: CHOL1TAB42 PO (12:52)
[2017-05-21] MEDS ORDERED: LANS15CA6 PO (12:52)
[2017-05-21] MEDS ORDERED: LEVA45AE INH (12:52)
[2017-05-21] MEDS ORDERED: IPRASOL4 INH ×2 (12:52)
[2017-05-21] MEDS ORDERED: TRAM-10 PO (12:52)
[2017-05-21] MEDS ORDERED: FERR1TAB13 PO (12:52)
[2017-05-21] MEDS ORDERED: SENN1TAB80 PO (12:52)
[2017-05-21] MEDS ORDERED: CARB25TA14 PO (12:52)
[2017-05-21] MEDS ORDERED: CARB10TA4 PO (12:52)
== END 2017-02-20 17:02 | DRG 871 ==
LOC: EDBD 05:23 → C.EDB 05:24 → C.2E 07:56 → ENRESERV 08:15
PROVIDERS: ADMIT Internal Medicine; ATTEND Family Medicine
PROC: 0DB68ZX Excision of Stomach, Via Natural or Artificial Opening Endoscopic, Diagnostic (ICD-10-PCS; principal; 2017-02-20 09:45)
DX: A41.9 Sepsis, unspecified organism (principal); R65.21 Severe sepsis with septic shock; J18.9 Pneumonia, unspecified organism; J44.0 Chronic obstructive pulmonary disease with (acute) lower respiratory infection; S22.41XA Multiple fractures of ribs, right side, initial encounter for closed fracture; S22.20XA Unspecified fracture of sternum, initial encounter for closed fracture; N17.9 Acute kidney failure, unspecified; K92.2 Gastrointestinal hemorrhage, unspecified; R19.5 Other fecal abnormalities; E55.9 Vitamin D deficiency, unspecified; K58.9 Irritable bowel syndrome, unspecified; K29.70 Gastritis, unspecified, without bleeding; R26.9 Unspecified abnormalities of gait and mobility; R32 Unspecified urinary incontinence; J44.9 Chronic obstructive pulmonary disease, unspecified; I10 Essential (primary) hypertension; E78.5 Hyperlipidemia, unspecified; Z66 Do not resuscitate; K21.9 Gastro-esophageal reflux disease without esophagitis; K59.00 Constipation, unspecified; R29.6 Repeated falls; Z99.81 Dependence on supplemental oxygen; Z79.899 Other long term (current) drug therapy; Z80.9 Family history of malignant neoplasm, unspecified; Z82.49 Family history of ischemic heart disease and other diseases of the circulatory system; Z79.52 Long term (current) use of systemic steroids; Z91.030 Bee allergy status; Z91.018 Allergy to other foods; Z88.8 Allergy status to other drugs, medicaments and biological substances; W01.0XXA Fall on same level from slipping, tripping and stumbling without subsequent striking against object, initial encounter; T45.515A Adverse effect of anticoagulants, initial encounter

== ENCOUNTER 2017-02-25 11:33 | Inpatient (IN) | payer OTHER ==
[~2017-02-25] VITALS: Ht 198.1 cm; Wt 111.4 kg
[~2017-02-25 11:33] MED LIST changes: +ACET500T57 PO; +ALUMSUS2 PO; +AMOX1TAB43 PO; +BISA10SU5 RE; +DOCU-94 PO; +ENOX40IN SQ; +FAMO20TA12 PO; +MOML PO; +NICO14DI9 TD; +PHENSUP RE; +POLY335019 PO; -PRED10TA PO; +RXC5 PO; +SENN-65 PO; +SIME125C52 PO; +SODIENE PR; +ULT50X PO
--- NOTE | 2017-02-25 12:26 | EMERGENCY ROOM VISIT NOTE ---
History Report prepared by Galindo: Liliane Huynh Under the Supervision of: Rebecca MaddoxO. First contact with patient: 11:52 Chief Complaint: GI ASSESSMENT Stated Complaint: POTENTIAL GI BLEED Nursing Triage Summary: pt arrives via EMS from [facility] , staff reports black tarry stool this AM , pt reports abdominal pain X 2 weeks worse today , staff reports low hbg of 6.7 History of Present Illness The patient is a 71 year old male who presents to the Emergency Room with complaints of persistent epigastric abdominal pain that began several days ago. He currently rates his discomfort as an 8/10 in severity. The patient states that this morning he was found to have melanotic stools. Per staff from [facility], the patient's hemoglobin was down to 6.7 today. The patient states that he has a history of melanotic stools and is unsure where the blood is coming from. He denies being on aspirin or other anti-coagulants. The patient denies any previous blood transfusions or surgeries due to his previous GI bleeds. Today he notes increased gas, abdominal bloating, and abdominal distension. The patient reports a decrease in appetite. He states that certain foods worsen his pain. The patient reports difficulty breathing recently and states that he was just started on supplemental oxygen. He denies any history of an ulcer, Crohn's Disease, or ulcerative colitis. The patient states that he takes Gas-X often. He denies any cough, cold, fever, chills, or chest pain. After reviewing the patient's EMR, his 2006 Colonoscopy was normal. Patient with recent admission for pneumonia and during that time developed anemia and septic with GI bleed. Patient underwent endoscopy which showed esophagitis and gastritis. Patient discharged on Protonix twice a day as well as Carafate. Of note the group home records for the patient show that he is also getting Lovenox injections as DVT prophylaxis, no other antiplatelet or anticoagulation. Source of History: patient Onset: several days ago Position: abdomen (epigastric) Symptom Intensity: 8/10 Timing: other (persistent) Modifying Factors (Worsening): other (certain foods) Associated Symptoms: + SOB, + melena, No fevers, No chills, No cough, No chest pain Note: Associated Symptoms: increased gas, abdominal bloating, abdominal distension, decrease in appetite Review of Systems See HPI for pertinent positives & negatives. A total of 10 systems reviewed and were otherwise negative. Past Medical & Surgical Medical Problems: (1) GI bleed (2) Hypertension (3) Neuropathy Family History Cancer Heart disease Social History Smoking Status: Never Smoker Drug Use: none Marital Status: single Housing Status: lives alone Occupation Status: retired Current/Historical Medications Scheduled Amoxicillin & Pot Clavulanate (Amoxicillin/Clavulanate P), 875 MG PO BIDM Azelastine Hcl (Astelin Nasal [place]), 2 SPRAYS RAIZA DAILY Cholecalciferol (Vitamin D3), 2,000 INTER.UNIT PO QAM Docusate Sodium (Colace), 1 CAP PO BID Enoxaparin (Lovenox), 40 MG SQ DAILY Ergocalciferol (Drisdol), 1 CAP PO WK Famotidine (Famotidine), 20 MG PO BID Finasteride (Finasteride), 5 MG PO DAILY Metoprolol Tartrate (Lopressor) (Lopressor), 100 MG PO BID Montelukast Sodium (Singulair), 10 MG PO DAILY Nicotine (Nicotine), 1 PATCH TD QAM Polyethylene Glycol 3350 (Miralax), 17 GM PO DAILY Senna/Docusate Sod (Senokot S), 1 TAB PO DAILY Sucralfate (Carafate), 1 GM PO ACHS Tiotropium [place] (Spiriva Handihaler), 1 CAP INH DAILY Umeclidinium [place] (Incruse Ellipta), 1 PUFF INH QAM Scheduled PRN Acetaminophen (Acetaminophen), 1 TAB PO Q4 PRN for Pain or Fever Alum & Mag Hydrox-Simethicone (Maalox Max Susp), 30 ML PO Q4 PRN for HEARTBURN/ GAS Bisacodyl (Bisacodyl), 10 MG RE Q24H PRN for NO BM >2DAYS/CONSTIPATION Levalbuterol Tartrate (Levalbuterol Tartrate Hfa), 2 PUFFS INH Q4 PRN for SOB/ Wheezing Magnesium Hydroxide (Milk Of Magnesia), 30 ML PO Q24H PRN for NO BM>1 DAY/ CONSTIPATION Oxycodone HCl (Oxycodone HCl), 5 MG PO Q4H PRN for Pain Phenylephrine-Shark Liver Oil- (Preparation H), 1 SUPP RE DAILY PRN for Hemorrhoids Simethicone (Gas Relief Extra Strength), 125 MG PO BID PRN for GAS Sodium Phosphate/Biphosphate (Fleet Enema), 1 EA CA Q24 PRN for NO BM >3 DAYS/ CONSTIPATION Tramadol HCl (Tramadol HCl), 50 MG PO Q4H PRN for Pain Allergies Coded Allergies: BEE STING (Verified Allergy, Severe, 02/25/17) Cefadroxil (Unverified Allergy, Intermediate, UNKNOWN, 02/25/17) Cephalexin (Unverified Allergy, Intermediate, UNKNOWN, 02/25/17) Escitalopram (Unverified Allergy, Intermediate, UNKNOWN, 02/25/17) Omeprazole (Unverified Allergy, Intermediate, UNKNOWN, 02/25/17) Pantoprazole (Unverified Allergy, Intermediate, UNKNOWN, 02/25/17) Wheat (Unverified Allergy, Intermediate, UNKNOWN, 02/25/17) Physical Exam Vital Signs Date Time Temp Pulse Resp B/P (MAP) Pulse Ox O2 Delivery O2 Flow Rate FiO2 02/25/17 14:00 75 16 126/79 100 Nasal Cannula 2.0 02/25/17 12:33 78 19 100 2.0 02/25/17 12:31 132/76 02/25/17 12:30 71 02/25/17 12:01 131/81 02/25/17 11:47 100 Nasal Cannula 2.0 02/25/17 11:37 36.5 75 20 119/69 100 Room Air Physical Exam GENERAL: Pale, alert, well appearing, well nourished, no distress, non-toxic EYE EXAM: normal conjunctiva, PERRL and EOM's grossly intact OROPHARYNX: no exudate, no erythema, lips, buccal mucosa, and tongue normal and mucous membranes are moist NECK: supple, no nuchal rigidity, no adenopathy, non-tender CHEST WALL: Bruise to the inferior aspect of the sternum consistent with the patient's fall history and fracture of his sternum and ribs. LUNGS: Clear to auscultation. Normal chest wall mechanics HEART: no murmurs, S1 normal and S2 normal ABDOMEN: abdomen soft, non-tender, normo-active bowel sounds, no masses, no rebound or guarding. BACK: Back is symmetrical on inspection and there is no deformity, no midline tenderness, no CVA tenderness. RECTAL: No hemorrhoids or fissures. Melena noted, heme tested positive. SKIN: no rashes and no bruising UPPER EXTREMITIES: upper extremities are grossly normal. LOWER EXTREMITIES: No pitting edema. NEURO EXAM: Normal sensorium, cranial nerves II-XII grossly intact, normal speech, no gross weakness of arms, no gross weakness of legs. Medical Decision & Procedures ER Provider Diagnostic Interpretation: Radiology results have been interpreted by the radiologist and reviewed by me. CT ANGIOGRAPHY OF THE ABDOMEN AND PELVIS CT DOSE: 1012.16 mGy.cm CLINICAL HISTORY: Abdominal pain. Possible GI bleed. TECHNIQUE: Helical axial images of the abdomen and pelvis were obtained during arterial phase following intravenous injection of 120 cc of Optiray 320 IV. Sagittal and coronal reconstructions were viewed on an independent 3-D workstation. COMPARISON STUDY: CT of the abdomen and pelvis February 16, 2017. FINDINGS: Visualized portions of the lower chest demonstrate a minimally displaced inferior sternal fracture as well as several right-sided rib fractures which were shown on chest CT of February 16, 2017. There is no pneumatosis, free air or portal venous gas. Arterial phase images of liver, spleen, adrenal glands and pancreas are unremarkable. A 3.2 cm intermediate attenuation mass-like abnormality within the medial cortex of the midpole of the right kidney has minimal adjacent infiltration. This is at site of previous renal mass. There is no hydronephrosis. There is no evidence for a bowel obstruction. There is a moderate amount of poorly formed stool within the colon. Note is made of mild infiltration adjacent to the distal stomach and proximal duodenum. This is new since prior exam. There is moderate plaque of the abdominal aorta. The caliber of the vessels normal. The major mesenteric vessels are patent. There is colonic diverticulosis without evidence for acute diverticulitis. No suspicious osseous lesions are identified. There is no lymphadenopathy. Sensitivity for detection of mucosal lesions is diminished given CT technique. IMPRESSION: 1. Mild infiltration adjacent to the distal stomach and proximal duodenum. This may reflect gastritis/duodenitis in the setting of peptic ulcer disease. Less likely, this could reflect acute pancreatitis. 2. Moderate plaque of the abdominal aorta. Patent mesenteric vessels. 3. Moderate amount of poorly formed stool within the colon. No bowel obstruction. 4. 3.2 cm intermediate attenuation mass-like abnormality within the midpole of the right kidney. Minimal adjacent infiltration. This infiltration is nonspecific and could be related to prior procedure or extension of tumor. Correlation with procedural history is recommended as a renal cell carcinoma is the diagnosis of exclusion. Electronically signed by: Tim Hayden M.D. 02/25/2017 2:08 PM Dictated Date/Time: 02/25/2017 1:42 PM CHEST ONE VIEW PORTABLE CLINICAL HISTORY: Leukocytosis. Upper abdominal pain. COMPARISON STUDY: Chest CT February 16, 2017 and chest radiograph February 19, 2017. FINDINGS: There is no pneumothorax or pleural effusion. There is no consolidation. Pulmonary vascularity is normal. Cardiac size is normal. IMPRESSION: No acute cardiopulmonary findings. Electronically signed by: Tim Hayden M.D. 02/25/2017 1:31 PM Dictated Date/Time: 02/25/2017 1:23 PM Laboratory Results Test 02/25/17 12:05 02/25/17 14:07 Immature Granulocyte % (Auto) 3.0 % White Blood Count 20.77 K/uL (4.8-10.8) Red Blood Count 2.49 M/uL (4.7-6.1) Hemoglobin 7.3 g/dL (14.0-18.0) Hematocrit 21.1 % (42-52) Mean Corpuscular Volume 84.7 fL (80-100) Mean Corpuscular Hemoglobin 29.3 pg (25-34) Mean Corpuscular Hemoglobin Concent 34.6 g/dl (32-36) Platelet Count 591 K/uL (130-400) Mean Platelet Volume 8.6 fL (7.4-10.4) Neutrophils (%) (Auto) 74.6 % Lymphocytes (%) (Auto) 13.7 % Monocytes (%) (Auto) 8.6 % Eosinophils (%) (Auto) 0.0 % Basophils (%) (Auto) 0.1 % Neutrophils # (Auto) 15.47 K/uL (1.4-6.5) Lymphocytes # (Auto) 2.84 K/uL (1.2-3.4) Monocytes # (Auto) 1.79 K/uL (0.11-0.59) Eosinophils # (Auto) 0.01 K/uL (0-0.5) Basophils # (Auto) 0.03 K/uL (0-0.2) Immature Granulocyte # (Auto) 0.63 K/uL (0.00-0.02) Large Platelets 1+ Prothrombin Time 11.1 SECONDS (9.0-12.0) Prothromb Time International Ratio 1.0 (0.9-1.1) Lactic Acid Level 2.6 mmol/L (0.4-2.0) Total Bilirubin 0.2 mg/dl (0.2-1) Aspartate Amino Transf (AST/SGOT) 98 U/L (15-37) Alanine Aminotransferase (ALT/SGPT) 194 U/L (12-78) Alkaline Phosphatase 58 U/L (45-117) Troponin I < 0.015 ng/ml (0-0.045) Total Protein 6.7 gm/dl (6.4-8.2) Albumin 2.7 gm/dl (3.4-5.0) Globulin 4.0 gm/dl (2.5-4.0) Albumin/Globulin Ratio 0.7 (0.9-2) Lipase 280 U/L (73-393) Urine Color YELLOW Urine Appearance CLEAR (CLEAR) Urine pH 6.0 (4.5-7.5) Urine Specific [place] > 1.045 (1.000-1.030) Urine Protein NEG (NEG) Urine Glucose (UA) NEG (NEG) Urine Ketones NEG (NEG) Urine Occult Blood NEG (NEG) Urine Nitrite NEG (NEG) Urine Bilirubin NEG (NEG) Urine Urobilinogen NEG (NEG) Urine Leukocyte Esterase NEG (NEG) Laboratory results per my review. Medications Administered Medications (Trade) Dose Ordered Sig/Agustina Route Start Time Stop Time Status Last Admin Dose Admin Fentanyl Citrate (Fentanyl Inj) 50 mcg NOW STAT IV 02/25/17 12:55 02/25/17 13:00 DC 02/25/17 13:17 50 MCG Pantoprazole Sodium 40 mg/ Syringe 10 ml @ 5 mls/min NOW ONCE IV 02/25/17 13:00 02/25/17 13:01 DC 02/25/17 13:12 5 MLS/MIN Sodium Chloride 1,000 ml @ 125 mls/hr Q8H STAT IV 02/25/17 12:55 02/25/17 16:35 DC 02/25/17 13:08 125 MLS/HR ECG Indication: abdominal pain Rate (beats per minute): 70 Rhythm: sinus rhythm Findings: no acute ischemic change, no ectopy, other (normal axis, normal intervals) ED Course 1204: The patient was evaluated in room C7. A complete history and physical exam was performed. 1255: Ordered Sodium Chloride 1000 ml @ 125 mls/hr IV, Fentanyl Inj 50 mcg IV. 1300: Ordered Pantoprazole Sodium 40 mg/Syringe 10 ml @ 5 mls/min IV. 1332: I went to reevaluate the patient and he is currently at CT scan. 1348: I performed the rectal exam at this time. See physical exam for further detail. I discussed all the exam findings with him and I discussed the treatment plan. He verbalized complete understanding and agreement. He will be evaluated for further treatment. 1455: I discussed the patients case with HOLLEY Mar. He is going to evaluate the patient for further treatment. Medical Decision Differential diagnosis includes etiologies such as diverticulosis, AVM, coagulopathy, colitis, inflammatory bowel disease, malignancy, Aranza-Chauhan tear, esophagitis, peptic ulcer disease, variceal bleed, gastritis, epistaxis, fissure, hemorrhoids, as well as others were entertained. Medication Reconciliation: I attest that I have personally reviewed the patient' s current medication list. Blood pressure screening: Patient was found to have an elevated blood pressure and was referred to their primary doctor for recheck and further treatment. Patient's hemoglobin today down 2 gm compared to that at discharge. Patient found to have melena was guaiac positive. Was given a dose of an IV PPI here. Vital signs did remain stable, and blood transfusion ordered. Patient with mild abdominal pain, and CAT scan ordered as a precaution, likely related to esophagitis gastritis and mild duodenitis noted on the CT today, and consistent with likely findings from recent EGD. No other evidence of perforation or ischemia, no evidence of bowel obstruction. Doubt additional lower GI bleed. Patient with leukocytosis noted, no obvious source, possible inflammatory or stress reaction. However culture sent and patient covered with antibiotics given recent hospitalization and pneumonia. No recurrent infiltrate noted on chest x-ray and urine clean. Mild elevation of lactic acid likely secondary to anemia and GI bleed. Consults Time Called: 1422 Consulting Physician: HOLLEY Kelley Returned Call: [phone] I discussed the patients case with HOLLEY Mar. He is going to evaluate the patient for further treatment. Impression Primary Impression: GI bleed Additional Impressions: Upper abdominal pain Anemia Leukocytosis Critical Care I have personally spent greater than 35 minutes of critical care time in the direct management of this patient. This includes bedside care, interpretation of diagnostic studies, and testing, discussion with consultants, patient, and family members, and other required patient management activities. This 35 minutes is in excess of all separately billable procedures. Scribe Attestation The scribe's documentation has been prepared under my direction and personally reviewed by me in its entirety. I confirm that the note above accurately reflects all work, treatment, procedures, and medical decision making performed by me. Departure Information Dispostion Being Evaluated By Hospitalist Jose Mays M.D. (PCP) Problem Qualifiers Primary Impression: GI bleed GI bleed type/associated pathology: unspecified gastrointestinal hemorrhage type Qualified Codes: K92.2 - Gastrointestinal hemorrhage, unspecified Additional Impressions: Anemia Anemia type: other cause Other causes of anemia: acute posthemorrhagic Qualified Codes: D62 - Acute posthemorrhagic anemia Leukocytosis Leukocytosis type: unspecified Qualified Codes: D72.829 - Elevated white blood cell count, unspecified
[2017-02-25 12:28] LABS: BASO % 0.1 %; BASO ABS # 0.03 K/uL (0-0.2); HEMATOCRIT 21.1 % (42-52); LYMPH % 13.7 %; LYMPH ABS # 2.84 K/uL (1.2-3.4); MEAN CELL VOLUME 84.7 fL (80-100); MEAN CORPUSCULAR HEMOGLOBIN 29.3 pg (25-34); MEAN CORPUSCULAR HGB CONC 34.6 g/dl (32-36); MEAN PLATELET VOLUME 8.6 fL (7.4-10.4); MONO % 8.6 %; NEUT % 74.6 %; PLATELET COUNT 591 K/uL (130-400); RED BLOOD COUNT 2.49 M/uL (4.7-6.1); WHITE BLOOD COUNT 20.77 K/uL (4.8-10.8)
[2017-02-25] MEDS ORDERED: UMEC1INH INH (12:37)
[2017-02-25] MEDS ORDERED: SUCR1TAB29 PO (12:39)
[2017-02-25 12:41] LABS: PROTHROMBIN TIME (PATIENT) 11.1 SECONDS (9.0-12.0)
[2017-02-25 12:50] LABS: ALT/SGPT 194 U/L (12-78); AST/SGOT 98 U/L (15-37); BLOOD UREA NITROGEN 44 mg/dl (7-18); BUN/CREATININE RATIO 54.5 (10-20); CARBON DIOXIDE 27 mmol/L (21-32); CHLORIDE 95 mmol/L (98-107); CREATININE 0.81 mg/dl (0.60-1.40); GLUCOSE 93 mg/dl (70-99); POTASSIUM 4.7 mmol/L (3.5-5.1); SODIUM 130 mmol/L (136-145)
[2017-02-25] MEDS ORDERED: FENTANYL CITRATE INJ 50 MCG/1 ML 2 ML VIAL IV STA (12:55)
[2017-02-25] MEDS ORDERED: SODIUM CHLORIDE 0.9% 1000ML 1,000 ML IV STA (12:55)
[2017-02-25 13:00] LABS: COMPLETE YES; LARGE PLATELETS 1+
[2017-02-25] MEDS ORDERED: PANTOprazole INJ 40 MG in SYRINGE 0 ML IV ONE (13:00)
[2017-02-25 13:01] LABS: ALB/GLOB RATIO 0.7 (0.9-2); ALKALINE PHOSPHATASE 58 U/L (45-117)
[2017-02-25] MEDS ORDERED: OPTIRAY 320 IV PRN (13:15)
--- NOTE | 2017-02-25 13:33 | DIAGNOSTIC IMAGING REPORT ---
CHEST ONE VIEW PORTABLE CLINICAL HISTORY: Leukocytosis. Upper abdominal pain. COMPARISON STUDY: Chest CT February 16, 2017 and chest radiograph February 19, 2017. FINDINGS: There is no pneumothorax or pleural effusion. There is no consolidation. Pulmonary vascularity is normal. Cardiac size is normal. IMPRESSION: No acute cardiopulmonary findings. Electronically signed by: Tim Hayden M.D. 02/25/2017 1:31 PM Dictated Date/Time: 02/25/2017 1:23 PM
--- NOTE | 2017-02-25 14:10 | DIAGNOSTIC IMAGING REPORT ---
CT ANGIOGRAPHY OF THE ABDOMEN AND PELVIS CT DOSE: 1012.16 mGy.cm CLINICAL HISTORY: Abdominal pain. Possible GI bleed. TECHNIQUE: Helical axial images of the abdomen and pelvis were obtained during arterial phase following intravenous injection of 120 cc of Optiray 320 IV. Sagittal and coronal reconstructions were viewed on an independent 3-D workstation. COMPARISON STUDY: CT of the abdomen and pelvis February 16, 2017. FINDINGS: Visualized portions of the lower chest demonstrate a minimally displaced inferior sternal fracture as well as several right-sided rib fractures which were shown on chest CT of February 16, 2017. There is no pneumatosis, free air or portal venous gas. Arterial phase images of liver, spleen, adrenal glands and pancreas are unremarkable. A 3.2 cm intermediate attenuation mass-like abnormality within the medial cortex of the midpole of the right kidney has minimal adjacent infiltration. This is at site of previous renal mass. There is no hydronephrosis. There is no evidence for a bowel obstruction. There is a moderate amount of poorly formed stool within the colon. Note is made of mild infiltration adjacent to the distal stomach and proximal duodenum. This is new since prior exam. There is moderate plaque of the abdominal aorta. The caliber of the vessels normal. The major mesenteric vessels are patent. There is colonic diverticulosis without evidence for acute diverticulitis. No suspicious osseous lesions are identified. There is no lymphadenopathy. Sensitivity for detection of mucosal lesions is diminished given CT technique. IMPRESSION: 1. Mild infiltration adjacent to the distal stomach and proximal duodenum. This may reflect gastritis/duodenitis in the setting of peptic ulcer disease. Less likely, this could reflect acute pancreatitis. 2. Moderate plaque of the abdominal aorta. Patent mesenteric vessels. 3. Moderate amount of poorly formed stool within the colon. No bowel obstruction. 4. 3.2 cm intermediate attenuation mass-like abnormality within the midpole of the right kidney. Minimal adjacent infiltration. This infiltration is nonspecific and could be related to prior procedure or extension of tumor. Correlation with procedural history is recommended as a renal cell carcinoma is the diagnosis of exclusion. Electronically signed by: Tim Hayden M.D. 02/25/2017 2:08 PM Dictated Date/Time: 02/25/2017 1:42 PM
[2017-02-25 15:29] VITALS: BP 141/67; PULSE 78; TEMP 36.8; O2SAT 100
[2017-02-25 15:45] VITALS: BP 141/92; PULSE 79; PULSE 85; TEMP 37; O2SAT 99
[2017-02-25] MEDS ORDERED: LEValbuterol HFA 15GM INHALER INH PRN (15:45)
--- NOTE | 2017-02-25 15:51 | History and Physical ---
History & Physical Date & Time of Service: Feb 25, 2017 at 15:26 Chief Complaint: Potential Gi Bleed Primary Care Physician: No Doctor, Assigned History of Present Illness Source: patient 71 y/o M COPD, HTN, unstable gait. Recently admitted with multiple fractures and PNM. The pt had a declining hemoglobin during his recent admission and an EGD was done showing esophagitis and gastritis. The pt was D/Cd to rehab with a PPi and Carafate but was also prescribed Lovenox for DVT prophylaxis. He returns to the hospital today as he is having melena and his hemoglobin reflects a 2 point drop. He denies CP, SOB, lightheadedness, abdominal pain or fever. He is a very poor historian. Past Medical/Surgical History 1) COPD 2) Unstable gait and frequent falls 3) Recent sternal and rib fractures 4) 3.3 cm renal mass - likely renal CA 5) HTN Family History Cancer Heart disease Social History Smoking Status: Never Smoker Drug Use: none Marital Status: single Housing status: lives alone Occupational Status: retired Immunizations History of Influenza Vaccine: No Influenza Vaccine Date: Jul 20, 2009 History of Tetanus Vaccine?: No History of Pneumococcal: No History of Hepatitis B Vaccine: No Multi-Drug Resistant Organisms History of MDRO: No Allergies Coded Allergies: BEE STING (Verified Allergy, Severe, 02/25/17) Cefadroxil (Unverified Allergy, Intermediate, UNKNOWN, 02/25/17) Cephalexin (Unverified Allergy, Intermediate, UNKNOWN, 02/25/17) Escitalopram (Unverified Allergy, Intermediate, UNKNOWN, 02/25/17) Omeprazole (Unverified Allergy, Intermediate, UNKNOWN, 02/25/17) Pantoprazole (Unverified Allergy, Intermediate, UNKNOWN, 02/25/17) Wheat (Unverified Allergy, Intermediate, UNKNOWN, 02/25/17) Home Medications Scheduled Amoxicillin & Pot Clavulanate (Amoxicillin/Clavulanate P), 875 MG PO BIDM Azelastine Hcl (Astelin Nasal [place]), 2 SPRAYS RAIZA DAILY Cholecalciferol (Vitamin D3), 2,000 INTER.UNIT PO QAM Docusate Sodium (Colace), 1 CAP PO BID Enoxaparin (Lovenox), 40 MG SQ DAILY Ergocalciferol (Drisdol), 1 CAP PO WK Famotidine (Famotidine), 20 MG PO BID Finasteride (Finasteride), 5 MG PO DAILY Metoprolol Tartrate (Lopressor) (Lopressor), 100 MG PO BID Montelukast Sodium (Singulair), 10 MG PO DAILY Nicotine (Nicotine), 1 PATCH TD QAM Polyethylene Glycol 3350 (Miralax), 17 GM PO DAILY Senna/Docusate Sod (Senokot S), 1 TAB PO DAILY Sucralfate (Carafate), 1 GM PO ACHS Tiotropium Arnot (Spiriva [place]), 1 CAP INH DAILY Umeclidinium Ar[place] (Incruse Ellipta), 1 PUFF INH QAM Scheduled PRN Acetaminophen (Acetaminophen), 1 TAB PO Q4 PRN for Pain or Fever Alum & Mag Hydrox-Simethicone (Maalox Max Susp), 30 ML PO Q4 PRN for HEARTBURN/ GAS Bisacodyl (Bisacodyl), 10 MG RE Q24H PRN for NO BM >2DAYS/CONSTIPATION Levalbuterol Tartrate (Levalbuterol Tartrate Hfa), 2 PUFFS INH Q4 PRN for SOB/ Wheezing Magnesium Hydroxide (Milk Of Magnesia), 30 ML PO Q24H PRN for NO BM>1 DAY/ CONSTIPATION Oxycodone HCl (Oxycodone HCl), 5 MG PO Q4H PRN for Pain Phenylephrine-Shark Liver Oil- (Preparation H), 1 SUPP RE DAILY PRN for Hemorrhoids Simethicone (Gas Relief Extra Strength), 125 MG PO BID PRN for GAS Sodium Phosphate/Biphosphate (Fleet Enema), 1 EA NC Q24 PRN for NO BM >3 DAYS/ CONSTIPATION Tramadol HCl (Tramadol HCl), 50 MG PO Q4H PRN for Pain Review of Systems Constitutional: No fever, No chills, No sweats Eyes: No worsening of vision, No eye pain ENT: No hearing loss, No unusual epistaxis, No nasal symptoms Respiratory: No cough, No sputum, No wheezing Cardiovascular: + chest pain (chest wall pain), No orthopnea, No PND Abdomen: + pain, + GI bleeding, No nausea, No vomiting Musculoskeletal: No joint pain Genitourinary - Male: No hematuria, No dysuria, No urinary frequency, No urinary urgency Neurologic: + balance problems, No memory loss, No paralysis, No weakness Psychiatric: No depression symptoms Endocrine: No fatigue Hematologic / Lymphatic: No abnormal bleeding/bruising Integumentary: No rash Allergic / Immunologic: No environmental allergies Physical Exam Vital Signs Date Time Temp Pulse Resp B/P (MAP) Pulse Ox O2 Delivery O2 Flow Rate FiO2 02/25/17 14:00 75 16 126/79 100 Nasal Cannula 2.0 02/25/17 12:33 78 19 100 2.0 02/25/17 12:31 132/76 02/25/17 12:30 71 02/25/17 12:01 131/81 02/25/17 11:47 100 Nasal Cannula 2.0 02/25/17 11:37 36.5 75 20 119/69 100 Room Air General Appearance: WD/WN, no apparent distress Head: normocephalic Eyes: normal inspection, EOMI ENT: normal ENT inspection, pharynx normal Neck: supple, no JVD Respiratory/Chest: lungs clear, normal breath sounds Cardiovascular: regular rate, rhythm, no edema, no gallop, no JVD Abdomen/GI: normal bowel sounds, non tender Back: normal inspection, no CVA tenderness Extremities/Musculoskelatal: normal inspection, no calf tenderness, normal capillary refill Neurologic/Psych: lens inspector II-XII nml as tested, no motor/sensory deficits, alert, oriented x 3 Skin: normal color, warm/dry, no rash Diagnostics Laboratory Results Results Past 24 Hours Test 02/25/17 12:05 Range/Units White Blood Count 20.77 4.8-10.8 K/uL Red Blood Count 2.49 4.7-6.1 M/uL Hemoglobin 7.3 14.0-18.0 g/dL Hematocrit 21.1 42-52 % Mean Corpuscular Volume 84.7 80-100 fL Mean Corpuscular Hemoglobin 29.3 25-34 pg Mean Corpuscular Hemoglobin Concent 34.6 32-36 g/dl Platelet Count 591 130-400 K/uL Mean Platelet Volume 8.6 7.4-10.4 fL Neutrophils (%) (Auto) 74.6 % Lymphocytes (%) (Auto) 13.7 % Monocytes (%) (Auto) 8.6 % Eosinophils (%) (Auto) 0.0 % Basophils (%) (Auto) 0.1 % Neutrophils # (Auto) 15.47 1.4-6.5 K/uL Lymphocytes # (Auto) 2.84 1.2-3.4 K/uL Monocytes # (Auto) 1.79 0.11-0.59 K/uL Eosinophils # (Auto) 0.01 0-0.5 K/uL Basophils # (Auto) 0.03 0-0.2 K/uL RDW Standard Deviation 42.6 36.4-46.3 fL RDW Coefficient of Variation 14.0 11.5-14.5 % Immature Granulocyte % (Auto) 3.0 % Immature Granulocyte # (Auto) 0.63 0.00-0.02 K/uL Nucleated RBC Absolute Count (auto) 0.11 0-0 K/uL Nucleated Red Blood Cells % 0.6 % Large Platelets 1+ Prothrombin Time 11.1 9.0-12.0 SECONDS Prothromb Time International Ratio 1.0 0.9-1.1 Sodium Level 130 136-145 mmol/L Potassium Level 4.7 3.5-5.1 mmol/L Chloride Level 95 98-107 mmol/L Carbon Dioxide Level 27 21-32 mmol/L Anion Gap 8.0 3-11 mmol/L Blood Urea Nitrogen 44 7-18 mg/dl Creatinine 0.81 0.60-1.40 mg/dl Est Creatinine Clear Calc Drug Dose 121.0 ml/min Estimated GFR () 105.1 Estimated GFR (Non- 90.7 BUN/Creatinine Ratio 54.5 10-20 Random Glucose 93 70-99 mg/dl Lactic Acid Level 2.6 0.4-2.0 mmol/L Calcium Level 8.0 8.5-10.1 mg/dl Total Bilirubin 0.2 0.2-1 mg/dl Aspartate Amino Transf (AST/SGOT) 98 15-37 U/L Alanine Aminotransferase (ALT/SGPT) 194 12-78 U/L Alkaline Phosphatase 58 45-117 U/L Troponin I < 0.015 0-0.045 ng/ml Total Protein 6.7 6.4-8.2 gm/dl Albumin 2.7 3.4-5.0 gm/dl Globulin 4.0 2.5-4.0 gm/dl Albumin/Globulin Ratio 0.7 0.9-2 Lipase 280 73-393 U/L Microbiology Results 02/25/17 Blood Culture, Received Pending 02/25/17 Blood Culture, Received Pending 02/25/17 Urine Culture, Received Pending Diagnostic Radiology FINDINGS: There is no pneumothorax or pleural effusion. There is no consolidation. Pulmonary vascularity is normal. Cardiac size is normal. CXR normal Impression Assessment and Plan 71 y/o M COPD, HTN, unstable gait. Recently admitted with multiple fractures and PNM. The pt had a declining hemoglobin during his recent admission and an EGD was done showing esophagitis and gastritis. The pt was D/Cd to rehab with a PPi and Carafate but was also prescribed Lovenox for DVT prophylaxis. He returns to the hospital today as he is having melena and his hemoglobin reflects a 2 point drop. He denies CP, SOB, lightheadedness, abdominal pain or fever. 1) GI bleed - likely upper related to recent findings of gastritis/esophagitis combined with Lovenox use. Pt placed on a Protonix drip and will be evaluated by GI. Receiving a transfusion. Serial Hb ordered. He is asymptomatic and vital signs have been stable. 2) Recent PNM - continues to exhibit a productive cough - CXR is clear - afebrile - has leukocytosis which may be related to his bleed. Will provide breathing treatments and hold off on additional antibiotics presently. He completed a course of Augmentin one day prior. 3) HTN - Cont Metoprolol with parameters. 4) Unstable gait - PT will be consulted. Full code SCDs Total time for this admit including review of labs, meds, EKG - discussion with pt and ER attending - 38 min Level of Care Med/Surg Resuscitation Status FULL RESUSCITATION VTE Prophylaxis VTE Risk Assessment Done? Y/N: Yes Risk Level: Moderate Given or contraindicated: SCD's
[2017-02-25 16:00] VITALS: BP 141/74; PULSE 72; TEMP 36.8; O2SAT 99
[2017-02-25] MEDS ORDERED: HYDROmorphone INJ 1 MG/ML SYR IV PRN (16:00)
[2017-02-25 16:13] VITALS: Ht 198.1 cm; Wt 111.4 kg
[2017-02-25 16:32] VITALS: BP 120/71; PULSE 73; TEMP 36.5; O2SAT 97
[2017-02-25 17:05] VITALS: BP 117/69; PULSE 71; TEMP 36.5; O2SAT 96
[2017-02-25 18:04] VITALS: BP 134/73; PULSE 71; TEMP 36.4; O2SAT 99
--- NOTE | 2017-02-25 18:23 | GASTROINTESTINAL CONSULTATION ---
DATE OF CONSULTATION: 02/25/2017 REQUESTING PHYSICIAN: Dr. Roberto Carlos France. CHIEF COMPLAINT: Dark stool. HISTORY OF PRESENT ILLNESS: The patient is a 71-year-old male with a past medical history notable for COPD, hypertension, gastritis and esophagitis who was recently admitted for multiple fractures. The patient was in a nursing facility on Lovenox and notes having dark sticky stools since hospital discharge last Thursday. The patient recently had an upper endoscopy by Dr. Rafael Beauchamp notable for severe esophagitis and gastritis. This was done for the same symptoms as the patient presenting today. He denies having fevers, chills, sweats or rigors. The patient denies having difficulty swallowing, pain with swallowing. During the last hospital evaluation the patient was offered a colonoscopy; however, this was declined. PAST MEDICAL HISTORY: 1. COPD. 2. Hypertension. 3. Renal mass followed by urology and nephrology. SOCIAL HISTORY: Nonsmoker, currently patient did smoke 1-2 packs per day for over 30 years and has COPD as a result. Drug use none. Alcohol use denies. PAST SURGICAL HISTORY: No abdominal surgeries noted. ALLERGIES: BEE STINGS, KEFLEX, CITALOPRAM, WHEAT ALLERGY, KEFLEX. PPI allergy listed but patient denies this today and was on a PPI during his recent admission. OUTPATIENT MEDICATIONS: 1. Augmentin. 2. Astelin nasal spray. 3. Vitamin D3. 4. Docusate 1 tablet daily. 5. Enoxaparin 40 mg subcutaneous daily. 6. Famotidine 20 mg twice daily. 7. Finasteride 5 mg daily. 8. Metoprolol 100 mg daily. 9. Singulair 10 mg at bedtime. 10. Nicotine patch. 11. MiraLax 17 grams daily. 12. Senna. 13. Carafate 1 gram t.i.d. Please see other dictation (phone cut out during dictation) MTDD
[2017-02-25] MEDS: D5W AND NSS 1,000 ML IV SCH (18:40)
--- NOTE | 2017-02-25 19:09 | GASTROINTESTINAL CONSULTATION ---
DATE OF CONSULTATION: 02/25/2017 CHIEF COMPLAINT: Melena. HISTORY OF PRESENT ILLNESS: The patient is a 71-year-old male with a past medical history significant for COPD and hypertension who presented to the Emergency Room for evaluation of melena. The patient was recently admitted after having a number of fractures after a recent fall. The patient underwent a recent upper endoscopy approximately 4 days ago for similar complaints. That examination was notable for severe esophagitis and gastritis, but no evidence of peptic ulcer disease. The patient denies having fevers, chills, sweats or rigors. The patient was admitted today due to recurrent melena on anticoagulation. PAST MEDICAL HISTORY: 1. COPD. 2. Hypertension. 3. Renal mass. 4. Esophagitis. FAMILY HISTORY: No history of esophageal cancer or stomach cancer. SOCIAL HISTORY: The patient is a prior smoker, 1-2 packs per day for over 20 years. Drug use negative. Alcohol use, denies. PAST SURGICAL HISTORY: No abdominal surgeries. OUTPATIENT MEDICATIONS: 1. Augmentin twice daily. 2. Docusate 1 tablet twice daily. 3. Lovenox 40 mg daily. 4. Famotidine 20 mg twice daily. 5. Finasteride 5 mg daily. 6. Metoprolol 100 mg twice daily. 7. Singulair 10 mg daily. 8. Nicotine patch. 9. Polyethylene 17 grams daily. 10. Senna. 11. Carafate 1 gram q.i.d. 12. Spiriva. 13. Incruse Ellipta. REVIEW OF SYSTEMS: CONSTITUTIONAL: No fevers, no chills, no sweats. EYES: No worsening of vision, no eye pain. ENT: No difficulty swallowing. RESPIRATORY: No cough. The patient does have baseline shortness of breath from his COPD. CARDIOVASCULAR: No chest pain today. ABDOMEN: Please see HPI. MUSCULOSKELETAL: No new joint pains. No new muscle pains. GENITOURINARY: Dysuria. NEUROLOGIC: History of balance problems. No other new issues today. PSYCHIATRIC: No depression. No suicidal ideation. PHYSICAL EXAMINATION: VITAL SIGNS: Pulse 75, respiratory rate 16, blood pressure is 126/79, pulse ox 100% on 2 liters. GENERAL: In no apparent distress. HEENT: No scleral icterus noted. No JVD noted. LUNGS: Delayed expiratory phase without wheezes today. CARDIAC: Regular rhythm without a murmur. ABDOMEN: Soft, nontender. No hepatosplenomegaly appreciated. No caput medusa seen. DERMATOLOGY: No spider nevi noted. EXTREMITIES: 1+ pitting edema bilaterally. NEUROLOGIC: Cranial nerves grossly intact. No asterixis noted. LABS: White blood cell count 20.7, hemoglobin 7.3, hematocrit 21.1, platelet count is 591. PT 1. Sodium 130, potassium 4.7, chloride is 95, BUN 44, creatinine 0.81, calcium 8.0. Total bilirubin 0.2, AST 98, ALT 194, alkaline phosphatase 58, albumin 2.7. IMPRESSION: A 71-year-old male with a history of severe esophagitis, presenting with recurrent melena. I suspect that this is a result of his anticoagulation and would suggest discontinuation of Lovenox. Would also suggest initiation of her proton pump inhibitor as it appears that this was discontinued prior to his discharge last time. At this time, I am not certain that upper endoscopy would add much of benefit this patient. We could certainly revisit the issue tomorrow if the patient has continued melena and drop in his hemoglobin and hematocrit overnight. RECOMMENDATIONS: 1. Begin Protonix 40 mg twice daily. 2. Please discontinue anticoagulation if possible. 3. Would hold NSAIDs. 4. N.p.o. at midnight. Please call with any questions or concerns. ARUNA
[2017-02-25 19:17] LABS: URINE APPEARANCE CLEAR (CLEAR); URINE BILIRUBIN NEG (NEG); URINE COLOR YELLOW; URINE NITRITE NEG (NEG); URINE SPECIFIC GRAVITY > 1.045 (1.000-1.030); UROBILINOGEN NEG (NEG)
[2017-02-25 19:27] LABS: MANUAL MICROSCOPIC REQUIRED? NO; REVIEW REQ? NO
[2017-02-25] MEDS: METOPROLOL TARTRATE 50 MG TAB PO SCH (20:00)
[2017-02-25] MEDS: PANTOprazole INJ 40 MG in SYRINGE 0 ML IV SCH (20:56)
[2017-02-26] VITALS (16 sets, daily range): BP systolic 132–176; BP diastolic 70–78; PULSE 64–96; TEMP 36.4–36.9; O2SAT 20–98
[2017-02-26] MEDS: D5W AND NSS 1,000 ML IV SCH ×2 (04:20→13:06)
--- NOTE | 2017-02-26 07:43 | Clinical Documentation Query ---
CLINICAL DOCUMENTATION QUERY Dr. MORENO, In your clinical opinion is this patient being managed for: ( x ) Acute blood loss anemia ( ) Other explanation of clinical findings (Please Explain) ( ) Unable to determine (Please Define) ( ) Need to Discuss ( ) Not Agree The medical record reflects the following clinical findings, treatment, and risk factors. Clinical Indicators: 71 yo male presenting with epigastric pain and melanotic stools. Initially Hgb 7.3, Hct 21.1, has dropped to 6.7. Treatment: IV protonix, IV fluids, PRBC transfusion, GI consult, O2 support, stop lovenox Risk Factors: anticoagulation therapy with lovenox, esophagitis/gastritis Please clarify and document your clinical opinion in the progress notes and discharge summary. Terms such as "probable", "suspected", "likely", "questionable", "possible", or "still to be ruled out" are acceptable. IF IN AGREEMENT, YOU MUST DOCUMENT ABOVE DIAGNOSTIC STATEMENT IN DAILY PROGRESS NOTES AND DISCHARGE SUMMARY. This document is not part of the patient's record. Thank You, Johanna Hidalgo, RN [phone]
[2017-02-26] MEDS ORDERED: NON-FORMULARY MEDICATION (Umeclidinium Bromide (Incruse Ellipta) 1 PUFF) INH SCH (08:00)
[2017-02-26] MEDS: MONTELUKAST SOD 10 MG TAB PO SCH (08:31)
[2017-02-26] MEDS: FINASTERIDE 5 MG TAB PO SCH (08:31)
[2017-02-26] MEDS: METOPROLOL TARTRATE 50 MG TAB PO SCH ×2 (08:32→20:37)
[2017-02-26] MEDS: NICOTINE 14 MG/24 HR TDSY TD SCH (08:33)
[2017-02-26] MEDS: TIOTROPIUM BROMIDE 5 PUFF/90 MCG INH INH SCH (10:14)
[2017-02-26] MEDS: PANTOprazole INJ 40 MG in SYRINGE 0 ML IV SCH ×2 (10:14→20:36)
[2017-02-26] MEDS ORDERED: PROPOFOL IV EMULSION 10 MG/ML 20 ML VIAL IV ONE (11:25)
[2017-02-26] MEDS ORDERED: LIDOCAINE HCL 2% 2 ML VIAL (20MG/ML) ONE ×3 (11:25→12:14)
--- NOTE | 2017-02-26 11:33 | History & Physical Bridge Note ---
H&P Re-Evaluation Bridge Note: I have examined the patient, reviewed the History & Physical and in the interval since the performance of the History & Physical I have noted the following changes of clinical significance: No changes noted. The patient continues to pass melena this am, will therefore eval with an EGD today.
--- NOTE | 2017-02-26 12:19 | GI REPORT ---
Procedure Date: 02/26/2017 11:52 AM Procedure: Upper GI endoscopy Indications: Melena Medicines: Monitored Anesthesia Care Complications: No immediate complications. Estimated blood loss: Minimal. Estimated Blood Loss: Estimated blood loss was minimal. Procedure: Pre-Anesthesia Assessment: - Prior to the procedure, a History and Physical was performed, and patient medications, allergies and sensitivities were reviewed. The patient's tolerance of previous anesthesia was reviewed. - The risks and benefits of the procedure and the sedation options and risks were discussed with the patient. All questions were answered and informed consent was obtained. - Patient identification and proposed procedure were verified prior to the procedure by the physician, the nurse and the statistician theoretical. The procedure was verified in the procedure room. - Pre-procedure physical examination revealed no contraindications to sedation. - ASA Grade Assessment: III - A patient with severe systemic disease. - After reviewing the risks and benefits, the patient was deemed in satisfactory condition to undergo the procedure. - The anesthesia plan was to use monitored anesthesia care (MAC). - Immediately prior to administration of medications, the patient was re-assessed for adequacy to receive sedatives. - The heart rate, respiratory rate, oxygen saturations, blood pressure, adequacy of pulmonary ventilation, and response to care were monitored throughout the procedure. - The physical status of the patient was re-assessed after the procedure. After obtaining informed consent, the endoscope was passed under direct vision. Throughout the procedure, the patient's blood pressure, pulse, and oxygen saturations were monitored continuously. The scope was introduced through the mouth, and advanced to the third part of duodenum. The upper GI endoscopy was accomplished without difficulty. The patient tolerated the procedure well. Findings: LA Grade D (one or more mucosal breaks involving at least 75% of esophageal circumference) esophagitis with no bleeding was found in the lower third of the esophagus. Estimated blood loss was minimal. Diffuse mild inflammation characterized by congestion (edema), erythema and granularity was found in the entire examined stomach. One non-obstructing non-bleeding cratered duodenal ulcer with a visible vessel and active oozing was found in the duodenal bulb. The lesion was at least 30 mm in largest dimension. Area was successfully injected with 3 mL of a 1:10,000 solution of epinephrine for hemostasis. Coagulation for hemostasis using a 7 [place] Multipolar silver probe was successful. Estimated blood loss was minimal. The 2nd part of the duodenum was normal. Impression: - LA Grade D reflux esophagitis. - Gastritis. - One non-obstructing non-bleeding duodenal ulcer with a visible vessel. Suspicious for stress / NSAIDS induced etiology. Injected. Treated with bipolar cautery. - Normal 2nd part of the duodenum. - No specimens collected. Recommendation: - Return patient to hospital wills for ongoing care. - Give Protonix (pantoprazole): 8 mg/hr IV by continuous infusion for 3 days. Then Protonix 40 mg twice daily for 4 weeks, then 1 time daily - Carafate 1 gm QID - May advance to a full liquid diet today. - No aspirin, ibuprofen, naproxen, or other non-steroidal anti-inflammatory drugs for 4 weeks. - Repeat the upper endoscopy in 12 weeks for surveillance. - Send stool for H pylori Rema Alvares D.O. Rema Alvares, 02/26/2017 12:19:07 PM This report has been signed electronically. Note Initiated On: 02/26/2017 11:52 AM I attest to the content of the Intraoperative Record and orders documented therein, exceptions below
--- NOTE | 2017-02-26 12:23 | Progress Note ---
Progress Note Date of Service Feb 26, 2017. Progress Note Large duodenal ulcer on EGD today. Treated with thermaltherapy. Plan: Protonix drip x 72 yrs total, then BID PPI continuing through DC until recheck EGD in 6-8 weeks. Our office will contact him to arrange. Will check stool for H Pylori. Please consider no NSAIDs. Could continue Lovenox if deemed necessary. OK for full liquids today and if no further bleeding, advance tomorro.
--- NOTE | 2017-02-26 12:52 | Anesthesiology Progress Note ---
Anesthesia Post Op Note Date & Time Feb 26, 2017 at 12:52 Vital Signs Pain Intensity: 0 Vital Signs Past 12 Hours Date Time Temp Pulse Resp B/P (MAP) Pulse Ox O2 Delivery O2 Flow Rate FiO2 02/26/17 12:48 72 18 145/66 (92) 93 Nasal Cannula 2 02/26/17 12:33 72 18 149/66 (93) 95 Mask 5 02/26/17 12:18 78 18 140/68 (92) 96 Mask 5 02/26/17 11:33 37 70 16 143/72 (95) 93 Nasal Cannula 2 02/26/17 09:50 36.6 64 132/73 94 2.0 02/26/17 08:20 36.8 85 20 149/72 94 2.0 02/26/17 07:50 36.8 82 20 133/70 95 2.0 02/26/17 07:35 36.8 91 20 144/73 94 2.0 02/26/17 07:31 36.9 74 20 156/75 (102) 93 Nasal Cannula 2.0 02/26/17 07:18 36.8 96 20 156/71 Notes Mental Status: alert / awake / arousable, participated in evaluation Pt Amnestic to Procedure: Yes Nausea / Vomiting: adequately controlled Pain: adequately controlled Airway Patency, RR, SpO2: stable & adequate BP & HR: stable & adequate Hydration State: stable & adequate Anesthetic Complications: no major complications apparent
--- NOTE | 2017-02-26 13:42 | Progress Note ---
Subjective Date of Service: Feb 26, 2017. 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/ real estate consultant, review of inpatient medication list Pain: denies pain PO Intake: NPO for EGD, advanced to clears Voiding: no voiding problems patient returned with melena, no melena this AM, no abdominal pain, no vomiting patient says he feels fatigued and weak overall still with rib and sternal pain, no dyspnea, no cough EGD today - large duodenal ulcer, treated with thermal therapy, Protonix gtt 72 hours and clear liquids per GI reviewed outpatient records, the right renal mass was treated with ablation therapy, repeat CT scans have shown stability reviewed prior discharge summary, the Lovenox was due to immobility and DVT prophylaxis Problem List Medical Problems: (1) Anemia Status: Acute (2) COPD exacerbation Status: Acute (3) Fracture of rib of right side Status: Acute (4) GI bleed Status: Acute (5) Hypoxia Status: Acute (6) Septic shock Status: Acute (7) Sternal fracture Status: Acute (8) Upper abdominal pain Status: Acute (9) Weakness Status: Acute Review of Systems Constitutional: + weakness, + fatigue Abdomen: + GI bleeding (melena) Neurologic: + weakness, + balance problems All Other Systems: Reviewed and Negative Medications Current Inpatient Medications Medications (Trade) Dose Ordered Sig/Agustina Route Start Time Stop Time Status Last Admin Dose Admin Ioversol (Optiray 320) 100 ml UD PRN IV 02/25/17 13:15 03/01/17 13:14 Pantoprazole Sodium 40 mg/ Syringe 10 ml @ 5 mls/min DAILY@ IV 02/25/17 21:00 03/27/17 20:59 02/26/17 10:14 5 MLS/MIN Finasteride (Proscar Tab) 5 mg DAILY PO 02/26/17 08:00 03/28/17 08:59 02/26/17 08:31 5 MG Levalbuterol (Xopenex Hfa Inhaler) 2 puffs Q4H PRN INH 02/25/17 15:45 03/27/17 15:44 Metoprolol Tartrate (Lopressor Tab) 100 mg BID PO 02/25/17 20:00 03/27/17 20:59 02/26/17 08:32 100 MG Montelukast Sodium (Singulair Tab) 10 mg DAILY PO 02/26/17 08:00 03/28/17 08:59 02/26/17 08:31 10 MG Nicotine (Nicoderm Cq 14MG Patch) 1 patch QAM TD 02/26/17 08:00 03/28/17 08:59 Tiotropium [place] (Spiriva Handihaler Inhaler) 1 puff DAILY INH 02/26/17 08:00 03/28/17 08:59 02/26/17 10:14 1 PUFF Miscellaneous (Remove Nicoderm Patch) 1 ea HS N/A 02/25/17 21:00 03/27/17 20:59 02/25/17 20:56 1 EA Dextrose/Sodium Chloride 1,000 ml @ 100 mls/hr Q10H IV 02/25/17 15:45 03/27/17 15:44 02/26/17 13:06 100 MLS/HR Hydromorphone HCl (Dilaudid Inj) 1 mg Q4H PRN IV 02/25/17 16:00 03/11/17 15:59 Objective Vital Signs Date Time Temp Pulse Resp B/P (MAP) Pulse Ox O2 Delivery O2 Flow Rate FiO2 02/26/17 13:00 36.8 72 20 151/75 (100) 95 Nasal Cannula 3.0 02/26/17 12:48 72 18 145/66 (92) 93 Nasal Cannula 2 02/26/17 12:33 72 18 149/66 (93) 95 Mask 5 02/26/17 12:18 78 18 140/68 (92) 96 Mask 5 02/26/17 11:33 37 70 16 143/72 (95) 93 Nasal Cannula 2 02/26/17 09:50 36.6 64 132/73 94 2.0 02/26/17 08:20 36.8 85 20 149/72 94 2.0 02/26/17 07:50 36.8 82 20 133/70 95 2.0 02/26/17 07:35 36.8 91 20 144/73 94 2.0 02/26/17 07:31 36.9 74 20 156/75 (102) 93 Nasal Cannula 2.0 02/26/17 07:30 96 Room Air 2.0 6/15/17 07:18 36.8 96 20 156/71 02/26/17 00:18 36.4 79 20 139/72 (94) 96 Room Air 02/26/17 00:00 Nasal Cannula 2.0 02/25/17 18:04 36.4 71 18 134/73 99 02/25/17 17:05 36.5 71 18 117/69 96 2.0 02/25/17 16:32 36.5 73 18 120/71 97 02/25/17 16:13 Nasal Cannula 2.0 02/25/17 16:00 36.8 72 18 141/74 99 2.0 02/25/17 15:45 37.0 85 17 141/92 99 2.0 02/25/17 15:45 37.0 79 17 141/92 99 2.0 02/25/17 15:29 36.8 78 20 141/67 100 2.0 02/25/17 14:00 75 16 126/79 100 Nasal Cannula 2.0 Physical Exam General Appearance: WD/WN, no apparent distress Eyes: normal inspection, EOMI, sclerae normal ENT: normal ENT inspection, hearing grossly normal, pharynx normal Neck: supple, no adenopathy, no JVD, trachea midline Respiratory/Chest: lungs clear, normal breath sounds, no respiratory distress, no accessory muscle use, + pertinent finding (sternum and posterior ribs tender , previous fractures) Cardiovascular: regular rate, rhythm, no edema, no gallop, no JVD, no murmur Abdomen: normal bowel sounds, non tender, soft, no organomegaly Extremities: normal range of motion, non-tender, no pedal edema, no calf tenderness, normal capillary refill, pelvis stable 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, alert, normal mood/affect, oriented x 3, + abnormal gait, + motor weakness Skin: warm/dry, no rash, + pallor Lymphatic: no adenopathy Laboratory Results Last 24 Hours Test 02/25/17 14:07 02/25/17 20:26 02/26/17 00:37 02/26/17 04:15 Urine Color YELLOW Urine Appearance CLEAR Urine pH 6.0 Urine Specific [place] > 1.045 Urine Protein NEG Urine Glucose (UA) NEG Urine Ketones NEG Urine Occult Blood NEG Urine Nitrite NEG Urine Bilirubin NEG Urine Urobilinogen NEG Urine Leukocyte Esterase NEG Hemoglobin 7.2 g/dL 7.2 g/dL 6.7 g/dL Test 02/26/17 10:35 Assessment and Plan 71 y/o M COPD, HTN, unstable gait. Recently admitted with multiple fractures and PNM. The pt had a declining hemoglobin during his recent admission and an EGD was done showing esophagitis and gastritis. The pt was D/Cd to rehab with a PPi and Carafate but was also prescribed Lovenox for DVT prophylaxis. He returns to the hospital today as he is having melena and his hemoglobin reflects a 2 point drop. He denies CP, SOB, lightheadedness, abdominal pain or fever. -Upper GI bleed, large duodenal ulcer: EGD on 02/27 showed ulcer, treated with thermotherapy, H pylori sent GI recommends Protonix gtt 72 hours, clears today, can advance tomorrow hold antiplatelets and Lovenox -Acute blood loss anemia from GI bleed: transfused 3 units, awaiting repeat Hb this afternoon BP stable, no need for further transfusion at this point -Recent Pneumonia: less cough today, continue nebulizers, hold on antibiotics, was treated with Augmentin recently -Right renal mass: was treated with ablation twice [place] [facility] [place] CT scans, mass stable in size, no increased adenopathy follows with Dr. Mejia - HTN: can continue metoprolol with hold parameters - Unstable gait: chronic issue, PT consulted keep in hospital for 72 hours on PPI drip, return to rehab once medically stable
[2017-02-26 14:33] LABS: HEMATOCRIT 23.8 % (42-52); MEAN CELL VOLUME 85.3 fL (80-100); MEAN CORPUSCULAR HGB CONC 32.8 g/dl (32-36); MEAN PLATELET VOLUME 8.2 fL (7.4-10.4); PLATELET COUNT 388 K/uL (130-400); RED BLOOD COUNT 2.79 M/uL (4.7-6.1); WHITE BLOOD COUNT 11.36 K/uL (4.8-10.8)
[2017-02-26 14:51] LABS: BUN/CREATININE RATIO 21.8 (10-20); CALCIUM 7.6 mg/dl (8.5-10.1); CREATININE 0.78 mg/dl (0.60-1.40); POTASSIUM 4.5 mmol/L (3.5-5.1)
[2017-02-26] MEDS: ACETAMINOPHEN 325 MG TAB PO PRN (16:23)
[2017-02-27 00:01] VITALS: BP 162/76; PULSE 67; TEMP 36.7; O2SAT 94
[2017-02-27] MEDS: D5W AND NSS 1,000 ML IV SCH ×3 (01:38→17:31)
[2017-02-27] MEDS: ACETAMINOPHEN 325 MG TAB PO PRN (01:51)
[2017-02-27 06:38] LABS: BASO % 0.3 %; BASO ABS # 0.03 K/uL (0-0.2); EOS % 0.6 %; HEMATOCRIT 26.6 % (42-52); IG% 2.6 %; LYMPH % 21.2 %; MEAN CELL VOLUME 84.4 fL (80-100); MEAN CORPUSCULAR HEMOGLOBIN 27.6 pg (25-34); MEAN CORPUSCULAR HGB CONC 32.7 g/dl (32-36); MEAN PLATELET VOLUME 8.3 fL (7.4-10.4); MONO % 7.8 %; NEUT % 67.5 %; PLATELET COUNT 370 K/uL (130-400); RED BLOOD COUNT 3.15 M/uL (4.7-6.1); WHITE BLOOD COUNT 11.78 K/uL (4.8-10.8)
[2017-02-27 07:14] LABS: BUN/CREATININE RATIO 17.9 (10-20); CALCIUM 7.6 mg/dl (8.5-10.1); CREATININE 0.57 mg/dl (0.60-1.40); MAGNESIUM 1.9 mg/dl (1.8-2.4); POTASSIUM 4.1 mmol/L (3.5-5.1)
[2017-02-27 07:35] VITALS: BP 172/73; PULSE 64; TEMP 36.7; O2SAT 100
[2017-02-27 07:47] LABS: COMPLETE YES; POLYCHROMASIA 1+
[2017-02-27] MEDS: MONTELUKAST SOD 10 MG TAB PO SCH (07:55)
[2017-02-27] MEDS: NICOTINE 14 MG/24 HR TDSY TD SCH (07:56)
[2017-02-27] MEDS: PANTOprazole INJ 40 MG in SYRINGE 0 ML IV SCH (07:57)
[2017-02-27] MEDS: TIOTROPIUM BROMIDE 5 PUFF/90 MCG INH INH SCH (08:00)
[2017-02-27] MEDS: METOPROLOL TARTRATE 50 MG TAB PO SCH ×2 (08:01→20:20)
[2017-02-27] MEDS: FINASTERIDE 5 MG TAB PO SCH (08:01)
[2017-02-27] MEDS: PANTOprazole INJ 40 MG in DEXTROSE 5% 100ML IV SCH ×3 (11:56→21:50)
--- NOTE | 2017-02-27 12:15 | Gastroenterology Progress Note ---
Progress Note Date of Service: Feb 27, 2017 Subjective Pt evaluation today including: conversation w/ patient, physical exam, chart review, lab review, review of studies, review of inpatient medication list Ms. Jauregui is a 81 yr old male admitted with melena. EGD yesterday with duodenal ulcer - thermotreated. Hb stable post transfusion. On arrival: 7.2, received 3 units of RBCs, Hb now 8.7. Review of Systems Constitutional: + weakness (chronic), + fatigue, No fever Respiratory: No cough Cardiac: No chest pain Abdomen: + GI bleeding (one small black BM today), No pain, No nausea, No vomiting, No diarrhea, No constipation Male : No dysuria Neuro: No memory loss Psych: No depression symptoms Heme: No abnormal bleeding/bruising Endo: No fatigue Skin: No rash Medications Current Inpatient Medications Medications (Trade) Dose Ordered Sig/Agustina Route Start Time Stop Time Status Last Admin Dose Admin Ioversol (Optiray 320) 100 ml UD PRN IV 02/25/17 13:15 03/01/17 13:14 Finasteride (Proscar Tab) 5 mg DAILY PO 02/26/17 08:00 03/28/17 08:59 02/27/17 08:01 5 MG Levalbuterol (Xopenex Hfa Inhaler) 2 puffs Q4H PRN INH 02/25/17 15:45 03/27/17 15:44 Metoprolol Tartrate (Lopressor Tab) 100 mg BID PO 02/25/17 20:00 03/27/17 20:59 02/27/17 08:01 100 MG Montelukast Sodium (Singulair Tab) 10 mg DAILY PO 02/26/17 08:00 03/28/17 08:59 02/27/17 07:55 10 MG Nicotine (Nicoderm Cq 14MG Patch) 1 patch QAM TD 02/26/17 08:00 03/28/17 08:59 02/27/17 07:56 1 PATCH Tiotropium [place] (Spiriva Handihaler Inhaler) 1 puff DAILY INH 02/26/17 08:00 03/28/17 08:59 02/27/17 08:00 1 PUFF Miscellaneous (Remove Nicoderm Patch) 1 ea HS N/A 02/25/17 21:00 03/27/17 20:59 02/25/17 20:56 1 EA Dextrose/Sodium Chloride 1,000 ml @ 100 mls/hr Q10H IV 02/25/17 15:45 03/27/17 15:44 02/27/17 07:54 100 MLS/HR Hydromorphone HCl (Dilaudid Inj) 1 mg Q4H PRN IV 02/25/17 16:00 03/11/17 15:59 Acetaminophen (Tylenol Tab) 650 mg Q4H PRN PO 02/26/17 16:00 03/28/17 15:59 02/27/17 01:51 650 MG Pantoprazole Sodium 40 mg/ Dextrose 100 ml @ 20 mls/hr Q5H IV 02/27/17 12:00 03/29/17 11:59 02/27/17 11:56 20 MLS/HR Objective Vital Signs Date Time Temp Pulse Resp B/P (MAP) Pulse Ox O2 Delivery O2 Flow Rate FiO2 02/27/17 09:50 Nasal Cannula 4.0 02/27/17 07:35 36.7 64 18 172/73 (106) 100 4.0 02/27/17 00:01 36.7 67 18 162/76 (104) 94 Room Air 02/27/17 00:00 Nasal Cannula 4.0 02/26/17 17:50 36.4 82 20 150/73 20 02/26/17 17:25 36.6 80 20 142/78 94 4.0 02/26/17 17:05 36.8 71 20 146/77 94 02/26/17 16:50 36.6 85 18 153/78 93 3.0 02/26/17 16:50 36.6 85 20 153/78 93 4.0 02/26/17 16:44 36.6 78 18 153/70 93 2.0 02/26/17 16:17 36.4 86 20 176/71 (106) 98 Nasal Cannula 3.0 02/26/17 16:00 96 Nasal Cannula 4.0 02/26/17 13:00 36.8 72 20 151/75 (100) 95 Nasal Cannula 3.0 02/26/17 12:48 72 18 145/66 (92) 93 Nasal Cannula 2 02/26/17 12:33 72 18 149/66 (93) 95 Mask 5 02/26/17 12:18 78 18 140/68 (92) 96 Mask 5 Physical Exam General Appearance: no apparent distress Neck: no adenopathy, no JVD Respiratory/Chest: + crackles (few at bases), + wheezing (mild, scattered) Cardiovascular: regular rate, rhythm, no murmur Abdomen: normal bowel sounds, non tender, soft Extremities: non-tender Neurologic/Psych: alert, normal mood/affect, oriented x 3 Skin: no jaundice Laboratory Results Last 24 Hours Test 02/26/17 14:25 02/27/17 06:08 White Blood Count 11.36 K/uL 11.78 K/uL Red Blood Count 2.79 M/uL 3.15 M/uL Hemoglobin 7.8 g/dL 8.7 g/dL Hematocrit 23.8 % 26.6 % Mean Corpuscular Volume 85.3 fL 84.4 fL Mean Corpuscular Hemoglobin 28.0 pg 27.6 pg Mean Corpuscular Hemoglobin Concent 32.8 g/dl 32.7 g/dl RDW Standard Deviation 43.6 fL 42.5 fL RDW Coefficient of Variation 14.2 % 13.9 % Platelet Count 388 K/uL 370 K/uL Mean Platelet Volume 8.2 fL 8.3 fL Nucleated RBC Absolute Count (auto) 0.10 K/uL 0.07 K/uL Nucleated Red Blood Cells % 0.9 % 0.6 % Sodium Level 135 mmol/L 132 mmol/L Potassium Level 4.5 mmol/L 4.1 mmol/L Chloride Level 101 mmol/L 98 mmol/L Carbon Dioxide Level 27 mmol/L 28 mmol/L Anion Gap 7.0 mmol/L 6.0 mmol/L Blood Urea Nitrogen 17 mg/dl 10 mg/dl Creatinine 0.78 mg/dl 0.57 mg/dl Est Creatinine Clear Calc Drug Dose 125.6 ml/min 171.9 ml/min Estimated GFR () 106.7 121.4 Estimated GFR (Non- 92.1 104.8 BUN/Creatinine Ratio 21.8 17.9 Random Glucose 143 mg/dl 103 mg/dl Calcium Level 7.6 mg/dl 7.6 mg/dl Neutrophils (%) (Auto) 67.5 % Lymphocytes (%) (Auto) 21.2 % Monocytes (%) (Auto) 7.8 % Eosinophils (%) (Auto) 0.6 % Basophils (%) (Auto) 0.3 % Neutrophils # (Auto) 7.95 K/uL Lymphocytes # (Auto) 2.50 K/uL Monocytes # (Auto) 0.92 K/uL Eosinophils # (Auto) 0.07 K/uL Basophils # (Auto) 0.03 K/uL Immature Granulocyte % (Auto) 2.6 % Immature Granulocyte # (Auto) 0.31 K/uL Polychromasia 1+ Magnesium Level 1.9 mg/dl Assessment and Plan Mr. Jauregui is a 71 yr old male with duodenal ulcer, post endoscopic thermal treatment, now stable post transfusion. Melena this morning likely old blood. Plan: 1. Protonix drip x total 3 days then BID PPI x 4 wks. 2. Avoid NSAIDs. 3. OK to use Lovenox if clinically necessary. 4. Advance diet. 5. Repeat EGD in 8 weeks. Our office will call to set up. I saw and evaluated the patient. He was found to have a large duodenal ulcer during upper endoscopy yesterday. Recommendations Protonix drip for another 48 hours Protonix 40 g twice daily for 4 weeks then 40 mg per day Carafate slurry 4 times daily for 4 weeks Advance diet as tolerated Patient should be started on an iron supplement 8-12 weeks Please call with any questions
[2017-02-27 14:53] LABS: HEMATOCRIT 25.6 % (42-52)
--- NOTE | 2017-02-27 15:13 | Progress Note ---
Subjective Date of Service: Feb 27, 2017. Subjective Pt evaluation today including: conversation w/ patient, physical exam, lab review, review of inpatient medication list Pain: denies pain PO Intake: clears, advancing Voiding: no voiding problems patient feeling weak and tired had a large dark, tarry BM but this is expected with old blood Hb stable after 3 units total yesterday appreciate GI recommendations Problem List Medical Problems: (1) Anemia Status: Acute (2) COPD exacerbation Status: Acute (3) Fracture of rib of right side Status: Acute (4) GI bleed Status: Acute (5) Hypoxia Status: Acute (6) Septic shock Status: Acute (7) Sternal fracture Status: Acute (8) Upper abdominal pain Status: Acute (9) Weakness Status: Acute Review of Systems Constitutional: + weakness, + fatigue Abdomen: + GI bleeding (melena) Neurologic: + weakness, + balance problems All Other Systems: Reviewed and Negative Medications Current Inpatient Medications Medications (Trade) Dose Ordered Sig/Agustina Route Start Time Stop Time Status Last Admin Dose Admin Ioversol (Optiray 320) 100 ml UD PRN IV 02/25/17 13:15 03/01/17 13:14 Finasteride (Proscar Tab) 5 mg DAILY PO 02/26/17 08:00 03/28/17 08:59 02/27/17 08:01 5 MG Levalbuterol (Xopenex Hfa Inhaler) 2 puffs Q4H PRN INH 02/25/17 15:45 03/27/17 15:44 Metoprolol Tartrate (Lopressor Tab) 100 mg BID PO 02/25/17 20:00 03/27/17 20:59 02/27/17 08:01 100 MG Montelukast Sodium (Singulair Tab) 10 mg DAILY PO 02/26/17 08:00 03/28/17 08:59 02/27/17 07:55 10 MG Nicotine (Nicoderm Cq 14MG Patch) 1 patch QAM TD 02/26/17 08:00 03/28/17 08:59 02/27/17 07:56 1 PATCH Tiotropium [place] (Spiriva Handihaler Inhaler) 1 puff DAILY INH 02/26/17 08:00 03/28/17 08:59 02/27/17 08:00 1 PUFF Miscellaneous (Remove Nicoderm Patch) 1 ea HS N/A 02/25/17 21:00 03/27/17 20:59 02/25/17 20:56 1 EA Dextrose/Sodium Chloride 1,000 ml @ 100 mls/hr Q10H IV 02/25/17 15:45 03/27/17 15:44 02/27/17 07:54 100 MLS/HR Hydromorphone HCl (Dilaudid Inj) 1 mg Q4H PRN IV 02/25/17 16:00 03/11/17 15:59 Acetaminophen (Tylenol Tab) 650 mg Q4H PRN PO 02/26/17 16:00 03/28/17 15:59 02/27/17 01:51 650 MG Pantoprazole Sodium 40 mg/ Dextrose 100 ml @ 20 mls/hr Q5H IV 02/27/17 12:00 03/29/17 11:59 02/27/17 11:56 20 MLS/HR Objective Vital Signs Date Time Temp Pulse Resp B/P (MAP) Pulse Ox O2 Delivery O2 Flow Rate FiO2 02/27/17 09:50 Nasal Cannula 4.0 02/27/17 07:35 36.7 64 18 172/73 (106) 100 4.0 02/27/17 00:01 36.7 67 18 162/76 (104) 94 Room Air 02/27/17 00:00 Nasal Cannula 4.0 02/26/17 17:50 36.4 82 20 150/73 20 02/26/17 17:25 36.6 80 20 142/78 94 4.0 02/26/17 17:05 36.8 71 20 146/77 94 02/26/17 16:50 36.6 85 18 153/78 93 3.0 02/26/17 16:50 36.6 85 20 153/78 93 4.0 02/26/17 16:44 36.6 78 18 153/70 93 2.0 02/26/17 16:17 36.4 86 20 176/71 (106) 98 Nasal Cannula 3.0 02/26/17 16:00 96 Nasal Cannula 4.0 Physical Exam General Appearance: WD/WN, no apparent distress Neck: supple, no adenopathy, no JVD, trachea midline Respiratory/Chest: chest non-tender, lungs clear, normal breath sounds, no respiratory distress, no accessory muscle use Cardiovascular: regular rate, rhythm, no edema, no gallop, no JVD, no murmur Abdomen: normal bowel sounds, non tender, soft, no organomegaly Extremities: normal range of motion, non-tender, normal inspection, no pedal edema, no calf tenderness, normal capillary refill, pelvis stable 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, alert, oriented x 3, + abnormal gait (unsteady), + motor weakness (generalized), + depressed affect Skin: warm/dry, no rash, + pallor Lymphatic: no adenopathy Laboratory Results Last 24 Hours Test 02/27/17 06:08 02/27/17 14:47 White Blood Count 11.78 K/uL Red Blood Count 3.15 M/uL Hemoglobin 8.7 g/dL 8.6 g/dL Hematocrit 26.6 % 25.6 % Mean Corpuscular Volume 84.4 fL Mean Corpuscular Hemoglobin 27.6 pg Mean Corpuscular Hemoglobin Concent 32.7 g/dl Platelet Count 370 K/uL Mean Platelet Volume 8.3 fL Neutrophils (%) (Auto) 67.5 % Lymphocytes (%) (Auto) 21.2 % Monocytes (%) (Auto) 7.8 % Eosinophils (%) (Auto) 0.6 % Basophils (%) (Auto) 0.3 % Neutrophils # (Auto) 7.95 K/uL Lymphocytes # (Auto) 2.50 K/uL Monocytes # (Auto) 0.92 K/uL Eosinophils # (Auto) 0.07 K/uL Basophils # (Auto) 0.03 K/uL RDW Standard Deviation 42.5 fL RDW Coefficient of Variation 13.9 % Immature Granulocyte % (Auto) 2.6 % Immature Granulocyte # (Auto) 0.31 K/uL Nucleated RBC Absolute Count (auto) 0.07 K/uL Nucleated Red Blood Cells % 0.6 % Polychromasia 1+ Sodium Level 132 mmol/L Potassium Level 4.1 mmol/L Chloride Level 98 mmol/L Carbon Dioxide Level 28 mmol/L Anion Gap 6.0 mmol/L Blood Urea Nitrogen 10 mg/dl Creatinine 0.57 mg/dl Est Creatinine Clear Calc Drug Dose 171.9 ml/min Estimated GFR () 121.4 Estimated GFR (Non- 104.8 BUN/Creatinine Ratio 17.9 Random Glucose 103 mg/dl Calcium Level 7.6 mg/dl Magnesium Level 1.9 mg/dl Assessment and Plan 71 y/o M COPD, HTN, unstable gait. Recently admitted with multiple fractures and PNM. The pt had a declining hemoglobin during his recent admission and an EGD was done showing esophagitis and gastritis. The pt was D/Cd to rehab with a PPi and Carafate but was also prescribed Lovenox for DVT prophylaxis. He returns to the hospital today as he is having melena and his hemoglobin reflects a 2 point drop. He denies CP, SOB, lightheadedness, abdominal pain or fever. -Upper GI bleed, large duodenal ulcer: EGD on 02/27 showed ulcer, treated with thermotherapy, H pylori sent GI recommends Protonix gtt 72 hours, advanced diet to low residue today hold antiplatelets and Lovenox large melena today, likely old blood Hb at 8.6, BP stable -Acute blood loss anemia from GI bleed: transfused 3 units, Hb 8.7 this AM and 8.6 in the PM, will repeat tomorrow BP stable, no need for further transfusion at this point -Recent Pneumonia: no cough today, continue nebulizers, hold on antibiotics, was treated with Augmentin recently -Right renal mass: was [place] with [place] [facility] [place] [facility] [place] scans, mass stable in size, no increased adenopathy follows with Dr. Mejia - HTN: can continue metoprolol with hold parameters - Unstable gait: chronic issue, PT/OT consulted keep in hospital through weekend and look for return to rehab on Thursday
[2017-02-27 15:20] VITALS: BP 157/76; PULSE 74; TEMP 36.7; O2SAT 96
[2017-02-27 16:00] VITALS: O2SAT 96
[2017-02-27] MEDS ORDERED: NURSING VERBAL MED ORDER ONE (18:45)
[2017-02-27] MEDS ORDERED: FUROSEMIDE INJ 20 MG in SYRINGE 0 ML IV ONE (18:45)
[2017-02-28 00:14] VITALS: BP 158/82; PULSE 62; TEMP 36.8; O2SAT 100
[2017-02-28] MEDS: PANTOprazole INJ 40 MG in DEXTROSE 5% 100ML IV SCH ×5 (02:56→23:26)
[2017-02-28 06:10] LABS: BASO % 0.3 %; BASO ABS # 0.03 K/uL (0-0.2); EOS % 1.1 %; IG% 2.2 %; LYMPH % 19.6 %; LYMPH ABS # 2.14 K/uL (1.2-3.4); MEAN CELL VOLUME 84.1 fL (80-100); MEAN CORPUSCULAR HEMOGLOBIN 26.7 pg (25-34); MEAN CORPUSCULAR HGB CONC 31.8 g/dl (32-36); MEAN PLATELET VOLUME 8.1 fL (7.4-10.4); MONO % 7.6 %; NEUT % 69.2 %; PLATELET COUNT 380 K/uL (130-400); RED BLOOD COUNT 3.33 M/uL (4.7-6.1); WHITE BLOOD COUNT 10.94 K/uL (4.8-10.8)
[2017-02-28 06:51] LABS: BUN/CREATININE RATIO 15.1 (10-20); CALCIUM 8.4 mg/dl (8.5-10.1); CREATININE 0.7 mg/dl (0.60-1.40); POTASSIUM 4.5 mmol/L (3.5-5.1)
[2017-02-28 07:04] LABS: COMPLETE YES; HYPERSEGMENTED POLYS 1+; POLYCHROMASIA 1+
[2017-02-28 07:41] VITALS: BP_SYST 161; BP_SYST 162; BP_DIAS 80; BP_DIAS 82; PULSE 66; TEMP 36.6; O2SAT 100
[2017-02-28] MEDS: TIOTROPIUM BROMIDE 5 PUFF/90 MCG INH INH SCH (07:48)
[2017-02-28] MEDS: METOPROLOL TARTRATE 50 MG TAB PO SCH ×2 (07:49→20:19)
[2017-02-28] MEDS: MONTELUKAST SOD 10 MG TAB PO SCH (07:49)
[2017-02-28] MEDS: FINASTERIDE 5 MG TAB PO SCH (07:49)
[2017-02-28] MEDS: NICOTINE 14 MG/24 HR TDSY TD SCH (07:52)
--- NOTE | 2017-02-28 15:10 | Progress Note ---
Subjective Date of Service: Feb 28, 2017. Subjective Pt evaluation today including: conversation w/ patient, conversation w/ family , physical exam, lab review, review of inpatient medication list Pain: no pain PO Intake: adequate Voiding: no voiding problems patient c/o not moving bowels, discussed that he had melena prior to admission no vomiting, no epigastric pain, no further signs of bleeding, Hb and BP stable updated family at the bedside last evening he had some rales, fluids stopped and given Lasix, responded well labs reviewed this AM Problem List Medical Problems: (1) Anemia Status: Acute (2) COPD exacerbation Status: Acute (3) Fracture of rib of right side Status: Acute (4) GI bleed Status: Acute (5) Hypoxia Status: Acute (6) Septic shock Status: Acute (7) Sternal fracture Status: Acute (8) Upper abdominal pain Status: Acute (9) Weakness Status: Acute Review of Systems Constitutional: + weakness, + fatigue Respiratory: + dyspnea on exertion Abdomen: + constipation Neurologic: + weakness, + balance problems All Other Systems: Reviewed and Negative Medications Current Inpatient Medications Medications (Trade) Dose Ordered Sig/Agustina Route Start Time Stop Time Status Last Admin Dose Admin Ioversol (Optiray 320) 100 ml UD PRN IV 02/25/17 13:15 03/01/17 13:14 Finasteride (Proscar Tab) 5 mg DAILY PO 02/26/17 08:00 03/28/17 08:59 02/28/17 07:49 5 MG Levalbuterol (Xopenex Hfa Inhaler) 2 puffs Q4H PRN INH 02/25/17 15:45 03/27/17 15:44 02/27/17 20:19 2 PUFFS Metoprolol Tartrate (Lopressor Tab) 100 mg BID PO 02/25/17 20:00 03/27/17 20:59 02/28/17 07:49 100 MG Montelukast Sodium (Singulair Tab) 10 mg DAILY PO 02/26/17 08:00 03/28/17 08:59 02/28/17 07:49 10 MG Nicotine (Nicoderm Cq 14MG Patch) 1 patch QAM TD 02/26/17 08:00 03/28/17 08:59 02/28/17 07:52 1 PATCH Tiotropium [place] (Spiriva Handihaler Inhaler) 1 puff DAILY INH 02/26/17 08:00 03/28/17 08:59 02/28/17 07:48 1 PUFF Miscellaneous (Remove Nicoderm Patch) 1 ea HS N/A 02/25/17 21:00 03/27/17 20:59 02/27/17 20:20 1 EA Hydromorphone HCl (Dilaudid Inj) 1 mg Q4H PRN IV 02/25/17 16:00 03/11/17 15:59 02/27/17 17:39 1 MG Acetaminophen (Tylenol Tab) 650 mg Q4H PRN PO 02/26/17 16:00 03/28/17 15:59 02/27/17 01:51 650 MG Pantoprazole Sodium 40 mg/ Dextrose 100 ml @ 20 mls/hr Q5H IV 02/27/17 12:00 03/29/17 11:59 02/28/17 13:00 20 MLS/HR Objective Vital Signs Date Time Temp Pulse Resp B/P (MAP) Pulse Ox O2 Delivery O2 Flow Rate FiO2 02/28/17 08:08 Nasal Cannula 2.0 02/28/17 07:41 36.6 66 18 161/82 (108) 100 Nasal Cannula 4.0 162/80 (107) 02/28/17 00:14 36.8 62 18 158/82 (107) 100 Nasal Cannula 4.0 02/28/17 00:00 Nasal Cannula 4.0 02/27/17 16:00 96 Nasal Cannula 4.0 02/27/17 15:20 36.7 74 18 157/76 (103) 96 Nasal Cannula 4.0 Physical Exam General Appearance: WD/WN, no apparent distress Eyes: normal inspection, EOMI, sclerae normal ENT: normal ENT inspection, hearing grossly normal, pharynx normal Neck: supple, no adenopathy, no JVD Respiratory/Chest: chest non-tender, no respiratory distress, no accessory muscle use, + rales Cardiovascular: regular rate, rhythm, no edema, no gallop, no JVD, no murmur Abdomen: normal bowel sounds, non tender, soft, no organomegaly Extremities: normal range of motion, non-tender, normal inspection, no pedal edema, no calf tenderness, pelvis stable Neurologic/Psychiatric: internet sales manager II-XII nml as tested, no motor/sensory deficits, alert, normal mood/affect, oriented x 3 Skin: normal color, warm/dry, no rash Laboratory Results Last 24 Hours Test 02/28/17 05:39 White Blood Count 10.94 K/uL Red Blood Count 3.33 M/uL Hemoglobin 8.9 g/dL Hematocrit 28.0 % Mean Corpuscular Volume 84.1 fL Mean Corpuscular Hemoglobin 26.7 pg Mean Corpuscular Hemoglobin Concent 31.8 g/dl Platelet Count 380 K/uL Mean Platelet Volume 8.1 fL Neutrophils (%) (Auto) 69.2 % Lymphocytes (%) (Auto) 19.6 % Monocytes (%) (Auto) 7.6 % Eosinophils (%) (Auto) 1.1 % Basophils (%) (Auto) 0.3 % Neutrophils # (Auto) 7.58 K/uL Lymphocytes # (Auto) 2.14 K/uL Monocytes # (Auto) 0.83 K/uL Eosinophils # (Auto) 0.12 K/uL Basophils # (Auto) 0.03 K/uL RDW Standard Deviation 41.3 fL RDW Coefficient of Variation 13.6 % Immature Granulocyte % (Auto) 2.2 % Immature Granulocyte # (Auto) 0.24 K/uL Hypersegmented Polys 1+ Polychromasia 1+ Sodium Level 130 mmol/L Potassium Level 4.5 mmol/L Chloride Level 93 mmol/L Carbon Dioxide Level 32 mmol/L Anion Gap 5.0 mmol/L Blood Urea Nitrogen 11 mg/dl Creatinine 0.70 mg/dl Est Creatinine Clear Calc Drug Dose 140.0 ml/min Estimated GFR () 111.6 Estimated GFR (Non- 96.3 BUN/Creatinine Ratio 15.1 Random Glucose 95 mg/dl Calcium Level 8.4 mg/dl Assessment and Plan 71 y/o M COPD, HTN, unstable gait. Recently admitted with multiple fractures and PNM. The pt had a declining hemoglobin during his recent admission and an EGD was done showing esophagitis and gastritis. The pt was D/Cd to rehab with a PPi and Carafate but was also prescribed Lovenox for DVT prophylaxis. He returns to the hospital today as he is having melena and his hemoglobin reflects a 2 point drop. He denies CP, SOB, lightheadedness, abdominal pain or fever. -Upper GI bleed, large duodenal ulcer: EGD on 02/27 showed ulcer, treated with thermotherapy, H pylori sent GI recommends Protonix gtt 72 hours, advanced diet to low residue today hold antiplatelets and Lovenox no further signs of bleeding Hb at 8.9, BP stable -Acute blood loss anemia from GI bleed: transfused 3 units, Hb 8.9 this AM BP stable, no need for further transfusion at this point - Acute diastolic HF: due to volume overload from IV fluids and resuscitation at time of admission responded well to Lasix still with rales, will give Lasix again today and watch for further response -Recent Pneumonia: no cough today, continue nebulizers, hold on antibiotics, was treated with Augmentin recently -Right renal mass: was [place] with [place] [facility] [place], mass stable in size, no increased adenopathy follows with Dr. Mejia - HTN: can continue metoprolol with hold parameters - Unstable gait: chronic issue, PT/OT consulted keep in hospital through weekend and look for return to rehab on Thursday
[2017-02-28 15:36] VITALS: BP 143/74; PULSE 70; TEMP 36.8; O2SAT 96
[2017-02-28] MEDS ORDERED: POLYETHYLENE (MIRALAX) 17 GM PACK PO ONE (16:00)
[2017-02-28] MEDS ORDERED: FUROSEMIDE INJ 20 MG in SYRINGE 0 ML IV ONE (16:00)
[2017-02-28] MEDS ORDERED: NURSING VERBAL MED ORDER ONE (19:00)
[2017-02-28] MEDS ORDERED: BISACODYL 10 MG SUPP PR SCH (20:00)
[2017-02-28] MEDS: SIMETHICONE 80 MG CHEW PO PRN (20:17)
[2017-02-28] MEDS: DOCUSATE SODIUM 100 MG CAP PO SCH (20:17)
[2017-03-01 01:13] VITALS: BP 138/75; PULSE 69; TEMP 36.2; O2SAT 94
[2017-03-01] MEDS: PANTOprazole INJ 40 MG in DEXTROSE 5% 100ML IV SCH ×2 (04:18→08:50)
[2017-03-01 07:46] VITALS: BP 130/74; PULSE 73; TEMP 36.4; O2SAT 92
[2017-03-01] MEDS: POLYETHYLENE (MIRALAX) 17 GM PACK PO SCH (08:00)
[2017-03-01] MEDS: FINASTERIDE 5 MG TAB PO SCH (08:05)
[2017-03-01] MEDS: TIOTROPIUM BROMIDE 5 PUFF/90 MCG INH INH SCH (08:05)
[2017-03-01] MEDS: DOCUSATE SODIUM 100 MG CAP PO SCH ×2 (08:05→20:44)
[2017-03-01] MEDS: METOPROLOL TARTRATE 50 MG TAB PO SCH ×2 (08:05→20:44)
[2017-03-01] MEDS: MONTELUKAST SOD 10 MG TAB PO SCH (08:05)
[2017-03-01] MEDS: NICOTINE 14 MG/24 HR TDSY TD SCH (08:06)
--- NOTE | 2017-03-01 11:02 | Progress Note ---
Subjective Date of Service: Mar 01, 2017. Subjective Pt evaluation today including: conversation w/ patient, physical exam, lab review, review of inpatient medication list Pain: no pain PO Intake: adequate Voiding: no voiding problems moved bowels yesterday, no melena no pain today working with therapy, needs to go back to rehab labs reviewed, Hb up to 9.2 discussed plan with patient, answered questions Problem List Medical Problems: (1) Anemia Status: Acute (2) COPD exacerbation Status: Acute (3) Fracture of rib of right side Status: Acute (4) GI bleed Status: Acute (5) Hypoxia Status: Acute (6) Septic shock Status: Acute (7) Sternal fracture Status: Acute (8) Upper abdominal pain Status: Acute (9) Weakness Status: Acute Review of Systems Constitutional: + weakness, + fatigue Neurologic: + weakness, + balance problems All Other Systems: Reviewed and Negative Medications Current Inpatient Medications Medications (Trade) Dose Ordered Sig/Agustina Route Start Time Stop Time Status Last Admin Dose Admin Ioversol (Optiray 320) 100 ml UD PRN IV 02/25/17 13:15 03/01/17 13:14 Finasteride (Proscar Tab) 5 mg DAILY PO 02/26/17 08:00 03/28/17 08:59 03/01/17 08:05 5 MG Levalbuterol (Xopenex Hfa Inhaler) 2 puffs Q4H PRN INH 02/25/17 15:45 03/27/17 15:44 02/27/17 20:19 2 PUFFS Metoprolol Tartrate (Lopressor Tab) 100 mg BID PO 02/25/17 20:00 03/27/17 20:59 03/01/17 08:05 100 MG Montelukast Sodium (Singulair Tab) 10 mg DAILY PO 02/26/17 08:00 03/28/17 08:59 03/01/17 08:05 10 MG Nicotine (Nicoderm Cq 14MG Patch) 1 patch QAM TD 02/26/17 08:00 03/28/17 08:59 03/01/17 08:06 1 PATCH Tiotropium [place] (Spiriva Handihaler Inhaler) 1 puff DAILY INH 02/26/17 08:00 03/28/17 08:59 03/01/17 08:05 1 PUFF Miscellaneous (Remove Nicoderm Patch) 1 ea HS N/A 02/25/17 21:00 03/27/17 20:59 02/28/17 20:18 1 EA Hydromorphone HCl (Dilaudid Inj) 1 mg Q4H PRN IV 02/25/17 16:00 03/11/17 15:59 02/27/17 17:39 1 MG Acetaminophen (Tylenol Tab) 650 mg Q4H PRN PO 02/26/17 16:00 03/28/17 15:59 02/27/17 01:51 650 MG Pantoprazole Sodium 40 mg/ Dextrose 100 ml @ 20 mls/hr Q5H IV 02/27/17 12:00 03/29/17 11:59 03/01/17 08:50 20 MLS/HR Polyethylene (Miralax Powder Packet) 17 gm DAILY PO 03/01/17 08:00 03/31/17 07:59 Docusate Sodium (coLACE CAP) 100 mg BID PO 02/28/17 20:00 03/30/17 19:59 03/01/17 08:05 100 MG Simethicone (Mylicon Chew Tab) 80 mg Q6H PRN PO 02/28/17 19:30 03/30/17 19:29 02/28/17 20:17 80 MG Objective Vital Signs Date Time Temp Pulse Resp B/P (MAP) Pulse Ox O2 Delivery O2 Flow Rate FiO2 03/01/17 10:40 Room Air 03/01/17 07:46 36.4 73 17 130/74 (92) 92 Room Air 03/01/17 01:13 36.2 69 20 138/75 (96) 94 Room Air 03/01/17 00:00 Room Air 02/28/17 16:00 Room Air 02/28/17 15:36 36.8 70 18 143/74 (97) 96 Room Air Physical Exam General Appearance: WD/WN, no apparent distress Eyes: normal inspection, EOMI, sclerae normal Neck: supple, no adenopathy, no JVD, trachea midline Respiratory/Chest: chest non-tender, normal breath sounds, no respiratory distress, no accessory muscle use, + rales (bibasilar) Cardiovascular: regular rate, rhythm, no edema, no gallop, no JVD, no murmur Abdomen: normal bowel sounds, non tender, soft, no organomegaly Extremities: normal range of motion, non-tender, normal inspection, no pedal edema, no calf tenderness Neurologic/Psychiatric: cytogenetic technician II-XII nml as tested, alert, normal mood/affect, oriented x 3, + abnormal gait, + motor weakness Skin: normal color, warm/dry, no rash Laboratory Results Last 24 Hours Test 03/01/17 09:25 Hemoglobin 9.2 g/dL Hematocrit 28.0 % Assessment and Plan 71 y/o M COPD, HTN, unstable gait. Recently admitted with multiple fractures and PNM. The pt had a declining hemoglobin during his recent admission and an EGD was done showing esophagitis and gastritis. The pt was D/Cd to rehab with a PPi and Carafate but was also prescribed Lovenox for DVT prophylaxis. He returns to the hospital today as he is having melena and his hemoglobin reflects a 2 point drop. He denies CP, SOB, lightheadedness, abdominal pain or fever. -Upper GI bleed, large duodenal ulcer: EGD on 02/27 showed ulcer, treated with thermotherapy, H pylori sent GI recommends Protonix gtt 72 hours, will d/c today, start Protonix PO BID tolerating low residue diet hold antiplatelets and Lovenox, would resume antiplatelets one week from time of bleed, no further Lovenox, was ordered for DVT prophylaxis at [facility] no further signs of bleeding Hb at 9.2, BP stable -Acute blood loss anemia from GI bleed: transfused 3 units, Hb 9.2 this AM, trending up BP stable, no need for further transfusion at this point - Acute diastolic HF: due to volume overload from IV fluids and resuscitation at time of admission responded well to Lasix IV yesterday, will give 40mg PO today, assess everyday for need for diuresis still with some bibasilar rales today -Recent Pneumonia: no cough today, continue nebulizers, hold on antibiotics, was treated with Augmentin recently -Right renal mass: [place] [facility] [place], mass stable in size, no increased adenopathy follows with Dr. Mejia - HTN: can continue metoprolol with hold parameters - Unstable gait: chronic issue, PT/OT consulted plan for rehab Thursday keep in hospital through and look for return to rehab on Thursday
[2017-03-01] MEDS ORDERED: FUROSEMIDE 40 MG TAB PO ONE (11:30)
[2017-03-01 15:44] VITALS: BP 131/75; PULSE 72; TEMP 37; O2SAT 94
[2017-03-01] MEDS: ACETAMINOPHEN 325 MG TAB PO PRN ×2 (16:00→21:49)
[2017-03-01] MEDS: PANTOprazole SOD 40 MG TAB PO SCH (20:44)
[2017-03-01] MEDS: SIMETHICONE 80 MG CHEW PO PRN (21:48)
[2017-03-01 23:29] VITALS: BP 111/67; PULSE 66; TEMP 36.6; O2SAT 93
[2017-03-02] VITALS: O2SAT 93
[2017-03-02 07:48] VITALS: BP 130/75; PULSE 73; TEMP 36.5; O2SAT 94
[2017-03-02] MEDS: DOCUSATE SODIUM 100 MG CAP PO SCH ×2 (08:00→20:29)
[2017-03-02] MEDS: POLYETHYLENE (MIRALAX) 17 GM PACK PO SCH (08:00)
[2017-03-02] MEDS: TIOTROPIUM BROMIDE 5 PUFF/90 MCG INH INH SCH (08:23)
[2017-03-02] MEDS: MONTELUKAST SOD 10 MG TAB PO SCH (08:24)
[2017-03-02] MEDS: FINASTERIDE 5 MG TAB PO SCH (08:24)
[2017-03-02] MEDS: METOPROLOL TARTRATE 50 MG TAB PO SCH ×2 (08:24→20:29)
[2017-03-02] MEDS: PANTOprazole SOD 40 MG TAB PO SCH ×2 (08:24→20:29)
[2017-03-02] MEDS: NICOTINE 14 MG/24 HR TDSY TD SCH (08:25)
[2017-03-02] MEDS: SIMETHICONE 80 MG CHEW PO PRN ×3 (08:25→18:50)
[2017-03-02] MEDS: ACETAMINOPHEN 325 MG TAB PO PRN ×3 (08:25→16:51)
[2017-03-02 09:17] LABS: HEMATOCRIT 29.5 % (42-52); MEAN CELL VOLUME 82.9 fL (80-100); MEAN CORPUSCULAR HEMOGLOBIN 27.5 pg (25-34); MEAN CORPUSCULAR HGB CONC 33.2 g/dl (32-36); MEAN PLATELET VOLUME 7.9 fL (7.4-10.4); PLATELET COUNT 315 K/uL (130-400); RED BLOOD COUNT 3.56 M/uL (4.7-6.1); WHITE BLOOD COUNT 8.67 K/uL (4.8-10.8)
--- NOTE | 2017-03-02 09:28 | Gastroenterology Progress Note ---
Progress Note Date of Service: Mar 02, 2017 Subjective Pt evaluation today including: conversation w/ patient, physical exam, chart review, lab review Pt was seen and evaluated. Feels ok - still complains of rib pain and back pain. He is unsure if he is having any black/bloody stools. No abdominal pain. Unsure of discharge date. Review of Systems Constitutional: No fever, No chills Respiratory: + cough, No shortness of breath Cardiac: No chest pain Abdomen: No pain, No nausea, No vomiting, No diarrhea, No constipation Medications Current Inpatient Medications Medications (Trade) Dose Ordered Sig/Agustina Route Start Time Stop Time Status Last Admin Dose Admin Finasteride (Proscar Tab) 5 mg DAILY PO 02/26/17 08:00 03/28/17 08:59 03/02/17 08:24 5 MG Levalbuterol (Xopenex Hfa Inhaler) 2 puffs Q4H PRN INH 02/25/17 15:45 03/27/17 15:44 02/27/17 20:19 2 PUFFS Metoprolol Tartrate (Lopressor Tab) 100 mg BID PO 02/25/17 20:00 03/27/17 20:59 03/02/17 08:24 100 MG Montelukast Sodium (Singulair Tab) 10 mg DAILY PO 02/26/17 08:00 03/28/17 08:59 03/02/17 08:24 10 MG Nicotine (Nicoderm Cq 14MG Patch) 1 patch QAM TD 02/26/17 08:00 03/28/17 08:59 03/02/17 08:25 1 PATCH Tiotropium [place] (Spiriva Handihaler Inhaler) 1 puff DAILY INH 02/26/17 08:00 03/28/17 08:59 03/02/17 08:23 1 PUFF Miscellaneous (Remove Nicoderm Patch) 1 ea HS N/A 02/25/17 21:00 03/27/17 20:59 03/01/17 20:43 1 EA Hydromorphone HCl (Dilaudid Inj) 1 mg Q4H PRN IV 02/25/17 16:00 03/11/17 15:59 02/27/17 17:39 1 MG Acetaminophen (Tylenol Tab) 650 mg Q4H PRN PO 02/26/17 16:00 03/28/17 15:59 03/02/17 08:25 650 MG Polyethylene (Miralax Powder Packet) 17 gm DAILY PO 03/01/17 08:00 03/31/17 07:59 Docusate Sodium (coLACE CAP) 100 mg BID PO 02/28/17 20:00 03/30/17 19:59 03/01/17 20:44 100 MG Simethicone (Mylicon Chew Tab) 80 mg Q6H PRN PO 02/28/17 19:30 03/30/17 19:29 03/02/17 08:25 80 MG Pantoprazole Sodium (Protonix Tab) 40 mg BID PO 03/01/17 20:00 03/31/17 19:59 03/02/17 08:24 40 MG Sucralfate (Carafate Susp) 1 gm QID PO 03/02/17 09:00 04/01/17 08:59 Objective Vital Signs Date Time Temp Pulse Resp B/P (MAP) Pulse Ox O2 Delivery O2 Flow Rate FiO2 03/02/17 07:48 36.5 73 18 130/75 (93) 94 Room Air 03/02/17 00:00 93 Room Air 03/01/17 23:29 36.6 66 20 111/67 (82) 93 Room Air 03/01/17 16:20 Room Air 03/01/17 15:44 37.0 72 18 131/75 (93) 94 Room Air 03/01/17 10:40 Room Air Physical Exam General Appearance: no apparent distress (pt is upright in bed watching TV) Eyes: PERRL ENT: hearing grossly normal Neck: supple Respiratory/Chest: no respiratory distress, no accessory muscle use, + crackles , + wheezing Cardiovascular: regular rate, rhythm, no gallop, no JVD, no murmur Abdomen: non tender, soft, no organomegaly, no pulsatile mass Neurologic/Psych: alert, normal mood/affect, oriented x 3 Skin: normal color Laboratory Results Last 24 Hours Test 03/01/17 09:25 03/02/17 09:04 Hemoglobin 9.2 g/dL 9.8 g/dL Hematocrit 28.0 % 29.5 % White Blood Count 8.67 K/uL Red Blood Count 3.56 M/uL Mean Corpuscular Volume 82.9 fL Mean Corpuscular Hemoglobin 27.5 pg Mean Corpuscular Hemoglobin Concent 33.2 g/dl RDW Standard Deviation 41.0 fL RDW Coefficient of Variation 13.4 % Platelet Count 315 K/uL Mean Platelet Volume 7.9 fL Assessment and Plan Mr. Jauregui is a 71 yr old male with duodenal ulcer, post endoscopic thermal treatment, now stable post transfusion. No melena x 2 days Completed Protonix drip x total 3 days BID PPI 40 mg x 4 wks. Carafate slurry 4 times daily for 4 weeks FE supplement 8-12 weeks PPI 40 mg daily after BID dosing Avoid NSAIDs. OK to use Lovenox if clinically necessary. Repeat EGD in 8 weeks. Our office will call to set up. Diet as tolerated. GI to sign off. No GI contraindication to discharge. I saw and evaluated the patient -- will plan for a repeat EGD in about 8 to 12 weeks.
[2017-03-02 09:43] LABS: BUN/CREATININE RATIO 17.2 (10-20); CREATININE 0.76 mg/dl (0.60-1.40); POTASSIUM 4.1 mmol/L (3.5-5.1)
[2017-03-02 09:46] LABS: ALB/GLOB RATIO 0.7 (0.9-2)
[2017-03-02 09:57] LABS: CALCIUM 8.1 mg/dl (8.5-10.1)
[2017-03-02] MEDS: SUCRALFATE 1 GM/10 ML UDC PO SCH ×4 (11:12→20:28)
[2017-03-02] MEDS: FERROUS SULFATE 325 MG TAB PO SCH ×2 (12:46→16:48)
[2017-03-02 16:05] VITALS: BP 111/65; PULSE 70; TEMP 36.7; O2SAT 95
[2017-03-02] MEDS: SODIUM CHLORIDE 1 GM TAB PO SCH (16:47)
[2017-03-02 20:27] VITALS: BP 106/64; PULSE 80
[2017-03-02 20:42] VITALS: BP 159/80; PULSE 54
--- NOTE | 2017-03-02 21:57 | Progress Note ---
Subjective Date of Service: Mar 02, 2017. Subjective Pt evaluation today including: conversation w/ patient, conversation w/ family (son at bedside), physical exam, chart review, lab review, conversation w/ lead sales consultant (social work ), review of inpatient medication list Pain: denies PO Intake: tolerating diet, but appetite "has been poor" for several months Voiding: no voiding problems patient anxious to get to [facility] for rehab reports weight loss of 50+ pounds in the last year no significant cough or wheezing denies any dyspnea on exertion reports no obvious BRBPR or melena no abdominal pain Problem List Medical Problems: (1) Anemia Status: Acute (2) COPD exacerbation Status: Acute (3) Fracture of rib of right side Status: Acute (4) GI bleed Status: Acute (5) Hypoxia Status: Acute (6) Septic shock Status: Acute (7) Sternal fracture Status: Acute (8) Upper abdominal pain Status: Acute (9) Weakness Status: Acute Review of Systems Constitutional: No fever Respiratory: No cough, No sputum, No wheezing, No shortness of breath, No dyspnea on exertion Cardiac: No chest pain, No orthopnea Abdomen: No pain, No nausea, No vomiting, No GI bleeding Objective Vital Signs Date Time Temp Pulse Resp B/P (MAP) Pulse Ox O2 Delivery O2 Flow Rate FiO2 03/02/17 20:42 54 159/80 (106) 03/02/17 20:27 80 106/64 (78) 03/02/17 16:05 36.7 70 18 111/65 (80) 95 Room Air 03/02/17 16:00 Room Air 03/02/17 11:04 Room Air 03/02/17 07:48 36.5 73 18 130/75 (93) 94 Room Air 03/02/17 00:00 93 Room Air 03/01/17 23:29 36.6 66 20 111/67 (82) 93 Room Air Physical Exam General Appearance: no apparent distress ENT: pharynx normal Neck: no JVD Respiratory/Chest: no respiratory distress, no accessory muscle use, + wheezing Cardiovascular: regular rate, rhythm, no gallop, no murmur Abdomen: normal bowel sounds, non tender, soft, no organomegaly Extremities: no pedal edema Neurologic/Psychiatric: alert Laboratory Results Last 24 Hours Test 03/02/17 09:04 03/02/17 12:55 White Blood Count 8.67 K/uL Red Blood Count 3.56 M/uL Hemoglobin 9.8 g/dL Hematocrit 29.5 % Mean Corpuscular Volume 82.9 fL Mean Corpuscular Hemoglobin 27.5 pg Mean Corpuscular Hemoglobin Concent 33.2 g/dl RDW Standard Deviation 41.0 fL RDW Coefficient of Variation 13.4 % Platelet Count 315 K/uL Mean Platelet Volume 7.9 fL Sodium Level 130 mmol/L Potassium Level 4.1 mmol/L Chloride Level 94 mmol/L Carbon Dioxide Level 28 mmol/L Anion Gap 8.0 mmol/L Blood Urea Nitrogen 13 mg/dl Creatinine 0.76 mg/dl Est Creatinine Clear Calc Drug Dose 129.0 ml/min Estimated GFR () 107.9 Estimated GFR (Non- 93.1 BUN/Creatinine Ratio 17.2 Random Glucose 126 mg/dl Osmolality 268 mOsm/kg Calcium Level 8.1 mg/dl Total Bilirubin 0.3 mg/dl Aspartate Amino Transf (AST/SGOT) 16 U/L Alanine Aminotransferase (ALT/SGPT) 75 U/L Alkaline Phosphatase 66 U/L Total Protein 6.0 gm/dl Albumin 2.4 gm/dl Globulin 3.6 gm/dl Albumin/Globulin Ratio 0.7 Urine Osmolality 643 mOms/kg Urine Random Sodium 65 mEq/L Assessment and Plan 71yo male with: 1. acute blood loss anemia 2nd to upper GI bleeding - H/H stable, no evidence of ongoing bleeding. Cont iron supplementation, PPI BID, and carafate QID. Hemoglobin in am. 2. upper GI bleeding - 2nd to bleeding duodenal ulcer. Resolved. See #1 above. Tolerating diet. 3. COPD with exacerbation - resolved. Continue bronchodilators. 4. recent community-acquired pneumonia - clinically resolved. 5. HTN - controlled. 6. Acute diastolic CHF - appears euvolemic today. 7. hyponatremia - serum osm, urine osm, and urine Na c/w SIADH. This appears fairly acute. Lasix may have influenced labs. Will fluid restrict to 1500cc daily and add NaCL 1gm daily. BMP in am. Recent TSH was normal. 8. right renal mass: was treated with ablation twice [place] [facility] [place] scans , mass stable in size, no increased adenopathy; follows with Dr. Mejia locally. 9. ambulatory dysfunction - continue PT, OT. [facility] after discharge. 10. DVT proph - GI ok with low-dose chemical DVT proph; will add. hopefully to [facility] tomorrow Discharge planning: rehab hospital
[2017-03-03 00:01] VITALS: BP 139/74; PULSE 69; TEMP 36.7; O2SAT 93
[2017-03-03 07:19] VITALS: BP 119/73; PULSE 73; TEMP 36.6; O2SAT 92
[2017-03-03 07:26] LABS: BUN/CREATININE RATIO 20.1 (10-20); CALCIUM 8.1 mg/dl (8.5-10.1); CREATININE 0.65 mg/dl (0.60-1.40); POTASSIUM 4.3 mmol/L (3.5-5.1)
[2017-03-03] MEDS: DOCUSATE SODIUM 100 MG CAP PO SCH ×2 (07:37→20:36)
[2017-03-03] MEDS: POLYETHYLENE (MIRALAX) 17 GM PACK PO SCH (07:38)
[2017-03-03] MEDS: SUCRALFATE 1 GM/10 ML UDC PO SCH ×4 (07:38→20:36)
[2017-03-03] MEDS: FERROUS SULFATE 325 MG TAB PO SCH ×3 (07:38→17:04)
[2017-03-03] MEDS: MONTELUKAST SOD 10 MG TAB PO SCH (07:39)
[2017-03-03] MEDS: SODIUM CHLORIDE 1 GM TAB PO SCH (07:39)
[2017-03-03] MEDS: PANTOprazole SOD 40 MG TAB PO SCH ×2 (07:39→20:38)
[2017-03-03] MEDS: FINASTERIDE 5 MG TAB PO SCH (07:39)
[2017-03-03] MEDS: SIMETHICONE 80 MG CHEW PO PRN ×2 (07:40→17:02)
[2017-03-03] MEDS: NICOTINE 14 MG/24 HR TDSY TD SCH (07:40)
[2017-03-03] MEDS: ACETAMINOPHEN 325 MG TAB PO PRN ×2 (07:41→16:07)
[2017-03-03] MEDS: METOPROLOL TARTRATE 50 MG TAB PO SCH ×2 (07:41→20:38)
[2017-03-03] MEDS: HEPARIN SOD 5000 UNIT/0.5 ML CARP SQ SCH ×2 (07:43→20:45)
[2017-03-03] MEDS: TIOTROPIUM BROMIDE 5 PUFF/90 MCG INH INH SCH (11:00)
--- NOTE | 2017-03-03 12:24 | DIAGNOSTIC IMAGING REPORT ---
HEAD CT NONCONTRAST CT DOSE: 614.27 mGy.cm HISTORY: Mental status change eval for intra-cranial pathology TECHNIQUE: Multiaxial CT images of the head were performed without the use of intravenous contrast. Comparison: 04/25/2015 Findings: Chronic opacification right mastoid air cells with a chronic soft tissue changes of the middle ear canal. Chronic hydrocephalus. No evidence for acute intracranial hemorrhage. No midline shift. Impression: Chronic change. Chronic hydrocephalus. Electronically signed by: Josh Gallardo M.D. 03/03/2017 12:23 PM Dictated Date/Time: 03/03/2017 12:20 PM
[2017-03-03 15:33] VITALS: BP 124/74; PULSE 72; TEMP 36.3; O2SAT 93
[2017-03-03 20:36] VITALS: BP 150/71; PULSE 74
[2017-03-03 22:59] VITALS: BP 134/69; PULSE 68; TEMP 36.8; O2SAT 90
--- NOTE | 2017-03-04 05:50 | Progress Note ---
Subjective Date of Service: late entry for visit on Mar 03, 2017. Subjective Pt evaluation today including: conversation w/ patient, physical exam, chart review, lab review, review of studies (CT head), review of inpatient medication list Pain: denies PO Intake: normal Voiding: incontinence no issues overnight staff report mild, intermittent cognitive issues/memory issues when patient was asked about his cognition/memory he reports 6-12 months, maybe longer, of such issues "sometimes I'll walk into a room and can't remember why I went there"; misplaces things at home; etc sister states he is "normal" at home but has been confused at [facility] and at [facility] he also reports falls over the last 1-2 years as well as gait disturbance and difficulty ambulating 4 bowel movements over last 24 hours no overt GI bleeding no abdominal pain Problem List Medical Problems: (1) Anemia Status: Acute (2) COPD exacerbation Status: Acute (3) Fracture of rib of right side Status: Acute (4) GI bleed Status: Acute (5) Hypoxia Status: Acute (6) Septic shock Status: Acute (7) Sternal fracture Status: Acute (8) Upper abdominal pain Status: Acute (9) Weakness Status: Acute Review of Systems Constitutional: No fever Respiratory: No cough, No shortness of breath Cardiac: No chest pain Abdomen: No pain Objective Vital Signs Date Time Temp Pulse Resp B/P (MAP) Pulse Ox O2 Delivery O2 Flow Rate FiO2 03/04/17 00:00 Room Air 03/03/17 22:59 36.8 68 20 134/69 (90) 90 Room Air 03/03/17 20:36 74 150/71 (97) 03/03/17 20:00 Room Air 03/03/17 16:10 Room Air 03/03/17 15:33 36.3 72 20 124/74 (91) 93 Room Air 03/03/17 09:50 Room Air 03/03/17 07:19 36.6 73 18 119/73 (88) 92 Physical Exam General Appearance: no apparent distress ENT: pharynx normal Neck: no JVD Respiratory/Chest: lungs clear, no respiratory distress, no accessory muscle use Cardiovascular: regular rate, rhythm, no gallop, no murmur Abdomen: normal bowel sounds, non tender, soft, no organomegaly Extremities: no pedal edema Neurologic/Psychiatric: no motor/sensory deficits (of lower extremities ), alert, + disoriented (thinks he was at [facility], then changed his mind and stated "[facility]"; year - "7, then changed it to 2017") Laboratory Results Last 24 Hours Test 03/03/17 06:28 Hemoglobin 9.6 g/dL Sodium Level 132 mmol/L Potassium Level 4.3 mmol/L Chloride Level 97 mmol/L Carbon Dioxide Level 27 mmol/L Anion Gap 8.0 mmol/L Blood Urea Nitrogen 13 mg/dl Creatinine 0.65 mg/dl Est Creatinine Clear Calc Drug Dose 150.8 ml/min Estimated GFR () 115.1 Estimated GFR (Non- 99.3 BUN/Creatinine Ratio 20.1 Random Glucose 95 mg/dl Calcium Level 8.1 mg/dl Assessment and Plan 71yo male with: 1. acute blood loss anemia 2nd to upper GI bleeding - H/H stable, no evidence of ongoing bleeding. Cont iron supplementation, PPI BID, and carafate QID. Hemoglobin in am for stability. 2. upper GI bleeding - 2nd to bleeding duodenal ulcer. Resolved. See #1 above. Tolerating diet. 3. COPD with exacerbation - resolved. Continue bronchodilators. 4. recent community-acquired pneumonia - clinically resolved. Off abx. 5. HTN - controlled. 6. Acute diastolic CHF - appears euvolemic today. Lasix stopped. 7. hyponatremia - serum osm, urine osm, and urine Na c/w SIADH. This appears fairly acute. Na IS improved today to 132. Lasix may have influenced labs. Will fluid restrict to 1500cc daily and cont NaCL 1gm daily. BMP in am. Recent TSH was normal. 8. right renal mass: was treated with ablation twice at [facility], following CT scans , mass stable in size, no increased adenopathy; follows with Dr. Mejia locally. 9. ambulatory dysfunction - [facility] 10. DVT proph - GI ok with low-dose chemical DVT proph; added heparin BID. 11. cognitive decline/memory impairment, gait disturbance, urinary incontinence - CT head obtained showing "chronic hydrocephalus". Difficult to know if the prominent ventricles is from true hydrocephalus or simply due to significant brain atrophy in setting of a dementia process. Either way will obtain brain MRI. B12, TSH, lyme's all normal/negative. Check RPR Check thiamine level If MRI does in fact show hydrocephalus then he would need neurosurgery eval for possibility of NPH hopefully to [facility] tomorrow Continued [facility] stay due to: voiding difficulties, ambulation difficulties, home environment unsafe for pt Discharge planning: rehab hospital
[2017-03-04 07:01] LABS: BUN/CREATININE RATIO 18.5 (10-20); CREATININE 0.69 mg/dl (0.60-1.40); POTASSIUM 4.5 mmol/L (3.5-5.1)
[2017-03-04] MEDS: TIOTROPIUM BROMIDE 5 PUFF/90 MCG INH INH SCH (08:08)
[2017-03-04] MEDS: FERROUS SULFATE 325 MG TAB PO SCH ×2 (08:09→12:35)
[2017-03-04] MEDS: SODIUM CHLORIDE 1 GM TAB PO SCH (08:09)
[2017-03-04] MEDS: SUCRALFATE 1 GM/10 ML UDC PO SCH ×2 (08:09→12:35)
[2017-03-04] MEDS: FINASTERIDE 5 MG TAB PO SCH (08:09)
[2017-03-04] MEDS: DOCUSATE SODIUM 100 MG CAP PO SCH (08:09)
[2017-03-04] MEDS: METOPROLOL TARTRATE 50 MG TAB PO SCH (08:10)
[2017-03-04] MEDS: PANTOprazole SOD 40 MG TAB PO SCH (08:10)
[2017-03-04] MEDS: MONTELUKAST SOD 10 MG TAB PO SCH (08:10)
[2017-03-04] MEDS: NICOTINE 14 MG/24 HR TDSY TD SCH (08:11)
[2017-03-04] MEDS: POLYETHYLENE (MIRALAX) 17 GM PACK PO SCH (08:13)
[2017-03-04 08:28] VITALS: BP 138/74; PULSE 78; TEMP 36.7; O2SAT 96
[2017-03-04] MEDS: HEPARIN SOD 5000 UNIT/0.5 ML CARP SQ SCH (08:51)
[2017-03-04 15:22] VITALS: BP 115/70; PULSE 73; TEMP 36.4; O2SAT 95
[2017-03-04 16:00] VITALS: O2SAT 95
--- NOTE | 2017-03-04 16:33 | DIAGNOSTIC IMAGING REPORT ---
MRI OF THE BRAIN WITHOUT CONTRAST CLINICAL HISTORY: Gait disturbance. Cognitive changes. COMPARISON STUDY: Head CT dated 03/03/2017 FINDINGS: Sagittal T1, axial diffusion, proton density and T2 weighted axial, coronal FLAIR, and axial T1-weighted images were acquired. No intra or extra-axial mass lesions are visualized Axial diffusion-weighted images reveal no evidence of acute or subacute infarction. There is hydrocephalus with dilatation of the lateral third and fourth ventricles. This remain similar to the preceding study. Proton density T2-weighted and FLAIR images reveal scattered foci of increased T2 signal within the white matter, likely on a small vessel basis. There are no abnormal flow voids. There are foci of increased T2 signal within the right mastoid, likely on an inflammatory basis. Mastoid and right middle ear opacification was described on the recent CT scan. IMPRESSION: 1. Moderate hydrocephalus with dilatation of the third, fourth and lateral ventricles. The findings remain similar to the preceding head CT dated 03/03/2017 2. No evidence of acute or subacute infarction 3. No masses identified on this noncontrast study Electronically signed by: Vineet Mallory M.D. 03/04/2017 4:32 PM Dictated Date/Time: 03/04/2017 4:27 PM
[2017-03-04] MEDS ORDERED: SDMC1 PO (16:36)
[2017-03-04] MEDS ORDERED: LEVA45AE INH (16:36)
[2017-03-04] MEDS ORDERED: PRT40 PO (16:36)
[2017-03-04] MEDS ORDERED: FRRS300 PO (16:36)
--- NOTE | 2017-03-04 16:44 | Discharge Instructions ---
Discharge Instructions Date of Service Mar 04, 2017. Admission Reason for Admission: Gi Bleed Discharge Discharge Diagnosis / Problem: GI bleeding due to large duodenal ulcer Discharge Goals Goal(s): Learn about illness, Diagnostic testing, Therapeutic intervention Activity Recommendations Activity Level: Assistance Required Therapies: Physical Therapy, Occupational Therapy . Additional Information Patient informed of condition: Yes Advance Directives: No DNR: No Level of Care: Acute Rehab Communicable Disease: No Prognosis: Stable Oxygen at (LPM): none Marroquin Catheter: No Instructions / Follow-Up Instructions / Follow-Up 1. Duodenal ulcer - * protonix 40mg twice daily x 1 month, then decrease to 40mg once daily thereafter * carafate 1gm ac/hs x 1 month then stop * NO NSAIDS (no motrin, aspirin, ibuprofen, aleve, etc) * NO excessive caffeinated beverages * repeat EGD with [facility] in 8 weeks - their office will arrange * repeat CBC on 03/06/17 - report results to rn medical inpatient services 2. Low sodium level - * repeat BMP on 03/05/17 and 03/06/17 for stability - report results to rn medical inpatient services * fluid restrict to 1500cc/day * sodium chloride tablet 1gram daily 3. Hydrocephalus - * this has been present since at least 2014 on CAT scan and/or MRI * recommend referral to NEUROSURGERY to exclude "NPH" (normal pressure hydrocephalus) - first appointment [facility] Current Hospital Diet Patient's current hospital diet: AHA Diet (Heart Healthy) Discharge Diet Recommended Diet: AHA Diet (Heart Healthy) Fluid Restriction: 1500 ml (6 cups) Procedures Procedures Performed: EGD with hemostasis of duodenal ulcer. MRI brain with hydrocephalus but NO stroke or masses. Pending Studies Studies pending at discharge: yes List of pending studies: thiamine (B1) level Physician Orders On Transfer Special Precautions: fall precautions Vital Signs: per routine Additional Orders: 1. BMP on AM of 03/05/17 2. CBC, BMP on AM of 03/06/17 POLST Discussion: Not Applicable Laboratory Results Hemoglobin A1c Test 02/17/17 05:25 Range/Units Estimated Average Glucose 134 mg/dl Hemoglobin A1c 6.3 H 4.5-5.6 % Medical Emergencies . Who to Call and When: Medical Emergencies: If at any time you feel your situation is an emergency, please call 911 immediately. . Non-Emergent Contact Non-Emergency issues call your: Primary Care Provider Call Non-Emergent contact if: temperature is above 100.5, you have any medication questions . . "Provider Documentation" section prepared by Wing Louise. . Core Measure Problem Core Measures: None
[2017-03-04 17:00] VITALS: BP 115/70; PULSE 73; TEMP 36.4; O2SAT 95
--- NOTE | 2017-03-05 05:37 | Discharge Summary ---
Discharge Summary Date of Service Mar 05, 2017. Discharge Summary Admission Date: Feb 25, 2017 at 15:18 Discharge Date: Mar 04, 2017 Discharge Disposition: Rehab ([facility]) Principal Diagnosis: acute blood loss anemia 2nd to upper GI bleeding due to duodenal ulcer Problems/Secondary Diagnoses: 1. COPD with exacerbation - latter resolved. 2. mild hyponatremia - suspect SIADH 3. HTN 4. BPH 5. h/o right-sided renal cell carcinoma treated at [facility] 6. recent community-acquired pneumonia - resolved 7. question of acute diastolic CHF - resolved 8. ambulatory dysfunction with falls 9. urinary incontinence 10. cognitive impairment 11. question of normal pressure hydrocephalus - needs additional follow-up 12. mildly abnormal AST/ALT - resolved Immunizations: Have You Had Influenza Vaccine: No Influenza Vaccine Date: Jul 20, 2009 History of Tetanus Vaccine?: No History of Pneumococcal: No History of Hepatitis B Vaccine: No Procedures: 1. CT angiography: IMPRESSION: 1. Mild infiltration adjacent to the distal stomach and proximal duodenum. This may reflect gastritis/duodenitis in the setting of peptic ulcer disease. Less likely, this could reflect acute pancreatitis. 2. Moderate plaque of the abdominal aorta. Patent mesenteric vessels. 3. Moderate amount of poorly formed stool within the colon. No bowel obstruction. 4. 3.2 cm intermediate attenuation mass-like abnormality within the midpole of the right kidney. Minimal adjacent infiltration. This infiltration is nonspecific and could be related to prior procedure or extension of tumor. Correlation with procedural history is recommended as a renal cell carcinoma is the diagnosis of exclusion. 2. CT head - chronic hydrocephalus. 3. MRI brain - moderate hydrocephalus, no stroke or mass. 4. EGD - Ream Alvares DO Impression: - LA Grade D reflux esophagitis. - Gastritis. - One non-obstructing non-bleeding duodenal ulcer with a visible vessel. Suspicious for stress / NSAIDS induced etiology. Injected. Treated with bipolar cautery. - Normal 2nd part of the duodenum. - No specimens collected. 5. PRBCs x 3 units Consultations: 1. [facility] - Rema Alvares DO 2. PT, OT Medication Reconciliation New Medications: Ferrous Sulfate (Ferrous Sulfate) 325 Mg Tab 325 MG PO TIDM, #90 TAB 2 Refills Pantoprazole (Pantoprazole Sodium) 40 Mg Tab 40 MG PO BID, #60 TAB 1 Refill Sodium Chloride (Sodium Chloride) 1 Gm Tab 1 GM PO DAILY, #14 TAB 0 Refills Changed Medications: Levalbuterol Tartrate (Levalbuterol Tartrate Hfa) 45 Mcg/Act Aer 2 PUFFS INH Q6H, #1 INHALER 2 Refills (Changed from: Q4; Removed Reason; Refills : ) Continued Medications: Acetaminophen (Acetaminophen) 500 Mg Tab 1 TAB PO Q4 PRN for Pain or Fever MAX 3GM/24HR USE FOR MILD PAIN RATED 1-3 OR FEVER >101F Alum & Mag Hydrox-Simethicone (Maalox Max Susp) 1 Hali Hali 30 ML PO Q4 PRN for HEARTBURN/GAS Azelastine Hcl (Astelin Nasal [place]) 200 Sprays/30 Ml [place] 2 SPRAYS RAIZA DAILY Bisacodyl (Bisacodyl) 10 Mg Sup 10 MG RE Q24H PRN for NO BM >2DAYS/CONSTIPATION Cholecalciferol (Vitamin D3) 1,000 Inter.unit Tab 2000 INTER.UNIT PO QAM, #30 TAB Docusate Sodium (Colace) 100 Mg Cap 1 CAP PO BID for 30 Days, #60 CAP Finasteride (Finasteride) 5 Mg Tab 5 MG PO DAILY Magnesium Hydroxide (Milk Of Magnesia) 30 Ml Susp 30 ML PO Q24H PRN for NO BM>1 DAY/CONSTIPATION Metoprolol Tartrate (Lopressor) (Lopressor) 50 Mg Tab 100 MG PO BID Montelukast Sodium (Singulair) 10 Mg Tab 10 MG PO DAILY Nicotine (Nicotine) 14 Mg/24 Hr Dis 1 PATCH TD QAM for 14 Days, #14 PATCH Phenylephrine-Shark Liver Oil- (Preparation H) 1 Sup Sup 1 SUPP RE DAILY PRN for Hemorrhoids Polyethylene Glycol 3350 (Miralax) 1 Pow Pow 17 GM PO DAILY, #255 GM Senna/Docusate Sod (Senokot S) 1 Tab Tab 1 TAB PO DAILY, TAB Simethicone (Gas Relief Extra Strength) 125 Mg Cap 125 MG PO BID PRN for GAS Sodium Phosphate/Biphosphate (Fleet Enema) Krysta 1 EA [place] Q24 PRN for NO BM >3 DAYS/CONSTIPATION, BTL Sucralfate (Carafate) 1 Gm Tab 1 GM PO ACHS, TAB [id number] Tiotropium [place] (Spiriva Handihaler) 30 Puff/540 Mcg Aerp 1 CAP INH DAILY for 30 Days, #30 CAP 3 Refills Tramadol HCl (Tramadol HCl) 50 Mg Tab 50 MG PO Q4H PRN for Pain for 30 Days, #120 TAB Discontinued Medications: Amoxicillin & Pot Clavulanate (Amoxicillin/Clavulanate P) 1 Tab Tab 875 MG PO BIDM for 8 Days, #16 TAB Enoxaparin (Lovenox) 40 Mg/0.4 Ml Inj 40 MG SQ DAILY, SYR Ergocalciferol (Drisdol) 50,000 Unit Cap 1 CAP PO WK, #6 CAP Famotidine (Famotidine) 20 Mg Tab 20 MG PO BID for 30 Days, #60 TAB Oxycodone HCl (Oxycodone HCl) 5 Mg Tab 5 MG PO Q4H PRN for Pain for 15 Days, #60 TAB Umeclidinium [place] (Incruse Ellipta) 62.5 Mcg/Inh Inh 1 PUFF INH QAM Discharge Exam Physical Exam: General Appearance: no apparent distress ENT: pharynx normal Neck: no JVD Respiratory/Chest: no respiratory distress, no accessory muscle use, + wheezing (mild, b/l) Cardiovascular: regular rate, rhythm, no gallop, no murmur, normal peripheral pulses Abdomen / GI: normal bowel sounds, non tender, soft, no organomegaly Extremities: no pedal edema Neurologic/Psychiatric: no motor/sensory deficits, alert, + disoriented Hospital Course HISTORY OF PRESENT ILLNESS: 71yo male with history of COPD, HTN, and unstable gait. Recently admitted with multiple rib fractures and pneumonia. During the previous admission he had a declining hemoglobin and thus underwent an EGD which showed esophagitis and gastritis. The patient was discharged to [facility] rehab with a PPI and Carafate but was also prescribed Lovenox for DVT prophylaxis. He returned to the hospital as he was having melena stools and his hemoglobin reflected a 2 point drop from previous hemoglobin levels. He denied CP, SOB, lightheadedness , abdominal pain or fever. He was a very poor historian. HOSPITAL COURSE: 1. acute blood loss anemia 2nd to upper GI bleeding from duodenal ulcer - the patient's hemoglobin at presentation was 7.3, further falling into the high 6' s. He was made NPO and started on IV PPI drip. He received in total 3 units of PRBCs. Fortunately he remained hemodynamically stable his entire course. He was seen in consult by Dr. Rema Alvares [facility], who performed repeat EGD. This demonstrated a duodenal ulcer with visible vessel. The ulcer was injected and cauterized. Gastritis & esophagitis was also seen. He remained on PPI drip for a total of 3 days, and ultimately transitioned to oral protonix 40mg BID. Carafate 1gm QID was also continued. Following his EGD his hemoglobin remained stable for 5+ days. Discharge hemoglobin was 9.6. He was restarted on a diet and this was advanced without difficulty. He had no further signs of bleeding while here. The following were recommended at discharge: * protonix 40mg BID x 4 weeks, then once daily thereafter * carafate 1gm QID x 4 weeks * iron supplementation x 2-3 months * repeat EGD in 8-12 weeks * avoidance of ALL NSAIDS * HOWEVER, it is ok to use chemical DVT prophylaxis, if necessary, at [facility] * repeat CBC within 48 hours for stability 2. hyponatremia - discharge sodium level was 131. Urine osm, serum osm, and urine Na were most consistent with SIADH. The cause of such was unclear - perhaps from recent pneumonia? Renal cell cancer? Other? He was started on 1500cc/day of fluid restriction and a daily salt tablet. Repeat BMPs are advised on 03/05/17 and 03/06/17 & thereafter PRN to ensure stability of the sodium level. 3. COPD with exacerbation - resolved. He will continue on bronchodilators. 4. recent community-acquired pneumonia - clinically resolved and antibiotics have been discontinued. 5. cognitive decline/memory impairment, gait disturbance, urinary incontinence - CT head obtained this admission showed "chronic hydrocephalus" in comparison to head CT done in 2015. Difficult to know if the prominent ventricles are from true hydrocephalus or simply due to significant brain atrophy in setting of a dementia process. Brain MRI also confirmed the presence of moderate hydrocephalus. B12, TSH, lyme's titer, and RPR were all normal/negative. Thiamine level was sent and was pending at discharge. His symptoms and CT/MRI findings are concerning for possible Normal Pressure Hydrocephalus and consultation with neurosurgery is advised. 6. right-sided renal cell cancer - treated with some form of ablation procedure at [facility] in the past. His local urologist is Dr. Junior Mejia. Recommend follow-up with Dr. Mejia in the next 2-3 weeks to ensure the CT findings of the right kidney are stable. Total Time Spent: Greater than 30 minutes This includes examination of the patient, discharge planning, medication reconciliation, and communication with other providers. Discharge Instructions Please refer to the electronic Patient Visit Report (Discharge Instructions) for additional information. Follow-Up 1. see esthetician and [facility] within 24 hours 2. needs neurosurgery consultation [place] for question of normal pressure hydrocephalus 3. [facility] in 8-12 weeks for repeat EGD Additional Copies To Rema Alvares DO; [facility] [facility]; John Santos M.D.; Junior Mejia M.D.
[2017-05-21] MEDS ORDERED: CARB10TA4 PO (12:52)
[2017-05-21] MEDS ORDERED: LEVA45AE INH (12:52)
[2017-05-21] MEDS ORDERED: CARB25TA14 PO (12:52)
[2017-05-21] MEDS ORDERED: TRAM-10 PO (12:52)
[2017-05-21] MEDS ORDERED: IPRASOL4 INH ×2 (12:52)
[2017-05-21] MEDS ORDERED: CHOL1TAB42 PO (12:52)
[2017-05-21] MEDS ORDERED: LANS15CA6 PO (12:52)
[2017-05-21] MEDS ORDERED: SENN1TAB80 PO (12:52)
[2017-05-21] MEDS ORDERED: FERR1TAB13 PO (12:52)
[2017-05-21] MEDS ORDERED: TERB1CRE32 TOP (12:52)
== END 2017-03-04 17:26 | DRG 377 ==
LOC: C.EDB 11:35 → C.4E 15:18 → ENRESERV 15:40
PROVIDERS: ADMIT Internal Medicine; ATTEND Internal Medicine
PROC: 3E0G8GC Introduction of Other Therapeutic Substance into Upper GI, Via Natural or Artificial Opening Endoscopic (ICD-10-PCS; principal; 2017-02-26 11:28)
PROC: 0DJ08ZZ Inspection of Upper Intestinal Tract, Via Natural or Artificial Opening Endoscopic (ICD-10-PCS; principal; 2017-02-26 11:28)
DX: K26.4 Chronic or unspecified duodenal ulcer with hemorrhage (principal); R57.8 Other shock; D62 Acute posthemorrhagic anemia; I50.31 Acute diastolic (congestive) heart failure; G91.9 Hydrocephalus, unspecified; E87.1 Hypo-osmolality and hyponatremia; E22.2 Syndrome of inappropriate secretion of antidiuretic hormone; J44.1 Chronic obstructive pulmonary disease with (acute) exacerbation; K29.70 Gastritis, unspecified, without bleeding; K20.8 Other esophagitis; I10 Essential (primary) hypertension; G62.9 Polyneuropathy, unspecified; R26.2 Difficulty in walking, not elsewhere classified; Z82.49 Family history of ischemic heart disease and other diseases of the circulatory system; T45.515A Adverse effect of anticoagulants, initial encounter; X58.XXXD Exposure to other specified factors, subsequent encounter; S22.20XD Unspecified fracture of sternum, subsequent encounter for fracture with routine healing; S22.49XD Multiple fractures of ribs, unspecified side, subsequent encounter for fracture with routine healing; N28.9 Disorder of kidney and ureter, unspecified; Y92.009 Unspecified place in unspecified non-institutional (private) residence as the place of occurrence of the external cause; Z85.528 Personal history of other malignant neoplasm of kidney; R32 Unspecified urinary incontinence; G31.84 Mild cognitive impairment of uncertain or unknown etiology; F03.90 Unspecified dementia, unspecified severity, without behavioral disturbance, psychotic disturbance, mood disturbance, and anxiety

== ENCOUNTER → 2017-03-18 | Outpatient (CLI) | payer OTHER ==
[~2017-03-18] MED LIST changes: -AMOX1TAB43 PO; +CARB-157 PO; +CARB25TA14 PO; +CHOL1TAB42 PO; -ENOX40IN SQ; -ERGO50002 PO; -FAMO20TA12 PO; +FERR1TAB13 PO; +FRRS300 PO; +GADAVIST IV PRN; +IPRASOL4 INH; +LANS15CA6 PO; +PRT40 PO; -RXC5 PO; +SDMC1 PO; +SENN8.6T13 PO; +SUCR1TAB29 PO; +TERB1CRE31 TOP; +TRAM-10 PO
--- NOTE | 2017-03-18 21:36 | DIAGNOSTIC IMAGING REPORT ---
MRI OF THE CERVICAL SPINE WITH AND WITHOUT CONTRAST CLINICAL HISTORY: Bilateral lower extremity weakness. COMPARISON: MRI of the cervical spine January 31, 2013. TECHNIQUE: Utilizing a 1.5 Barb magnet and dedicated coil, multiplanar, multiecho imaging of the cervical spine was performed before and after intravenous administration of 11 of Gadavist. 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 Reversal of normal cervical lordosis is unchanged since MRI of January 31, 2013. Vertebral body heights are maintained. Discogenic changes are noted. Cervical cord signal and caliber are normal. There is no intracanalicular mass or fluid collection. C2-C3: Central canal and neural foramen are patent. C3-C4: Posterior disc osteophyte complex results in mild narrowing of the central canal. There is moderate narrowing of the left neural foramen. C4-C5: The central canal is patent. There is mild narrowing of both neural foramen. C5-C6: There is mild narrowing of the central canal due to posterior osteophyte complex. There is moderate narrowing of the left neural foramen. C6-C7: The central canal is patent. There is moderate narrowing of the right neural foramen as well as the left neural foramen. C7-T1: Mild bulge is noted. Central canal is patent. There is moderate to severe narrowing of both neural foramen. IMPRESSION: 1. No change in appearance of the cervical spine since MRI of January 31, 2013. 2. Normal cervical cord signal and caliber. 3. Reversal of normal cervical lordosis with mild multilevel central canal stenosis and moderate to severe multilevel neural foraminal stenosis which is unchanged. 4. 2.6 cm subpleural opacity within the left upper lobe which is new since chest CT of February 16, 2017. This is likely infectious or inflammatory. However, a follow-up chest CT in 2 months to ensure resolution is recommended. Electronically signed by: Tim Hayden M.D. 03/18/2017 9:35 PM Dictated Date/Time: 03/18/2017 9:27 PM
--- NOTE | 2017-03-18 21:46 | DIAGNOSTIC IMAGING REPORT ---
THORACIC SPINE COMBO CLINICAL HISTORY: Bilateral lower external weakness. COMPARISON STUDY: MRI of the thoracic spine October 14, 2013. FINDINGS: Vertebral body heights are maintained. A few small disc protrusions are unchanged since exam of October 14, 2013. There is no significant central canal and neural foraminal stenosis. There is no intracanalicular mass or fluid collection. These 2.6 cm subpleural opacity within left upper lobe is noted. This new since chest CT of February 16, 2017. Mailroom Personnel images demonstrate ventricular dilatation. Thoracic cord signal and caliber are normal. IMPRESSION: 1. Normal thoracic cord signal and caliber. 2. No change in appearance of the thoracic spine since MRI of October 14, 2013. A few small disc protrusions without significant central canal or neural foraminal stenosis. 3. Mailroom Personnel images demonstrate ventricular dilatation. This could reflect normal pressure hydrocephalus or be due to atrophy. Electronically signed by: Tim Hayden M.D. 03/18/2017 9:45 PM Dictated Date/Time: 03/18/2017 9:35 PM
--- NOTE | 2017-03-18 21:58 | DIAGNOSTIC IMAGING REPORT ---
MRI OF THE LUMBAR SPINE WITH AND WITHOUT CONTRAST CLINICAL HISTORY: Bilateral lower external weakness. COMPARISON STUDY: Lumbar spine MRI November 09, 2009. TECHNIQUE: Utilizing a 1.5 Barb magnet and dedicated coil, multiplanar, multiecho imaging of the lumbar spine was performed before and after uneventful IV administration of 11 mL of Gadavist. FINDINGS: For purposes of numbering on this exam, the L5-S1 disc space is assigned to axial image 26 of 30. Vertebral body heights are maintained. A few T1 and T2 hyperintense lesions within the lumbar spine reflect hemangiomas. Discogenic changes at the L5-S1 level are noted. The appearance of the lumbar spine is similar to exam of November 09, 2009. Conus terminates at the L1 level. There is no intracanalicular mass or fluid collection. A 3.2 cm right renal lesion is better depicted on prior abdominal CT. L1-2: The central canal and neural foramen are patent. L2-3: The central canal and neural foramen are patent. L3-4: There is mild disc bulge with annular tear. There is facet arthrosis. Central canal and neural foramen are patent. L4-5: There is disc bulge with ligamentous hypertrophy and facet arthrosis. Central canal is patent. Neural foramen are patent. L5-S1: There is disc space narrowing with disc bulge. There is minimal narrowing of the central canal and lateral recesses as well as mild narrowing of both neural foramen. IMPRESSION: 1. No change in mild multilevel degenerative changes of the lumbar spine since exam of November 09, 2009. Mild central canal stenosis at L5-S1. 2. Redemonstration of the indeterminate right renal lesion which is better depicted on CT of February 25, 2017. 3. Mild fluid signal within the L5-S1 disc. This is likely degenerative. No paravertebral edema. Discitis could appear similar although is considered less likely. This could be correlated with clinical evidence for an infectious process. If progressive symptoms, short-term follow-up MRI of the lumbar spine is recommended. Electronically signed by: Tim Hayden M.D. 03/18/2017 9:57 PM Dictated Date/Time: 03/18/2017 9:51 PM
== END | disposition home or self-care (01) ==
LOC: C.MRI 18:06
PROVIDERS: ATTEND Physical Medicine & Rehabilitation
DX: M62.81 Muscle weakness (generalized) (principal)

== ENCOUNTER → 2017-05-06 | Outpatient (CLI) | payer OTHER ==
[~2017-05-06] MED LIST changes: -GADAVIST IV PRN
[2017-05-06 09:33] LABS: HEMATOCRIT 40.6 % (42-52); MEAN CELL VOLUME 84.6 fL (80-100); MEAN CORPUSCULAR HEMOGLOBIN 27.9 pg (25-34); MEAN PLATELET VOLUME 9.5 fL (7.4-10.4); PLATELET COUNT 255 K/uL (130-400); WHITE BLOOD COUNT 6.47 K/uL (4.8-10.8)
[2017-05-06 09:43] LABS: ALT/SGPT 29 U/L (12-78); BLOOD UREA NITROGEN 13 mg/dl (7-18); BUN/CREATININE RATIO 16.2 (10-20); CALCIUM 8.7 mg/dl (8.5-10.1); CARBON DIOXIDE 32 mmol/L (21-32); CHLORIDE 102 mmol/L (98-107); CREATININE 0.79 mg/dl (0.60-1.40); GLUCOSE 90 mg/dl (70-99); POTASSIUM 3.9 mmol/L (3.5-5.1); SODIUM 139 mmol/L (136-145)
[2017-05-06 09:47] LABS: ALB/GLOB RATIO 0.8 (0.9-2); ALKALINE PHOSPHATASE 68 U/L (45-117); AST/SGOT 17 U/L (15-37)
== END | disposition home or self-care (01) ==
LOC: C.LABSPEC 08:58
PROVIDERS: ATTEND Internal Medicine
DX: D64.9 Anemia, unspecified (principal); E55.9 Vitamin D deficiency, unspecified; Z85.528 Personal history of other malignant neoplasm of kidney; M21.379 Foot drop, unspecified foot

== ENCOUNTER → 2017-05-26 | Day surgery (SDC) | payer OTHER ==
[2017-05-21 12:52] VITALS: Ht 198.1 cm; Wt 98.2 kg
[~2017-05-26] VITALS: Ht 198.1 cm; Wt 98.2 kg
[~2017-05-26] MED LIST changes: -ALUMSUS2 PO; -BISA10SU5 RE; -DOCU-94 PO; +FENTANYL CITRATE INJ 50 MCG/1 ML 2 ML VIAL ONE; -FRRS300 PO; +LIDOCAINE HCL 2% 2 ML VIAL (20MG/ML) ONE; -MOML PO; -NICO14DI9 TD; +ONDANSETRON INJ 2 MG/ML 2 ML VIAL IV PRN; +PROPOFOL IV EMULSION 10 MG/ML 20 ML VIAL IV ONE; -PRT40 PO; -SDMC1 PO; -SENN-65 PO; -SIME125C52 PO; -SODIENE PR; -SPRIN/30 INH; -SUCR1TAB29 PO; -ULT50X PO; -VTMD1000 PO
[2017-05-26 11:00] VITALS: TEMP 37.1
--- NOTE | 2017-05-26 11:08 | Endo History and Physical ---
History & Physical Date of Service: May 26, 2017. Chief Complaint: reflux,history of ulcers Referring Physician: unknown History of Present Illness Patient with a history of erosive esophagitis and a large adrenal ulcer presenting for surveillance today. He denies vomiting or reflux symptoms. He is presently taking Protonix 40 mg 1 time daily Past Surgical History Hx Cardiac Surgery: No Hx Abdominal Surgery: No Hx Post-Op Nausea and Vomiting: No Hx Cancer Surgery: Yes (Renal mass w/ ablation x2) Hx Thoracic Surgery: No Hx Orthopedic: No Hx Urinary Tract Surgery: Yes Family History None Social History Smoking Status: Former Smoker Hx Substance Use: No Hx Alcohol Use: No Allergies Coded Allergies: BEE STING (Verified Allergy, Severe, 05/21/17) Cefadroxil (Verified Allergy, Intermediate, UNKNOWN, 05/26/17) Cephalexin (Verified Allergy, Intermediate, UNKNOWN, 05/26/17) Escitalopram (Verified Allergy, Intermediate, UNKNOWN, 05/26/17) Omeprazole (Verified Allergy, Intermediate, UNKNOWN, 05/26/17) Wheat (Verified Allergy, Intermediate, UNKNOWN, 05/26/17) Pantoprazole (Verified Allergy, Unknown, UNKNOWN, 05/21/17) Current Medications Reported Home Medications Medications Dose Route/Sig Max Daily Dose Days Date Category Dose Instructions Levalbuterol Tartrate Hfa (Levalbuterol Tartrate) 45 Mcg/Act Aer 2 Puffs INH QID 05/21/17 Reported Vitamin D (Cholecalciferol) 5,000 Unit Tab 1 Tab PO DAILY 05/21/17 Reported Ultram (Tramadol HCl) 50 Mg Tab 100 Mg PO TID PRN 05/21/17 Reported Lamisil At (Terbinafine Hcl (Topical)) 1 % Cre 1 Dose TOP UD PRN 05/21/17 Reported Senna Lax (Sennosides) 8.6 Mg Tab 2 Tabs PO DAILY 05/21/17 Reported Prevacid (Lansoprazole) 15 Mg Capcr 2 Cap PO DAILY 05/21/17 Reported Duoneb (Ipratropium-Albuterol) 3 Ml Nebu 1 Treatment INH Q8H PRN 05/21/17 Reported Kp Ferrous Sulfate (Ferrous Sulfate) 325 Mg Tab 1 Tab PO DAILY 05/21/17 Reported Duoneb (Ipratropium-Albuterol) 3 Ml Nebu 1 Treatment INH Q4H PRN 05/21/17 Reported Sinemet 25MG/250MG (Carbidopa/Levodopa) Tab 1 Tab PO BID 05/21/17 Reported Sinemet 10MG/100MG (Carbidopa/Levodopa) Tab 1 Tab PO DAILY 05/21/17 Reported Preparation H (Phenylephrine-Shark Liver Oil-) 1 Sup Sup 1 Supp RE DAILY PRN 02/16/17 Reported Acetaminophen 500 Mg Tab 1 Tab PO Q4 PRN 02/16/17 Reported MAX 3GM/24HR USE FOR MILD PAIN RATED 1-3 OR FEVER >101F Miralax (Polyethylene Glycol 3350) 1 Pow Pow 17 Gm PO DAILY 02/16/17 Reported Lopressor (Metoprolol Tartrate) 50 Mg Tab 100 Mg PO BID 02/10/17 Reported Astelin Nasal [place] (Azelastine Hcl) 200 Sprays/30 Ml [place] 2 Sprays RAIZA DAILY 02/10/17 Reported Finasteride 5 Mg Tab 5 Mg PO DAILY 02/10/17 Reported Singulair (Montelukast Sodium) 10 Mg Tab 10 Mg PO DAILY 02/10/17 Reported Vital Signs Weight (Kilograms): 98.18 Height (Feet): 6 Height (Inches): 6 Date Time Temp Pulse Resp B/P (MAP) Pulse Ox O2 Delivery O2 Flow Rate FiO2 05/26/17 11:00 37.1 69 20 144/76 (98) 92 Room Air Physical Exam General Appearance: no apparent distress Respiratory/Chest: Auscultation: deminished air movement Cardiovascular: Heart Auscultation: RRR Abdomen: Inspection & Palpation: soft Assessment and Plan Patient with a history of upper GI bleed esophagitis and a deep duodenal ulcer for surveillance upper endoscopy today. We have discussed the risks and benefits to include bleeding, infection, perforation and pain. The patient is presently not certain who his new primary care provider is.
--- NOTE | 2017-05-26 11:36 | GI REPORT ---
Procedure Date: 05/26/2017 11:24 AM Procedure: Upper GI endoscopy Indications: Follow-up of acute peptic ulcer, Follow-up of reflux esophagitis Medicines: Monitored Anesthesia Care Complications: No immediate complications. Estimated blood loss: Minimal. Estimated Blood Loss: Estimated blood loss was minimal. Procedure: Pre-Anesthesia Assessment: - Prior to the procedure, a History and Physical was performed, and patient medications, allergies and sensitivities were reviewed. The patient's tolerance of previous anesthesia was reviewed. - The risks and benefits of the procedure and the sedation options and risks were discussed with the patient. All questions were answered and informed consent was obtained. - Patient identification and proposed procedure were verified prior to the procedure by the physician, the nurse and the funeral arranger. The procedure was verified in the procedure room. - Pre-procedure physical examination revealed no contraindications to sedation. - ASA Grade Assessment: III - A patient with severe systemic disease. - After reviewing the risks and benefits, the patient was deemed in satisfactory condition to undergo the procedure. - The anesthesia plan was to use monitored anesthesia care (MAC). - Immediately prior to administration of medications, the patient was re-assessed for adequacy to receive sedatives. - The heart rate, respiratory rate, oxygen saturations, blood pressure, adequacy of pulmonary ventilation, and response to care were monitored throughout the procedure. - The physical status of the patient was re-assessed after the procedure. After obtaining informed consent, the endoscope was passed under direct vision. Throughout the procedure, the patient's blood pressure, pulse, and oxygen saturations were monitored continuously. The scope was introduced through the mouth, and advanced to the third part of duodenum. The upper GI endoscopy was accomplished without difficulty. The patient tolerated the procedure well. Findings: The examined esophagus was normal. The Z-line was regular and was found 39 cm from the incisors. Multiple 3 to 5 mm semi-sessile polyps with no bleeding and no stigmata of recent bleeding were found in the gastric fundus and in the gastric body. A healed ulcer was found in the duodenal bulb. Adjacent mucosal findings include erythema. The 2nd part of the duodenum and 3rd part of the duodenum were normal. Impression: - Normal esophagus. - Z-line regular, 39 cm from the incisors. - Multiple gastric polyps, consistent in appearance with fundic polyps. - Duodenal scar consistent with prior ulcer. - Normal 2nd part of the duodenum and 3rd part of the duodenum. - No specimens collected. Recommendation: - Discharge patient to home (ambulatory). - Advance diet as tolerated today. - Use Protonix (pantoprazole) 40 mg PO daily indefinitely. - Return to my office PRN. Rema Alvares D.O. Rema lAvares, 05/26/2017 11:35:24 AM This report has been signed electronically. Note Initiated On: 05/26/2017 11:24 AM I attest to the content of the Intraoperative Record and orders documented therein, exceptions below
--- NOTE | 2017-05-26 11:37 | Discharge Instructions ---
Endoscopy Patient Instructions Date / Procedure(s) Performed May 26, 2017. EGD Allergy Information Coded Allergies: BEE STING (Verified Allergy, Severe, 05/26/17) Cefadroxil (Verified Allergy, Intermediate, UNKNOWN, 05/26/17) Cephalexin (Verified Allergy, Intermediate, UNKNOWN, 05/26/17) Escitalopram (Verified Allergy, Intermediate, UNKNOWN, 05/26/17) Omeprazole (Verified Allergy, Intermediate, UNKNOWN, 05/26/17) Wheat (Verified Allergy, Intermediate, UNKNOWN, 05/26/17) Pantoprazole (Verified Allergy, Unknown, UNKNOWN, 05/26/17) Discharge Date / Findings May 26, 2017. Healed esophagitis Healed duodenal ulcer Multiple small gastric polyps, most consistent with fundic polyps Medication Instructions Reported Home Medications Medications Dose Route/Sig Max Daily Dose Days Date Category Dose Instructions Levalbuterol Tartrate Hfa (Levalbuterol Tartrate) 45 Mcg/Act Aer 2 Puffs INH QID 05/21/17 Reported Vitamin D (Cholecalciferol) 5,000 Unit Tab 1 Tab PO DAILY 05/21/17 Reported Ultram (Tramadol HCl) 50 Mg Tab 100 Mg PO TID PRN 05/21/17 Reported Lamisil At (Terbinafine Hcl (Topical)) 1 % Cre 1 Dose TOP UD PRN 05/21/17 Reported Senna Lax (Sennosides) 8.6 Mg Tab 2 Tabs PO DAILY 05/21/17 Reported Prevacid (Lansoprazole) 15 Mg Capcr 2 Cap PO DAILY 05/21/17 Reported Duoneb (Ipratropium-Albuterol) 3 Ml Nebu 1 Treatment INH Q8H PRN 05/21/17 Reported Kp Ferrous Sulfate (Ferrous Sulfate) 325 Mg Tab 1 Tab PO DAILY 05/21/17 Reported Duoneb (Ipratropium-Albuterol) 3 Ml Nebu 1 Treatment INH Q4H PRN 05/21/17 Reported Sinemet 25MG/250MG (Carbidopa/Levodopa) Tab 1 Tab PO BID 05/21/17 Reported Sinemet 10MG/100MG (Carbidopa/Levodopa) Tab 1 Tab PO DAILY 05/21/17 Reported Preparation H (Phenylephrine-Shark Liver Oil-) 1 Sup Sup 1 Supp RE DAILY PRN 02/16/17 Reported Acetaminophen 500 Mg Tab 1 Tab PO Q4 PRN 02/16/17 Reported MAX 3GM/24HR USE FOR MILD PAIN RATED 1-3 OR FEVER >101F Miralax (Polyethylene Glycol 3350) 1 Pow Pow 17 Gm PO DAILY 02/16/17 Reported Lopressor (Metoprolol Tartrate) 50 Mg Tab 100 Mg PO BID 02/10/17 Reported Astelin Nasal [place] (Azelastine Hcl) 200 Sprays/30 Ml [place] 2 Sprays RAIZA DAILY 02/10/17 Reported Finasteride 5 Mg Tab 5 Mg PO DAILY 02/10/17 Reported Singulair (Montelukast Sodium) 10 Mg Tab 10 Mg PO DAILY 02/10/17 Reported Provider Instructions Activity Restrictions - No exercising or heavy lifting for 24 hours. - Do not drink alcohol the day of the procedure. - Do not drive a car or operate machinery until the day after the procedure. - Do not make any important decisions or sign important papers in 24 hours after the procedure. Following Day: - Return to full activity which may include returning to work/school. Diet Start your diet with liquids and light foods (jello, soup, juice, toast). Then eat your usual diet if not nauseated. Treatment For Common After Affects For mild abdominal pain, bloating, or excessive gas: - Rest - Eat lightly - Lie on right side Follow-Up Information Please continue Protonix 40 mg 1 time daily Follow-up with our office as needed Obtain refills for medication through your primary care provider Anesthesia Information What You Should Know You have had a procedure that required some medicine to reduce anxiety and discomfort. This treatment is called moderate sedation. After receiving the treatment, you may be sleepy, but you will be able to breathe on your own. The effects of the treatment may last for several hours. Follow these instructions along with Activity/Diet recommendations noted above: * Do NOT do anything where dizziness or clumsiness would be dangerous. * Rest quietly at home today, then you can be up and about tomorrow. * Have a responsible person stay with you the rest of today. * You may have had an I.V. today. If so, you may take the dressing off later today. Recommendations Call your doctor if: * Trouble breathing * Continuous vomiting for more than 24 hours * Temperature above 101 degrees * Severe abdominal pain or bloating * Pain not relieved by pain medicine ordered * There is increased drainage or redness from any incision * A large amount of rectal bleeding greater than 2-3 tablespoons. (If you had a polyp/s removed or have hemorrhoids, a small amount of blood - from the rectum is to be expected.) * You have any unanswered questions or concerns. IN THE EVENT OF A SERIOUS EMERGENCY, GO TO THE NEAREST EMERGENCY ROOM Your discharge instructions were prepared by provider Rema Alvares. Patient Instructions Signature Page Yaw Jauregui Patient (or Guardian) Signature/Date: I have read and understand the instructions given to me by my caregivers. Caregiver/RN/Doctor Signature/Date: The above-named patient and/or guardian has received patient instructions on this date. + Original Patient Signature Page (only) stays with chart. Please make copy for patient.
[2017-05-26 12:07] VITALS: BP 148/79; PULSE 64; O2SAT 97
--- NOTE | 2017-05-26 12:45 | Anesthesiology Progress Note ---
Anesthesia Post Op Note Date & Time May 26, 2017 at 12:45 Vital Signs Pain Intensity: 0 Vital Signs Past 12 Hours Date Time Temp Pulse Resp B/P (MAP) Pulse Ox O2 Delivery O2 Flow Rate FiO2 05/26/17 12:07 64 20 148/79 (102) 97 Room Air 05/26/17 11:52 68 20 140/84 (102) 98 Room Air 05/26/17 11:37 70 20 113/69 (84) 98 Room Air 05/26/17 11:00 37.1 69 20 144/76 (98) 92 Room Air Notes Mental Status: alert / awake / arousable, participated in evaluation Pt Amnestic to Procedure: Yes Nausea / Vomiting: adequately controlled Pain: adequately controlled Airway Patency, RR, SpO2: stable & adequate BP & HR: stable & adequate Hydration State: stable & adequate Anesthetic Complications: no major complications apparent
== END | disposition home or self-care (01) ==
LOC: C.GI 10:41
PROVIDERS: ATTEND Internal Medicine Gastroenterology
DX: K31.7 Polyp of stomach and duodenum (principal); Z87.19 Personal history of other diseases of the digestive system; Z87.891 Personal history of nicotine dependence; Z79.899 Other long term (current) drug therapy

== ENCOUNTER → 2017-12-23 | Outpatient (CLI) | payer OTHER ==
[~2017-12-23] MED LIST changes: -ACET500T57 PO; +ACET500T58 PO; -CARB-157 PO; +CARB10TA5 PO; -FENTANYL CITRATE INJ 50 MCG/1 ML 2 ML VIAL ONE; -LIDOCAINE HCL 2% 2 ML VIAL (20MG/ML) ONE; -ONDANSETRON INJ 2 MG/ML 2 ML VIAL IV PRN; -PROPOFOL IV EMULSION 10 MG/ML 20 ML VIAL IV ONE; +SENN1TAB80 PO; -SENN8.6T13 PO; -TERB1CRE31 TOP; +TERB1CRE32 TOP
[2017-12-23 09:03] LABS: BLOOD UREA NITROGEN 12 mg/dl (7-18); CALCIUM 8.7 mg/dl (8.5-10.1); CARBON DIOXIDE 29 mmol/L (21-32); CREATININE 0.79 mg/dl (0.60-1.40); GLUCOSE 107 mg/dl (70-99); POTASSIUM 4.1 mmol/L (3.5-5.1); SODIUM 138 mmol/L (136-145)
[2017-12-23 09:06] LABS: HEMATOCRIT 41.6 % (42-52); HEMOGLOBIN 14.2 g/dL (14.0-18.0); MEAN CELL VOLUME 90.6 fL (80-100); MEAN CORPUSCULAR HEMOGLOBIN 30.9 pg (25-34); MEAN CORPUSCULAR HGB CONC 34.1 g/dl (32-36); MEAN PLATELET VOLUME 10.5 fL (7.4-10.4); PLATELET COUNT 239 K/uL (130-400); RED CELL DISTRIBUTION WIDTH SD 42.8 fL (36.4-46.3); WHITE BLOOD COUNT 8.12 K/uL (4.8-10.8)
== END | disposition home or self-care (01) ==
LOC: C.LABSPEC 08:33
PROVIDERS: ATTEND Nurse Practitioner Adult Health
DX: I10 Essential (primary) hypertension (principal); M81.0 Age-related osteoporosis without current pathological fracture

== ENCOUNTER → 2018-04-21 | Outpatient (CLI) | payer OTHER ==
[~2018-04-21] MED LIST changes: +IPRA-64 INH; -IPRASOL4 INH
== END | disposition home or self-care (01) ==
LOC: C.LABSPEC 08:38
PROVIDERS: ATTEND Nurse Practitioner Adult Health
DX: M81.0 Age-related osteoporosis without current pathological fracture (principal)

== ENCOUNTER 2021-02-28 09:27 | Inpatient (IN) ==
[2021-02-28] MEDS ORDERED: ONDANSETRON INJ 2 MG/ML 2 ML VIAL IV STA (09:36)
[2021-02-28] MEDS ORDERED: SODIUM CHLORIDE 0.9% 1000ML 1,000 ML IV ONE (09:36)
--- NOTE | 2021-02-28 09:36 | Emergency Department Note ---
Impression & Plan Large bowel obstruction, Abdominal pain, Leukocytosis ED Provider Note NAME: AHMET OWENS AGE: 75 SEX: M : 1945 ARRIVES VIA: Ambulance INFORMANT: Patient ED PROVIDER(S): Leonard Daly DO CHIEF COMPLAINT: Vomiting HPI: Patient is a 75-year-old male whose presents to the ER for abdominal pain and vomiting. He had an episode of vomiting this morning and now feels better. He had a large bowel movement as well. Bowel movement and the vomit are slightl y dark and were appropriately Gastroccult and Hemoccult at [facility] and both of which were negative per the report. He denies any belly pain now. No new chest pain or shortness of breath. He is at [facility] secondary to respiratory issues. He denies any dysuria, urgency, or frequency. He has had nausea for several days but that has improved today. ROS: See above HPI for pertinent positives & negatives. A total of 10 systems reviewed and were otherwise negative. PAST MEDICAL HISTORY:See Below PAST SURGICAL HISTORY:See Below FAMILY HISTORY:See Below SOCIAL HISTORY:See Below HOME MEDICATIONS:See Below ALLERGIES:See Below VITALS:See Below PHYSICAL EXAMINATION: GENERAL: Sitting up in bed, alert, well appearing, well nourished, no distress, non-toxic EYE EXAM: normal conjunctiva. OROPHARYNX: no exudate, no erythema, lips, buccal mucosa, and tongue normal and mucous membranes are moist NECK: supple, no nuchal rigidity, no adenopathy, non-tender LUNGS: Clear to auscultation. Normal chest wall mechanics HEART: no murmurs, S1 normal and S2 normal ABDOMEN: abdomen soft, non-tender, normo-active bowel sounds, no masses, no rebound or guarding. UPPER EXTREMITIES: upper extremities are grossly normal. LOWER EXTREMITIES: No pitting edema. NEURO EXAM: Normal sensorium, cranial nerves II-XII grossly intact, normal speech, no gross weakness of arms, no gross weakness of legs. MEDICAL DECISION MAKING: Patient is a 75-year-old male who presents the ER for abdominal Pain which is resolved upon presentation associate with nausea and vomiting earlier with a large bowel movement. IV was established blood work was obtained. Labs show leukocytosis 21,000. No significant anemia. Platelets were elevated at 414. BMP with some mild MISAEL with a creatinine of 1.58 and a CO2 of 20. Lipase was normal. UA was contaminated with multiple epithelial cells. CT abdomen pelvis shows an abnormally distended large and small bowel with a questionable pseudo small bowel obstruction versus ileus versus large bowel obstruction. NG tube was placed and put on low intermittent suction. Patient was updated at bedside. Patient was discussed with hospitalist to be admitted for further work-up. Discussed with Dr. Vernon from general surgery who agreed to evaluate the patient at bedside. Patient was given IV antibiotics while in the ER. Triage Nursing notes reviewed. Limited review of prior medical records performed Vital Signs: reviewed and remarkable for tachy Differential diagnosis: Differential diagnoses includes but is not limited to gastritis, peptic ulcer disease, GERD, gallbladder disease, pancreatitis, small bowel obstruction, acute coronary syndrome, pericarditis, ischemic bowel, irritable bowel disease, irritable bowel syndrome, appendicitis, diverticulitis, malignancy, hernia, urinary tract infection, torsion, /ectopic (if female), perforation, trauma, infectious. ER treatment provided: See below Diagnostics interpreted by me: ECG:/Tachycardia rate of 103 Normal axis No PVCs Nonspecific ST wave changes in the lateral leads and inferior leads QTC 458 Cardiac Monitoring: An order was placed for continuous cardiac monitoring. The monitor shows a rate of 110 with sinus rhythm. Laboratory studies: As stated above and show below. Imaging studies: See below Consultation(s): Discussed with general surgery as stated above Discussed with the hospitalist as stated above Procedures: none Critical Care: None Past Med/Surg History Medical History (Updated 02/28/21 @ 16:07 by Leonard Daly DO) BPH (benign prostatic hyperplasia) Cancer of kidney right Chronic respiratory failure with hypoxia Congenital heart disease COPD (chronic obstructive pulmonary disease) Fall GI bleed 2017, duodenal Hypertension Neuropathy Normal pressure hydrocephalus Parkinson disease Rib contusion Surgical History History of ear surgery Family History (Updated 02/28/21 @ 13:47 by Wing Louise) Mother Pancreatic cancer Father Myocardial infarction Social History (Updated 02/28/21 @ 13:48 by Wing Louise) Smoking Status: Former smoker Tobacco Type: Cigarettes Age Started Using Tobacco: 22; Age Quit Using Tobacco: 32; packs per day: 1; Smoking End Date: ; Second Hand Exposure: No; Hx Alcohol Use: Yes (history of - none for many years) Hx Substance Use: No Preferred Language: Amharic Communication Ability: Effective 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 [employer] Required: No Beliefs That Will Affect Care: None marital status: Single Current Living Situation: Assisted Current Living Situation Comment: [facility] current occupational status: retired 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 How many Children do You have: 0 other: 5 siblings Feels Safe at Home: Yes Assistive Devices: Glasses Allergies Allergies Allergy/AdvReac Type Severity Reaction Status Date / Time bee venom protein (honey bee) Allergy Unknown Unknown Verified 02/28/21 10:51 cefadroxil Allergy Unknown UNKNOWN Verified 02/28/21 10:51 cephalexin Allergy Unknown UNKNOWN Verified 02/28/21 10:51 escitalopram Allergy Unknown UNKNOWN Verified 02/28/21 10:51 omeprazole Allergy Unknown UNKNOWN Verified 02/28/21 10:51 pantoprazole Allergy Unknown UNKNOWN Verified 02/28/21 10:51 Home Meds Home Medications Medication Instructions Recorded Confirmed carbidopa-levodopa 1 tab PO BID 07/15/18 02/28/21 carbidopa-levodopa 1 tab PO DAILY@1800 07/15/18 02/28/21 ferrous sulfate 325 mg PO DAILY 07/15/18 02/28/21 finasteride 5 mg PO DAILY 07/15/18 02/28/21 metoprolol tartrate 100 mg PO BID 07/15/18 02/28/21 polyethylene glycol 3350 [Miralax] 17 g PO DAILY PRN 07/15/18 02/28/21 tramadol 50 mg PO Q8 PRN 07/15/18 02/28/21 acetaminophen 650 mg PO Q12 PRN 02/28/21 02/28/21 cholecalciferol (vitamin D3) 50 mcg PO DAILY 02/28/21 02/28/21 pantoprazole 20 mg PO DAILY 02/28/21 02/28/21 simethicone 80 mg PO BID 02/28/21 02/28/21 tiotropium bromide 2 puff INHALATION DAILY 02/28/21 02/28/21 Results & Data (ED) Vital Signs Vital Signs - 24 hr 02/28/21 09:30 02/28/21 09:37 02/28/21 09:38 Temperature 36.6 C Temperature Source Oral Pulse Rate 106 H 103 H 105 H Pulse Rate from SpO2 Sensor 87 Respiratory Rate 19 19 19 Respiratory Effort / Characteristics Spontaneous Labored Respiratory Depth Normal Blood Pressure 111/87 111/87 Blood Pressure Mean 95 95 Blood Pressure Position Lying Pulse Oximetry 98 97 97 Oxygen Delivery Method Nasal Cannula Nasal Cannula Nasal Cannula Oxygen Flow Rate 2 2 2 Sepsis Recent Fever Within 48 Hours No Sepsis New/Unexplained Change in Mental Status N/A Sepsis Action Taken by Nursing No Action Required 02/28/21 09:42 02/28/21 09:50 02/28/21 10:00 Temperature Temperature Source Pulse Rate 101 H 102 H 98 H Pulse Rate from SpO2 Sensor 101 H 102 H 95 H Respiratory Rate 18 19 17 Respiratory Effort / Characteristics Respiratory Depth Blood Pressure Blood Pressure Mean Blood Pressure Position Pulse Oximetry 95 97 96 Oxygen Delivery Method Oxygen Flow Rate Sepsis Recent Fever Within 48 Hours Sepsis New/Unexplained Change in Mental Status Sepsis Action Taken by Nursing 02/28/21 10:10 02/28/21 11:09 02/28/21 11:36 Temperature Temperature Source Pulse Rate 95 H 96 H Pulse Rate from SpO2 Sensor 95 H 97 H Respiratory Rate 17 16 Respiratory Effort / Characteristics Respiratory Depth Blood Pressure 111/87 125/96 Blood Pressure Mean 95 105 Blood Pressure Position Pulse Oximetry 96 93 Oxygen Delivery Method Oxygen Flow Rate Sepsis Recent Fever Within 48 Hours Sepsis New/Unexplained Change in Mental Status Sepsis Action Taken by Nursing 02/28/21 12:00 02/28/21 12:30 02/28/21 13:00 Temperature Temperature Source Pulse Rate 98 H 101 H 97 H Pulse Rate from SpO2 Sensor 99 H 102 H 100 H Respiratory Rate 16 16 19 Respiratory Effort / Characteristics Respiratory Depth Blood Pressure 124/79 122/85 102/77 Blood Pressure Mean 94 97 85 Blood Pressure Position Pulse Oximetry 93 96 96 Oxygen Delivery Method Oxygen Flow Rate Sepsis Recent Fever Within 48 Hours Sepsis New/Unexplained Change in Mental Status Sepsis Action Taken by Nursing 02/28/21 13:30 Temperature Temperature Source Pulse Rate 105 H Pulse Rate from SpO2 Sensor 101 H Respiratory Rate 20 Respiratory Effort / Characteristics Respiratory Depth Blood Pressure 106/59 L Blood Pressure Mean 74 Blood Pressure Position Pulse Oximetry 97 Oxygen Delivery Method Oxygen Flow Rate Sepsis Recent Fever Within 48 Hours Sepsis New/Unexplained Change in Mental Status Sepsis Action Taken by Nursing Laboratory Data Result diagrams: 02/28/21 10:00 02/28/21 11:27 Lab Results 02/28/21 02/28/21 02/28/21 Range/Units 10:00 10:00 11:27 WBC 21.65 H (4.8-10.8) K/uL RBC 5.38 (4.7-6.1) M/uL Hgb 17.2 (14.0-18.0) g/dL Hct 49.6 (42-52) % MCV 92.2 (80-100) fL MCH 32.0 (25-34) pg MCHC 34.7 (32-36) g/dL RDW Std Deviation 43.8 (36.4-46.3) fL RDW Coeff of Marie 13.0 (11.5-14.5) % Plt Count 414 H (130-400) K/uL MPV 9.7 (7.4-10.4) fL Immature Gran % (Auto) 0.6 % Neut % (Auto) 81.7 % Lymph % (Auto) 8.2 % [place] % (Auto) 9.5 % Eos % (Auto) 0.0 % Baso % (Auto) 0.0 % Neut # (Auto) 17.68 H (1.4-6.5) K/uL Lymph # (Auto) 1.78 (1.2-3.4) K/uL [place] # (Auto) 2.05 H (0.11-0.59) K/uL Eos # (Auto) 0.00 (0-0.5) K/uL Baso # (Auto) 0.01 (0-0.2) K/uL Immature Gran # (Auto) 0.13 H (0.00-0.02) K/uL Sodium 132 L (136-145) mmol/L Potassium 3.6 (3.5-5.1) mmol/L Chloride 99 (98-107) mmol/L Carbon Dioxide 20 L (21-32) mmol/L Anion Gap 13.0 H (3-11) BUN 41 H (7-18) mg/dl Creatinine 1.58 H (0.6-1.4) mg/dl Est Cr Clr Drug Dosing 53.8 ml/min Est GFR ( Amer) 49.6 ml/min Est GFR (Non-Af Amer) 42.8 ml/min BUN/Creatinine Ratio 26.2 H (10-20) Glucose 159 H (70-99) mg/dl Calcium 9.8 (8.5-10.1) mg/dl Total Bilirubin 0.6 (0.2-1) mg/dl AST 9 L (15-37) U/L ALT 17 (12-78) U/L Alkaline Phosphatase 71 (45-117) U/L Total Protein 8.8 H (6.4-8.2) gm/dl Albumin 3.9 (3.4-5.0) gm/dl Globulin 4.9 H (2.5-4.0) gm/dl Albumin/Globulin Ratio 0.8 L (0.9-2) Lipase 52 L (73-393) U/L COVID-19 Eval Order SARS-CoV-2 (PCR) (Negative) 02/28/21 02/28/21 Range/Units 12:48 12:48 WBC (4.8-10.8) K/uL RBC (4.7-6.1) M/uL Hgb (14.0-18.0) g/dL Hct (42-52) % MCV (80-100) fL MCH (25-34) pg MCHC (32-36) g/dL RDW Std Deviation (36.4-46.3) fL RDW Coeff of Marie (11.5-14.5) % Plt Count (130-400) K/uL MPV (7.4-10.4) fL Immature Gran % (Auto) % Neut % (Auto) % Lymph % (Auto) % [place] % (Auto) % Eos % (Auto) % Baso % (Auto) % Neut # (Auto) (1.4-6.5) K/uL Lymph # (Auto) (1.2-3.4) K/uL [place] # (Auto) (0.11-0.59) K/uL Eos # (Auto) (0-0.5) K/uL Baso # (Auto) (0-0.2) K/uL Immature Gran # (Auto) (0.00-0.02) K/uL Sodium (136-145) mmol/L Potassium (3.5-5.1) mmol/L Chloride (98-107) mmol/L Carbon Dioxide (21-32) mmol/L Anion Gap (3-11) BUN (7-18) mg/dl Creatinine (0.6-1.4) mg/dl Est Cr Clr Drug Dosing ml/min Est GFR ( Amer) ml/min Est GFR (Non-Af Amer) ml/min BUN/Creatinine Ratio (10-20) Glucose (70-99) mg/dl Calcium (8.5-10.1) mg/dl Total Bilirubin (0.2-1) mg/dl AST (15-37) U/L ALT (12-78) U/L Alkaline Phosphatase (45-117) U/L Total Protein (6.4-8.2) gm/dl Albumin (3.4-5.0) gm/dl Globulin (2.5-4.0) gm/dl Albumin/Globulin Ratio (0.9-2) Lipase (73-393) U/L COVID-19 Eval Order Covid19 at [facility] SARS-CoV-2 (PCR) NEGATIVE (Negative) Administered Medications Pantoprazole Sodium 40 mg/ (Dextrose) 100 mls @ 20 mls/hr IV Q5H SARA Stop: 03/30/21 14:14 Last Admin: 02/28/21 14:23 Dose: 8 mg/hr, 20 mls/hr Documented by: [id number] Discontinued Medications Sodium Chloride (Nss 1000ml) 1,000 mls @ 999 mls/hr IV .Q1H1M ONE Stop: 02/28/21 10:36 Last Infusion: 02/28/21 11:17 Dose: 0 mls/hr Documented by: [id number] Admin: 02/28/21 09:52 Dose: 999 mls/hr Documented by: [id number] Piperacillin Sod/Tazobactam Sod (Zosyn) 4.5 gm in 120 mls @ 200 mls/hr IV NOW STA; Protocol Stop: 02/28/21 13:08 Last Infusion: 02/28/21 13:45 Dose: 0 mls/hr Documented by: [id number] Admin: 02/28/21 12:47 Dose: 200 mls/hr Documented by: [id number] Pantoprazole Sodium 80 mg/ (Dextrose) 120 mls @ 400 mls/hr IV NOW ONE Stop: 02/28/21 14:17 Last Admin: 02/28/21 14:05 Dose: 400 mls/hr Documented by: [id number] Ioversol (Optiray 320 100ml) 95 ml IV ONCE ONE Stop: 02/28/21 11:10 Last Admin: 02/28/21 11:10 Dose: 95 ml Documented by: [id number] Levalbuterol HCl (Levalbuterol 1.25mg/0.5ml Neb) 1.25 mg NEB Q6H SARA Stop: 03/30/21 14:14 Last Admin: 02/28/21 16:02 Dose: Not Given Documented by: [id number] Ondansetron HCl (Ondansetron Inj 2 Mg/Ml 2 Ml Vial) 4 mg IV NOW STA Stop: 02/28/21 09:37 Last Admin: 02/28/21 09:53 Dose: 4 mg Documented by: [id number] Piperacillin Sod/Tazobactam Sod (Piperacillin/Tazobactam 4.5 Gm/120ml D5w) Confirm Administered Dose 4.5 gm IV .[employer]-MED ONE Stop: 02/28/21 12:33 Last Admin: 02/28/21 12:34 Dose: Not Given Documented by: [id number] Imaging Data Radiologist's Impression: Abdomen/Pelvis CT 02/28/21 09:[address] WITH IV CONTRAST CT DOSE: 821.78 mGy.cm HISTORY: Generalized abdominal pain. TECHNIQUE: Multiaxial CT images of the abdomen and pelvis were performed f ollowing the use of intravenous contrast. A dose lowering technique was utilized adhering to the principles of ALARA. COMPARISON STUDY: Abdomen CT 07/19/2018. Abdomen and pelvis CTA 02/25/2017. FINDINGS: A few calcified granulomas seen within the left lower lobe. Mild subpleural reticulation in the left lung base is likely chronic. Calcified media stinal and left hilar lymph nodes. The liver, gallbladder, pancreas, spleen, and right adrenal gland are unremarkable. There is mild thickening of the left adrenal gland, unchanged. There are surgical clips anterior to the pancreatic head. Normal left kidney. Increase in size in the heterogeneous mass within the upper pole of the right kidney which currently measures 4.7 x 3.5 cm. This previously measured 3.1 x 2.7 cm. This contains microscopic fat inferiorly. 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 There is a 7 mm hypodense lesion within the right kidney which is stable and favors a cyst. No retroperitoneal lymphadenopathy. Calcified gastrohepatic lymph nodes are again noted. Normal caliber abdominal aorta with moderate atherosclerotic plaque. Normal bladder. No pelvic free fluid. No pelvic lymphadenopathy. Mild rectal wall thickening is suggested given the degree of distention. No significant perirectal inflammatory change. Fluid-filled stomach, small bowel, and large bowel. The stomach is markedly distended. The majority of the small bowel loops are mildly distended as well as the majority of the colon. There are few areas of decompressed loops of small and large bowel without a clear transition point to suggest an obstruction. Therefore, this finding could be due to an ileus, colonic pseudoobstruction, or possibly partial large bowel obstruction near the distal rectum due to the mild rectal wall thickening. Consider NG tube placement for decompression of the markedly distended and fluid-filled stomach. IMPRESSION: 1. Fluid-filled stomach, small bowel, and large bowel. The stomach is markedly distended. The majority of the small bowel loops are mildly distended as well as the majority of the colon. There are few areas of decompressed loops of small and large bowel without a clear transition point to suggest an obstruction. Therefore, this finding could be due to an ileus, colonic pseudoobstruction, or possibly partial large bowel obstruction near the distal rectum due to the mild rectal wall thickening. 2. Mild rectal wall thickening without perirectal fat stranding. This could represent a mild proctitis. Consider follow-up endoscopy to exclude the less likely possibility of an underlying rectal lesion. 3. Consider NG tube placement for decompression of the markedly distended and fluid-filled stomach. 4. Increase in size in the heterogeneous mass within the upper pole of the right kidney which currently measures 4.7 x 3.5 cm. This contains macroscopic fat inferiorly and therefore favors an nature myelolipoma. The increase in size could be due to interval internal hemorrhage. Nonemergent urology follow-up recommended given the increase in size of this lesion and to exclude the less likely possibility of a renal cell carcinoma. ACT 112: Positive. There are findings on this exam that require communication between the performing entity and the patient following Patient Test Result Information Act ([place] Act 112) guidelines. Electronically signed by: Jose Canas M.D. 02/28/2021 11:55 AM Chest X-Ray 02/28/21 09:44 XR chest 1V portable HISTORY: cough COMPARISON: 07/21/2018. FINDINGS: There are low lung volumes. No pneumothorax. No pleural effusions. The heart remains top normal in size. There are few bibasilar linear densities favoring subsegmental atelectasis. No evidence for pulmonary edema. Gaseous distention of the colon which is partially visualized on this study. IMPRESSION: 1. Low lung volumes with a few bibasilar linear densities. This favors subsegmental atelectasis. 2. Gaseous distention of the colon which is partially visualized on this study. This will be better appreciated on the same day abdomen and pelvis CT. ACT 112: Negative or not required by law. Electronically signed by: Jose Canas M.D. 02/28/2021 10:57 AM KUB X-Ray 02/28/21 12:23 KUB HISTORY: for ng tube placement COMPARISON: Abdomen and pelvis CT 02/28/2021. FINDINGS: Nasogastric tube terminates in the body the stomach. Moderate gaseous distention of the stomach has slightly improved. There is moderate to severe gaseous distention of the large and small bowel. This is similar to the prior st udy. No renal calculi. No ureteral calculi. No pneumoperitoneum or pneumatosis. IMPRESSION: 1. Nasogastric tube terminates in the stomach. 2. Gaseous distention of the large and small bowel persists. There is slight improvement of the gaseous distention of the stomach. ACT 112: Negative or not required by law. Electronically signed by: Jose Canas M.D. 02/28/2021 1:22 PM Discharge Plan Visit Data Chief Complaint: Illness Stated Complaint: VOMITING, GI ASSESSMENT ED Provider: Leonard Daly Discharge Problem: Large bowel obstruction, Abdominal pain, Leukocytosis Patient Disposition: Admitted As Inpatient Discharge Instructions Interventions: ED Discharge Assessment Last Done: 02/28/21 15:42 Discharge Problem: Abdominal pain Qualifiers: Abdominal location: unspecified location Qualified Code(s): R10.9 - Unspecified abdominal pain Leukocytosis Qualifiers: Leukocytosis type: unspecified Qualified Code(s): D72.829 - Elevated white blood cell count, unspecified
[2021-02-28 10:12] LABS: Basophils # (auto) 0.01 K/uL (0-0.2); Hematocrit (blood only) 49.6 % (42-52); Hemoglobin 17.2 g/dL (14.0-18.0); Immature Granulocytes # (auto) 0.13 K/uL (0.00-0.02); Immature Granulocytes % (auto) 0.6 %; Lymphocytes # (auto) 1.78 K/uL (1.2-3.4); Lymphocytes % (auto) 8.2 %; Mean Corpuscular Hgb Conc 34.7 g/dL (32-36); Mean Corpuscular Volume 92.2 fL (80-100); Mean Platelet Volume 9.7 fL (7.4-10.4); Monocytes # (auto) 2.05 K/uL (0.11-0.59); Monocytes % (auto) 9.5 %; Neutrophils # (auto) 17.68 K/uL (1.4-6.5); Neutrophils % (auto) 81.7 %; Platelet Count 414 K/uL (130-400); RDW Standard Deviation 43.8 fL (36.4-46.3); Red Blood Count 5.38 M/uL (4.7-6.1); White Blood Count 21.65 K/uL (4.8-10.8)
[2021-02-28 10:44] LABS: Albumin Globulin Ratio 0.8 (0.9-2); Albumin Level 3.9 gm/dl (3.4-5.0); BUN Creatinine Ratio 26.2 (10-20); Bilirubin,Total 0.6 mg/dl (0.2-1); Calcium 9.8 mg/dl (8.5-10.1); Creatinine Clr Calc Pharmacy 53.8 ml/min; Est GFR (African American) 49.6 ml/min; Est GFR (Non-African American) 42.8 ml/min; Globulin 4.9 gm/dl (2.5-4.0); Total Protein 8.8 gm/dl (6.4-8.2)
--- NOTE | 2021-02-28 10:58 | XRay Report ---
XR chest 1V portable HISTORY: cough COMPARISON: 07/21/2018. FINDINGS: There are low lung volumes. No pneumothorax. No pleural effusions. The heart remains top no rmal in size. There are few bibasilar linear densities favoring subsegmental atelectasis. No evidence for pulmonary edema. Gaseous distention of the colon which is partially visualized on this study. IMPRESSION: 1. Low lung volumes with a few bibasilar linear densities. This favors subsegmental atelectasis. 2. Gaseous distention of the colon which is partially visualized on this study. This will be better a ppreciated on the same day abdomen and pelvis CT. ACT 112: Negative or not required by law. Electronically signed by: Jose Canas M.D. 02/28/2021 10:57 AM
[2021-02-28] MEDS ORDERED: OPTIRAY 320 100ml IV ONE (11:09)
[2021-02-28 11:52] LABS: Potassium 3.6 mmol/L (3.5-5.1)
--- NOTE | 2021-02-28 11:57 | CT Scan Report ---
ABDOMEN AND PELVIS CT WITH IV CONTRAST CT DOSE: 821.78 mGy.cm HISTORY: Generalized abdominal pain. TECHNIQUE: Multiaxial CT images of the abdomen and pelvis were performed following the use of intrave nous contrast. A dose lowering technique was utilized adhering to the principles of ALARA. COMPARISON STUDY: Abdomen CT 07/19/2018. Abdomen and pelvis CTA 02/25/2017. FINDINGS: A few calcified granulomas seen within the left lower lobe. Mild subpleural reticulation in the left lung base is likely chronic. Calcified mediastinal and left hilar lymph nodes. The liver, g allbladder, pancreas, spleen, and right adrenal gland are unremarkable. There is mild thickening of t he left adrenal gland, unchanged. There are surgical clips anterior to the pancreatic head. Normal le ft kidney. Increase in size in the heterogeneous mass within the upper pole of the right kidney which currently measures 4.7 x 3.5 cm. This previously measured 3.1 x 2.7 cm. This contains microscopic fa t inferiorly. 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 There is a 7 mm hypo dense lesion within the right kidney which is stable and favors a cyst. No retroperitoneal lymphadeno elva. Calcified gastrohepatic lymph nodes are again noted. Normal caliber abdominal aorta with moder ate atherosclerotic plaque. Normal bladder. No pelvic free fluid. No pelvic lymphadenopathy. Mild rec josy wall thickening is suggested given the degree of distention. No significant perirectal inflammato ry change. Fluid-filled stomach, small bowel, and large bowel. The stomach is markedly distended. The majority of the small bowel loops are mildly distended as well as the majority of the colon. There a re few areas of decompressed loops of small and large bowel without a clear transition point to sugge st an obstruction. Therefore, this finding could be due to an ileus, colonic pseudoobstruction, or po ssibly partial large bowel obstruction near the distal rectum due to the mild rectal wall thickening. Consider NG tube placement for decompression of the markedly distended and fluid-filled stomach. IMPRESSION: 1. Fluid-filled stomach, small bowel, and large bowel. The stomach is markedly distended. The majorit y of the small bowel loops are mildly distended as well as the majority of the colon. There are few a reas of decompressed loops of small and large bowel without a clear transition point to suggest an ob struction. Therefore, this finding could be due to an ileus, colonic pseudoobstruction, or possibly p artial large bowel obstruction near the distal rectum due to the mild rectal wall thickening. 2. Mild rectal wall thickening without perirectal fat stranding. This could represent a mild proctiti s. Consider follow-up endoscopy to exclude the less likely possibility of an underlying rectal lesion . 3. Consider NG tube placement for decompression of the markedly distended and fluid-filled stomach. 4. Increase in size in the heterogeneous mass within the upper pole of the right kidney which current ly measures 4.7 x 3.5 cm. This contains macroscopic fat inferiorly and therefore favors an nature mye lolipoma. The increase in size could be due to interval internal hemorrhage. Nonemergent urology foll ow-up recommended given the increase in size of this lesion and to exclude the less likely possibilit y of a renal cell carcinoma. ACT 112: Positive. There are findings on this exam that require communication between the performing entity and the patient following Patient Test Result Information Act ([place] Act 112) guidelines. Electronically signed by: Jose Canas M.D. 02/28/2021 11:55 AM
[2021-02-28] MEDS ORDERED: PIPERACILLIN/TAZOBACTAM 4.5 GM in DEXTROSE 5% 100 ML IV ONE (12:24)
[2021-02-28] MEDS ORDERED: PIPERACILL/TAZOBAC CONSULT ACTIVE PRN (12:24)
[2021-02-28] MEDS ORDERED: PIPERACILLIN/TAZOBACTAM 4.5 GM/120ML D5W IV ONE (12:32)
[2021-02-28] MEDS ORDERED: PIPERACILLIN/TAZOBACTAM 4.5 GM/120 ML BAG IV STA (12:33)
--- NOTE | 2021-02-28 12:41 | History & Physical Report ---
Date of Service February 28, 2021 Assessment & Plan (1) Dilated bowel: Patient presented today with marked abdominal distension along with vomiting and liquid stool. CT abd/pelvis with distension of entire GI tract starting in stomach, involving most of small intestine, and also the colon. There is question of proctitis on CT as well. I am uncertain if he has element of chronic ileus due to bedbound status/wheelchair dependency in the context of advanced PD. A colonic obstruction could be the main culprit in his presentation. NG tube has been placed for the above. Check gastric occult given the black material from his NG tube. Place on PPI drip if indeed he is having upper GI bleeding (had upper GI bleed in 2018). Keep NPO. Treat proctitis with IV zosyn. Send c. diff - r/o c. diff colitis as contributor to clinical picture. [facility] GI consult requested; case reviewed with them by phone. Also consult general surgery. (2) Proctitis: Possible, as seen on CT. Check c diff. IV zosyn given in ER - continue. Can't rule out a rectal mass. GI consulted. (3) Hyponatremia: Patient is volume depleted. Give isotonic fluids, repeat BMP am. (4) Aspiration of gastric contents: Patient likely had some element of aspiration this am when [facility] the [facility]. He has course/wheezy BS b/l along with basilar rales. He has upper airway course BS/girgling c/w aspiration. Zosyn will cover for any brewing aspiration pneumonitis. NPO. NG tube in place. O2 support as needed. Will start nebs for wheezing. (5) SIRS (systemic inflammatory response syndrome): 2nd to GI tract pathology as above. Await cdiff test. Urine with very pungent odor - mcbride placed, send u/a and urine cx. CBC in am. Zosyn for proctitis will cover the urinary tract as well. (6) Metabolic encephalopathy: Quite altered, likely combination of infection, hyponatremia, GI tract issues, etc - all in setting of h/o NPH and PD. Supportive care. (7) Acute kidney injury: 2nd to volume depletion/prerenal. Hydrate. BMP daily. Place mcbride for accurate UOP. (8) Chronic respiratory failure with hypoxia: on [place] O2 at [facility]. likely 2nd COPD. (9) NPH (normal pressure hydrocephalus): history of, but no WAITER/WAITRESS FORMAL shunt to my knowledge (10) Parkinson disease: appears advanced can clamp NG tube periodically for sinemet administration otherwise his PD will worsen considerably while here (11) COPD (chronic obstructive pulmonary disease): defer on steroids despite course BS today from presumed aspiration. start on xopenex/atrovent nebs q6h. (12) BPH (benign prostatic hyperplasia): mcbride hold finasteride (13) Cancer of kidney: HIGHLY SUSPECTED. 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 an MRI of the abdomen from 2016 indeed suggests a high likelihood of this diagnosis. he continues to have a right-sided renal mass, and it is larger than past imaging. very poor candidate for intervention but [id number] it should be discussed before discharge with he & his family. (14) DVT prophylaxis: SCDs for now defer on chemical means until gastric occult has been checked brother updated at bedside full code per pt wishes History of Present Illness Chief Complaint: vomiting, abdominal distension, diarrhea Primary Care Provider: [facility] 75yo male with h/o parkinson's disease, NPH, COPD with resulting chronic hypoxic respiratory failure on [place] O2, and wheelchair dependency presents from [facility] this am due to abdominal distension, vomiting with dark material, and large diarrhea bowel movement this am. Patient was confused during my bedside visit and could not offer much in the way of historical information. He did say he hasn't been eating much of late, and also mentioned he had had diarrhea earlier in the week. He wasn't able to elaborate any further on such, however. He denied any abdominal pain. Denied chest pain. c/o mild dyspnea and cough. Reports he has been at [facility] for about 1 year. Allergies Allergy/AdvReac Type Severity Reaction Status Date / Time bee venom protein (honey bee) Allergy Unknown Unknown Verified 02/28/21 10:51 cefadroxil Allergy Unknown UNKNOWN Verified 02/28/21 10:51 cephalexin Allergy Unknown UNKNOWN Verified 02/28/21 10:51 escitalopram Allergy Unknown UNKNOWN Verified 02/28/21 10:51 omeprazole Allergy Unknown UNKNOWN Verified 02/28/21 10:51 pantoprazole Allergy Unknown UNKNOWN Verified 02/28/21 10:51 Home Medications Medication Instructions Recorded Confirmed Type carbidopa-levodopa 1 tab PO BID 07/15/18 02/28/21 History carbidopa-levodopa 1 tab PO DAILY@1800 07/15/18 02/28/21 History ferrous sulfate 325 mg PO DAILY 07/15/18 02/28/21 History finasteride 5 mg PO DAILY 07/15/18 02/28/21 History metoprolol tartrate 100 mg PO BID 07/15/18 02/28/21 History polyethylene glycol 3350 [Miralax] 17 g PO DAILY PRN 07/15/18 02/28/21 History tramadol 50 mg PO Q8 PRN 07/15/18 02/28/21 History acetaminophen 650 mg PO Q12 PRN 02/28/21 02/28/21 History cholecalciferol (vitamin D3) 50 mcg PO DAILY 02/28/21 02/28/21 History pantoprazole 20 mg PO DAILY 02/28/21 02/28/21 History simethicone 80 mg PO BID 02/28/21 02/28/21 History tiotropium bromide 2 puff INHALATION DAILY 02/28/21 02/28/21 History Past Med/Surg History Medical History (Updated 02/28/21 @ 16:21 by Tasia Vernon MD) BPH (benign prostatic hyperplasia) Cancer of kidney right Chronic respiratory failure with hypoxia Congenital heart disease COPD (chronic obstructive pulmonary disease) Fall GI bleed 2017, duodenal Hypertension Neuropathy Normal pressure hydrocephalus Parkinson disease Rib contusion Surgical History History of ear surgery Family History (Updated 02/28/21 @ 13:47 by Wing Louise) Mother Pancreatic cancer Father Myocardial infarction Social History (Updated 02/28/21 @ 13:48 by Wing Louise) Smoking Status: Never smoker Tobacco Type: Cigarettes Age Started Using Tobacco: 22; Age Quit Using Tobacco: 32; packs per day: 1; Smoking End Date: ; Second Hand Exposure: No; Hx Alcohol Use: No Hx Substance Use: No Preferred Language: Italian Communication Ability: Effective Skill Training Program Coordinator Required: No Beliefs That Will Affect Care: None marital status: Single Current Living Situation: Long Term Current Living Situation Comment: [facility] current occupational status: retired 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 How many Children do You have: 0 Other Information That Helps Us Care for You: No other: 5 siblings Feels Safe at Home: Yes Safety Concerns: Feels Safe At This Time Assistive Devices: Glasses, Hearing Aid - Bilateral and Oxygen - Continuous Review of Systems Constitutional: + anorexia; no fever and no chills Ear, Nose, Mouth, Throat: + dysphagia Respiratory: + cough and + dyspnea Cardiovascular: no chest pain Gastrointestinal: + bloating, + nausea, + vomiting and + diarrhea/loose stools; no abdominal pain and no blood in stools Genitourinary: + difficulty urinating and + urinary incontinence Musculoskeletal: no joint pain Integumentary: no rash Neurologic: + localized weakness (legs - no longer walks) Psychiatric: + confusion Endocrine: no diabetes Hematologic / Lymphatic: no night sweats Physical Exam Constitutional: + acute distress (mild tachypnea; "girgling" breath sounds (upper airway noise)) and + altered mental status Eyes: PERRL ENMT: Mouth: + dry oral mucous membranes NG tube in place in nare; tubing with black-appearing material Neck: trachea midline, no thyromegaly Respiratory: + tachypneic Auscultation: + crackles and + wheezes very course BS b/l Cardiovascular: Rate/Rhythm: + tachycardic and + irregularly irregular Heart Sounds: normal S1 and normal S2; no murmur Vessels: dorsalis pedis pulses present (very diminished, cool feet ); no JVD and + posterior tibial pulses abnormal (very diminished, cool feet ) Extremities: no edema Gastrointestinal (Abdomen): Inspection/Auscultation: + abdomen distended (severe) and normal bowel sounds Percussion/Palpation: abdomen nontender, no guarding and no hepatosplenomegaly JESICA deferred Musculoskeletal: b/l foot deformities Skin: no rashes, warm and dry Neurologic: b/l foot drop; strength 4/5 b/l legs; strength of arms 5/5; masked facies; no facial droop Psychiatric: Orientation: alert, oriented to person and oriented to place; + not oriented to time Lymphatic: no cervical lymphadenopathy Results & Data Results & Data ([facility]) Vital Signs (Past 12 Hours) Vital Signs Temp Pulse Resp BP Pulse Ox 02/28/21 10:10 95 H 17 96 02/28/21 10:00 98 H 17 96 02/28/21 09:50 102 H 19 97 02/28/21 09:42 101 H 18 95 02/28/21 09:38 105 H 19 97 02/28/21 09:37 103 H 19 111/87 97 02/28/21 09:30 36.6 C 106 H 19 111/87 98 Laboratory Results Labs 02/28/21 02/28/21 02/28/21 10:00 10:00 11:27 WBC 21.65 H RBC 5.38 Hgb 17.2 Hct 49.6 MCV 92.2 MCH 32.0 MCHC 34.7 RDW Std Deviation 43.8 RDW Coeff of Marie 13.0 Plt Count 414 H MPV 9.7 Immature Gran % (Auto) 0.6 Neut % (Auto) 81.7 Lymph % (Auto) 8.2 [place]ham % (Auto) 9.5 Eos % (Auto) 0.0 Baso % (Auto) 0.0 Neut # (Auto) 17.68 H Lymph # (Auto) 1.78 [place]ham # (Auto) 2.05 H Eos # (Auto) 0.00 Baso # (Auto) 0.01 Immature Gran # (Auto) 0.13 H Sodium 132 L Potassium 3.6 Chloride 99 Carbon Dioxide 20 L Anion Gap 13.0 H BUN 41 H Creatinine 1.58 H Est Cr Clr Drug Dosing 53.8 Est GFR ( Amer) 49.6 Est GFR (Non-Af Amer) 42.8 BUN/Creatinine Ratio 26.2 H Glucose 159 H Calcium 9.8 Total Bilirubin 0.6 AST 9 L ALT 17 Alkaline Phosphatase 71 Total Protein 8.8 H Albumin 3.9 Globulin 4.9 H Albumin/Globulin Ratio 0.8 L Lipase 52 L COVID-19 Eval Order 02/28/21 12:48 WBC RBC Hgb Hct MCV MCH MCHC RDW Std Deviation RDW Coeff of Marie Plt Count MPV Immature Gran % (Auto) Neut % (Auto) Lymph % (Auto) [place] % (Auto) Eos % (Auto) Baso % (Auto) Neut # (Auto) Lymph # (Auto) [place] # (Auto) Eos # (Auto) Baso # (Auto) Immature Gran # (Auto) Sodium Potassium Chloride Carbon Dioxide Anion Gap BUN Creatinine Est Cr Clr Drug Dosing Est GFR ( Amer) Est GFR (Non-Af Amer) BUN/Creatinine Ratio Glucose Calcium Total Bilirubin AST ALT Alkaline Phosphatase Total Protein Albumin Globulin Albumin/Globulin Ratio Lipase COVID-19 Eval Order Covid19 at [facility] Diagnostic Findings Abdomen/Pelvis CT 02/28/21 09:[address] WITH IV CONTRAST CT DOSE: 821.78 mGy.cm HISTORY: Generalized abdominal pain. TECHNIQUE: Multiaxial CT images of the abdomen and pelvis were performed following the use of intravenous contrast. A dose lowering technique was utilized adhering to the principles of ALARA. COMPARISON STUDY: Abdomen CT 07/19/2018. Abdomen and pelvis CTA 02/25/2017. FINDINGS: A few calcified granulomas seen within the left lower lobe. Mild subpleural reticulation in the left lung base is likely chronic. Calcified mediastinal and left hilar lymph nodes. The liver, gallbladder, pancreas, spleen, and right adrenal gland are unremarkable. There is mild thickening of the left adrenal gland, unchanged. There are surgical clips anterior to the pancreatic head. Normal left kidney. Increase in size in the heterogeneous mass within the upper pole of the right kidney which currently measures 4.7 x 3.5 cm. This previously measured 3.1 x 2.7 cm. This contains microscopic fat inferiorly. 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 There is a 7 mm hypodense lesion within the right kidney which is stable and favors a cyst. No retroperitoneal lymphadenopathy. Calcified gastrohepatic lymph nodes are again noted. Normal caliber abdominal aorta with moderate atherosclerotic plaque. Normal bladder. No pelvic free fluid. No pelvic lymphadenopathy. Mild rectal wall thickening is suggested given the degree of distention. No significant perirectal inflammatory change. Fluid-filled stomach, small bowel, and large bowel. The stomach is markedly distended. The majority of the small bowel loops are mildly distended as well as the majority of the colon. There are few areas of decompressed loops of small and large bowel without a clear transition point to suggest an obstruction. Therefore, this finding could be due to an ileus, colonic pseudoobstruction, or possibly partial large bowel obstruction near the distal rectum due to the mild rectal wall thickening. Consider NG tube placement for decompression of the markedly distended and fluid-filled stomach. IMPRESSION: 1. Fluid-filled stomach, small bowel, and large bowel. The stomach is markedly distended. The majority of the small bowel loops are mildly distended as well as the majority of the colon. There are few areas of decompressed loops of small and large bowel without a clear transition point to suggest an obstruction. Therefore, this finding could be due to an ileus, colonic pseudoobstruction, or possibly partial large bowel obstruction near the distal rectum due to the mild rectal wall thickening. 2. Mild rectal wall thickening without perirectal fat stranding. This could represent a mild proctitis. Consider follow-up endoscopy to exclude the less likely possibility of an underlying rectal lesion. 3. Consider NG tube placement for decompression of the markedly distended and fluid-filled stomach. 4. Increase in size in the heterogeneous mass within the upper pole of the right kidney which currently measures 4.7 x 3.5 cm. This contains macroscopic fat inferiorly and therefore favors an nature myelolipoma. The increase in size could be due to interval internal hemorrhage. Nonemergent urology follow-up recommended given the increase in size of this lesion and to exclude the less likely possibility of a renal cell carcinoma. ACT 112: Positive. There are findings on this exam that require communication between the performing entity and the patient following Patient Test Result Info rmation Act ([place] Act 112) guidelines. Electronically signed by: Jose Canas M.D. 02/28/2021 11:55 AM Chest X-Ray 02/28/21 09:44 XR chest 1V portable HISTORY: cough COMPARISON: 07/21/2018. FINDINGS: There are low lung volumes. No pneumothorax. No pleural effusions. The heart remains top normal in size. There are few bibasilar linear densities favoring subsegmental atelectasis. No evidence for pulmonary edema. Gaseous distention of the colon which is partially visualized on this study. IMPRESSION: 1. Low lung volumes with a few bibasilar linear densities. This favors subsegmental atelectasis. 2. Gaseous distention of the colon which is partially visualized on this study. This will be better appreciated on the same day abdomen and pelvis CT. ACT 112: Negative or not required by law. Electronically signed by: Jose Canas M.D. 02/28/2021 10:57 AM KUB X-Ray 02/28/21 12:23 KUB HISTORY: for ng tube placement COMPARISON: Abdomen and pelvis CT 02/28/2021. FINDINGS: Nasogastric tube terminates in the body the stomach. Moderate gaseous distention of the stomach has slightly improved. There is moderate to severe gaseous distention of the large and small bowel. This is similar to the prior study. No renal calculi. No ureteral calculi. No pneumoperitoneum or pneumatosis. IMPRESSION: 1. Nasogastric tube terminates in the stomach. 2. Gaseous distention of the large and small bowel persists. There is slight improvement of the gaseous distention of the stomach. ACT 112: Negative or not required by law. Electronically signed by: Jsoe Canas M.D. 02/28/2021 1:22 PM EKG - my reading - sinus tach, PACs, flattened T waves I/AVl and V5/V6 Code Status & VTE Plan Code Status patient confirmed full code in the presence of his brother at bedside VTE Prophylaxis Plan VTE Prophylaxis will be ordered: Yes PG Care Time/CCT Total # of Minutes Spent Total Time Spent with Patient: Total time spent is greater than 50% in coordination of care (as documented) at patient's floor/unit and/or counseling patient: Coding Level of Care Code 98334 Initial Inpt Care Lvl 3 Diagnoses Dilated bowel Proctitis K62.89 Hyponatremia E87.1 Aspiration of gastric contents T17.910A SIRS (systemic inflammatory response syndrome) R65.10 Metabolic encephalopathy G93.41 Acute kidney injury N17.9 Chronic respiratory failure with hypoxia J96.11 NPH (normal pressure hydrocephalus) G91.2 Parkinson disease G20 COPD (chronic obstructive pulmonary disease) J44.9 BPH (benign prostatic hyperplasia) N40.0 Cancer of kidney C64.9 DVT prophylaxis Z29.9
--- NOTE | 2021-02-28 13:23 | XRay Report ---
KUB HISTORY: for ng tube placement COMPARISON: Abdomen and pelvis CT 02/28/2021. FINDINGS: Nasogastric tube terminates in the body the stomach. Moderate gaseous distention of the sto mach has slightly improved. There is moderate to severe gaseous distention of the large and small bow el. This is similar to the prior study. No renal calculi. No ureteral calculi. No pneumoperitoneum o r pneumatosis. IMPRESSION: 1. Nasogastric tube terminates in the stomach. 2. Gaseous distention of the large and small bowel persists. There is slight improvement of the gaseo us distention of the stomach. ACT 112: Negative or not required by law. Electronically signed by: Jose Canas M.D. 02/28/2021 1:22 PM
[2021-02-28] MEDS ORDERED: PANTOPRAZOLE BOLUS/DRIP 1 EA IV STA (13:26)
[2021-02-28] MEDS ORDERED: PANTOprazole 80 MG in DEXTROSE 5% 100 ML IV ONE (14:00)
[2021-02-28] MEDS ORDERED: PANTOprazole 40 MG in DEXTROSE 5% 100 ML IV SCH (14:15)
[2021-02-28] MEDS ORDERED: LEVALBUTEROL 1.25MG/0.5ML NEB NEB SCH (14:15)
[2021-02-28 14:22] LABS: Appearance Urine Clear (Clear); Bacteria Urine Automated 2+ (Negative); Bilirubin Urine Negative (Negative); Blood Urine Negative (Negative); Color Urine Dark Yellow; Epithelial Cell Urine Auto >30 /lpf (0-5); Glucose Urine UA Negative (Negative); Ketones Urine Trace (Negative); Leukocyte Esterase Urine 1+ (Negative); Nitrite Urine Negative (Negative); Protein Urine Trace (Negative); RBC Urine Automated 0-4 /hpf (0-4); Specific Gravity Urine > 1.045 (1.000-1.030); Urobilinogen Urine Negative (Negative)
[2021-02-28 14:23] LABS: Gastric Occult Blood Negative (Negative); pH Gastric Fluid 4
--- NOTE | 2021-02-28 15:14 | Electrocardiogram Report ---
Test Reason : Blood Pressure : / mmHG Vent. Rate : 103 BPM Atrial Rate : 103 BPM P-R Int : 156 ms QRS Dur : 084 ms QT Int : 350 ms P-R-T Axes : 072 060 084 degrees QTc Int : 458 ms Poor data quality, interpretation may be adversely affected Sinus tachycardia with Premature atrial complexes Nonspecific T wave abnormality Abnormal ECG When compared with ECG of 21-JUL-2018 21:54, Premature atrial complexes are now Present Nonspecific T wave abnormality now evident in Anterior leads Confirmed by Junior Guerrero ([id number]) on 02/28/2021 3:14:00 PM Referred By: REFERRED SELF Confirmed By:Blane Guerrero
[2021-02-28] MEDS ORDERED: ONDANSETRON INJ 2 MG/ML 2 ML VIAL IV PRN (16:02)
[2021-02-28] MEDS ORDERED: MoRPHine SULFATE 2 MG/ML CARP IV PRN (16:02)
--- NOTE | 2021-02-28 16:18 | Surgery Consultation ---
Date of Consultation February 28, 2021 Assessment & Plan (1) Dilation of gastrointestinal tract: pt is a 75 year-old male who presents to ER with vomiting, abdominal pain, now pt said he has no abdominal pain, diarrhea for last 2 days, no fever, IMP: dilated GI tract, un-know cause, I agree with admit to hospital conservative treatment first, NPO, NG tube, IV fluid and antibiotic, , repeat labs and KUB in morning, consult GI doctor, will F/U, pt and his sister agree with the plan, I answered all questions, Present on Admission?: Yes History of Present Illness Attending Physician: Wing Louise History of Present Illness Chief Complaint: vomiting, abdominal distension, diarrhea Primary Care Provider: [facility] 75yo male with h/o parkinson's disease, NPH, COPD with resulting chronic hypoxic respiratory failure on [place] O2, and wheelchair dependency presents from [facility] this am due to abdominal distension, vomiting with dark material, and large diarrhea bowel movement this am. Patient was confused during my bedside visit and could not offer much in the way of historical information. He did say he hasn't been eating much of late, and also mentioned he had had diarrhea earlier in the week. He wasn't able to elaborate on such, however. He denied any abdominal pain. Denied chest pain. c/o mild dyspnea and cough. Reports he has been at [facility] for about 1 year. I ( Tasia Vernon MD ) got a call for consult distend abdomen, I reviewed pt's H/P, labs, Ct scan with pt and his sister at ER bedside, I agree with above history. now pt denies abdominal pain, diarrhea this morning, no fever, Allergies Allergy/AdvReac Type Severity Reaction Status Date / Time bee venom protein (honey bee) Allergy Unknown Unknown Verified 02/28/21 10:51 cefadroxil Allergy Unknown UNKNOWN Verified 02/28/21 10:51 cephalexin Allergy Unknown UNKNOWN Verified 02/28/21 10:51 escitalopram Allergy Unknown UNKNOWN Verified 02/28/21 10:51 omeprazole Allergy Unknown UNKNOWN Verified 02/28/21 10:51 pantoprazole Allergy Unknown UNKNOWN Verified 02/28/21 10:51 Home Medications Medication Instructions Recorded Confirmed Type carbidopa-levodopa 1 tab PO BID 07/15/18 02/28/21 History carbidopa-levodopa 1 tab PO DAILY@1800 07/15/18 02/28/21 History ferrous sulfate 325 mg PO DAILY 07/15/18 02/28/21 History finasteride 5 mg PO DAILY 07/15/18 02/28/21 History metoprolol tartrate 100 mg PO BID 07/15/18 02/28/21 History polyethylene glycol 3350 [Miralax] 17 g PO DAILY PRN 07/15/18 02/28/21 History tramadol 50 mg PO Q8 PRN 07/15/18 02/28/21 History acetaminophen 650 mg PO Q12 PRN 02/28/21 02/28/21 History cholecalciferol (vitamin D3) 50 mcg PO DAILY 02/28/21 02/28/21 History pantoprazole 20 mg PO DAILY 02/28/21 02/28/21 History simethicone 80 mg PO BID 02/28/21 02/28/21 History tiotropium bromide 2 puff INHALATION DAILY 02/28/21 02/28/21 History Past Med/Surg History Medical History (Updated 02/28/21 @ 13:58 by Wing Louise) BPH (benign prostatic hyperplasia) Cancer of kidney right Chronic respiratory failure with hypoxia Congenital heart disease COPD (chronic obstructive pulmonary disease) Fall GI bleed 2017, duodenal Hypertension Neuropathy Normal pressure hydrocephalus Parkinson disease Rib contusion Surgical History History of ear surgery Family History (Updated 02/28/21 @ 13:47 by Wing Louise) Mother Pancreatic cancer Father Myocardial infarction Social History (Updated 02/28/21 @ 13:48 by Wing Louise) Smoking Status: Former smoker Tobacco Type: Cigarettes Age Started Using Tobacco: 22; Age Quit Using Tobacco: 32; packs per day: 1; Smoking End Date: ; Second Hand Exposure: No; Hx Alcohol Use: Yes (history of - none for many years) Hx Substance Use: No Preferred Language: Palauan Communication Ability: Effective Lead Software Architect Required: No Beliefs That Will Affect Care: None marital status: Single Current Living Situation: Residential Current Living Situation Comment: [facility] current occupational status: retired 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 How many Children do You have: 0 other: 5 siblings Feels Safe at Home: Yes Assistive Devices: Glasses Review of Systems Constitutional: + anorexia; no fever and no chills Ear, Nose, Mouth, Throat: + dysphagia Respiratory: + cough and + dyspnea Cardiovascular: no chest pain Gastrointestinal: + bloating, + nausea, + vomiting and + diarrhea/loose stools; no abdominal pain and no blood in stools Genitourinary: + difficulty urinating and + urinary incontinence Musculoskeletal: no joint pain Integumentary: no rash Neurologic: + localized weakness (legs - no longer walks) Psychiatric: + confusion Endocrine: no diabetes Hematologic / Lymphatic: no night sweats Allergies Allergy/AdvReac Type Severity Reaction Status Date / Time bee venom protein (honey bee) Allergy Unknown Unknown Verified 02/28/21 10:51 cefadroxil Allergy Unknown UNKNOWN Verified 02/28/21 10:51 cephalexin Allergy Unknown UNKNOWN Verified 02/28/21 10:51 escitalopram Allergy Unknown UNKNOWN Verified 02/28/21 10:51 omeprazole Allergy Unknown UNKNOWN Verified 02/28/21 10:51 pantoprazole Allergy Unknown UNKNOWN Verified 02/28/21 10:51 Home Medications Medication Instructions Recorded Confirmed Type carbidopa-levodopa 1 tab PO BID 07/15/18 02/28/21 History carbidopa-levodopa 1 tab PO DAILY@1800 07/15/18 02/28/21 History ferrous sulfate 325 mg PO DAILY 07/15/18 02/28/21 History finasteride 5 mg PO DAILY 07/15/18 02/28/21 History metoprolol tartrate 100 mg PO BID 07/15/18 02/28/21 History polyethylene glycol 3350 [Miralax] 17 g PO DAILY PRN 07/15/18 02/28/21 History tramadol 50 mg PO Q8 PRN 07/15/18 02/28/21 History acetaminophen 650 mg PO Q12 PRN 02/28/21 02/28/21 History cholecalciferol (vitamin D3) 50 mcg PO DAILY 02/28/21 02/28/21 History pantoprazole 20 mg PO DAILY 02/28/21 02/28/21 History simethicone 80 mg PO BID 02/28/21 02/28/21 History tiotropium bromide 2 puff INHALATION DAILY 02/28/21 02/28/21 History Patient History Medical History (Updated 02/28/21 @ 16:21 by Tasia Vernon MD) BPH (benign prostatic hyperplasia) Cancer of kidney right Chronic respiratory failure with hypoxia Congenital heart disease COPD (chronic obstructive pulmonary disease) Fall GI bleed 2018, duodenal Hypertension Neuropathy Normal pressure hydrocephalus Parkinson disease Rib contusion Surgical History History of ear surgery Family History (Updated 02/28/21 @ 13:47 by Wing Louise) Mother Pancreatic cancer Father Myocardial infarction Social History (Updated 02/28/21 @ 13:48 by Wing Louise) Smoking Status: Never smoker Tobacco Type: Cigarettes Age Started Using Tobacco: 22; Age Quit Using Tobacco: 32; packs per day: 1; Smoking End Date: ; Second Hand Exposure: No; Hx Alcohol Use: No Hx Substance Use: No Preferred Language: Palauan Communication Ability: Effective Lead Software Architect Required: No Beliefs That Will Affect Care: None marital status: Single Current Living Situation: Residential Current Living Situation Comment: [facility] [facility] current occupational status: retired 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 How many Children do You have: 0 Other Information That Helps Us Care for You: No other: 5 siblings Feels Safe at Home: Yes Safety Concerns: Feels Safe At This Time Assistive Devices: Glasses, Hearing Aid - Bilateral and Oxygen - Continuous Physical Exam Constitutional: WD/WN, vitals as above well developed and well nourished wheelchair Eyes: PERRL, conjunctivae normal, anicteric sclerae ENMT: external ear and nose normal, oropharynx normal Neck: trachea midline, no thyromegaly Respiratory: normal respiratory effort, lungs clear to auscultation Cardiovascular: RRR, no murmur, no edema Rate/Rhythm: regular rate Gastrointestinal (Abdomen): normal bowel sounds, soft, nontender, no hepatosplenomegaly Percussion/Palpation: abdomen soft NG tube in, mild distend, no tenderness, BS + Skin: no rashes, warm and dry Neurologic: awake Psychiatric: Orientation: alert and oriented x 3 Results & Data ([facility]) Vital Signs (Past 12 Hours) Vital Signs Temp Pulse Resp BP Pulse Ox 02/28/21 15:00 105 H 18 119/90 96 02/28/21 14:30 102 H 16 120/81 97 02/28/21 14:00 101 H 17 136/81 91 02/28/21 13:30 105 H 20 106/59 L 97 02/28/21 13:00 97 H 19 102/77 96 02/28/21 12:30 101 H 16 122/85 96 02/28/21 12:00 98 H 16 124/79 93 02/28/21 11:36 96 H 16 125/96 93 02/28/21 11:09 111/87 02/28/21 10:10 95 H 17 96 02/28/21 10:00 98 H 17 96 02/28/21 09:50 102 H 19 97 02/28/21 09:42 101 H 18 95 02/28/21 09:38 105 H 19 97 02/28/21 09:37 103 H 19 111/87 97 02/28/21 09:30 36.6 C 106 H 19 111/87 98 Laboratory Results Abnormal lab results 02/28/21 02/28/21 02/28/21 Range/Units 10:00 10:00 11:27 WBC 21.65 H (4.8-10.8) K/uL Plt Count 414 H (130-400) K/uL Neut # (Auto) 17.68 H (1.4-6.5) K/uL Maries # (Auto) 2.05 H (0.11-0.59) K/uL Immature Gran # (Auto) 0.13 H (0.00-0.02) K/uL Sodium 132 L (136-145) mmol/L Carbon Dioxide 20 L (21-32) mmol/L Anion Gap 13.0 H (3-11) BUN 41 H (7-18) mg/dl Creatinine 1.58 H (0.6-1.4) mg/dl BUN/Creatinine Ratio 26.2 H (10-20) Glucose 159 H (70-99) mg/dl AST 9 L (15-37) U/L Total Protein 8.8 H (6.4-8.2) gm/dl Globulin 4.9 H (2.5-4.0) gm/dl Albumin/Globulin Ratio 0.8 L (0.9-2) Lipase 52 L (73-393) U/L Ur Specific [place] (1.000-1.030) Urine Protein (Negative) Urine Ketones (Negative) Ur Leukocyte Esterase (Negative) Urine WBC (Auto) (0-5) /hpf U Epithel Cells (Auto) (0-5) /lpf Urine Bacteria (Auto) (Negative) 02/28/21 Range/Units 14:00 WBC (4.8-10.8) K/uL Plt Count (130-400) K/uL Neut # (Auto) (1.4-6.5) K/uL Maries # (Auto) (0.11-0.59) K/uL Immature Gran # (Auto) (0.00-0.02) K/uL Sodium (136-145) mmol/L Carbon Dioxide (21-32) mmol/L Anion Gap (3-11) BUN (7-18) mg/dl Creatinine (0.6-1.4) mg/dl BUN/Creatinine Ratio (10-20) Glucose (70-99) mg/dl AST (15-37) U/L Total Protein (6.4-8.2) gm/dl Globulin (2.5-4.0) gm/dl Albumin/Globulin Ratio (0.9-2) Lipase (73-393) U/L Ur Specific [place] > 1.045 H (1.000-1.030) Urine Protein Trace H (Negative) Urine Ketones Trace H (Negative) Ur Leukocyte Esterase 1+ H (Negative) Urine WBC (Auto) 5-10 H (0-5) /hpf U Epithel Cells (Auto) >30 H (0-5) /lpf Urine Bacteria (Auto) 2+ H (Negative) Diagnostic Findings BDOMEN AND PELVIS CT WITH IV CONTRAST CT DOSE: 821.78 mGy.cm HISTORY: Generalized abdominal pain. TECHNIQUE: Multiaxial CT images of the abdomen and pelvis were performed following the use of intravenous contrast. A dose lowering technique was utilized adhering to the principles of ALARA. COMPARISON STUDY: Abdomen CT 07/19/2018. Abdomen and pelvis CTA 02/25/2017. FINDINGS: A few calcified granulomas seen within the left lower lobe. Mild subpleural reticulation in the left lung base is likely chronic. Calcified mediastinal and left hilar lymph nodes. The liver, gallbladder, pancreas, spleen, and right adrenal gland are unremarkable. There is mild thickening of the left adrenal gland, unchanged. There are surgical clips anterior to the pancreatic head. Normal left kidney. Increase in size in the heterogeneous mass within the upper pole of the right kidney which currently measures 4.7 x 3.5 cm. This previously measured 3.1 x 2.7 cm. This contains microscopic fat inferiorly. 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 There is a 7 mm hypodense lesion within the right kidney which is stable and favors a cyst. No retroperitoneal lymphadenopathy. Calcified gastrohepatic lymph nodes are again noted. Normal caliber abdominal aorta with moderate atherosclerotic plaque. Normal bladder. No pelvic free fluid. No pelvic lymphadenopathy. Mild rectal wall thickening is suggested given the degree of distention. No significant perirectal inflammatory change. Fluid-filled stomach, small bowel, and large bowel. The stomach is markedly distended. The majority of the small bowel loops are mildly distended as well as the majority of the colon. There are few areas of decompressed loops of small and large bowel without a clear transition point to suggest an obstruction. Therefore, this finding could be due to an ileus, colonic pseudoobstruction, or possibly partial large bowel obstruction near the distal rectum due to the mild rectal wall thickening. Consider NG tube placement for decompression of the markedly distended and fluid-filled stomach. IMPRESSION: 1. Fluid-filled stomach, small bowel, and large bowel. The stomach is markedly distended. The majority of the small bowel loops are mildly distended as well as the majority of the colon. There are few areas of decompressed loops of small and large bowel without a clear transition point to suggest an obstruction. Th erefore, this finding could be due to an ileus, colonic pseudoobstruction, or possibly partial large bowel obstruction near the distal rectum due to the mild rectal wall thickening. 2. Mild rectal wall thickening without perirectal fat stranding. This could represent a mild proctitis. Consider follow-up endoscopy to exclude the less likely possibility of an underlying rectal lesion. 3. Consider NG tube placement for decompression of the markedly distended and fluid-filled stomach. 4. Increase in size in the heterogeneous mass within the upper pole of the right kidney which currently measures 4.7 x 3.5 cm. This contains macroscopic fat inferiorly and therefore favors an nature myelolipoma. The increase in size could be due to interval internal hemorrhage. Nonemergent urology follow-up recommended given the increase in size of this lesion and to exclude the less likely possibility of a renal cell carcinoma. KUB HISTORY: for ng tube placement COMPARISON: Abdomen and pelvis CT 02/28/2021. FINDINGS: Nasogastric tube terminates in the body the stomach. Moderate gaseous distention of the stomach has slightly improved. There is moderate to severe gaseous distention of the large and small bowel. This is similar to the prior study. No renal calculi. No ureteral calculi. No pneumoperitoneum or pneumatosis. IMPRESSION: 1. Nasogastric tube terminates in the stomach. 2. Gaseous distention of the large and small bowel persists. There is slight improvement of the gaseous distention of the stomach.
--- NOTE | 2021-02-28 17:08 | Gastrointestinal Consultation ---
Date of Consultation February 28, 2021 Assessment & Plan (1) Dilation of gastrointestinal tract: Symptoms are most consistent with small and large bowel ileus, likely chronic from immobility and Parkinson's disease. - Will recheck KUB tomorrow. - No evidence of GI bleeding. Will change PPI IV drip to IV once daily during hospitalization. - Stool for C-diff sent. - Dulcolax suppository now. - Please try to minimize narcotics and other meds that will slow GI motility. Present on Admission?: Yes History of Present Illness Reason for Consultation: ?UGI bleed, abd distension, ?proctitis Requesting Physician: Dr. Louise Attending Physician: Wing Louise History of Present Illness Mr. Yaw Jauregui is a 75 yr old male resident of [facility] with a hx of COPD, On continuous O2 at the home, BPH, Kidney Cancer, HTN, who was brought to the [facility] ED this morning because his abdomen was distended and he vomited dark emesis. Occult of the emesis and a fecal occult there was (-). During my attempt to obtain a hx, the pt responded with a quiet, non understandable word in response to some of my questions and is unable to provide a meaningful hx. Hx is obtained by reading ED notes, H&P notes, and the hx provided by Dr. Chaidez and his current RN. I was told that he passed a very large BM this morning before arrival here and his current nurse tells me that he leaks liquid brown fecal material when he is repositioned in bed. CT on arrival with a fluid filled/distended stomach, small and large bowel. An NG was placed with dark gastric contents that tested (-). The NG has only drained about 100cc of fluid. During exam, his abdomen was softly distended and BS were hyperactive. I completed an aggressive rectal exam. His anal sphincter was tight. During the exam, he expressed at least a liter of liquid brown bowel movement and a moderate amt of flatus. There were no rectal masses noted. Allergies Allergy/AdvReac Type Severity Reaction Status Date / Time bee venom protein (honey bee) Allergy Unknown Unknown Verified 02/28/21 10:51 cefadroxil Allergy Unknown UNKNOWN Verified 02/28/21 10:51 cephalexin Allergy Unknown UNKNOWN Verified 02/28/21 10:51 escitalopram Allergy Unknown UNKNOWN Verified 02/28/21 10:51 omeprazole Allergy Unknown UNKNOWN Verified 02/28/21 10:51 pantoprazole Allergy Unknown UNKNOWN Verified 02/28/21 10:51 Home Medications Medication Instructions Recorded Confirmed Type carbidopa-levodopa 1 tab PO BID 07/15/18 02/28/21 History carbidopa-levodopa 1 tab PO DAILY@1800 07/15/18 02/28/21 History ferrous sulfate 325 mg PO DAILY 07/15/18 02/28/21 History finasteride 5 mg PO DAILY 07/15/18 02/28/21 History metoprolol tartrate 100 mg PO BID 07/15/18 02/28/21 History polyethylene glycol 3350 [Miralax] 17 g PO DAILY PRN 07/15/18 02/28/21 History tramadol 50 mg PO Q8 PRN 07/15/18 02/28/21 History acetaminophen 650 mg PO Q12 PRN 02/28/21 02/28/21 History cholecalciferol (vitamin D3) 50 mcg PO DAILY 02/28/21 02/28/21 History pantoprazole 20 mg PO DAILY 02/28/21 02/28/21 History simethicone 80 mg PO BID 02/28/21 02/28/21 History tiotropium bromide 2 puff INHALATION DAILY 02/28/21 02/28/21 History Patient History Medical History (Updated 02/28/21 @ 16:21 by Tasia Vernon MD) BPH (benign prostatic hyperplasia) Cancer of kidney right Chronic respiratory failure with hypoxia Congenital heart disease COPD (chronic obstructive pulmonary disease) Fall GI bleed 2017, duodenal Hypertension Neuropathy Normal pressure hydrocephalus Parkinson disease Rib contusion Surgical History History of ear surgery Family History (Updated 02/28/21 @ 13:47 by Wing Louise) Mother Pancreatic cancer Father Myocardial infarction Social History (Updated 02/28/21 @ 13:48 by Wing Louise) Smoking Status: Never smoker Tobacco Type: Cigarettes Age Started Using Tobacco: 22; Age Quit Using Tobacco: 32; packs per day: 1; Smoking End Date: ; Second Hand Exposure: No; Hx Alcohol Use: No Hx Substance Use: No Preferred Language: Latvian Communication Ability: Effective Template Reproduction Technician Required: No Beliefs That Will Affect Care: None marital status: Single Current Living Situation: [facility] Current Living Situation Comment: [place] [facility] current occupational status: retired 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 Physical Exam Constitutional: + ill appearing (chronically), + obese (mildly) and + altered mental status (unsure of his baseline mentation but he is not currently communicative.) Eyes: PERRL, conjunctivae normal, anicteric sclerae ENMT: external ear and nose normal, oropharynx normal NG in place Neck: trachea midline, no thyromegaly Respiratory: normal respiratory effort rhonchi throughout; coarse crackles at the bases. Cardiovascular: Rate/Rhythm: regular rate and regular rhythm Vessels: no JVD minimal bilat lower leg edema Gastrointestinal (Abdomen): Inspection/Auscultation: + abdomen distended and + hyperactive bowel sounds Percussion/Palpation: abdomen soft; abdomen nontender (does not indicate any tenderness on deep palpation) Recal exam - tight sphincter. No masses. Large amt of brown liquid stool. Musculoskeletal: generally weak, unable to help move himself from side to side in the bed. Skin: no rashes. There is a dressing in place over the coccyx. Neurologic: PERRL, EOMI, accommodation nl, no face palsy, no dysarthria awake (but lethargic;minimal eye contact) and + confused Motor/Sensory: no tremor Lymphatic: no cervical or axillary lymphadenopathy Results & Data ([facility]) Vital Signs (Past 12 Hours) Vital Signs Temp Pulse Pulse Resp BP BP Pulse Ox 02/28/21 16:48 94 H 02/28/21 16:14 37.5 C 96 H 17 157/93 H 97 02/28/21 15:00 105 H 18 119/90 96 02/28/21 14:30 102 H 16 120/81 97 02/28/21 14:00 101 H 17 136/81 91 02/28/21 13:30 105 H 20 106/59 L 97 02/28/21 13:00 97 H 19 102/77 96 02/28/21 12:30 101 H 16 122/85 96 02/28/21 12:00 98 H 16 124/79 93 02/28/21 11:36 96 H 16 125/96 93 02/28/21 11:09 111/87 02/28/21 10:10 95 H 17 96 02/28/21 10:00 98 H 17 96 02/28/21 09:50 102 H 19 97 02/28/21 09:42 101 H 18 95 02/28/21 09:38 105 H 19 97 02/28/21 09:37 103 H 19 111/87 97 02/28/21 09:30 36.6 C 106 H 19 111/87 98 Laboratory Results WBC 21, Hb 17, Hct 49, plts 414, Na 132, K 3.6, Cl 99, CO2 20, BUN 41, Cr 1.58. Diagnostic Findings CT abd/pelvis with IV contrast: 1. Fluid-filled stomach, small bowel, and large bowel. The stomach is markedly distended. The majority of the small bowel loops are mildly distended as well as the majority of the colon. There are few areas of decompressed loops of small and large bowel without a clear transition point to suggest an obstruction. Therefore, this finding could be due to an ileus, colonic pseudoobstruction, or possibly partial large bowel obstruction near the distal rectum due to the mild rectal wall thickening. 2. Mild rectal wall thickening without perirectal fat stranding. This could represent a mild proctitis. Consider follow-up endoscopy to exclude the less likely possibility of an underlying rectal lesion. 3. Consider NG tube placement for decompression of the markedly distended and fluid-filled stomach. 4. Increase in size in the heterogeneous mass within the upper pole of the right kidney which currently measures 4.7 x 3.5 cm. This contains macroscopic fat inferiorly and therefore favors an nature myelolipoma. The increase in size could be due to interval internal hemorrhage. Nonemergent urology follow-up recommended given the increase in size of this lesion and to exclude the less likely possibility of a renal cell carcinoma.
[2021-02-28] MEDS ORDERED: bisacodyL 10 MG SUPP PR STA (17:34)
--- NOTE | 2021-02-28 17:46 | XRay Report ---
XR KUB/Abdomen 1 view CLINICAL HISTORY: unable to verify NG placement COMPARISON STUDY: February 28, 2021 at 12:43 hours FINDINGS: Multiple dilated gas field loops of bowel are seen throughout the abdomen, dilatation is slightly imp roved since recent prior. Distal aspect of gastric tube is seen with fenestrated side-port and tip below level of hemidiaphragm . Questionable gas collection below left hemidiaphragm is seen and could represent interposed gas-fille d loop of bowel, however free intra-abdominal air cannot be completely ruled out. IMPRESSION: 1. Tip and fenestrated side-port of gastric tube are seen below level of hemidiaphragm. 2. Mild interval improvement of gaseous dilatation of visualized loops of bowel however there is qu estionable lucency under the left hemidiaphragm. Free intra-abdominal air cannot be completely ruled out. Further evaluation with right decubitus abdominal radiograph is recommended. Findings called to ordering physician at the time of this dictation. ACT 112: Positive. There are findings on this exam that require communication between the performing entity and the patient following Patient Test Result Information Act ([place] Act 112) guidelines. The above report was generated using voice recognition software. It may contain grammatical, syntax o r spelling errors. Electronically signed by: Camryn Rowley DO 02/28/2021 5:45 PM
[2021-02-28] MEDS: PIPERACILLIN/TAZOBACTAM 3.375 GM in DEXTROSE 5% 100 ML IV SCH (17:48)
[2021-02-28] MEDS: NSS + 20MEQ KCL 20 MEQ/1,000 ML BAG IV SCH (17:48)
[2021-02-28] MEDS: CARBIDOPA/LEVODOP 10/100MG TAB PO SCH (18:04)
--- NOTE | 2021-02-28 19:01 | XRay Report ---
XR KUB/Abdomen 1 view CLINICAL HISTORY: ?free air on KUB; obtain R lateral decubitus films COMPARISON STUDY: February 28, 2021 at 16:41 hours FINDINGS: Multiple dilated loops of bowel are seen with air-fluid levels. No evidence of free intra-abdominal gas demonstrated. IMPRESSION: 1. No evidence of free intra-abdominal gas. 2. Multiple nondilated loops of bowel with air-fluid levels. ACT 112: Negative or not required by law. The above report was generated using voice recognition software. It may contain grammatical, syntax o r spelling errors. Electronically signed by: Camryn Rowley DO 02/28/2021 7:00 PM
[2021-02-28] MEDS: LEVALBUTEROL HCL 1.25 MG/3 ML NEB NEB SCH (19:37)
[2021-02-28] MEDS: CARBIDOPA/LEVODOPA 25-250 1 EA TAB PO SCH (19:56)
[2021-03-01] MEDS: LEVALBUTEROL HCL 1.25 MG/3 ML NEB NEB SCH ×4 (01:08→19:40)
[2021-03-01] MEDS: PIPERACILLIN/TAZOBACTAM 3.375 GM in DEXTROSE 5% 100 ML IV SCH ×3 (01:39→15:36)
[2021-03-01] MEDS: NSS + 20MEQ KCL 20 MEQ/1,000 ML BAG IV SCH ×3 (05:09→17:39)
[2021-03-01 06:59] LABS: Basophils # (auto) 0.01 K/uL (0-0.2); Basophils % (auto) 0.1 %; Hematocrit (blood only) 44.3 % (42-52); Immature Granulocytes # (auto) 0.06 K/uL (0.00-0.02); Immature Granulocytes % (auto) 0.4 %; Lymphocytes # (auto) 1.83 K/uL (1.2-3.4); Lymphocytes % (auto) 11.7 %; Mean Corpuscular Hemoglobin 31.4 pg (25-34); Mean Corpuscular Hgb Conc 33.9 g/dL (32-36); Mean Corpuscular Volume 92.9 fL (80-100); Mean Platelet Volume 9.5 fL (7.4-10.4); Monocytes # (auto) 1.97 K/uL (0.11-0.59); Monocytes % (auto) 12.6 %; Neutrophils # (auto) 11.77 K/uL (1.4-6.5); Neutrophils % (auto) 75.2 %; Platelet Count 332 K/uL (130-400); RDW Coefficient of Variation 13.2 % (11.5-14.5); RDW Standard Deviation 45.2 fL (36.4-46.3); Red Blood Count 4.77 M/uL (4.7-6.1); White Blood Count 15.64 K/uL (4.8-10.8)
[2021-03-01 07:28] LABS: BUN Creatinine Ratio 37.8 (10-20); Calcium 8.2 mg/dl (8.5-10.1); Creatinine Clr Calc Pharmacy 59.9 ml/min; Est GFR (African American) 56.4 ml/min; Est GFR (Non-African American) 48.7 ml/min
--- NOTE | 2021-03-01 08:52 | Gastroenterology Progress Note ---
Date of Service March 01, 2021 Assessment & Plan (1) Dilation of gastrointestinal tract: Symptoms are most consistent with small and large bowel ileus, likely chronic from immobility and Parkinson's disease. Clinically, abdominal appearance and exam are much improved compared to yesterday. - Dulcolax suppository today and daily. The digital stimulation of receiving the suppository will likely stimulate a BM and help prevent dangerous bowel distention, though he likely has chronic distention and therfore is at lower risk for bowel perforation. - Please try to minimize narcotics and other meds that will slow GI motility. - Check a KUB tomorrow. If worsening abd distention, please recall GI. Admission and Anticipated Discharge Date Admission Date: February 28, 2021 Supervising Physician Co-Signing Physician Notes I saw and evaluated the patient this afternoon. Unfortunately due to his Parkinson's disease he is not able to give much historical information. His sister was at bedside with whom we had a long conversation about the long-term goals of care. Recommendations Dulcolax 5 to 10 mg daily Fleets enema once daily Please see Ms. Mejias's notes for further recommendations Subjective Mr. Jauregui is a 75 yr old male resident of [facility] with Parkinson's, COPD on continuous O2 as OP who was admitted yesterday for abdominal distention, and vomiting. CT on arrival with gastric distention and ileus. NG placed. On exam yesterday, moderate abd distention, tight anal sphincter, with digital rectal exam very large brown liquid BM, C-diff (-). Likely aspiration during vomiting episode. Today much less abdominal distention, still some tympanic sounds in the LUQ but normal active BS elsewhere and soft non tender abdomen. Pt is awake and alert today though not able to give a detailed history, answers non specific responses to all questions asked. Denies pain. Review of Systems Review of Systems: Denies any discomfort, SOB, CP, cough, abd pain, joint pain. Physical Exam Constitutional: WD/WN, vitals as above + ill appearing (chronically) and + obese (mildly) Eyes: PERRL, conjunctivae normal, anicteric sclerae ENMT: external ear and nose normal, oropharynx normal Neck: trachea midline, no thyromegaly Respiratory: normal respiratory effort, lungs clear to auscultation Cardiovascular: Rate/Rhythm: regular rate and regular rhythm Vessels: no JVD Gastrointestinal (Abdomen): Inspection/Auscultation: + hyperactive bowel sounds; abdomen not distended Percussion/Palpation: abdomen soft; abdomen nontender (does not indicate any tenderness on deep palpation) Neurologic: PERRL, EOMI, accommodation nl, no face palsy, no dysarthria awake (but lethargic;minimal eye contact) and + confused Motor/Sensory: no tremor Lymphatic: no cervical or axillary lymphadenopathy Results & Data ([facility]) Vital Signs (Past 12 Hours) Vital Signs Temp Pulse Resp BP Pulse Ox 03/01/21 07:42 37.1 C 102 H 19 137/69 96 03/01/21 07:06 99 H 18 95 03/01/21 04:15 36.5 C 102 H 18 127/71 95 03/01/21 01:08 96 H 18 93 02/28/21 23:42 36.6 C 102 H 18 118/67 92 Laboratory Results WBC 15, hemoglobin 15, hematocrit 44, platelets 322, sodium 139, potassium 3.0, BUN 43, creatinine 1.42, glucose 143. Diagnostic Findings KUB this morning 1. Gaseous dilatation of the small and large bowel loops slightly increase in diameter however appear less diffuse when compared to prior study performed yesterday.
[2021-03-01] MEDS: POTASSIUM CHLORIDE / WTR 10 MEQ/100 ML PLCT IV SCH ×4 (08:59→13:35)
[2021-03-01] MEDS: CARBIDOPA/LEVODOPA 25-250 1 EA TAB PO SCH ×4 (09:01→21:50)
[2021-03-01] MEDS: UMECLIDINIUM BROMIDE 62.5MCG/BLISTER 7 PUFFS/INHALER INH SCH (09:01)
--- NOTE | 2021-03-01 10:53 | XRay Report ---
XR KUB/Abdomen 1 view CLINICAL HISTORY: ileus; please note amt of colonic distention. COMPARISON STUDY: KUB performed on February 28, 2021 FINDINGS: Gaseous dilatation of loops of small and large bowel are again seen and appear less diffuse since tyler or study. Small bowel loop dilatation is up to 4.5 cm which is slightly worsened since yesterday. Also dilatati on of the loops of large bowel is measuring up to 7.2 cm which is also slightly worsened since prior. Distal aspect of the gastric tube is seen within left upper quadrant. IMPRESSION: 1. Gaseous dilatation of the small and large bowel loops slightly increase in diameter however appe ar less diffuse when compared to prior study performed yesterday. ACT 112: Negative or not required by law. The above report was generated using voice recognition software. It may contain grammatical, syntax o r spelling errors. Electronically signed by: Camryn Rowley DO 03/01/2021 10:52 AM
[2021-03-01] MEDS: PANTOprazole 40 MG in SYRINGE 0 ML IV SCH (12:15)
[2021-03-01] MEDS: bisacodyL 10 MG SUPP PR SCH (12:15)
--- NOTE | 2021-03-01 12:44 | Surgery Progress Note ---
Date of Service pt is doing better, passed BM, less abdominal distend, no abdominal pain, no fever, March 01, 2021 Assessment & Plan (1) Dilation of gastrointestinal tract: pt is a 75 year-old male who presents to ER with vomiting, abdominal pain, now pt said he has no abdominal pain, diarrhea for last 2 days, no fever, IMP: dilated GI tract, un-know cause, I agree with admit to hospital conservative treatment first, NPO, NG tube, IV fluid and antibiotic, , repeat labs and KUB in morning, consult GI doctor, will F/U, pt and his sister agree with the plan, I answered all questions, 03/01/2021 12:43PM doing better, no surgical indication now, 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 Jauregui is a 75 yr old male resident of [facility] with Parkinson's, COPD on continuous O2 as OP who was admitted yesterday for abdominal distention, and vomiting. CT on arrival with gastric distention and ileus. NG placed. On exam yesterday, moderate abd distention, tight anal sphincter, with digital rectal exam very large brown liquid BM, C-diff (-). Likely aspiration during vomiting episode. Today much less abdominal distention, still some tympanic sounds in the LUQ but normal active BS elsewhere and soft non tender abdomen. Pt is awake and alert today though not able to give a detailed history, answers non specific responses to all questions asked. Denies pain. Physical Exam Constitutional: WD/WN, vitals as above well developed and well nourished Eyes: PERRL, conjunctivae normal, anicteric sclerae ENMT: external ear and nose normal, oropharynx normal Neck: trachea midline, no thyromegaly Respiratory: normal respiratory effort, lungs clear to auscultation Cardiovascular: RRR, no murmur, no edema Rate/Rhythm: regular rate Gastrointestinal (Abdomen): normal bowel sounds, soft, nontender, no hepatosplenomegaly Percussion/Palpation: abdomen soft Skin: no rashes, warm and dry Neurologic: awake Psychiatric: Orientation: alert and oriented x 3 Results & Data ([facility]) Vital Signs (Past 12 Hours) Vital Signs Temp Pulse Pulse Resp BP Pulse Ox 03/01/21 11:44 36.9 C 84 19 120/70 95 03/01/21 08:00 96 H 03/01/21 07:42 37.1 C 102 H 19 137/69 96 03/01/21 07:06 99 H 18 95 03/01/21 04:15 36.5 C 102 H 18 127/71 95 03/01/21 01:08 96 H 18 93
--- NOTE | 2021-03-01 16:12 | Hospitalist Progress Note ---
Date of Service March 01, 2021 Assessment & Plan (1) Dilated bowel: Presented with marked abdominal distension along with vomiting and liquid stool. CT abd/pelvis with distension of entire GI tract starting in stomach, involving most of small intestine, and also the colon. There is question of proctitis on CT as well. Likely has element of chronic ileus due to bedbound status/wheelchair dependency in the context of advanced PD. A colonic obstruction could be the main culprit in his presentation. NG tube has been placed for the above. COntinue NGT to LIS Check gastric occult given the black material from his NG tube. Placed on IV PPI -had JESICA by GI and released 1L of liquid stool immediately Has tight anal sphincter KUB today continues with dilated bowels and he is still having some nausea but starting to feel hungry. May have chronic bowel distension radiographically Treat proctitis with IV zosyn. C. diff negative Appreciate GI consult-plan for Dulcolax 5 to 10 mg ID daily and Fleets enema once daily indefinitely KUB in AM continue NGT -continue IVFs for hydration -follow CMP, CBC, Mag, Phos (2) Proctitis: Possible, as seen on CT. as above (3) Hyponatremia: Patient is volume depleted. Give isotonic fluids, repeat BMP now with normal Na+ (4) Aspiration of gastric contents: Patient likely had some element of aspiration this am when [facility]. Has rhonchi throughout- This continues today but no resp distress Zosyn will cover for any brewing aspiration pneumonitis. NPO. NG tube in place. O2 support as needed. continue nebs for wheezing. (5) SIRS (systemic inflammatory response syndrome): with Sepsis, POA< source UTI and possibly aspiration PNA 2nd to GI tract pathology as above. C. diff neg Zosyn for proctitis will cover the urinary tract as well. follow Ur cx-.E. coli-sensitivity pending (6) Metabolic encephalopathy: Quite altered on admission, likely combination of infection, hyponatremia, GI tract issues, etc - all in setting of h/o NPH and PD. Now much improved (7) Acute kidney injury: 2nd to volume depletion/prerenal. Hydrated and now improved BMP daily. continue mcbride (8) Chronic respiratory failure with hypoxia: on NC O2 at [facility]. likely 2nd COPD. (9) NPH (normal pressure hydrocephalus): history of, but no [employer] shunt to my knowledge (10) Parkinson disease: appears advanced can clamp NG tube periodically for sinemet administration otherwise his PD will worsen considerably while here (11) COPD (chronic obstructive pulmonary disease): defer on steroids despite course BS today from presumed aspiration. continue on xopenex/atrovent nebs q6h. (12) BPH (benign prostatic hyperplasia): mcbride hold finasteride (13) Cancer of kidney: HIGHLY SUSPECTED. 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 an MRI of the abdomen from 2016 indeed suggests a high likelihood of this diagnosis. he continues to have a right-sided renal mass, and it is larger than past imaging. very poor candidate for intervention but [id number] it should be discussed before discharge with he & his family. (14) HTN (hypertension), benign: BPs elevated, sinus tach restart metoprolol 100mg bid through NGT (15) DVT prophylaxis: SCDs, add Lovenox Dispo-can downgrade to med/surg full code per pt wishes Admission and Anticipated Discharge Date Admission Date: February 28, 2021 Subjective Pt feeling better, feels hungry yet still nauseated. Had a very large BM yesterday after JESICA and then another one overnight. Denies SOB but is coughing up some sputum. Tele with NSR, ST , PACs, PVCs, rates 90-100s Review of Systems Review of Systems: All systems reviewed & are unremarkable except as noted in HPI & below Physical Exam Constitutional: WD/WN, vitals as above Eyes: + anicteric sclerae Neck: trachea midline, no thyromegaly Respiratory: normal respiratory effort Auscultation: + rhonchi (diffusely); no crackles and no wheezes Cardiovascular: Rate/Rhythm: regular rhythm and + tachycardic (mild) Heart Sounds: no murmur Extremities: no edema Chest (Breasts): Chest: normal inspection of chest Gastrointestinal (Abdomen): normal bowel sounds, soft, nontender, no hepatosplenomegaly Musculoskeletal: Extremities: extremities normal to inspection; no cyanosis and no clubbing Skin: no rashes, warm and dry Neurologic: moves all extremities and awake +resting tremor Psychiatric: Orientation: alert, oriented to person, oriented to place and cooperative Lymphatic: no lymphedema Results & Data Results & Data ([facility]) Vital Signs (Past 12 Hours) Vital Signs Temp Pulse Pulse Resp BP Pulse Ox 03/01/21 16:00 96 H 03/01/21 15:40 36.4 C L 111 H 19 145/75 H 97 03/01/21 13:20 97 H 20 96 03/01/21 11:44 36.9 C 84 19 120/70 95 03/01/21 08:00 96 H 03/01/21 07:42 37.1 C 102 H 19 137/69 96 03/01/21 07:06 99 H 18 95 03/01/21 04:15 36.5 C 102 H 18 127/71 95 Laboratory Results 03/01/21 03/01/21 02/28/21 Range/Units 06:43 06:43 18:00 WBC 15.64 H (4.8-10.8) K/uL RBC 4.77 (4.7-6.1) M/uL Hgb 15.0 (14.0-18.0) g/dL Hct 44.3 (42-52) % MCV 92.9 (80-100) fL MCH 31.4 (25-34) pg MCHC 33.9 (32-36) g/dL RDW Std Deviation 45.2 (36.4-46.3) fL RDW Coeff of Marie 13.2 (11.5-14.5) % Plt Count 332 (130-400) K/uL MPV 9.5 (7.4-10.4) fL Immature Gran % (Auto) 0.4 % Neut % (Auto) 75.2 % Lymph % (Auto) 11.7 % Hockley % (Auto) 12.6 % Eos % (Auto) 0.0 % Baso % (Auto) 0.1 % Neut # (Auto) 11.77 H (1.4-6.5) K/uL Lymph # (Auto) 1.83 (1.2-3.4) K/uL Hockley # (Auto) 1.97 H (0.11-0.59) K/uL Eos # (Auto) 0.00 (0-0.5) K/uL Baso # (Auto) 0.01 (0-0.2) K/uL Immature Gran # (Auto) 0.06 H (0.00-0.02) K/uL Sodium 139 D (136-145) mmol/L Potassium 3.0 L D (3.5-5.1) mmol/L Chloride 104 (98-107) mmol/L Carbon Dioxide 24 (21-32) mmol/L Anion Gap 11.0 (3-11) BUN 54 H (7-18) mg/dl Creatinine 1.42 H (0.6-1.4) mg/dl Est Cr Clr Drug Dosing 59.9 ml/min Est GFR ( Amer) 56.4 ml/min Est GFR (Non-Af Amer) 48.7 ml/min BUN/Creatinine Ratio 37.8 H (10-20) Glucose 143 H (70-99) mg/dl Calcium 8.2 L D (8.5-10.1) mg/dl Nasal Screen MRSA (PCR) (Negative) Stl C. diff Tox B Gene Negative Cdiff Gene (Neg) Hepatitis C Ab Screen (Neg) 02/28/21 02/28/21 Range/Units 16:00 11:27 WBC (4.8-10.8) K/uL RBC (4.7-6.1) M/uL Hgb (14.0-18.0) g/dL Hct (42-52) % MCV (80-100) fL MCH (25-34) pg MCHC (32-36) g/dL RDW Std Deviation (36.4-46.3) fL RDW Coeff of Marie (11.5-14.5) % Plt Count (130-400) K/uL MPV (7.4-10.4) fL Immature Gran % (Auto) % Neut % (Auto) % Lymph % (Auto) % [place]ock[place] % (Auto) % Eos % (Auto) % Baso % (Auto) % Neut # (Auto) (1.4-6.5) K/uL Lymph # (Auto) (1.2-3.4) K/uL [place]ockley # (Auto) (0.11-0.59) K/uL Eos # (Auto) (0-0.5) K/uL Baso # (Auto) (0-0.2) K/uL Immature Gran # (Auto) (0.00-0.02) K/uL Sodium (136-145) mmol/L Potassium (3.5-5.1) mmol/L Chloride (98-107) mmol/L Carbon Dioxide (21-32) mmol/L Anion Gap (3-11) BUN (7-18) mg/dl Creatinine (0.6-1.4) mg/dl Est Cr Clr Drug Dosing ml/min Est GFR ( Amer) ml/min Est GFR (Non-Af Amer) ml/min BUN/Creatinine Ratio (10-20) Glucose (70-99) mg/dl Calcium (8.5-10.1) mg/dl Nasal Screen MRSA (PCR) Positive A (Negative) Stl C. diff Tox B Gene (Neg) Hepatitis C Ab Screen Neg (Neg) PG Care Time/CCT Total # of Minutes Spent Total Time Spent with Patient: Total time spent is greater than 50% in coordination of care (as documented) at patient's floor/unit and/or counseling patient: Coding Level of Care Code 36846 Subseq Hosp Care Lvl 3 Diagnoses Dilated bowel Proctitis K62.89 Hyponatremia E87.1 Aspiration of gastric contents T17.910A SIRS (systemic inflammatory response syndrome) R65.10 Metabolic encephalopathy G93.41 Acute kidney injury N17.9 Chronic respiratory failure with hypoxia J96.11 NPH (normal pressure hydrocephalus) G91.2 Parkinson disease G20 COPD (chronic obstructive pulmonary disease) J44.9 BPH (benign prostatic hyperplasia) N40.0 Cancer of kidney C64.9 HTN (hypertension), benign I10 DVT prophylaxis Z29.9
[2021-03-01] MEDS: ENOXAPARIN INJ 40 MG/0.4 ML SYR SQ SCH (17:38)
[2021-03-01] MEDS: CARBIDOPA/LEVODOP 10/100MG TAB PO SCH (17:38)
[2021-03-01] MEDS: METOPROLOL TARTRATE 50 MG TAB NG SCH (17:38)
[2021-03-02] MEDS: PIPERACILLIN/TAZOBACTAM 3.375 GM in DEXTROSE 5% 100 ML IV SCH ×3 (00:45→17:55)
[2021-03-02] MEDS: LEVALBUTEROL HCL 1.25 MG/3 ML NEB NEB SCH ×4 (01:17→19:51)
--- NOTE | 2021-03-02 06:05 | Surgery Progress Note ---
Date of Service March 02, 2021 Assessment & Plan (1) Dilation of gastrointestinal tract: Patient's abdominal exam is benign at the present time. We will proceed as follows: Continue NG tube until bowel function returns Continue n.p.o. status Provide as needed analgesics Provide as needed antiemetics we will continue conservative measures as patient does not require emergent surgical intervention. Repeat KUB is planned for this morning Lovenox is in place for DVT prevention as above. NGT with essentially no output. will eval on this AM's KUB. no new compliant. denies abdominal pain currently. continue conservative management for now. no surgical indication. will continue to follow along. Admission and Anticipated Discharge Date Admission Date: February 28, 2021 Subjective Patient denies any fevers, shakes, chills. He notes he has minimal abdominal pain. He does not have any nausea or vomiting. He denies having any BM or flatus over the past 24 hours. Physical Exam Gastrointestinal (Abdomen): Abdomen is soft and nondistended. Bowel sounds are hypoactive. There is no rebound tenderness or guarding. There is no pain with palpation. Results & Data ([facility]) Vital Signs (Past 12 Hours) Vital Signs Temp Pulse Resp BP Pulse Ox Pulse Ox 03/02/21 01:17 74 18 96 03/01/21 23:39 36.9 C 84 20 122/72 98 03/01/21 22:30 96 03/01/21 19:40 86 20 95 03/01/21 18:44 37.3 C 108 H 18 148/76 H 93 PG Care Time/CCT Total # of Minutes Spent Total Time Spent with Patient: Total time spent is greater than 50% in coordination of care (as documented) at patient's floor/unit and/or counseling patient: Coding Level of Care Code 69223 Subseq Hosp Care Lvl 3 Diagnoses Dilation of gastrointestinal tract
[2021-03-02] MEDS: NSS + 20MEQ KCL 20 MEQ/1,000 ML BAG IV SCH ×2 (07:50→20:19)
[2021-03-02] MEDS: UMECLIDINIUM BROMIDE 62.5MCG/BLISTER 7 PUFFS/INHALER INH SCH (07:54)
[2021-03-02 08:01] LABS: Basophils # (auto) 0.01 K/uL (0-0.2); Basophils % (auto) 0.1 %; Hematocrit (blood only) 38.1 % (42-52); Immature Granulocytes # (auto) 0.06 K/uL (0.00-0.02); Immature Granulocytes % (auto) 0.4 %; Lymphocytes % (auto) 12.8 %; Mean Corpuscular Hemoglobin 31.7 pg (25-34); Mean Corpuscular Hgb Conc 34.1 g/dL (32-36); Mean Corpuscular Volume 92.9 fL (80-100); Mean Platelet Volume 9.5 fL (7.4-10.4); Monocytes # (auto) 1.44 K/uL (0.11-0.59); Monocytes % (auto) 9.7 %; Platelet Count 281 K/uL (130-400); RDW Coefficient of Variation 13.5 % (11.5-14.5); RDW Standard Deviation 45.9 fL (36.4-46.3); White Blood Count 14.81 K/uL (4.8-10.8)
[2021-03-02] MEDS: bisacodyL 10 MG SUPP PR SCH (08:17)
[2021-03-02] MEDS: METOPROLOL TARTRATE 50 MG TAB NG SCH ×3 (08:28→20:19)
[2021-03-02] MEDS: CARBIDOPA/LEVODOPA 25-250 1 EA TAB PO SCH ×3 (08:28→20:19)
[2021-03-02 08:41] LABS: Albumin Globulin Ratio 0.8 (0.9-2); Albumin Level 2.9 gm/dl (3.4-5.0); BUN Creatinine Ratio 49.5 (10-20); Bilirubin,Total 0.5 mg/dl (0.2-1); Calcium 8.6 mg/dl (8.5-10.1); Creatinine Clr Calc Pharmacy 128.9 ml/min; Est GFR (African American) 111.2 ml/min; Est GFR (Non-African American) 95.9 ml/min; Globulin 3.7 gm/dl (2.5-4.0); Magnesium 1.9 mg/dl (1.8-2.4); Phosphorus 1.5 mg/dl (2.5-4.9); Potassium 3.1 mmol/L (3.5-5.1); Total Protein 6.6 gm/dl (6.4-8.2)
[2021-03-02] MEDS ORDERED: POTASSIUM PHOS 3 MMOL/1 ML INFUSION IV STA (10:44)
[2021-03-02] MEDS ORDERED: MAGNESIUM SULFATE / D5W 1 GM/100 ML BAG IV ONE (11:00)
[2021-03-02] MEDS ORDERED: POTASSIUM PHOSPHATE 24 MMOL in SODIUM CHLORIDE 0.9% 500 ML IV ONE (11:00)
[2021-03-02] MEDS: PANTOprazole 40 MG in SYRINGE 0 ML IV SCH (11:40)
--- NOTE | 2021-03-02 12:12 | Hospitalist Progress Note ---
Date of Service March 02, 2021 Assessment & Plan (1) Dilated bowel: Presented with marked abdominal distension along with vomiting and liquid stool. CT abd/pelvis with distension of entire GI tract starting in stomach, involving most of small intestine, and also the colon. There is question of proctitis on CT as well. Likely has element of chronic ileus due to bedbound status/wheelchair dependency in the context of advanced PD. A colonic obstruction could be the main culprit in his presentation -this has been RULED OUT NG tube has been placed for the above. He has no output in over 24 hrs from NG gastric occult neg Placed on IV PPI -had JESICA by GI and released 1L of liquid stool immediately Has tight anal sphincter KUB today continues with dilated bowels but slightly improved on my review--> May have chronic bowel distension radiographically Treat proctitis with IV zosyn. C. diff negative Appreciate GI consult-plan for Dulcolax 10 mg [place] daily for rectal stimulation even if having loose stools -clamp NGT and start sips and chips; can remove in 4 hours if remains with out vomiting or abd pain Follow KUB in AM -continue IVFs for hydration -follow CMP, CBC, Mag, Phos (2) Hypophosphatemia: 2/2 poor po intake replace with IV phos follow level in AM (3) Hypokalemia: due to poor po intake and loose stools replae with IV K+ follow BMP in AM give 1 gm IV mag sulfate (4) Proctitis: Possible, as seen on CT. as above (5) Hyponatremia: Patient is volume depleted. Give isotonic fluids, repeat BMP now with normal Na+ (6) Aspiration of gastric contents: Patient likely had some element of aspiration this am when he vomited at the [facility]. Has rhonchi throughout- This continues today but no resp distress Zosyn will cover for any brewing aspiration pneumonitis. NG tube in place. O2 support as needed. continue nebs for wheezing. (7) SIRS (systemic inflammatory response syndrome): with Sepsis, POA< source UTI and possibly aspiration PNA 2nd to GI tract pathology as above. C. diff neg Zosyn for proctitis will cover the urinary tract as well. Ur cx-.E. coli-pansensitive (8) Metabolic encephalopathy: Quite altered on admission, likely combination of infection, hyponatremia, GI tract issues, etc - all in setting of h/o NPH and PD. Now much improved (9) Acute kidney injury: 2nd to volume depletion/prerenal. Hydrated and now improved BMP daily. continue mcbride (10) Chronic respiratory failure with hypoxia: on NC O2 at SNF. likely 2nd COPD. 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 continue on xopenex/atrovent nebs q6h. (14) BPH (benign prostatic hyperplasia): mcbride hold finasteride until taking po reliably (15) Cancer of kidney: HIGHLY SUSPECTED. 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 an MRI of the abdomen from 2016 indeed suggests a high likelihood of this diagnosis. he continues to have a right-sided renal mass, and it is larger than past imaging. very poor candidate for intervention but [id number] it should be discussed before discharge with he & his family. (16) HTN (hypertension), benign: BPs elevated,but improved from yesterday; sinus tach improved continue metoprolol 100mg bid through NGT (17) DVT prophylaxis: SCDQuynh hoover Dispo-continued stay med/surg, is wheelchair bound and lives at [facility] permanently, return there eventually in 1-2 days full code per pt wishes Admission and Anticipated Discharge Date Admission Date: February 28, 2021 Subjective Pt reports not feeling well but can't explain why. Denies abd pain but does have some nausea. No output in NGT. Does not think he has had a BM but he had obvious incontinence to loose stool that he was sitting in when I saw him. Denies SOB. I discussed his case with GI Review of Systems Review of Systems: All systems reviewed & are unremarkable except as noted in HPI & below Physical Exam Constitutional: WD/WN, vitals as above Eyes: + anicteric sclerae Neck: trachea midline, no thyromegaly Respiratory: normal respiratory effort Auscultation: + rhonchi (diffusely); no crackles and no wheezes Cardiovascular: Rate/Rhythm: regular rate and regular rhythm Heart Sounds: no murmur Extremities: no edema Chest (Breasts): Chest: normal inspection of chest Gastrointestinal (Abdomen): normal bowel sounds, soft, nontender, no hep atosplenomegaly Inspection/Auscultation: + abdomen distended (mild) Musculoskeletal: Extremities: extremities normal to inspection; no cyanosis and no clubbing Skin: no rashes, warm and dry Neurologic: moves all extremities and awake Psychiatric: Orientation: alert, oriented to person, oriented to place and cooperative Lymphatic: no lymphedema Results & Data Results & Data ([facility]) Vital Signs (Past 12 Hours) Vital Signs Temp Pulse Resp BP Pulse Ox 03/02/21 07:25 37.0 C 102 H 18 146/69 H 95 03/02/21 07:03 83 18 98 03/02/21 01:17 74 18 96 Laboratory Results 03/02/21 03/02/21 Range/Units 07:49 07:49 WBC 14.81 H (4.8-10.8) K/uL RBC 4.10 L (4.7-6.1) M/uL Hgb 13.0 L (14.0-18.0) g/dL Hct 38.1 L (42-52) % MCV 92.9 (80-100) fL MCH 31.7 (25-34) pg MCHC 34.1 (32-36) g/dL RDW Std Deviation 45.9 (36.4-46.3) fL RDW Coeff of Marie 13.5 (11.5-14.5) % Plt Count 281 (130-400) K/uL MPV 9.5 (7.4-10.4) fL Immature Gran % (Auto) 0.4 % Neut % (Auto) 77.0 % Lymph % (Auto) 12.8 % Mclean % (Auto) 9.7 % Eos % (Auto) 0.0 % Baso % (Auto) 0.1 % Neut # (Auto) 11.40 H (1.4-6.5) K/uL Lymph # (Auto) 1.90 (1.2-3.4) K/uL Mclean # (Auto) 1.44 H (0.11-0.59) K/uL Eos # (Auto) 0.00 (0-0.5) K/uL Baso # (Auto) 0.01 (0-0.2) K/uL Immature Gran # (Auto) 0.06 H (0.00-0.02) K/uL Sodium 142 (136-145) mmol/L Potassium 3.1 L (3.5-5.1) mmol/L Chloride 111 H (98-107) mmol/L Carbon Dioxide 24 (21-32) mmol/L Anion Gap 7.0 (3-11) BUN 33 H (7-18) mg/dl Creatinine 0.66 D (0.6-1.4) mg/dl Est Cr Clr Drug Dosing 128.9 ml/min Est GFR ( Amer) 111.2 ml/min Est GFR (Non-Af Amer) 95.9 ml/min BUN/Creatinine Ratio 49.5 H (10-20) Glucose 135 H (70-99) mg/dl Calcium 8.6 (8.5-10.1) mg/dl Phosphorus 1.5 L* (2.5-4.9) mg/dl Magnesium 1.9 (1.8-2.4) mg/dl Total Bilirubin 0.5 (0.2-1) mg/dl AST 6 L (15-37) U/L ALT 8 L (12-78) U/L Alkaline Phosphatase 50 (45-117) U/L Total Protein 6.6 D (6.4-8.2) gm/dl Albumin 2.9 L (3.4-5.0) gm/dl Globulin 3.7 (2.5-4.0) gm/dl Albumin/Globulin Ratio 0.8 L (0.9-2) Diagnostic Findings KUB image reviewed by me-no rad report yet but bowel loops appear a bit les distended, air in rectum, NGT in LUQ PG Care Time/CCT Total # of Minutes Spent Total Time Spent with Patient: Total time spent is greater than 50% in coordination of care (as documented) at patient's floor/unit and/or counseling patient: Coding Level of Care Code 36699 Subseq Hosp Care Lvl 3 Diagnoses Dilated bowel Hypophosphatemia E83.39 Hypokalemia E87.6 Proctitis K62.89 Hyponatremia E87.1 Aspiration of gastric contents T17.910A SIRS (systemic inflammatory response syndrome) R65.10 Metabolic encephalopathy G93.41 Acute kidney injury N17.9 Chronic respiratory failure with hypoxia J96.11 NPH (normal pressure hydrocephalus) G91.2 Parkinson disease G20 COPD (chronic obstructive pulmonary disease) J44.9 BPH (benign prostatic hyperplasia) N40.0 Cancer of kidney C64.9 HTN (hypertension), benign I10 DVT prophylaxis Z29.9
--- NOTE | 2021-03-02 15:20 | XRay Report ---
XR KUB/Abdomen 1 view CLINICAL HISTORY: please comment on small and large bowel distention COMPARISON STUDY: March 01, 2021 FINDINGS: Multiple dilated gas-filled loops of bowel are seen: Small bowel dilatation up to 4.0 cm in diameter which is not significantly changed since prior. Loops of large bowel are dilated measuring up to 7.5 cm which also appear stable since prior. Distal aspect of the gastric tube is seen within left upper quadrant. IMPRESSION: 1. Multiple gas-filled dilated loops of small and large bowel, stable since prior study performed as detailed above. ACT 112: Negative or not required by law. The above report was generated using voice recognition software. It may contain grammatical, syntax o r spelling errors. Electronically signed by: Camryn Rowley DO 03/02/2021 3:18 PM
[2021-03-02] MEDS: ENOXAPARIN INJ 40 MG/0.4 ML SYR SQ SCH (17:56)
[2021-03-02] MEDS: CARBIDOPA/LEVODOP 10/100MG TAB PO SCH (17:56)
[2021-03-03] MEDS: PIPERACILLIN/TAZOBACTAM 3.375 GM in DEXTROSE 5% 100 ML IV SCH ×3 (00:32→15:48)
[2021-03-03] MEDS: LEVALBUTEROL HCL 1.25 MG/3 ML NEB NEB SCH ×4 (00:54→20:16)
[2021-03-03 05:42] LABS: Basophils # (auto) 0.01 K/uL (0-0.2); Basophils % (auto) 0.1 %; Eosinophils # (auto) 0.07 K/uL (0-0.5); Eosinophils % (auto) 0.6 %; Hematocrit (blood only) 35.9 % (42-52); Hemoglobin 11.8 g/dL (14.0-18.0); Immature Granulocytes # (auto) 0.13 K/uL (0.00-0.02); Immature Granulocytes % (auto) 1.1 %; Lymphocytes # (auto) 1.71 K/uL (1.2-3.4); Lymphocytes % (auto) 15.1 %; Mean Corpuscular Hemoglobin 31.1 pg (25-34); Mean Corpuscular Hgb Conc 32.9 g/dL (32-36); Mean Corpuscular Volume 94.5 fL (80-100); Mean Platelet Volume 9.6 fL (7.4-10.4); Monocytes % (auto) 10.6 %; Neutrophils # (auto) 8.23 K/uL (1.4-6.5); Neutrophils % (auto) 72.5 %; Platelet Count 263 K/uL (130-400); RDW Coefficient of Variation 13.7 % (11.5-14.5); RDW Standard Deviation 47.3 fL (36.4-46.3); White Blood Count 11.35 K/uL (4.8-10.8)
--- NOTE | 2021-03-03 06:06 | Surgery Progress Note ---
Date of Service March 03, 2021 Assessment & Plan (1) Dilation of gastrointestinal tract: Patient's abdominal exam remains benign We will proceed as follows: As bowel function has improved and he is not any nausea vomiting may consider slowly advancing diet further Continue analgesics as needed Continue antiemetics as needed No need for surgical intervention at the present time Lovenox is in place for DVT prevention As above. No surgical indications. We will sign off for now. Please call us if there are any questions or concerns. Admission and Anticipated Discharge Date Admission Date: February 28, 2021 Subjective At the present time the patient denies any abdominal pain. He denies any nausea or vomiting. He notes his bowels moved over the past shift. I discussed with patient's nurse and she does note the patient has not had any emesis since NG tube is been removed. He notes he has had a large liquid bowel movement over the last shift. Physical Exam Gastrointestinal (Abdomen): Patient's abdomen is soft, nontender, nondistended. There is no pain with palpation. Bowel sounds are present. Results & Data ([facility]) Vital Signs (Past 12 Hours) Vital Signs Temp Pulse Resp BP BP Pulse Ox 03/03/21 00:53 79 15 98 03/02/21 23:17 37.3 C 69 16 161/80 H 97 03/02/21 20:20 94 H 16 138/80 96 03/02/21 19:53 86 15 95 PG Care Time/CCT Total # of Minutes Spent Total Time Spent with Patient: Total time spent is greater than 50% in multimedia services coordinator rdination of care (as documented) at patient's floor/unit and/or counseling patient: Coding Level of Care Code 51963 Subseq Hosp Care Lvl 2 Diagnoses Dilation of gastrointestinal tract
[2021-03-03 06:10] LABS: BUN Creatinine Ratio 27.6 (10-20); Calcium 7.9 mg/dl (8.5-10.1); Creatinine Clr Calc Pharmacy 170.1 ml/min; Est GFR (African American) 124.6 ml/min; Est GFR (Non-African American) 107.5 ml/min; Magnesium 2.2 mg/dl (1.8-2.4); Potassium 3.4 mmol/L (3.5-5.1)
[2021-03-03 06:33] LABS: Phosphorus 1.5 mg/dl (2.5-4.9)
[2021-03-03] MEDS ORDERED: POTASSIUM PHOS 3 MMOL/1 ML INFUSION IV STA (08:53)
[2021-03-03] MEDS ORDERED: POTASSIUM PHOSPHATE 21 MMOL in SODIUM CHLORIDE 0.9% 500 ML IV ONE (09:30)
[2021-03-03] MEDS: METOPROLOL TARTRATE 50 MG TAB NG SCH (09:55)
[2021-03-03] MEDS: CARBIDOPA/LEVODOPA 25-250 1 EA TAB PO SCH ×2 (09:55→20:41)
[2021-03-03] MEDS: UMECLIDINIUM BROMIDE 62.5MCG/BLISTER 7 PUFFS/INHALER INH SCH (09:56)
[2021-03-03] MEDS: bisacodyL 10 MG SUPP PR SCH (10:03)
[2021-03-03] MEDS: PANTOprazole 40 MG in SYRINGE 0 ML IV SCH (12:54)
[2021-03-03] MEDS: ENOXAPARIN INJ 40 MG/0.4 ML SYR SQ SCH (15:48)
[2021-03-03] MEDS: ERTAPENEM SODIUM 1,000 MG in SODIUM CHLORIDE 0.9% 50 ML IV SCH (15:48)
--- NOTE | 2021-03-03 16:33 | Hospitalist Progress Note ---
Date of Service March 03, 2021 Assessment & Plan (1) Dilated bowel: Presented with marked abdominal distension along with vomiting and liquid stool. CT abd/pelvis with distension of entire GI tract starting in stomach, involving most of small intestine, and also the colon. There is question of proctitis on CT as well. Likely has element of chronic ileus due to bedbound status/wheelchair dependency in the context of advanced PD. A colonic obstruction could be the main culprit in his presentation -this has been RULED OUT NG tube was placed for the above and he had no output in over 24 hrs from NG, it was then clamped and removed gastric occult neg Placed on IV PPI but convert to p.o. PPI today -had JESICA by GI and released 1L of liquid stool immediately on the day of admission Has tight anal sphincter KUB on 03/02 continues with dilated bowels with: Up to 7 cm and small bowel up to 4 cm--> May have chronic bowel distension radiographically Treat proctitis with IV zosyn but now convert to IV ertapenem as he is growing ESBL E. coli in his urine C. diff negative He is clinically much improved, abdomen is much softer and less distended, moving bowels daily usually with incontinence to loose stool Appreciate GI consult-plan for Dulcolax 10 mg [place] daily for rectal stimulation even if having loose stools He is tolerating full liquids diet today-advance to low fiber -DC IV fluids -follow CMP, CBC, Mag, Phos in the morning and replete electrolytes as needed (2) Hypophosphatemia: 2/2 poor po intake replace with IV phos again today follow level in AM (3) Hypokalemia: due to poor po intake and loose stools replace with IV K+ again today follow BMP in AM Magnesium is replete (4) Proctitis: Possible, as seen on CT. as above, treated with IV antibiotics (5) Hyponatremia: Patient was volume depleted. Now resolved after IV fluids (6) Aspiration of gastric contents: Patient likely had some element of aspiration on admission when he vomited at the [facility]F. Had rhonchi throughout and some cough which is now improving Remains afebrile Leukocytosis is also significantly improved Was on IV Zosyn and now converting IV ertapenem for UTI which should also suffice for aspiration pneumonia continue nebs for wheezing. He is not hypoxic (7) SIRS (systemic inflammatory response syndrome): with Sepsis, POA< source UTI and aspiration PNA 2nd to GI tract pathology as above. C. diff neg Continue IV antibiotics (8) Metabolic encephalopathy: Quite altered on admission, likely combination of infection, hyponatremia, GI tract issues, etc - all in setting of h/o NPH and PD. Now much improved (9) Acute kidney injury: 2nd to volume depletion/prerenal. Hydrated and now improved BMP daily. Can discontinue Marroquin (10) Chronic respiratory failure with hypoxia: on NC O2 at SNF. Not currently requiring oxygen likely 2nd COPD. 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 continue on xopenex/atrovent nebs q6h. (14) BPH (benign prostatic hyperplasia): -We will discontinue Marroquin catheter today which was placed for acute kidney injury and abdominal distention restart home finasteride (15) Cancer of kidney: HIGHLY SUSPECTED. 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 an MRI of the abdomen from 2016 indeed suggests a high likelihood of this diagnosis. he continues to have a right-sided renal mass, and it is larger than past imaging. very poor candidate for intervention but [id number] it should be followed up on as an outpatient (16) HTN (hypertension), benign: Blood pressures now improved Continue home metoprolol 100 mg p.o. twice daily (17) UTI (urinary tract infection): As above, difficult to tell if he had symptoms although he was sick upon admission Urine culture with ESBL E. coli that was resistant to previous Zosyn he was on -Start ertapenem 1 g IV daily x7 days with last dose on 03/09 We will have to see if this can be accomplished at [facility] He would need an ultrasound-guided peripheral IV prior to discharge (18) Onychomycosis: Consult podiatry to trim his toenails while here if possible on Thursday (19) DVT prophylaxis: SCDs, Lovenox Dispo-continued stay med/surg, is wheelchair bound and lives at [facility] permanently, return there if IV antibiotics can be arranged on Thursday full code per pt wishes Admission and Anticipated Discharge Date Admission Date: February 28, 2021 Subjective Patient had a large loose bowel movement today that was incontinent as per nursing. Patient was unaware that he had a large loose bowel movement. He denies any abdominal pain, no nausea or vomiting. He is excited to try regular food as he is tolerating full liquids. Has some mild cough, no shortness of breath or chest pain. His sister is requesting a podiatry consult to trim his toenails which have been curling around and down into his skin Review of Systems Review of Systems: All systems reviewed & are unremarkable except as noted in HPI & below Physical Exam Constitutional: WD/WN, vitals as above Eyes: + anicteric sclerae Neck: trachea midline, no thyromegaly Respiratory: normal respiratory effort Auscultation: + rhonchi (Still present bilaterally but much improved from previous); no crackles and no wheezes Cardiovascular: Rate/Rhythm: regular rate and regular rhythm Heart Sounds: no murmur Extremities: no edema Chest (Breasts): Chest: normal inspection of chest Gastrointestinal (Abdomen): normal bowel sounds, soft, nontender, no hepatosplenomegaly Musculoskeletal: Extremities: extremities normal to inspection; no cyanosis and no clubbing Skin: no rashes, warm and dry Bilateral toenails are thickened and yellow and curling over and down into skin Neurologic: moves all extremities and awake Psychiatric: Orientation: alert, oriented to person, oriented to place and cooperative Lymphatic: no lymphedema Results & Data Results & Data ([facility]) Vital Signs (Past 12 Hours) Vital Signs Temp Pulse Resp BP Pulse Ox 03/03/21 14:00 37.1 C 87 16 128/64 93 03/03/21 13:18 70 16 96 03/03/21 07:30 81 18 94 03/03/21 07:19 37.2 C 74 16 146/75 H 95 Laboratory Results 03/03/21 03/03/21 Range/Units 05:30 05:30 WBC 11.35 H (4.8-10.8) K/uL RBC 3.80 L (4.7-6.1) M/uL Hgb 11.8 L (14.0-18.0) g/dL Hct 35.9 L (42-52) % MCV 94.5 (80-100) fL MCH 31.1 (25-34) pg MCHC 32.9 (32-36) g/dL RDW Std Deviation 47.3 H (36.4-46.3) fL RDW Coeff of Marie 13.7 (11.5-14.5) % Plt Count 263 (130-400) K/uL MPV 9.6 (7.4-10.4) fL Immature Gran % (Auto) 1.1 % Neut % (Auto) 72.5 % Lymph % (Auto) 15.1 % Phillips % (Auto) 10.6 % Eos % (Auto) 0.6 % Baso % (Auto) 0.1 % Neut # (Auto) 8.23 H (1.4-6.5) K/uL Lymph # (Auto) 1.71 (1.2-3.4) K/uL Phillips # (Auto) 1.20 H (0.11-0.59) K/uL Eos # (Auto) 0.07 (0-0.5) K/uL Baso # (Auto) 0.01 (0-0.2) K/uL Immature Gran # (Auto) 0.13 H (0.00-0.02) K/uL Sodium 145 (136-145) mmol/L Potassium 3.4 L (3.5-5.1) mmol/L Chloride 109 H (98-107) mmol/L Carbon Dioxide 31 (21-32) mmol/L Anion Gap 5.0 (3-11) BUN 14 D (7-18) mg/dl Creatinine 0.50 L (0.6-1.4) mg/dl Est Cr Clr Drug Dosing 170.1 ml/min Est GFR ( Amer) 124.6 ml/min Est GFR (Non-Af Amer) 107.5 ml/min BUN/Creatinine Ratio 27.6 H (10-20) Glucose 106 H (70-99) mg/dl Calcium 7.9 L (8.5-10.1) mg/dl Phosphorus 1.5 L* (2.5-4.9) mg/dl Magnesium 2.2 (1.8-2.4) mg/dl PG Care Time/CCT Total # of Minutes Spent Total Time Spent with Patient: Total time spent is greater than 50% in coordination of care (as documented) at patient's floor/unit and/or counseling patient: Coding Level of Care Code 16423 Subseq Hosp Care Lvl 3 Diagnoses Dilated bowel Hypophosphatemia E83.39 Hypokalemia E87.6 Proctitis K62.89 Hyponatremia E87.1 Aspiration of gastric contents T17.910A SIRS (systemic inflammatory response syndrome) R65.10 Metabolic encephalopathy G93.41 Acute kidney injury N17.9 Chronic respiratory failure with hypoxia J96.11 NPH (normal pressure hydrocephalus) G91.2 Parkinson disease G20 COPD (chronic obstructive pulmonary disease) J44.9 BPH (benign prostatic hyperplasia) N40.0 Cancer of kidney C64.9 HTN (hypertension), benign I10 UTI (urinary tract infection) N39.0 Onychomycosis B35.1 DVT prophylaxis Z29.9
[2021-03-03] MEDS ORDERED: ACETAMINOPHEN 325 MG TAB PO PRN (16:36)
[2021-03-03] MEDS: CARBIDOPA/LEVODOP 10/100MG TAB PO SCH (18:02)
[2021-03-03] MEDS: METOPROLOL TARTRATE 100 MG TAB PO SCH (20:46)
[2021-03-03] MEDS: SIMETHICONE 80 MG CHEW PO SCH (20:46)
[2021-03-04] MEDS: LEVALBUTEROL HCL 1.25 MG/3 ML NEB NEB SCH ×4 (00:05→19:11)
[2021-03-04 05:54] LABS: Basophils # (auto) 0.02 K/uL (0-0.2); Basophils % (auto) 0.2 %; Eosinophils # (auto) 0.24 K/uL (0-0.5); Eosinophils % (auto) 2.3 %; Hematocrit (blood only) 34.9 % (42-52); Hemoglobin 11.6 g/dL (14.0-18.0); Immature Granulocytes # (auto) 0.21 K/uL (0.00-0.02); Lymphocytes % (auto) 17.1 %; Mean Corpuscular Hemoglobin 31.5 pg (25-34); Mean Corpuscular Hgb Conc 33.2 g/dL (32-36); Mean Corpuscular Volume 94.8 fL (80-100); Mean Platelet Volume 9.2 fL (7.4-10.4); Monocytes # (auto) 1.06 K/uL (0.11-0.59); Neutrophils # (auto) 7.22 K/uL (1.4-6.5); Neutrophils % (auto) 68.4 %; Platelet Count 272 K/uL (130-400); RDW Coefficient of Variation 13.3 % (11.5-14.5); RDW Standard Deviation 46.5 fL (36.4-46.3); Red Blood Count 3.68 M/uL (4.7-6.1); White Blood Count 10.55 K/uL (4.8-10.8)
[2021-03-04 06:27] LABS: BUN Creatinine Ratio 21.1 (10-20); Calcium 7.7 mg/dl (8.5-10.1); Est GFR (African American) 130.1 ml/min; Est GFR (Non-African American) 112.3 ml/min; Potassium 3.1 mmol/L (3.5-5.1)
[2021-03-04 06:28] LABS: Phosphorus 1.7 mg/dl (2.5-4.9)
[2021-03-04] MEDS: bisacodyL 10 MG SUPP PR SCH (07:45)
[2021-03-04] MEDS: SIMETHICONE 80 MG CHEW PO SCH ×2 (07:46→21:11)
[2021-03-04] MEDS: FINASTERIDE 5 MG TAB PO SCH (07:46)
[2021-03-04] MEDS: METOPROLOL TARTRATE 100 MG TAB PO SCH ×2 (07:47→21:11)
[2021-03-04] MEDS: CARBIDOPA/LEVODOPA 25-250 1 EA TAB PO SCH ×2 (07:47→21:14)
[2021-03-04] MEDS: PANTOprazole 40 MG TAB PO SCH (07:47)
[2021-03-04] MEDS: UMECLIDINIUM BROMIDE 62.5MCG/BLISTER 7 PUFFS/INHALER INH SCH (07:48)
[2021-03-04] MEDS ORDERED: POTASSIUM PHOS 3 MMOL/1 ML INFUSION IV STA (07:59)
[2021-03-04] MEDS ORDERED: POTASSIUM PHOSPHATE 30 MMOL in SODIUM CHLORIDE 0.9% 500 ML IV ONE (08:15)
[2021-03-04] MEDS: POTASSIUM CHLORIDE / WTR 10 MEQ/100 ML PLCT IV SCH ×4 (09:04→13:29)
--- NOTE | 2021-03-04 12:03 | Surgery Progress Note ---
Date of Service F/U dilate GI tract, pt is doing better, no abdominal pain, tolerated diet, no fever, March 04, 2021 Assessment & Plan (1) Dilation of gastrointestinal tract: pt is a 75 year-old male who presents to ER with vomiting, abdominal pain, now pt said he has no abdominal pain, diarrhea for last 2 days, no fever, IMP: dilated GI tract, un-know cause, I agree with admit to hospital conservative treatment first, NPO, NG tube, IV fluid and antibiotic, , repeat labs and KUB in morning, consult GI doctor, will F/U, pt and his sister agree with the plan, I answered all questions, 03/01/2021 12:43PM doing better, no surgical indication now, will F/U cardiac monitor surgeon cover this weekend, Thanks, 03/04/2021 12:02PM doing better, no surgical indication, sign off today, please call with questions, thanks, Admission and Anticipated Discharge Date Admission Date: February 28, 2021 Supervising Physician Co-Signing Physician Notes I saw and evaluated the patient this afternoon. Unfortunately due to his Parkinson's disease he is not able to give much historical information. His sister was at bedside with whom we had a long conversation about the long-term goals of care. Recommendations Dulcolax 5 to 10 mg daily Fleets enema once daily Please see Ms. Mejias's notes for further recommendations Subjective Patient had a large loose bowel movement today that was incontinent as per nursing. Patient was unaware that he had a large loose bowel movement. He denies any abdominal pain, no nausea or vomiting. He is excited to try regular food as he is tolerating full liquids. Has some mild cough, no shortness of breath or chest pain. His sister is requesting a podiatry consult to trim his toenails which have been curling around and down into his skin Physical Exam Constitutional: WD/WN, vitals as above well developed and well nourished Eyes: PERRL, conjunctivae normal, anicteric sclerae ENMT: external ear and nose normal, oropharynx normal Neck: trachea midline, no thyromegaly Respiratory: normal respiratory effort, lungs clear to auscultation Cardiovascular: RRR, no murmur, no edema Rate/Rhythm: regular rate Gastrointestinal (Abdomen): normal bowel sounds, soft, nontender, no hepatosplenomegaly Percussion/Palpation: abdomen soft Skin: no rashes, warm and dry Neurologic: awake Psychiatric: Orientation: alert and oriented x 3 Results & Data ([facility]) Vital Signs (Past 12 Hours) Vital Signs Temp Pulse Resp BP Pulse Ox 03/04/21 07:56 74 16 90 03/04/21 07:00 37.0 C 64 16 161/81 H 91
--- NOTE | 2021-03-04 12:52 | Podiatry Consultation ---
Date of Consultation March 04, 2021 Assessment & Plan (1) Onychomycosis: (2) Parkinson disease: History of Present Illness Attending Physician: Diallo Howard MD Patient seen at bedside today for care of his toenails - patient states he was feeling better since being in the hospital, admitted to mo that he has not had podiatry care for the past 4 years and has been unable to provide self care Allergies Allergy/AdvReac Type Severity Reaction Status Date / Time bee venom protein (honey bee) Allergy Unknown Unknown Verified 02/28/21 10:51 cefadroxil Allergy Unknown UNKNOWN Verified 02/28/21 10:51 cephalexin Allergy Unknown UNKNOWN Verified 02/28/21 10:51 escitalopram Allergy Unknown UNKNOWN Verified 02/28/21 10:51 omeprazole Allergy Unknown UNKNOWN Verified 02/28/21 10:51 pantoprazole Allergy Unknown UNKNOWN Verified 02/28/21 10:51 Home Medications Medication Instructions Recorded Confirmed Type carbidopa-levodopa 1 tab PO BID 07/15/18 02/28/21 History carbidopa-levodopa 1 tab PO DAILY@1800 07/15/18 02/28/21 History ferrous sulfate 325 mg PO DAILY 07/15/18 02/28/21 History finasteride 5 mg PO DAILY 07/15/18 02/28/21 History metoprolol tartrate 100 mg PO BID 07/15/18 02/28/21 History polyethylene glycol 3350 [Miralax] 17 g PO DAILY PRN 07/15/18 02/28/21 History tramadol 50 mg PO Q8 PRN 07/15/18 02/28/21 History acetaminophen 650 mg PO Q12 PRN 02/28/21 02/28/21 History cholecalciferol (vitamin D3) 50 mcg PO DAILY 02/28/21 02/28/21 History pantoprazole 20 mg PO DAILY 02/28/21 02/28/21 History simethicone 80 mg PO BID 02/28/21 02/28/21 History tiotropium bromide 2 puff INHALATION DAILY 02/28/21 02/28/21 History Patient History Medical History BPH (benign prostatic hyperplasia) Cancer of kidney right Chronic respiratory failure with hypoxia Congenital heart disease COPD (chronic obstructive pulmonary disease) Dilated bowel Fall GI bleed 2018, duodenal HTN (hypertension), benign Hypertension Neuropathy Normal pressure hydrocephalus NPH (normal pressure hydrocephalus) Onychomycosis Parkinson disease Rib contusion Surgical History History of ear surgery Family History Mother Pancreatic cancer Father Myocardial infarction Social History Smoking Status: Never smoker Tobacco Type: Cigarettes Age Started Using Tobacco: 22; Age Quit Using Tobacco: 32; packs per day: 1; Smoking End Date: ; Second Hand Exposure: No; Hx Alcohol Use: No Hx Substance Use: No Preferred Language: Khmer Communication Ability: Unable Debt Management Counselor Required: No Beliefs That Will Affect Care: None marital status: Single Current Living Situation: [facility] Current Living Situation Comment: [facility] current occupational status: retired current occupation: worked at a [email or web address] in [facility] doing [employer] work How many Children do You have: 0 Other Information That Helps Us Care for You: No other: 5 siblings Feels Safe at Home: Yes Safety Concerns: Feels Safe At This Time Assistive Devices: Glasses Physical Exam Skin: patient had allyven foam in place over bilateral heels - not removed during evaluation skin was clean and dry of the toes and dorsal foot, interspaces without maceration DP pulse palpable with good skin turgor noted to distal extremities and capillary refill time less than 3 seconds toenails of digits 1-5 bilateral feet elongated/thick, in need of debridement due to pain, lack of self care noted Results & Data ([facility]) Vital Signs (Past 12 Hours) Vital Signs Temp Pulse Resp BP Pulse Ox 03/04/21 07:56 74 16 90 03/04/21 07:00 37.0 C 64 16 161/81 H 91
[2021-03-04] MEDS: ERTAPENEM SODIUM 1,000 MG in SODIUM CHLORIDE 0.9% 50 ML IV SCH (15:46)
--- NOTE | 2021-03-04 16:11 | Hospitalist Progress Note ---
Date of Service March 04, 2021 Assessment & Plan (1) UTI (urinary tract infection): As above, difficult to tell if he had symptoms although he was sick upon admission. Urine culture with ESBL E. coli that was resistant to previous Zosyn he was on. - Started ertapenem 1 g IV daily x7 days with last dose on 03/09 (2) Dilated bowel: Presented with marked abdominal distension along with vomiting and liquid stool. CT abd/pelvis with distension of entire GI tract starting in stomach, involving most of small intestine, and also the colon. - Likely has element of chronic ileus due to bedbound status/wheelchair dependency in the context of advanced PD. - A colonic obstruction could be the main culprit in his presentation -this has been RULED OUT - Had JESICA by GI and released 1L of liquid stool immediately on the day of admission. - Treated proctitis with Zosyn but switched to ertapenem on 03/03 as he is growing ESBL E. coli in his urine. - Appreciate GI consult - plan for Dulcolax 10 mg IA daily for rectal stimulation even if having loose stools. (3) Proctitis: Possible, as seen on CT a/p on 02/28. - As above (4) Aspiration of gastric contents: Patient likely had some element of aspiration on admission when [facility] vomited at the [facility]. - Covered with Zosyn, and now ertapenem (5) Chronic respiratory failure with hypoxia: On [place] O2 at SNF. Not currently requiring oxygen. Likely 2nd COPD. (6) Parkinson disease: Appears advanced. - Continue Sinemet (7) Metabolic encephalopathy: Quite altered on admission, likely combination of infection, hyponatremia, GI tract issues, etc - all in setting of h/o NPH and PD. - Now much improved (8) NPH (normal pressure hydrocephalus): History of, but no COMMUNICATION MANAGER shunt to my knowledge. (9) COPD (chronic obstructive pulmonary disease): No shortness of breath today. - Continue on Xopenex/Atrovent nebs Q6h. (10) BPH (benign prostatic hyperplasia): Had Marroquin temporarily due to abdominal distension. Removed prior to 03/04. - Restarted home finasteride on 03/04 (11) Cancer of kidney: HIGHLY SUSPECTED. Records indicate a dx of suspected right-sided RCC in 2016. An MRI of the abdomen from 2016 indeed suggests a high likelihood of this diagnosis. He continues to have a right-sided renal mass, and it is larger than past imaging. Very poor candidate for intervention but [id number] it should be followed up on as an outpatient. - Outpatient urology consult (12) HTN (hypertension), benign: Blood pressure today is 160/80. - Continue home metoprolol 100 mg p.o. twice daily (13) Onychomycosis: Consult podiatry to trim his toenails while here if possible on Thursday. (14) DVT prophylaxis: SCDs, Lovenox Admission and Anticipated Discharge Date Admission Date: February 28, 2021 Subjective Feels well overall. Still with diarrhea, but otherwise reports no fevers/chills, chest pain, shortness of breath, abdominal pain, nausea, or vomiting. Physical Exam Constitutional: WD/WN, vitals as above Eyes: EOM intact bilaterally; no conjunctival abnormality ENMT: external ear and nose normal, oropharynx normal Neck: trachea midline, no thyromegaly normal visual inspection Respiratory: normal respiratory effort, lungs clear to auscultation no resp iratory distress Cardiovascular: RRR, no murmur, no edema Gastrointestinal (Abdomen): Inspection/Auscultation: abdomen normal to inspection; abdomen not distended Musculoskeletal: no cyanosis or clubbing, extremities motor strength 5/5 Skin: no rashes, warm and dry Neurologic: moves all extremities and awake Psychiatric: Orientation: alert, oriented to person and cooperative Results & Data Results & Data ([facility]) Vital Signs (Past 12 Hours) Vital Signs Temp Pulse Resp BP Pulse Ox 03/04/21 13:22 80 20 94 03/04/21 07:56 74 16 90 03/04/21 07:00 37.0 C 64 16 161/81 H 91 PG Care Time/CCT Total # of Minutes Spent Total Time Spent with Patient: Total time spent is greater than 50% in coordination of care (as documented) at patient's floor/unit and/or counseling patient: Coding Level of Care Code 18708 Subseq Hosp Care Lvl 3 Diagnoses UTI (urinary tract infection) N39.0 Dilated bowel Proctitis K62.89 Aspiration of gastric contents T17.910A Chronic respiratory failure with hypoxia J96.11 Parkinson disease G20 Metabolic encephalopathy G93.41 NPH (normal pressure hydrocephalus) G91.2 COPD (chronic obstructive pulmonary disease) J44.9 BPH (benign prostatic hyperplasia) N40.0 Cancer of kidney C64.9 HTN (hypertension), benign I10 Onychomycosis B35.1 DVT prophylaxis Z29.9
[2021-03-04] MEDS: CARBIDOPA/LEVODOP 10/100MG TAB PO SCH (18:31)
[2021-03-04] MEDS: ENOXAPARIN INJ 40 MG/0.4 ML SYR SQ SCH (18:31)
[2021-03-05] MEDS: LEVALBUTEROL HCL 1.25 MG/3 ML NEB NEB SCH ×3 (01:10→13:04)
[2021-03-05 06:22] LABS: Hematocrit (blood only) 38.5 % (42-52); Hemoglobin 12.9 g/dL (14.0-18.0); Mean Corpuscular Hemoglobin 31.2 pg (25-34); Mean Corpuscular Hgb Conc 33.5 g/dL (32-36); Mean Corpuscular Volume 93.2 fL (80-100); Mean Platelet Volume 9.3 fL (7.4-10.4); Platelet Count 297 K/uL (130-400); RDW Standard Deviation 44.5 fL (36.4-46.3); Red Blood Count 4.13 M/uL (4.7-6.1); White Blood Count 10.78 K/uL (4.8-10.8)
[2021-03-05 06:35] LABS: INR 1.1 (0.9-1.1)
[2021-03-05 06:48] LABS: Calcium 8.3 mg/dl (8.5-10.1); Creatinine Clr Calc Pharmacy 250.2 ml/min; Magnesium 1.8 mg/dl (1.8-2.4); Potassium 3.1 mmol/L (3.5-5.1)
[2021-03-05 07:03] LABS: Phosphorus 2.2 mg/dl (2.5-4.9)
[2021-03-05] MEDS ORDERED: POTASSIUM PHOS 3 MMOL/1 ML INFUSION IV STA (07:18)
[2021-03-05] MEDS ORDERED: POTASSIUM PHOSPHATE 30 MMOL in SODIUM CHLORIDE 0.9% 500 ML IV ONE (07:30)
[2021-03-05] MEDS: FINASTERIDE 5 MG TAB PO SCH (07:45)
[2021-03-05] MEDS: bisacodyL 10 MG SUPP PR SCH (07:46)
[2021-03-05] MEDS: METOPROLOL TARTRATE 100 MG TAB PO SCH ×2 (07:46→21:58)
[2021-03-05] MEDS: PANTOprazole 40 MG TAB PO SCH (07:46)
[2021-03-05] MEDS: CARBIDOPA/LEVODOPA 25-250 1 EA TAB PO SCH ×2 (07:47→21:58)
[2021-03-05] MEDS: SIMETHICONE 80 MG CHEW PO SCH ×2 (07:47→21:58)
[2021-03-05] MEDS: UMECLIDINIUM BROMIDE 62.5MCG/BLISTER 7 PUFFS/INHALER INH SCH (07:47)
[2021-03-05] MEDS: POTASSIUM CHLORIDE CRTAB 20 MEQ TABCR PO SCH ×2 (08:54→21:59)
--- NOTE | 2021-03-05 14:36 | Hospitalist Progress Note ---
Date of Service March 05, 2021 Assessment & Plan (1) UTI (urinary tract infection): As above, difficult to tell if he had symptoms although he was sick upon admission. Urine culture with ESBL E. coli that was resistant to previous Zosyn he was on. - Started ertapenem 1 g IV daily x7 days with last dose on 03/09. - Given concern for proctitis (which would necessitate a longer abx course), will get ID consult. (2) Dilated bowel: Presented with marked abdominal distension along with vomiting and liquid stool. CT abd/pelvis with distension of entire GI tract starting in stomach, involving most of small intestine, and also the colon. - Likely has element of chronic ileus due to bedbound status/wheelchair dependency in the context of advanced PD. - A colonic obstruction could be the main culprit in his presentation -this has been RULED OUT - Had JESICA by GI and released 1L of liquid stool immediately on the day of admission. - Treated proctitis with Zosyn but switched to ertapenem on 03/03 as he is growing ESBL E. coli in his urine. - Appreciate GI consult - plan for Dulcolax 10 mg ID daily for rectal stimulation even if having loose stools. (3) Proctitis: Possible, as seen on CT a/p on 02/28. - As above (4) Aspiration of gastric contents: Patient likely had some element of aspiration on admission when he vomited at the SNF. - Covered with Zosyn, and now ertapenem (5) Chronic respiratory failure with hypoxia: On [place] O2 at SNF. Not currently requiring oxygen. Likely 2nd COPD. (6) Parkinson disease: Appears advanced. - Continue Sinemet (7) Metabolic encephalopathy: Quite altered on admission, likely combination of infection, hyponatremia, GI tract issues, etc - all in setting of h/o NPH and PD. - Now much improved (8) NPH (normal pressure hydrocephalus): History of, but no MEAT INSPECTOR shunt to my knowledge. (9) COPD (chronic obstructive pulmonary disease): No shortness of breath today. - Continue on Xopenex/Atrovent nebs Q6h. (10) BPH (benign prostatic hyperplasia): Had Marroquin temporarily due to abdominal distension. Removed prior to 03/04. - Restarted home finasteride on 03/04. - Will monitor bladde scans (11) Cancer of kidney: HIGHLY SUSPECTED. Records indicate a dx of suspected right-sided RCC in 2016. An MRI of the abdomen from 2016 indeed suggests a high likelihood of this diagnosis. He continues to have a right-sided renal mass, and it is larger than past imaging. Very poor candidate for intervention but [id number] it should be followed up on as an outpatient. - Outpatient urology consult (12) HTN (hypertension), benign: Blood pressure today is 170/70. - Continue home metoprolol 100 mg p.o. twice daily (13) Onychomycosis: Consult podiatry to trim his toenails while here if possible on Thursday. (14) DVT prophylaxis: SCDs, Lovenox Admission and Anticipated Discharge Date Admission Date: February 28, 2021 Subjective Doing well today. No major concerns. Reports no fevers/chills, chest pain, shortness of breath, abdominal pain, nausea, or vomiting. Physical Exam Constitutional: WD/WN, vitals as above Eyes: EOM intact bilaterally; no conjunctival abnormality ENMT: external ear and nose normal, oropharynx normal Neck: trachea midline, no thyromegaly normal visual inspection Respiratory: normal respiratory effort, lungs clear to auscultation no respiratory distress Cardiovascular: RRR, no murmur, no edema Gastrointestinal (Abdomen): Inspection/Auscultation: abdomen normal to inspection; abdomen not distended Musculoskeletal: no cyanosis or clubbing, extremities motor strength 5/5 Skin: no rashes, warm and dry Neurologic: moves all extremities and awake Psychiatric: Orientation: alert, oriented to person and cooperative Results & Data Results & Data ([facility]) Vital Signs (Past 12 Hours) Vital Signs Temp Pulse Resp BP Pulse Ox 03/05/21 13:04 76 18 91 03/05/21 06:54 81 18 90 03/05/21 06:05 36.7 C 72 16 168/70 H 92 PG Care Time/CCT Total # of Minutes Spent Total Time Spent with Patient: Total time spent is greater than 50% in coordination of care (as documented) at patient's floor/unit and/or counseling patient: Coding Level of Care Code 35271 Subseq Hosp Care Lvl 2 Diagnoses UTI (urinary tract infection) N39.0 Dilated bowel Proctitis K62.89 Aspiration of gastric contents T17.910A Chronic respiratory failure with hypoxia J96.11 Parkinson disease G20 Metabolic encephalopathy G93.41 NPH (normal pressure hydrocephalus) G91.2 COPD (chronic obstructive pulmonary disease) J44.9 BPH (benign prostatic hyperplasia) N40.0 Cancer of kidney C64.9 HTN (hypertension), benign I10 Onychomycosis B35.1 DVT prophylaxis Z29.9
[2021-03-05] MEDS: ERTAPENEM SODIUM 1,000 MG in SODIUM CHLORIDE 0.9% 50 ML IV SCH (15:54)
[2021-03-05] MEDS ORDERED: LEVALBUTEROL HCL 1.25 MG/3 ML NEB NEB PRN (17:12)
[2021-03-05] MEDS: ENOXAPARIN INJ 40 MG/0.4 ML SYR SQ SCH (17:35)
[2021-03-05] MEDS: CARBIDOPA/LEVODOP 10/100MG TAB PO SCH (17:35)
[2021-03-06 05:47] LABS: Hematocrit (blood only) 40.5 % (42-52); Hemoglobin 13.7 g/dL (14.0-18.0); Mean Corpuscular Hemoglobin 31.7 pg (25-34); Mean Corpuscular Hgb Conc 33.8 g/dL (32-36); Mean Corpuscular Volume 93.8 fL (80-100); Mean Platelet Volume 9.1 fL (7.4-10.4); Platelet Count 319 K/uL (130-400); RDW Coefficient of Variation 12.9 % (11.5-14.5); RDW Standard Deviation 44.6 fL (36.4-46.3); Red Blood Count 4.32 M/uL (4.7-6.1); White Blood Count 13.33 K/uL (4.8-10.8)
[2021-03-06 06:33] LABS: BUN Creatinine Ratio 20.6 (10-20); Calcium 8.3 mg/dl (8.5-10.1); Creatinine Clr Calc Pharmacy 157.5 ml/min; Est GFR (African American) 120.7 ml/min; Est GFR (Non-African American) 104.2 ml/min; Magnesium 1.7 mg/dl (1.8-2.4); Phosphorus 2.8 mg/dl (2.5-4.9)
[2021-03-06] MEDS: PANTOprazole 40 MG TAB PO SCH (07:33)
[2021-03-06] MEDS: SIMETHICONE 80 MG CHEW PO SCH ×2 (07:34→21:06)
[2021-03-06] MEDS: FINASTERIDE 5 MG TAB PO SCH (07:34)
[2021-03-06] MEDS: UMECLIDINIUM BROMIDE 62.5MCG/BLISTER 7 PUFFS/INHALER INH SCH (07:34)
[2021-03-06] MEDS: CARBIDOPA/LEVODOPA 25-250 1 EA TAB PO SCH ×2 (07:34→21:06)
[2021-03-06] MEDS: METOPROLOL TARTRATE 100 MG TAB PO SCH ×2 (07:34→21:06)
[2021-03-06] MEDS: MAGNESIUM SULFATE / D5W 1 GM/100 ML BAG IV SCH ×3 (08:32→12:52)
[2021-03-06] MEDS: bisacodyL 10 MG SUPP PR SCH (08:37)
--- NOTE | 2021-03-06 15:37 | Hospitalist Progress Note ---
Date of Service March 06, 2021 Assessment & Plan (1) UTI (urinary tract infection): As above, difficult to tell if he had symptoms although he was sick upon admission. Urine culture with ESBL E. coli that was resistant to previous Zosyn he was on. - Started ertapenem 1 g IV daily x7 days with last dose on 03/10. - Given concern for proctitis, got ID consult who felt prostatitis was not likely bacterial in nature. (2) Dilated bowel: Presented with marked abdominal distension along with vomiting and liquid stool. CT abd/pelvis with distension of entire GI tract starting in stomach, involving most of small intestine, and also the colon. - Likely has element of chronic ileus due to bedbound status/wheelchair dependency in the context of advanced PD. - A colonic obstruction could be the main culprit in his presentation -this has been RULED OUT - Had JESICA by GI and released 1L of liquid stool immediately on the day of admission. - Treated proctitis with Zosyn but switched to ertapenem on 03/03 as he is growing ESBL E. coli in his urine. - Appreciate GI consult - plan for Dulcolax 10 mg OK daily for rectal stimulation even if having loose stools. (3) Proctitis: Possible, as seen on CT a/p on 02/28. - As above (4) Aspiration of gastric contents: Patient likely had some element of aspiration on admission when he vomited at the SNF. - Covered with Zosyn, and now ertapenem - COMIC BOOK DESIGNER consulted -> Video swallow for 03/07. (5) Chronic respiratory failure with hypoxia: [place] O2 at SNF. Not currently requiring oxygen. Likely 2nd COPD. (6) Parkinson disease: Appears advanced. - Continue Sinemet (7) Metabolic encephalopathy: Quite altered on admission, likely combination of infection, hyponatremia, GI tract issues, etc - all in setting of h/o NPH and PD. - Now much improved (8) NPH (normal pressure hydrocephalus): History of, but no MANAGER SPRING shunt to my knowledge. (9) COPD (chronic obstructive pulmonary disease): No shortness of breath today. - Continue on Xopenex/Atrovent nebs Q6h. (10) BPH (benign prostatic hyperplasia): Had Marroquin temporarily due to abdominal distension. Removed prior to 03/04. - Restarted home finasteride on 03/04. - Will monitor bladde scans (11) Cancer of kidney: HIGHLY SUSPECTED. Records indicate a dx of suspected right-sided RCC in 2016. An MRI of the abdomen from 2016 indeed suggests a high likelihood of this diagnosis. He continues to have a right-sided renal mass, and it is larger than past imaging. Very poor candidate for intervention but [id number] it should be followed up on as an outpatient. - Outpatient urology consult (12) HTN (hypertension), benign: Blood pressure today is 165/95. - Continue home metoprolol 100 mg p.o. twice daily (13) Onychomycosis: Consult podiatry to trim his toenails while here if possible on Thursday. (14) DVT prophylaxis: SCDs, Lovenox Admission and Anticipated Discharge Date Admission Date: February 28, 2021 Subjective Doing well today. No major concerns. Still some slight, wet cough. Reports no fevers/chills, chest pain, shortness of breath, abdominal pain, nausea, or vomiting. Physical Exam Constitutional: WD/WN, vitals as above Eyes: EOM intact bilaterally; no conjunctival abnormality ENMT: external ear and nose normal, oropharynx normal Neck: trachea midline, no thyromegaly normal visual inspection Respiratory: normal respiratory effort, lungs clear to auscultation no respiratory distress Cardiovascular: RRR, no murmur, no edema Gastrointestinal (Abdomen): Inspection/Auscultation: abdomen normal to inspection; abdomen not distended Musculoskeletal: no cyanosis or clubbing, extremities motor strength 5/5 Skin: no rashes, warm and dry Neurologic: moves all extremities and awake Psychiatric: Orientation: alert, oriented to person and cooperative Results & Data Results & Data ([facility]) Vital Signs (Past 12 Hours) Vital Signs Temp Pulse Resp BP Pulse Ox 03/06/21 07:29 76 164/90 H 03/06/21 06:37 36.8 C 77 16 171/94 H 94 PG Care Time/CCT Total # of Minutes Spent Total Time Spent with Patient: Total time spent is greater than 50% in coordination of care (as documented) at patient's floor/unit and/or counseling patient: Coding Level of Care Code 01713 Subseq Hosp Care Lvl 2 Diagnoses UTI (urinary tract infection) N39.0 Dilated bowel Proctitis K62.89 Aspiration of gastric contents T17.910A Chronic respiratory failure with hypoxia J96.11 Parkinson disease G20 Metabolic encephalopathy G93.41 NPH (normal pressure hydrocephalus) G91.2 COPD (chronic obstructive pulmonary disease) J44.9 BPH (benign prostatic hyperplasia) N40.0 Cancer of kidney C64.9 HTN (hypertension), benign I10 Onychomycosis B35.1 DVT prophylaxis Z29.9
[2021-03-06] MEDS: ERTAPENEM SODIUM 1,000 MG in SODIUM CHLORIDE 0.9% 50 ML IV SCH (16:04)
[2021-03-06] MEDS: ENOXAPARIN INJ 40 MG/0.4 ML SYR SQ SCH (16:07)
[2021-03-06] MEDS: CARBIDOPA/LEVODOP 10/100MG TAB PO SCH (18:02)
[2021-03-07 06:25] LABS: Hematocrit (blood only) 40.1 % (42-52); Hemoglobin 13.6 g/dL (14.0-18.0); Mean Corpuscular Hemoglobin 32.2 pg (25-34); Mean Corpuscular Hgb Conc 33.9 g/dL (32-36); Mean Platelet Volume 9.7 fL (7.4-10.4); Platelet Count 334 K/uL (130-400); RDW Coefficient of Variation 13.1 % (11.5-14.5); RDW Standard Deviation 45.1 fL (36.4-46.3); Red Blood Count 4.22 M/uL (4.7-6.1); White Blood Count 14.19 K/uL (4.8-10.8)
[2021-03-07 06:55] LABS: BUN Creatinine Ratio 32.6 (10-20); Calcium 8.4 mg/dl (8.5-10.1); Creatinine Clr Calc Pharmacy 157.5 ml/min; Est GFR (African American) 120.7 ml/min; Est GFR (Non-African American) 104.2 ml/min; Magnesium 2.1 mg/dl (1.8-2.4); Potassium 4.2 mmol/L (3.5-5.1)
[2021-03-07 06:56] LABS: Phosphorus 2.8 mg/dl (2.5-4.9)
[2021-03-07] MEDS: bisacodyL 10 MG SUPP PR SCH (08:37)
[2021-03-07] MEDS: UMECLIDINIUM BROMIDE 62.5MCG/BLISTER 7 PUFFS/INHALER INH SCH (09:09)
[2021-03-07] MEDS: FINASTERIDE 5 MG TAB PO SCH (09:10)
[2021-03-07] MEDS: CARBIDOPA/LEVODOPA 25-250 1 EA TAB PO SCH (09:10)
[2021-03-07] MEDS: SIMETHICONE 80 MG CHEW PO SCH (09:10)
[2021-03-07] MEDS: METOPROLOL TARTRATE 100 MG TAB PO SCH (09:10)
[2021-03-07] MEDS: PANTOprazole 40 MG TAB PO SCH (09:10)
--- NOTE | 2021-03-07 11:40 | Fluoroscopy Report ---
FL video swallow HISTORY: r/o aspiration TECHNIQUE: Video fluoroscopic evaluation of swallowing was performed in the AP and lateral projection s by the speech pathology staff. The patient is fed nectar-thick and thin liquid barium, a barium coa sylvester wafer, and barium pudding. FLUOROSCOPY TIME: 2.2 minutes. NUMBER OF FLUOROSCOPY IMAGES: [id number] COMPARISON STUDY: None. FINDINGS: There is normal hyoid excursion and epiglottic deflection. No significant penetration or as piration identified. Swallowing function is within normal limits. IMPRESSION: 1. No aspiration identified. 2. Please see the speech pathologist report for detailed findings and recommendations. ACT 112: Negative or not required by law. The above report was generated using voice recognition software. It may contain grammatical, syntax o r spelling errors. Electronically signed by: Camryn Rowley DO 03/07/2021 11:39 AM
--- NOTE | 2021-03-07 17:31 | Discharge Summary ---
Date of Service March 07, 2021 Admission HPI Per Admitting Provider 75yo male with h/o parkinson's disease, NPH, COPD with resulting chronic hypoxic respiratory failure on [place] O2, and wheelchair dependency presents from [facility] this am due to abdominal distension, vomiting with dark material, and large diarrhea bowel movement this am. Patient was confused during my bedside visit and could not offer much in the way of historical information. He did say he hasn't been eating much of late, and also mentioned he had had diarrhea earlier in the week. He wasn't able to elaborate any further on such, however. He denied any abdominal pain. Denied chest pain. c/o mild dyspnea and cough. Reports he has been at [facility] for about 1 year. Principal Diagnosis Urinary tract infection Bowel retention due to high anal sphincter tone Discharge Exam Constitutional WD/WN, vitals as above Eyes EOM intact bilaterally; no conjunctival abnormality ENMT external ear and nose normal, oropharynx normal Neck trachea midline, no thyromegaly normal visual inspection Respiratory normal respiratory effort, lungs clear to auscultation no respiratory distress Cardiovascular RRR, no murmur, no edema Gastrointestinal (Abdomen) Inspection/Auscultation: abdomen normal to inspection; abdomen not distended Musculoskeletal no cyanosis or clubbing, extremities motor strength 5/5 Skin no rashes, warm and dry Neurologic moves all extremities and awake Psychiatric Orientation: alert, oriented to person and cooperative Discharge Data Allergies Allergy/AdvReac Type Severity Reaction Status Date / Time bee venom protein (honey bee) Allergy Unknown Unknown Verified 02/28/21 10:51 cefadroxil Allergy Unknown UNKNOWN Verified 02/28/21 10:51 cephalexin Allergy Unknown UNKNOWN Verified 02/28/21 10:51 escitalopram Allergy Unknown UNKNOWN Verified 02/28/21 10:51 omeprazole Allergy Unknown UNKNOWN Verified 02/28/21 10:51 pantoprazole Allergy Unknown UNKNOWN Verified 02/28/21 10:51 Consultations 02/28/21 16:02 Consult Gastroenterology Routine Consult General Surgery Routine 03/03/21 16:39 Consult Podiatry Routine 03/05/21 17:18 Consult Infectious Diseases Routine Ordered Studies 02/28/21 09:36 CT abd pelvis IV con only Stat 03/07/21 10:45 FL video swallow Routine Hospital Course (1) UTI (urinary tract infection): As above, difficult to tell if he had symptoms although he was sick upon admission. Urine culture with ESBL E. coli that was resistant to previous Zosyn he was on. - Started ertapenem 1 g IV daily x7 days with last dose on 03/10. - Given concern for proctitis, got ID consult who felt prostatitis was not likely bacterial in nature. - Finish course of antibiotics with Bactrim DS 1 tab PO BID until 03/10 (2) Dilated bowel: Presented with marked abdominal distension along with vomiting and liquid stool. CT abd/pelvis with distension of entire GI tract starting in stomach, involving most of small intestine, and also the colon. - Likely has element of chronic ileus due to bedbound status/wheelchair dependency in the context of advanced PD. - A colonic obstruction could be the main culprit in his presentation -this has been RULED OUT - Had JESICA by GI and released 1L of liquid stool immediately on the day of admission. - Treated proctitis with Zosyn but switched to ertapenem on 03/03 as he is growing ESBL E. coli in his urine. - Appreciate GI consult - plan for Dulcolax 10 mg HI daily for rectal stimulation even if having loose stools. (3) Proctitis: Possible, as seen on CT a/p on 02/28. - As above (4) Aspiration of gastric contents: Patient likely had some element of aspiration on admission when he vomited at the [facility]. - Covered with Zosyn, and now ertapenem - ECLECTIC DOCTOR consulted -> Video swallow for 03/07. (5) Chronic respiratory failure with hypoxia: On [place] O2 at SNF. Not currently requiring oxygen. Likely 2nd COPD. (6) Parkinson disease: Appears advanced. - Continue Sinemet (7) Metabolic encephalopathy: Quite altered on admission, likely combination of infection, hyponatremia, GI tract issues, etc - all in setting of h/o NPH and PD. - Now much improved (8) NPH (normal pressure hydrocephalus): History of, but no [employer] shunt to my knowledge. (9) COPD (chronic obstructive pulmonary disease): No shortness of breath today. - Continue on Xopenex/Atrovent nebs Q6h. (10) BPH (benign prostatic hyperplasia): Had Marroquin temporarily due to abdominal distension. Removed prior to 03/04. - Restarted home finasteride on 03/04. - Will monitor bladde scans (11) Cancer of kidney: HIGHLY SUSPECTED. Records indicate a dx of suspected right-sided RCC in 2016. An MRI of the abdomen from 2016 indeed suggests a high likelihood of this diagnosis. He continues to have a right-sided renal mass, and it is larger than past imaging. Very poor candidate for intervention but [id number] it should be followed up on as an outpatient. - Outpatient urology consult (12) HTN (hypertension), benign: Blood pressure today is 165/95. - Continue home metoprolol 100 mg p.o. twice daily (13) Onychomycosis: Consult podiatry to trim his toenails while here if possible on Thursday. (14) DVT prophylaxis: SCDs, Lovenox Total Time Total Time Spent Total Time Spent (In Minutes): 35 Discharge Plan Discharge Items Patient Disposition: Transfer Care Home Fac Reason For Visit: ABDOMINAL DISTENSION, POSSILE PROCTITIS, SIRS Discharge Diagnosis: Abdominal distention likely due to tight anal sphincter Urinary tract infection Activity: Resume your previous activity Non-emergency contact: Primary Care Provider and Neurologist Call non-emergency contact if: your symptoms worsen and your temperature is above 101 Follow-up/Referrals: [facility] [Primary Care Provider] - Diet: Regular Addtl Attending Provider Instructions: Mr. Jauregui was admitted with UTI and sepsis. His urine grew an ESBL E. coli. He was treated with ertapenem and will need to continue antibiotics until 03/10/2021. He can be switched to Bactrim DS 1 tab PO BID to finish his course of antibiotics. He also had abdominal distention. He has a tight anal sphincter (like from his neurologic issues), so he did have a large BM at the time of his digital rectal exam. The GI doctors recommended a bisacodyl suppository daily (even if he is having looser stools) to stimulate the anal sphincter and facilitate having a BM. Pending Studies at Discharge: No Stand-Alone Forms: My [facility] Skilled Items Patient informed of condition?: Yes DNR: No Discharge Level of Care: Skilled Communicable Disease: Yes Discharge Prognosis: Improving Lines: None Urinary Catheter: No Medications and DC Order Prescriptions: New bisacodyl 10 mg Suppository 10 mg HI DAILY Qty: 0 RF: 0 sulfamethoxazole-trimethoprim [Bactrim DS] 800-160 mg tablet 1 tab PO BID 4 Days Qty: 8 RF: 0 Continued polyethylene glycol 3350 [Miralax] 17 gram/dose Powder 17 g PO DAILY PRN (Reason: Constipation) RF: 0 finasteride 5 mg Tablet 5 mg PO DAILY RF: 0 ferrous sulfate 325 mg (65 mg iron) Tablet 325 mg PO DAILY RF: 0 carbidopa-levodopa 10-100 mg Tablet 1 tab PO DAILY@1800 RF: 0 tramadol 50 mg Tablet 50 mg PO Q8 PRN (Reason: Pain) RF: 0 carbidopa-levodopa 25-250 mg Tablet 1 tab PO BID RF: 0 metoprolol tartrate 50 mg Tablet 100 mg PO BID RF: 0 acetaminophen 325 mg Tablet 650 mg PO Q12 PRN (Reason: Pain) RF: 0 pantoprazole 20 mg Tablet,Delayed Release (Dr/Ec) 20 mg PO DAILY RF: 0 simethicone 80 mg Tablet,Chewable 80 mg PO BID RF: 0 cholecalciferol (vitamin D3) 50 mcg (2,000 unit) Tablet 50 mcg PO DAILY RF: 0 tiotropium bromide 2.5 mcg/actuation Mist 2 puff INHALATION DAILY RF: 0 Discharge Orders: Discharge Order (Routine); Ordered 03/07/21 Ordered By: Diallo Howard Admission Data Admit Date/Time: 02/28/21 13:40 Attending Provider: Diallo Howard Admit Provider: Wing Louise Primary Care Provider: [facility] Other Providers: Yaw Dash ; Tasia Vernon ; Mounika Lou ; Maycol Saini ; Rianna Rivera ; Ramiro Funes I. ; Robin Pate II ; Katia Muir ; Josh Clarke Other Interventions: Discharge Summary Assessment (RN) Last Done: 03/07/21 12:49 Coding Level of Care Code D/C Day Management >30 mins Diagnoses UTI (urinary tract infection) N39.0 Dilated bowel Proctitis K62.89 Aspiration of gastric contents T17.910A Chronic respiratory failure with hypoxia J96.11 Parkinson disease G20 Metabolic encephalopathy G93.41 NPH (normal pressure hydrocephalus) G91.2 COPD (chronic obstructive pulmonary disease) J44.9 BPH (benign prostatic hyperplasia) N40.0 Cancer of kidney C64.9 HTN (hypertension), benign I10 Onychomycosis B35.1 DVT prophylaxis Z29.9
== END 2021-03-07 14:15 | DRG 871 ==
LOC: ED 09:27 → 2E 13:40 → SUATTDRO 13:40 → 2E 15:42 → 3E 03-01 18:39

== ENCOUNTER 2021-07-15 02:38 | Inpatient (IN) ==
[2021-07-15 03:34] LABS: Basophils # (auto) 0.02 K/uL (0-0.2); Basophils % (auto) 0.1 %; Eosinophils # (auto) 0.02 K/uL (0-0.5); Eosinophils % (auto) 0.1 %; Hematocrit (blood only) 49.3 % (42-52); Hemoglobin 16.3 g/dL (14.0-18.0); Immature Granulocytes # (auto) 0.06 K/uL (0.00-0.02); Immature Granulocytes % (auto) 0.4 %; Lymphocytes # (auto) 1.59 K/uL (1.2-3.4); Lymphocytes % (auto) 11.2 %; Mean Corpuscular Hemoglobin 30.9 pg (25-34); Mean Corpuscular Hgb Conc 33.1 g/dL (32-36); Mean Corpuscular Volume 93.5 fL (80-100); Mean Platelet Volume 9.4 fL (7.4-10.4); Monocytes # (auto) 0.88 K/uL (0.11-0.59); Monocytes % (auto) 6.2 %; Neutrophils # (auto) 11.58 K/uL (1.4-6.5); Platelet Count 393 K/uL (130-400); RDW Coefficient of Variation 12.6 % (11.5-14.5); Red Blood Count 5.27 M/uL (4.7-6.1); White Blood Count 14.15 K/uL (4.8-10.8)
[2021-07-15 03:46] LABS: Albumin Level 3.7 gm/dl (3.4-5.0); BUN Creatinine Ratio 16.2 (10-20); Calcium 9.3 mg/dl (8.5-10.1); Creatinine Clr Calc Pharmacy 97.8 ml/min; Est GFR (African American) 99.2 ml/min; Est GFR (Non-African American) 85.6 ml/min; Potassium 4.5 mmol/L (3.5-5.1)
[2021-07-15 03:49] LABS: Albumin Globulin Ratio 0.7 (0.9-2); Bilirubin,Total 0.4 mg/dl (0.2-1); Total Protein 8.7 gm/dl (6.4-8.2)
[2021-07-15 04:42] LABS: Appearance Urine Clear (Clear); Bacteria Urine Automated 1+ (Negative); Bilirubin Urine Negative (Negative); Blood Urine 3+ (Negative); Color Urine Dark Yellow; Epithelial Cell Urine Auto 0-5 /lpf (0-5); Glucose Urine UA Negative (Negative); Ketones Urine Trace (Negative); Leukocyte Esterase Urine 2+ (Negative); Nitrite Urine Positive (Negative); Protein Urine 1+ (Negative); Specific Gravity Urine 1.034 (1.000-1.030); Urobilinogen Urine Negative (Negative); pH Urine 5.5 (4.5-7.5)
--- NOTE | 2021-07-15 04:42 | Emergency Department Note ---
Impression & Plan Acute UTI, Fecal retention, Acute proctitis, Ileus Admit to the [facility] ED Provider Note NAME: AHMET OWENS AGE: 75 SEX: M ARRIVES VIA: Ambulance INFORMANT: [Patient] ED PROVIDER(S): Nitza Polk DO CHIEF COMPLAINT: Cough/shortness of breath and abdominal pain PLAN: Disposition: Admit to the [facility] Condition: Stable MEDICAL DECISION MAKING: This is a 75-year-old male patient from [facility] who presents to the emergency department with cough/shortness of breath and abdominal pain. Work-up work-up reveals patient has a recurrent urinary tract infection along with significant fecal retention, ileus and acute proctitis. Patient was treated with IV antibiotics and fluids. The patient has known significant resistant bacteria in the urine. I discussed the case with the [facility] and they will evaluate for further management. Triage Nursing notes reviewed and agree with them. [Prior medical records reviewed] Vital Signs: reviewed and remarkable for tachycardia Differential diagnosis: COPD exacerbation GI bleeding Pneumonia Bronchitis ER treatment provided: IV ertapenem Diagnostics interpreted by me: ECG: Sinus tachycardia at 108 with PACs. There are no ST segment elevations or signs of ischemia. Cardiac Monitoring: Sinus tachycardia at 110 Laboratory studies: [See below] [] Imaging studies: As per my interpretation Obstruction series: Significantly dilated loops of large and small bowel CT chest and abdomen: See radiology report HPI: 75/M arrives for evaluation of epigastric pain and shortness of francis th/cough. The patient presents to the emergency department from [facility] after developing shortness of breath/cough on Thursday and diffuse abdominal pain yesterday. The patient then had episodes of vomiting this evening. There was some blood noted within the vomitus and blood in his stool. ROS: See above HPI for pertinent positives & negatives. A total of [10] systems reviewed and were otherwise negative. PAST MEDICAL HISTORY:[See Below] PAST SURGICAL HISTORY:[See Below] FAMILY HISTORY:[See Below] SOCIAL HISTORY:[See Below] HOME MEDICATIONS:See list ALLERGIES:See list VITALS:[See Below] PHYSICAL EXAMINATION: HEENT: Head - normocephalic and atraumatic Pupils are equal, round, and reactive to light. Extraocular eye muscles are intact, and sclera are anicteric. Nose - moist nasal mucosa without discharge. Mouth - moist buccal mucosa. Oropharynx is nonerythematous and there is no tonsillar exudate or edema noted. Neck: Supple; no no cervical lymphadenopathy or JVD Heart: Tachycardic rate and regular rhythm. There is a normal S1 and S2 with no murmurs, clicks, or gallops appreciated. Lungs: Diminished breath sounds in all lung gustafson. Abdomen: Soft, extremely distended and tympanic to percussion. There is no gua rding, rigidity, or rebound noted. Extremities: No evidence of cyanosis, clubbing, or edema. There are easily palpable peripheral pulses. Skin: Warm and dry with trace edema in both lower extremities. ED COURSE: Times/Reassessments: 0250: The patient was evaluated in room A 9. A complete history and physical was performed. Laboratory studies were drawn as above. An order was placed for continuous cardiac monitoring. The patient is in a sinus tachycardia at 110. A twelve-lead EKG was obtained as described above. Urine specimen was obtained. The patient had a CT scan of the abdomen/pelvis. Patient was treated with IV ertapenem after reviewing multiple previous urine cultures. I discussed the case with the [facility] hospitalist and they will evaluate for further management. Nitza Polk DO Past Med/Surg History Medical History (Updated 07/15/21 @ 07:36 by Randell Jones MD) BPH (benign prostatic hyperplasia) Cancer of kidney right Chronic respiratory failure with hypoxia Congenital heart disease COPD (chronic obstructive pulmonary disease) Dilated bowel Fall GI bleed 2018, duodenal HTN (hypertension), benign Hypertension Neuropathy Normal pressure hydrocephalus NPH (normal pressure hydrocephalus) Onychomycosis nails debrided with nail nippers to tolerance without bleeding noted and pain relief noted Parkinson disease Rib contusion Surgical History History of ear surgery Family History Mother Pancreatic cancer Father Myocardial infarction Social History Smoking Status: Former smoker Tobacco Type: Cigarettes Age Started Using Tobacco: 22; Age Quit Using Tobacco: 32; packs per day: 1; Second Hand Exposure: No; Hx Alcohol Use: No Hx Substance Use: No Preferred Language: Nepali Communication Ability: Effective 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[employer]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: No Beliefs That Will Affect Care: None marital status: Single Current Living Situation: Jail Current Living Situation Comment: [facility] [place] [facility] current occupational status: retired 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 How many Children do You have: 0 Other Information That Helps Us Care for You: No other: 5 siblings Feels Safe at Home: Yes Safety Concerns: Feels Safe At This Time Assistive Devices: Glasses Allergies Allergies Allergy/AdvReac Type Severity Reaction Status Date / Time bee venom protein (honey bee) Allergy Unknown Unknown Verified 07/15/21 07:55 cefadroxil Allergy Unknown UNKNOWN Verified 07/15/21 07:55 cephalexin Allergy Unknown UNKNOWN Verified 07/15/21 07:55 escitalopram Allergy Unknown UNKNOWN Verified 07/15/21 07:55 omeprazole Allergy Unknown UNKNOWN Verified 07/15/21 07:55 pantoprazole Allergy Unknown UNKNOWN Verified 07/15/21 07:55 Home Meds Home Medications Medication Instructions Recorded Confirmed carbidopa 10 mg-levodopa 100 mg 1 tab PO DAILY@1800 07/15/18 07/15/21 tablet carbidopa 25 mg-levodopa 250 mg 1 tab PO BID 07/15/18 07/15/21 tablet finasteride 5 mg tablet 5 mg PO DAILY 07/15/18 07/15/21 metoprolol tartrate 50 mg tablet 100 mg PO BID 07/15/18 07/15/21 tramadol 50 mg tablet 50 mg PO Q8 PRN 07/15/18 07/15/21 acetaminophen 325 mg tablet 650 mg PO Q12 PRN 02/28/21 07/15/21 cholecalciferol (vitamin D3) 50 50 mcg PO DAILY 02/28/21 07/15/21 mcg (2,000 unit) tablet pantoprazole 20 mg tablet,delayed 20 mg PO DAILY 02/28/21 07/15/21 release simethicone 80 mg chewable tablet 80 mg PO BID 02/28/21 07/15/21 tiotropium bromide 2.5 2 puff INHALATION DAILY 02/28/21 07/15/21 mcg/actuation mist for inhalation albuterol sulfate 90 mcg/actuation 2 puff INHALATION Q6H PRN 04/19/21 07/15/21 aerosol inhaler bisacodyl 10 mg rectal suppository 10 mg LA DAILY PRN 07/15/21 07/15/21 magnesium hydroxide 400 mg/5 mL 400 mg PO DAILY PRN 07/15/21 07/15/21 oral suspension nortriptyline 10 mg capsule 20 mg PO HS 07/15/21 07/15/21 Previous Rx's Medication Instructions Recorded bisacodyl 10 mg rectal suppository 10 mg LA DAILY #0 ea 03/07/21 Results & Data (ED) Vital Signs Vital Signs - 24 hr 07/15/21 07:00 07/15/21 08:00 Pulse Rate 102 H Pulse Rate from SpO2 Sensor 98 H Respiratory Rate 14 18 Blood Pressure 154/82 H 136/103 H Blood Pressure Mean 106 114 Pulse Oximetry 93 92 Oxygen Delivery Method Room Air Laboratory Data Result diagrams: 07/16/21 06:06 07/15/21 03:00 Lab Results 07/15/21 07/15/21 07/15/21 Range/Units 03:00 03:00 04:33 WBC 14.15 H (4.8-10.8) K/uL RBC 5.27 (4.7-6.1) M/uL Hgb 16.3 (14.0-18.0) g/dL Hct 49.3 (42-52) % MCV 93.5 (80-100) fL MCH 30.9 (25-34) pg MCHC 33.1 (32-36) g/dL RDW Std Deviation 43.0 (36.4-46.3) fL RDW Coeff of Marie 12.6 (11.5-14.5) % Plt Count 393 (130-400) K/uL MPV 9.4 (7.4-10.4) fL Immature Gran % (Auto) 0.4 % Neut % (Auto) 82.0 % Lymph % (Auto) 11.2 % [place] % (Auto) 6.2 % Eos % (Auto) 0.1 % Baso % (Auto) 0.1 % Neut # (Auto) 11.58 H (1.4-6.5) K/uL Lymph # (Auto) 1.59 (1.2-3.4) K/uL [place] # (Auto) 0.88 H (0.11-0.59) K/uL Eos # (Auto) 0.02 (0-0.5) K/uL Baso # (Auto) 0.02 (0-0.2) K/uL Immature Gran # (Auto) 0.06 H (0.00-0.02) K/uL Sodium 134 L (136-145) mmol/L Potassium 4.5 (3.5-5.1) mmol/L Chloride 95 L (98-107) mmol/L Carbon Dioxide 37 H (21-32) mmol/L Anion Gap 2.0 L (3-11) BUN 14 (7-18) mg/dl Creatinine 0.87 (0.6-1.4) mg/dl Est Cr Clr Drug Dosing 97.8 ml/min Est GFR ( Amer) 99.2 ml/min Est GFR (Non-Af Amer) 85.6 ml/min BUN/Creatinine Ratio 16.2 (10-20) Glucose 162 H (70-99) mg/dl Calcium 9.3 (8.5-10.1) mg/dl Total Bilirubin 0.4 (0.2-1) mg/dl AST 16 (15-37) U/L ALT 18 (12-78) U/L Alkaline Phosphatase 78 (45-117) U/L Total Protein 8.7 H (6.4-8.2) gm/dl Albumin 3.7 (3.4-5.0) gm/dl Globulin 5.0 H (2.5-4.0) gm/dl Albumin/Globulin Ratio 0.7 L (0.9-2) Lipase 168 (73-393) U/L Urine Color Dark Yellow Urine Appearance Clear (Clear) Urine pH 5.5 (4.5-7.5) Ur Specific [place] 1.034 H (1.000-1.030) Urine Protein 1+ H (Negative) Urine Glucose (UA) Negative (Negative) Urine Ketones Trace H (Negative) Urine Blood 3+ H (Negative) Urine Nitrite Positive A (Negative) Urine Bilirubin Negative (Negative) Urine Urobilinogen Negative (Negative) Ur Leukocyte Esterase 2+ H (Negative) Urine WBC (Auto) 10-30 H (0-5) /hpf Urine RBC (Auto) 10-30 H (0-4) /hpf U Hyaline Cast (Auto) 1-5 (0-5) /lpf U Epithel Cells (Auto) 0-5 (0-5) /lpf Urine Bacteria (Auto) 1+ H (Negative) COVID-19 Eval Order SARS-CoV-2 (PCR) (Negative) 07/15/21 07/15/21 Range/Units 07:39 07:39 WBC (4.8-10.8) K/uL RBC (4.7-6.1) M/uL Hgb (14.0-18.0) g/dL Hct (42-52) % MCV (80-100) fL MCH (25-34) pg MCHC (32-36) g/dL RDW Std Deviation (36.4-46.3) fL RDW Coeff of Marie (11.5-14.5) % Plt Count (130-400) K/uL MPV (7.4-10.4) fL Immature Gran % (Auto) % Neut % (Auto) % Lymph % (Auto) % [place] % (Auto) % Eos % (Auto) % Baso % (Auto) % Neut # (Auto) (1.4-6.5) K/uL Lymph # (Auto) (1.2-3.4) K/uL [place] # (Auto) (0.11-0.59) K/uL Eos # (Auto) (0-0.5) K/uL Baso # (Auto) (0-0.2) K/uL Immature Gran # (Auto) (0.00-0.02) K/uL Sodium (136-145) mmol/L Potassium (3.5-5.1) mmol/L Chloride (98-107) mmol/L Carbon Dioxide (21-32) mmol/L Anion Gap (3-11) BUN (7-18) mg/dl Creatinine (0.6-1.4) mg/dl Est Cr Clr Drug Dosing ml/min Est GFR ( Amer) ml/min Est GFR (Non-Af Amer) ml/min BUN/Creatinine Ratio (10-20) Glucose (70-99) mg/dl Calcium (8.5-10.1) mg/dl Total Bilirubin (0.2-1) mg/dl AST (15-37) U/L ALT (12-78) U/L Alkaline Phosphatase (45-117) U/L Total Protein (6.4-8.2) gm/dl Albumin (3.4-5.0) gm/dl Globulin (2.5-4.0) gm/dl Albumin/Globulin Ratio (0.9-2) Lipase (73-393) U/L Urine Color Urine Appearance (Clear) Urine pH (4.5-7.5) Ur Specific [place] (1.000-1.030) Urine Protein (Negative) Urine Glucose (UA) (Negative) Urine Ketones (Negative) Urine Blood (Negative) Urine Nitrite (Negative) Urine Bilirubin (Negative) Urine Urobilinogen (Negative) Ur Leukocyte Esterase (Negative) Urine WBC (Auto) (0-5) /hpf Urine RBC (Auto) (0-4) /hpf U Hyaline Cast (Auto) (0-5) /lpf U Epithel Cells (Auto) (0-5) /lpf Urine Bacteria (Auto) (Negative) COVID-19 Eval Order Covid19 at [facility] SARS-CoV-2 (PCR) NEGATIVE (Negative) Administered Medications Al Hydrox/Mg Hydrox/Simethicone (Aluminum/Magnesium Susp 30 Ml Udc) 30 ml PO Q6H PRN PRN Reason: Dyspepsia Stop: 08/14/21 13:45 Last Admin: 07/15/21 22:45 Dose: 30 ml Documented by: [id number] Carbidopa/Levodopa (Carbidopa/Levodopa 25-250 1 Ea Tab) 1 tab PO BID [facility] Stop: 08/14/21 14:14 Last Admin: 07/15/21 21:22 Dose: 1 tab Documented by: [id number] Admin: 07/15/21 15:38 Dose: 1 tab Documented by: [id number] Carbidopa/Levodopa (Carbidopa/Levodop 10/100mg Tab) 1 tab PO DAILY@1800 [facility] Stop: 08/14/21 17:59 Last Admin: 07/15/21 18:46 Dose: 1 tab Documented by: [id number] Enoxaparin Sodium (Enoxaparin Inj 40 Mg/0.4 Ml Syr) 40 mg SQ Q24H [facility] Stop: 08/14/21 17:29 Last Admin: 07/15/21 18:46 Dose: 40 mg Documented by: [id number] Finasteride (Finasteride 5 Mg Tab) 5 mg PO DAILY [facility] Stop: 08/14/21 14:14 Last Admin: 07/15/21 15:38 Dose: 5 mg Documented by: [id number] Metoprolol Tartrate (Metoprolol Tartrate 100 Mg Tab) 100 mg PO BID [facility] Stop: 08/14/21 14:14 Last Admin: 07/15/21 21:22 Dose: 100 mg Documented by: [id number] Admin: 07/15/21 15:38 Dose: 100 mg Documented by: [id number] Pantoprazole Sodium (Pantoprazole 40 Mg Tab) 40 mg PO BID [facility] Stop: 08/14/21 18:59 Last Admin: 07/15/21 18:46 Dose: 40 mg Documented by: [id number] Polyethylene Glycol (Polyethylene (Miralax) 17 Gm Pack) 17 gm PO DAILY [facility] Stop: 08/14/21 14:14 Last Admin: 07/15/21 15:42 Dose: 17 gm Documented by: [id number] Simethicone (Simethicone 80 Mg Chew) 80 mg PO BID [facility] Stop: 08/14/21 14:14 Last Admin: 07/15/21 21:23 Dose: 80 mg Documented by: [id number] Admin: 07/15/21 15:39 Dose: 80 mg Documented by: [id number] Discontinued Medications Piperacillin Sod/Tazobactam Sod (Zosyn) 4.5 gm in 120 mls @ 240 mls/hr IV NOW ONE Stop: 07/15/21 07:50 Last Admin: 07/15/21 07:43 Dose: Not Given Documented by: [id number] Ertapenem (Invanz) 10 mls @ 2 mls/min IV NOW STA Stop: 07/15/21 07:31 Last Admin: 07/15/21 07:53 Dose: 2 mls/min Documented by: [id number] Ioversol (Optiray 320 100ml) 100 ml IV ONCE ONE Stop: 07/15/21 06:27 Last Admin: 07/15/21 06:26 Dose: 89 ml Documented by: [id number] Imaging Data Radiologist's Impression: Chest/Abdomen X-ray 07/15/21 03:24 XR abdomen 2V w PA chest HISTORY: 75 years-old Male cough acute cough COMPARISON: CT chest, abdomen and pelvis of same day. TECHNIQUE: Portable AP view the chest with erect and supine views of the abdomen FINDINGS: Cardiomediastinal and hilar silhouettes are within normal limits. Subtle ill- defined opacities of the lateral segment right middle lobe compatible with atelectasis. No pneumothorax, pleural effusion, airspace consolidation or overt pulmonary edema. Calcified granuloma of the left lung base. Degenerative changes of the shoulders and spine. Vascular coils of the abdominal right upper quadrant. Distended stomach, small and large bowel loops. No urolith or acute fracture. IMPRESSION: 1. Mild atelectasis of the right middle lobe without acute process of the chest. 2. Air-filled distended stomach, small and large bowel suggestive of ileus. ACT 112: Negative or not required by law. The above report was generated using voice recognition software. It may contain grammatical, syntax or spelling errors. Electronically signed by: Christopher Gupta M.D. 07/15/2021 7:25 AM Abdomen/Pelvis CT 07/15/21 06:[address] WITH IV CONTRAST CT DOSE: 1793.35 mGy.cm HISTORY: Follow up study in a patient with abdominal distention dilated loops bowel TECHNIQUE: Multiaxial CT images of the abdomen and pelvis were performed following the IV administration of 89 cc of Optiray, A dose lowering technique was utilized adhering to the principles of ALARA. COMPARISON STUDY: Chest CT of same day, acute abdominal series radiographs 07/15/2021, KUB 03/02/2021, CT 02/28/2021 FINDINGS: Calcified lower mediastinal and hilar lymph nodes. Calcified pulmonary granulomata. Mild subsegmental bibasilar atelectasis. There is no pneumatosis or pneumoperitoneum. There is wall thickening of the distal esophagus with periesophageal stranding and trace free fluid of the posterior mediastinum. Punctate calcified granuloma of the spleen. Surgical clips anterior to the pancreatic head redemonstrated. The pancreas, right adrenal gland, gallbladder and liver appear unremarkable. There is unchanged mild left adrenal gland thickening. Patent portal vein. Mild nonspecific bilateral perinephric stranding. There are 2 question punctate calculi of the interpolar right kidney. Heterogeneous mass within the upper pole right kidney is redemonstrated with macroscopic fat noted along its inferior and posterior margin. Lesion overall measures approximately 5.6 x 4.8 cm, previously measured at 4.7 x 3.5 cm on the 02/28/2021 exam. Probable cyst of the inferior pole right kidney measures 9 mm. No hydronephrosis. Urinary bladder wall thickening with partial distention. Mild prostamegaly. Atherosclerosis of the aorta without aneurysm. There is no adenopathy. Air and fluid-filled distended stomach. There are a few loops of small bowel which demonstrate air-fluid levels within the abdominal left lower quadrant measuring up to 2.9 cm. No significant small bowel distention. Circumferential rectal wall thickening with perirectal stranding. There is marked fecal retention of the sigmoid and rectum. Scattered air-fluid levels are noted throughout the colon. The transverse colon is dilated measuring up to 6.5 cm transversely. Noninflamed appendix. No acute fracture. Healed chronic right- sided rib fractures. IMPRESSION: 1. Marked fecal retention of the rectum and sigmoid is noted along with rectal wall thickening and perirectal stranding suspicious for stercoral proctitis. 2. Suggested ileus without evidence of obstruction. 3. 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 The increased size may be secondary to internal hemorrhage. Follow-up is recommended to exclude the less likely possibility of a renal cell carcinoma. 4. Mild esophageal wall thickening with adjacent inflammatory stranding is better characterized on the CT chest of same day. 5. Additional findings as above. ACT 112: Negative or not required by law. The above report was generated using voice recognition software. It may contain grammatical, syntax or spelling errors. Electronically signed by: Christopher Gupta M.D. 07/15/2021 7:[address] 07/15/21 06:00 CT OF THE CHEST WITHOUT IV CONTRAST CLINICAL HISTORY: Cough. Evaluate for pneumonia. COMPARISON STUDY: Chest CT February 16, 2017. Chest radiograph and abdominal series performed earlier today. TECHNIQUE: Axial images of the chest were obtained without IV contrast. Images were reviewed in the axial, sagittal, and coronal planes. IV contrast was not administered for this examination. Automated exposure control was utilized for the study. A dose lowering technique was utilized adhering to the principles of ALARA. FINDINGS: There is no pericardial effusion. No pneumomediastinum is noted. However, there is moderate wall thickening of the proximal to mid thoracic esophagus with adjacent stranding and fluid. Fluid also extends inferiorly, adjacent to the aorta. Multiple calcified thoracic lymph nodes are again noted. These are unchanged. No pneumothorax or pleural effusion is noted. Note is made of secretions within the distal trachea and left mainstem bronchus. The lungs are suboptimally assessed due to respiratory motion. There are several calcified granulomata. There are mild groundglass opacities within the bilateral upper lobes with mosaic attenuation. Several old right-sided rib fractures are pre sent. The abdomen and pelvis will be reported separately. IMPRESSION: 1. Wall thickening of the proximal to mid esophagus suggestive of esophagitis. Associated mediastinal stranding and fluid which could be correlated with clinical evidence for mediastinitis. No pneumomediastinum. 2. Bilateral upper lobe groundglass opacities with mosaic attenuation. This may reflect air trapping. 3. Secretions within the distal trachea and left mainstem bronchus. ACT 112: Negative or not required by law. Electronically signed by: Tim Hayden M.D. 07/15/2021 6:50 AM Discharge Plan Visit Data Chief Complaint: Abdominal Pain Stated Complaint: ABDOMINAL PAIN ED Provider: Nitza Polk Discharge Problem: Acute UTI, Fecal retention, Acute proctitis, Ileus Patient Disposition: Admitted As Inpatient Discharge Instructions Interventions: ED Discharge Assessment Last Done: 07/15/21 13:15 Discharge Problem: Fecal retention Qualifiers: Constipation type: unspecified constipation type Qualified Code(s): K59.00 - Constipation, unspecified
[2021-07-15] MEDS ORDERED: OPTIRAY 320 100ml IV ONE (06:26)
--- NOTE | 2021-07-15 06:51 | CT Scan Report ---
CT OF THE CHEST WITHOUT IV CONTRAST CLINICAL HISTORY: Cough. Evaluate for pneumonia. COMPARISON STUDY: Chest CT February 16, 2017. Chest radiograph and abdominal series performed earlier tod ay. TECHNIQUE: Axial images of the chest were obtained without IV contrast. Images were reviewed in the axial, sagittal, and coronal planes. IV contrast was not administered for this examination. Automat ed exposure control was utilized for the study. A dose lowering technique was utilized adhering to t he principles of ALARA. FINDINGS: There is no pericardial effusion. No pneumomediastinum is noted. However, there is moderat e wall thickening of the proximal to mid thoracic esophagus with adjacent stranding and fluid. Fluid also extends inferiorly, adjacent to the aorta. Multiple calcified thoracic lymph nodes are again not ed. These are unchanged. No pneumothorax or pleural effusion is noted. Note is made of secretions wit hin the distal trachea and left mainstem bronchus. The lungs are suboptimally assessed due to respira tory motion. There are several calcified granulomata. There are mild groundglass opacities within the bilateral upper lobes with mosaic attenuation. Several old right-sided rib fractures are present. Th e abdomen and pelvis will be reported separately. IMPRESSION: 1. Wall thickening of the proximal to mid esophagus suggestive of esophagitis. Associated mediastinal stranding and fluid which could be correlated with clinical evidence for mediastinitis. No pneumomed iastinum. 2. Bilateral upper lobe groundglass opacities with mosaic attenuation. This may reflect air trapping. 3. Secretions within the distal trachea and left mainstem bronchus. ACT 112: Negative or not required by law. Electronically signed by: Tim Hayden M.D. 07/15/2021 6:50 AM
--- NOTE | 2021-07-15 07:14 | CT Scan Report ---
ABDOMEN AND PELVIS CT WITH IV CONTRAST CT DOSE: 1793.35 mGy.cm HISTORY: Follow up study in a patient with abdominal distention dilated loops bowel TECHNIQUE: Multiaxial CT images of the abdomen and pelvis were performed following the IV administrat ion of 89 cc of Optiray, A dose lowering technique was utilized adhering to the principles of ALARA. COMPARISON STUDY: Chest CT of same day, acute abdominal series radiographs 07/15/2021, KUB 03/02/2021, CT 02/28/2021 FINDINGS: Calcified lower mediastinal and hilar lymph nodes. Calcified pulmonary granulomata. Mild hardin bsegmental bibasilar atelectasis. There is no pneumatosis or pneumoperitoneum. There is wall thickeni ng of the distal esophagus with periesophageal stranding and trace free fluid of the posterior medias tinum. Punctate calcified granuloma of the spleen. Surgical clips anterior to the pancreatic head redemonstr ated. The pancreas, right adrenal gland, gallbladder and liver appear unremarkable. There is unchange d mild left adrenal gland thickening. Patent portal vein. Mild nonspecific bilateral perinephric stra nding. There are 2 question punctate calculi of the interpolar right kidney. Heterogeneous mass withi n the upper pole right kidney is redemonstrated with macroscopic fat noted along its inferior and pos terior margin. Lesion overall measures approximately 5.6 x 4.8 cm, previously measured at 4.7 x 3.5 c m on the 02/28/2021 exam. Probable cyst of the inferior pole right kidney measures 9 mm. No hydronephr osis. Urinary bladder wall thickening with partial distention. Mild prostamegaly. Atherosclerosis of the aorta without aneurysm. There is no adenopathy. Air and fluid-filled distended stomach. There are a few loops of small bowel which demonstrate air-fl uid levels within the abdominal left lower quadrant measuring up to 2.9 cm. No significant small mesha l distention. Circumferential rectal wall thickening with perirectal stranding. There is marked fecal retention of the sigmoid and rectum. Scattered air-fluid levels are noted throughout the colon. The transverse colon is dilated measuring up to 6.5 cm transversely. Noninflamed appendix. No acute fract ure. Healed chronic right-sided rib fractures. IMPRESSION: 1. Marked fecal retention of the rectum and sigmoid is noted along with rectal wall thickening and pe rirectal stranding suspicious for stercoral proctitis. 2. Suggested ileus without evidence of obstruction. 3. 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 The increased size may be secondary to internal hemorrhage. Follow-up is recommended to exclude the less likely possibility of a renal cell carcinoma. 4. Mild esophageal wall thickening with adjacent inflammatory stranding is better characterized on e CT chest of same day. 5. Additional findings as above. ACT 112: Negative or not required by law. The above report was generated using voice recognition software. It may contain grammatical, syntax o r spelling errors. Electronically signed by: Christopher Gupta M.D. 07/15/2021 7:13 AM
[2021-07-15] MEDS ORDERED: PIPERACILL/TAZOBAC CONSULT ACTIVE PRN (07:21)
[2021-07-15] MEDS ORDERED: PIPERACILLIN/TAZOBACTAM 4.5 GM/120 ML BAG IV ONE (07:21)
--- NOTE | 2021-07-15 07:26 | XRay Report ---
XR abdomen 2V w PA chest HISTORY: 75 years-old Male cough acute cough COMPARISON: CT chest, abdomen and pelvis of same day. TECHNIQUE: Portable AP view the chest with erect and supine views of the abdomen FINDINGS: Cardiomediastinal and hilar silhouettes are within normal limits. Subtle ill-defined opacities of the lateral segment right middle lobe compatible with atelectasis. No pneumothorax, pleural effusion, ai rspace consolidation or overt pulmonary edema. Calcified granuloma of the left lung base. Degenerativ e changes of the shoulders and spine. Vascular coils of the abdominal right upper quadrant. Distended stomach, small and large bowel loops. No urolith or acute fracture. IMPRESSION: 1. Mild atelectasis of the right middle lobe without acute process of the chest. 2. Air-filled distended stomach, small and large bowel suggestive of ileus. ACT 112: Negative or not required by law. The above report was generated using voice recognition software. It may contain grammatical, syntax o r spelling errors. Electronically signed by: Christopher Gupta M.D. 07/15/2021 7:25 AM
[2021-07-15] MEDS ORDERED: ERTAPENEM SODIUM 10 ML IV STA (07:27)
--- NOTE | 2021-07-15 07:41 | History & Physical Report ---
Date of Service July 15, 2021 Assessment & Plan (1) Acute UTI: Plan: Patient abnormal urinalysis previous ESBL urinary tract infection as well as a Mcbride catheter in place. 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 Patient be placed on ertapenem at this time pending culture results Patient has a persistently expanding right renal mass he is followed by [facility]. His appointment in April 2021 did discussed a radical nephrectomy at that time it was felt that watchful waiting would be employed due to comorbid risk of surgery did discuss the mass with family unclear if patient has some metablic encephalopathy from uti poa Pt has some post void residuals, will have st cath prn (2) Acute proctitis: Plan: Patient has what is described a steracoral colitis seen on imaging. Patient is on ertapenem at this time. His admission in February 2021 similar presentation. Infectious disease consult from [facility] felt his urinary tract infection should be treated and that his proctocolitis was more function of constipation and did not require additional treatment. (3) Esophagitis: Plan: Scription's esophagitis on imaging of the chest. Patient will be on pantoprazole but increase to twice daily. He has a history of a gastric artery embolization in the past at [facility] around 2018 per [place] records (4) HTN (hypertension), benign: Plan: Blood pressure is elevated on presentation patient will be maintained on his metoprolol tartrate 100 twice daily with backup as needed as needed (5) COPD (chronic obstructive pulmonary disease): Plan: Typically takes Spiriva is not an exacerbation at this time continue albuterol Patient has chronic respiratory failure with hypoxia typically on oxygen therapy at [facility] (6) Parkinson disease: Plan: Patient maintained on Sinemet therapy (7) DVT prophylaxis: Plan: Lovenox subcu DVT prevention (8) NPH (normal pressure hydrocephalus): History of Present Illness Primary Care Provider: [facility] 75 M from [facility] with history of RCCA, previous colitis and previous indwelling urinary catheter now removed, presents with abdominal symptoms, imaging of colitis and abnormal urine analysis. Pt previously did have ESBL E coli when he did have mcbride catheter. In the ER the pt was cultured and did have antibiotics. P is an extremely poor historian, states hes here bc his arm is sore, thinks is 2009 and Kamlesh is the president CT abdomen and pelvis Marked fecal retention of the rectum and sigmoid is noted along with rectal wall thickening and perirectal stranding suspicious for stercoral proctitis. Suggested ileus without evidence of obstruction. 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 The increased size may be secondary to internal hemorrhage. Follow-up is recommended to exclude the less likely possibility of a renal cell carcinoma. Mild esophageal wall thickening with adjacent inflammatory stranding is better characterized on the CT chest of same day. Allergies Allergy/AdvReac Type Severity Reaction Status Date / Time bee venom protein (honey bee) Allergy Unknown Unknown Verified 07/15/21 07:55 cefadroxil Allergy Unknown UNKNOWN Verified 07/15/21 07:55 cephalexin Allergy Unknown UNKNOWN Verified 07/15/21 07:55 escitalopram Allergy Unknown UNKNOWN Verified 07/15/21 07:55 omeprazole Allergy Unknown UNKNOWN Verified 07/15/21 07:55 pantoprazole Allergy Unknown UNKNOWN Verified 07/15/21 07:55 Home Medications Medication Instructions Recorded Confirmed Type carbidopa 10 mg-levodopa 100 mg 1 tab PO DAILY@1800 07/15/18 07/15/21 History tablet carbidopa 25 mg-levodopa 250 mg 1 tab PO BID 07/15/18 07/15/21 History tablet finasteride 5 mg tablet 5 mg PO DAILY 07/15/18 07/15/21 History metoprolol tartrate 50 mg tablet 100 mg PO BID 07/15/18 07/15/21 History tramadol 50 mg tablet 50 mg PO Q8 PRN 07/15/18 07/15/21 History acetaminophen 325 mg tablet 650 mg PO Q12 PRN 02/28/21 07/15/21 History cholecalciferol (vitamin D3) 50 50 mcg PO DAILY 02/28/21 07/15/21 History mcg (2,000 unit) tablet pantoprazole 20 mg tablet,delayed 20 mg PO DAILY 02/28/21 07/15/21 History release simethicone 80 mg chewable tablet 80 mg PO BID 02/28/21 07/15/21 History tiotropium bromide 2.5 2 puff INHALATION DAILY 02/28/21 07/15/21 History mcg/actuation mist for inhalation bisacodyl 10 mg rectal suppository [address] DAILY #0 ea 03/07/21 07/15/21 Rx albuterol sulfate 90 mcg/actuation 2 puff INHALATION Q6H PRN 04/19/21 07/15/21 History aerosol inhaler bisacodyl 10 mg rectal suppository [address] DAILY PRN 07/15/21 07/15/21 History magnesium hydroxide 400 mg/5 mL 400 mg PO DAILY PRN 07/15/21 07/15/21 History oral suspension nortriptyline 10 mg capsule 20 mg PO HS 07/15/21 07/15/21 History Past Med/Surg History Medical History (Updated 07/15/21 @ 07:36 by Randell Jones MD) BPH (benign prostatic hyperplasia) Cancer of kidney right Chronic respiratory failure with hypoxia Congenital heart disease COPD (chronic obstructive pulmonary disease) Dilated bowel Fall GI bleed 2018, duodenal HTN (hypertension), benign Hypertension Neuropathy Normal pressure hydrocephalus NPH (normal pressure hydrocephalus) Onychomycosis nails debrided with nail nippers to tolerance without bleeding noted and pain relief noted Parkinson disease Rib contusion Surgical History History of ear surgery Family History Mother Pancreatic cancer Father Myocardial infarction Social History Smoking Status: Former smoker Tobacco Type: Cigarettes Age Started Using Tobacco: 22; Age Quit Using Tobacco: 32; packs per day: 1; Second Hand Exposure: No; Hx Alcohol Use: No Hx Substance Use: No Preferred Language: Omani Communication Ability: Unable Environmental Issues Instructor Required: No Beliefs That Will Affect Care: None marital status: Single Current Living Situation: Alf Current Living Situation Comment: [facility] current occupational status: retired 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 How many Children do You have: 0 other: 5 siblings Feels Safe at Home: Yes Assistive Devices: Glasses Review of Systems Review of Systems: Mild distress and fatigue no headache, no visual changes no speech or swallowing issues no chest pain, pressure or palpitations no shortness of breath, cough or wheezes mild abdominal pain, nausea or vomiting, diarrhea or constipation mild dysuria, no hematuria or frequency no focal joint pain or swelling no back pain, CVA tenderness or radicular pain minor bruising to skin, bleeding or rashes no focal signs of weakness or numbness does have altered orientation no complaints of anxiety or depression.. Physical Exam Physical Exam: The patient appeared well nourished and normally developed. Vital signs as documented. Head exam is normocephalic atraumatic Neck is without JVD, thyromegaly, or carotid bruits. Lungs are diminished at the bases Cardiac exam, Rhythm is regular.. systolic ejection murmur Abdominal exam reveals normal bowel sounds, soft uncomfortable in suprapubic area Extremities are nonedematous and both pedal pulses are present Neurologic exam is alert and oriented x1, no focal loss of strength or sensation Skin is with various stages of bruises Psychologically is without concerns for anxiety or depression Results & Data Results & Data ([facility]) Vital Signs (Past 12 Hours) Vital Signs Temp Pulse Resp BP Pulse Ox 07/15/21 06:00 104 H 15 149/101 H 91 07/15/21 05:00 102 H 16 143/97 H 93 07/15/21 04:00 110 H 19 109/68 94 07/15/21 03:00 109 H 19 129/90 94 07/15/21 02:47 99.0 F 109 H 19 129/106 H 96 PG Care Time/CCT Total # of Minutes Spent Total Time Spent with Patient: Total time spent is greater than 50% in coordination of care (as documented) at patient's floor/unit and/or counseling patient: Coding Level of Care Code 52196 Initial Inpt Care Lvl 3 Diagnoses Acute UTI N39.0 Acute proctitis K62.89 NPH (normal pressure hydrocephalus) G91.2 HTN (hypertension), benign I10 DVT prophylaxis Z29.9 COPD (chronic obstructive pulmonary disease) J44.9 Parkinson disease G20 Esophagitis K20.90
--- NOTE | 2021-07-15 11:43 | Electrocardiogram Report ---
Test Reason : Blood Pressure : / mmHG Vent. Rate : 108 BPM Atrial Rate : 108 BPM P-R Int : 166 ms QRS Dur : 080 ms QT Int : 334 ms P-R-T Axes : 068 069 081 degrees QTc Int : 447 ms Poor data quality, interpretation may be adversely affected Sinus tachycardia with Premature atrial complexes Otherwise normal ECG When compared with ECG of 28-FEB-2021 09:41, Nonspecific T wave abnormality no longer evident in Lateral leads Confirmed by Junior Guerrero ([id number]) on 07/15/2021 11:43:32 AM Referred By: [facility] Confirmed By:Blane Guerrero
[2021-07-15] MEDS ORDERED: ALBUTEROL HFA 8 GM INHALER INH PRN (13:46)
[2021-07-15] MEDS ORDERED: hydrALAZINE HCL 20 MG/ML VIAL IV PRN (13:46)
[2021-07-15] MEDS ORDERED: ONDANSETRON INJ 2 MG/ML 2 ML VIAL IV PRN (13:46)
[2021-07-15] MEDS ORDERED: traMADol HCL 50 MG TABLET PO PRN (13:46)
[2021-07-15] MEDS ORDERED: ACETAMINOPHEN 325 MG TAB PO PRN (13:46)
[2021-07-15] MEDS: METOPROLOL TARTRATE 100 MG TAB PO SCH ×2 (15:38→21:22)
[2021-07-15] MEDS: CARBIDOPA/LEVODOPA 25-250 1 EA TAB PO SCH ×2 (15:38→21:22)
[2021-07-15] MEDS: FINASTERIDE 5 MG TAB PO SCH (15:38)
[2021-07-15] MEDS: SIMETHICONE 80 MG CHEW PO SCH ×2 (15:39→21:23)
[2021-07-15] MEDS: POLYETHYLENE (MIRALAX) 17 GM PACK PO SCH (15:42)
[2021-07-15] MEDS: PANTOprazole 40 MG TAB PO SCH (18:46)
[2021-07-15] MEDS: ENOXAPARIN INJ 40 MG/0.4 ML SYR SQ SCH (18:46)
[2021-07-15] MEDS: CARBIDOPA/LEVODOP 10/100MG TAB PO SCH (18:46)
[2021-07-15] MEDS: ALUMINUM/MAGNESIUM SUSP 30 ML UDC PO PRN (22:45)
[2021-07-16 06:32] LABS: Hematocrit (blood only) 42.7 % (42-52); Hemoglobin 13.9 g/dL (14.0-18.0); Mean Corpuscular Hemoglobin 30.4 pg (25-34); Mean Corpuscular Hgb Conc 32.6 g/dL (32-36); Mean Corpuscular Volume 93.4 fL (80-100); Mean Platelet Volume 9.2 fL (7.4-10.4); Platelet Count 352 K/uL (130-400); RDW Coefficient of Variation 12.9 % (11.5-14.5); Red Blood Count 4.57 M/uL (4.7-6.1); White Blood Count 10.89 K/uL (4.8-10.8)
[2021-07-16 07:15] LABS: BUN Creatinine Ratio 25.1 (10-20); Calcium 9.3 mg/dl (8.5-10.1); Creatinine Clr Calc Pharmacy 123.3 ml/min; Est GFR (African American) 109.2 ml/min; Est GFR (Non-African American) 94.2 ml/min; Potassium 3.6 mmol/L (3.5-5.1)
[2021-07-16] MEDS: POLYETHYLENE (MIRALAX) 17 GM PACK PO SCH (08:03)
[2021-07-16] MEDS: SIMETHICONE 80 MG CHEW PO SCH ×3 (08:04→21:14)
[2021-07-16] MEDS: CARBIDOPA/LEVODOPA 25-250 1 EA TAB PO SCH ×2 (08:04→21:15)
[2021-07-16] MEDS: PANTOprazole 40 MG TAB PO SCH ×2 (08:04→21:15)
[2021-07-16] MEDS: FINASTERIDE 5 MG TAB PO SCH (08:04)
[2021-07-16] MEDS: METOPROLOL TARTRATE 100 MG TAB PO SCH ×2 (08:04→21:15)
[2021-07-16] MEDS: UMECLIDINIUM BROMIDE 62.5MCG/BLISTER 7 PUFFS/INHALER INH SCH (08:05)
--- NOTE | 2021-07-16 08:08 | Hospitalist Progress Note ---
Date of Service July 16, 2021 Assessment & Plan (1) Acute UTI: Plan: Patient abnormal urinalysis previous ESBL urinary tract infection as well as a Marroquin catheter in place. 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 Patient be placed on ertapenem at this time pending culture results preliminarily show 60,000 gram negatives for the speciation is not identified Patient has a persistently expanding right renal mass he is followed by [facility]. His appointment in April 2021 did discussed a radical nephrectomy at that time it was felt that watchful waiting would be employed due to comorbid risk of surgery did discuss the mass with family unclear if patient has some metabolic encephalopathy from uti poa did have some improvement but still has some impairment more so than what but to be expected for his age Pt has some post void residuals, will have st cath prn (2) Acute proctitis: Plan: Patient has what is described a steracoral colitis seen on imaging. Patient is on ertapenem at this time. His admission in February 2021 similar presentation. Infectious disease consult from [facility] felt his urinary tract infection should be treated and that his proctocolitis was more function of constipation and did not require additional treatment. (3) Esophagitis: Plan: Scription's esophagitis on imaging of the chest. Patient will be on pantoprazole but increase to twice daily. He has a history of a gastric artery embolization in the past at [facility] around 2018 per center care records (4) HTN (hypertension), benign: Plan: Blood pressure is elevated on presentation patient will be maintained on his metoprolol tartrate 100 twice daily with backup as needed as needed (5) COPD (chronic obstructive pulmonary disease): Plan: Typically takes Spiriva is not an exacerbation at this time continue albuterol Patient has chronic respiratory failure with hypoxia typically on oxygen therapy at residential facility (6) Parkinson disease: Plan: Patient maintained on Sinemet therapy (7) DVT prophylaxis: Plan: Lovenox subcu DVT prevention (8) NPH (normal pressure hydrocephalus): Plan: pt has significant history of constipation will check kub in am as no recoreded BM if looks to be retaining will try suppository or enema or digital exam Admission and Anticipated Discharge Date Admission Date: July 15, 2021 Subjective Patient is much more awake and alert still slightly confused about where he is and why he is here does not know the year or date at this time Review of Systems Review of Systems: Mild distress and fatigue no headache, no visual changes no speech or swallowing issues no chest pain, pressure or palpitations no shortness of breath, cough or wheezes mild abdominal pain, nausea or vomiting, diarrhea or constipation mild dysuria, no hematuria or frequency no focal joint pain or swelling no back pain, CVA tenderness or radicular pain minor bruising to skin, bleeding or rashes no focal signs of weakness or numbness does have altered orientation no complaints of anxiety or depression.. Physical Exam Physical Exam: The patient appeared well nourished and normally developed. Vital signs as documented. Head exam is normocephalic atraumatic Neck is without JVD, thyromegaly, or carotid bruits. Lungs are diminished at the bases Cardiac exam, Rhythm is regular.. systolic ejection murmur Abdominal exam reveals normal bowel sounds, soft uncomfortable in suprapubic area Extremities are nonedematous and both pedal pulses are present Neurologic exam is alert and oriented x1, no focal loss of strength or sensation Skin is with various stages of bruises Psychologically is without concerns for anxiety or depression Results & Data Results & [facility] ([facility]) Vital Signs (Past 12 Hours) Vital Signs Temp Pulse Resp BP Pulse Ox 07/16/21 07:16 98.1 F 92 H 18 143/79 H 92 07/15/21 22:39 98.1 F 94 H 19 126/69 92 07/15/21 21:21 94 H 121/70 PG Care Time/CCT Total # of Minutes Spent Total Time Spent with Patient: Total time spent is greater than 50% in coordination of care (as documented) at patient's floor/unit and/or counseling patient: Coding Level of Care Code 46269 Subseq Hosp Care Lvl 2 Diagnoses Acute UTI N39.0 Acute proctitis K62.89 Esophagitis K20.90 HTN (hypertension), benign I10 COPD (chronic obstructive pulmonary disease) J44.9 Parkinson disease G20 DVT prophylaxis Z29.9 NPH (normal pressure hydrocephalus) G91.2
[2021-07-16] MEDS: ERTAPENEM SODIUM 1,000 MG in SODIUM CHLORIDE 0.9% 50 ML IV SCH (08:10)
[2021-07-16] MEDS: CARBIDOPA/LEVODOP 10/100MG TAB PO SCH (18:00)
[2021-07-16] MEDS: ALUMINUM/MAGNESIUM SUSP 30 ML UDC PO PRN (18:00)
[2021-07-16] MEDS: ENOXAPARIN INJ 40 MG/0.4 ML SYR SQ SCH (18:00)
[2021-07-17] MEDS: ERTAPENEM SODIUM 1,000 MG in SODIUM CHLORIDE 0.9% 50 ML IV SCH (09:18)
[2021-07-17] MEDS: UMECLIDINIUM BROMIDE 62.5MCG/BLISTER 7 PUFFS/INHALER INH SCH (09:21)
[2021-07-17] MEDS: CARBIDOPA/LEVODOPA 25-250 1 EA TAB PO SCH ×2 (09:22→21:10)
[2021-07-17] MEDS: FINASTERIDE 5 MG TAB PO SCH (09:22)
[2021-07-17] MEDS: POLYETHYLENE (MIRALAX) 17 GM PACK PO SCH (09:22)
[2021-07-17] MEDS: PANTOprazole 40 MG TAB PO SCH ×2 (09:22→21:10)
[2021-07-17] MEDS: METOPROLOL TARTRATE 100 MG TAB PO SCH ×2 (09:22→21:10)
[2021-07-17] MEDS: SIMETHICONE 80 MG CHEW PO SCH ×3 (10:05→21:11)
[2021-07-17] MEDS ORDERED: MINERAL OIL ENEMA 133 ML BTL PR ONE (10:43)
--- NOTE | 2021-07-17 15:38 | XRay Report ---
KUB CLINICAL HISTORY: Generalized abdominal pain. FINDINGS: 3 AP supine abdominal radiographs are compared to abdominal radiographs and CT dated 021. Vascular coils project over the upper abdomen. There is rectosigmoid fecal impaction and moderat e constipation. The upstream colon is distended, with the cecum measuring up to 8 cm in diameter. The re is a mild gaseous distention of the small bowel loops. No evidence of intraperitoneal free air is seen on these supine views. There are no abnormal abdominal calcifications. The bony structures are o steopenic and appear intact. IMPRESSION: 1. There is rectosigmoid fecal impaction and moderate constipation. 2. There is gaseous distention of the upstream colon as well as mild distention of the small bowel lo ops. This may represent a mild functional obstruction secondary to fecal impaction. Clinical correlat ion will be required. Electronically signed by: Kevon Abdalla M.D. 07/17/2021 3:37 PM
[2021-07-17] MEDS: ENOXAPARIN INJ 40 MG/0.4 ML SYR SQ SCH (17:37)
[2021-07-17] MEDS: CARBIDOPA/LEVODOP 10/100MG TAB PO SCH (17:37)
--- NOTE | 2021-07-17 19:22 | Hospitalist Progress Note ---
Date of Service July 17, 2021 Assessment & Plan (1) Acute UTI: Plan: Patient abnormal urinalysis previous ESBL urinary tract infection as well as a Marroquin catheter in place. 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 continues on ertapenem show 60,000 esbl ecoli Patient has a persistently expanding right renal mass he is followed by [facility]. His appointment in April 2021 did discussed a radical nephrectomy at that time it was felt that watchful waiting would be employed due to comorbid risk of surgery did discuss the mass with family unclear if patient has some metabolic encephalopathy from uti poa did have some improvement but still has some impairment more so than what but to be expected for his age Pt has some post void residuals, will have st cath prn (2) Acute proctitis: Plan: Patient has what is described a steracoral colitis seen on imaging. Patient is on ertapenem at this time. His admission in February 2021 similar presentation. Infectious disease consult from [facility] felt his urinary tract infection should be treated and that his proctocolitis was more function of constipation and did not require additional treatment. (3) Esophagitis: Plan: Scription's esophagitis on imaging of the chest. Patient will be on pantoprazole but increase to twice daily. He has a history of a gastric artery embolization in the past at [facility] around 2018 per center care records (4) HTN (hypertension), benign: Plan: Blood pressure is elevated on presentation patient will be maintained on his metoprolol tartrate 100 twice daily with backup as needed as needed (5) COPD (chronic obstructive pulmonary disease): Plan: Typically takes Spiriva is not an exacerbation at this time continue albuterol Patient has chronic respiratory failure with hypoxia [facility] (6) Parkinson disease: Plan: Patient maintained on Sinemet therapy (7) DVT prophylaxis: Plan: Lovenox subcu DVT prevention (8) NPH (normal pressure hydrocephalus): Plan: pt has significant history of constipation kub in am with some bowel distension, suppository & enema performed 07/15/21 Admission and Anticipated Discharge Date Admission Date: July 15, 2021 Subjective Patient is much more awake and alert still slightly confused about where he is and why he continues to not know the year or date at this time, but he does continue to appear to be improving Review of Systems Review of Systems: Mild distress and fatigue no headache, no visual changes no speech or swallowing issues no chest pain, pressure or palpitations no shortness of breath, cough or wheezes mild abdominal pain, nausea or vomiting, diarrhea or constipation mild dysuria, no hematuria or frequency no focal joint pain or swelling no back pain, CVA tenderness or radicular pain minor bruising to skin, bleeding or rashes no focal signs of weakness or numbness does have altered orientation no complaints of anxiety or depression.. Physical Exam Physical Exam: The patient appeared well nourished and normally developed. Vital signs as documented. Head exam is normocephalic atraumatic Neck is without JVD, thyromegaly, or carotid bruits. Lungs are diminished at the bases Cardiac exam, Rhythm is regular.. systolic ejection murmur Abdominal exam reveals normal bowel sounds, soft uncomfortable in suprapubic area Extremities are nonedematous and both pedal pulses are present Neurologic exam is alert and oriented x1, no focal loss of strength or sensation Skin is with various stages of bruises Psychologically is without concerns for anxiety or depression Results & Data Results & Data ([facility]) Vital Signs (Past 12 Hours) Vital Signs Temp Pulse Resp BP Pulse Ox 07/17/21 15:50 98.1 F 85 16 107/66 93 07/17/21 07:34 97.9 F 77 16 163/80 H 90 PG Care Time/CCT Total # of Minutes Spent Total Time Spent with Patient: Total time spent is greater than 50% in coordination of care (as documented) at patient's floor/unit and/or counseling patient: Coding Level of Care Code 34847 Subseq Hosp Care Lvl 2 Diagnoses Acute UTI N39.0 Acute proctitis K62.89 Esophagitis K20.90 HTN (hypertension), benign I10 COPD (chronic obstructive pulmonary disease) J44.9 Parkinson disease G20 DVT prophylaxis Z29.9 NPH (normal pressure hydrocephalus) G91.2
[2021-07-18 08:30] LABS: Hematocrit (blood only) 40.6 % (42-52); Hemoglobin 13.4 g/dL (14.0-18.0); Mean Corpuscular Hemoglobin 30.4 pg (25-34); Mean Corpuscular Volume 92.1 fL (80-100); Mean Platelet Volume 9.1 fL (7.4-10.4); Platelet Count 326 K/uL (130-400); RDW Standard Deviation 43.7 fL (36.4-46.3); Red Blood Count 4.41 M/uL (4.7-6.1); White Blood Count 11.72 K/uL (4.8-10.8)
[2021-07-18] MEDS ORDERED: MAGNESIUM CITRATE 296 ML/BTL PO STA (09:10)
[2021-07-18 09:15] LABS: BUN Creatinine Ratio 15.9 (10-20); Calcium 8.5 mg/dl (8.5-10.1); Creatinine Clr Calc Pharmacy 107.7 ml/min; Est GFR (African American) 103.2 ml/min; Est GFR (Non-African American) 89.1 ml/min
[2021-07-18] MEDS: ERTAPENEM SODIUM 1,000 MG in SODIUM CHLORIDE 0.9% 50 ML IV SCH (09:37)
[2021-07-18] MEDS: SIMETHICONE 80 MG CHEW PO SCH (09:40)
[2021-07-18] MEDS: UMECLIDINIUM BROMIDE 62.5MCG/BLISTER 7 PUFFS/INHALER INH SCH (09:41)
[2021-07-18] MEDS: PANTOprazole 40 MG TAB PO SCH (09:45)
[2021-07-18] MEDS: POLYETHYLENE (MIRALAX) 17 GM PACK PO SCH (09:45)
[2021-07-18] MEDS: CARBIDOPA/LEVODOPA 25-250 1 EA TAB PO SCH (09:45)
[2021-07-18] MEDS: FINASTERIDE 5 MG TAB PO SCH (09:45)
[2021-07-18] MEDS: METOPROLOL TARTRATE 100 MG TAB PO SCH (09:45)
--- NOTE | 2021-07-18 18:36 | Discharge Summary ---
Date of Service July 18, 2021 Admission HPI Per Admitting Provider 75 [facility] with history of RCCA, previous colitis and previous indwelling urinary catheter now removed, presents with abdominal symptoms, imaging of colitis and abnormal urine analysis. Pt previously did have ESBL E coli when he did have mcbride catheter. In the ER the pt was cultured and did have antibiotics. P is an extremely poor historian, states hes here bc his arm is sore, thinksneha is 2009 and Kamlesh is the president CT abdomen and pelvis Marked fecal retention of the rectum and sigmoid is noted along with rectal wall thickening and perirectal stranding suspicious for stercoral proctitis. Suggested ileus without evidence of obstruction. 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 The increased size may be secondary to internal hemorrhage. Follow-up is recommended to exclude the less likely possibility of a renal cell carcinoma. Mild esophageal wall thickening with adjacent inflammatory stranding is better characterized on the CT chest of same day. Principal Diagnosis esbl ecoli uti poa constipation Discharge Exam The patient appeared well Vital signs as documented. Lungs are clear to auscultation and appear unlabored Cardiac exam, Rhythm is regular.. No murmurs, rubs or gallops. Abdominal exam reveals normal bowel sounds, soft non tender, no masses Extremities are nonedematous and both pedal pulses are normal. Neurologic exam is alert and oriented, no focal loss of strength or sensation Skin is without bruises or rashes Psychologically is without concerns for anxiety or depression. Discharge Data Allergies Allergy/AdvReac Type Severity Reaction Status Date / Time bee venom protein (honey bee) Allergy Unknown Unknown Verified 07/15/21 07:55 cefadroxil Allergy Unknown UNKNOWN Verified 07/15/21 07:55 cephalexin Allergy Unknown UNKNOWN Verified 07/15/21 07:55 escitalopram Allergy Unknown UNKNOWN Verified 07/15/21 07:55 omeprazole Allergy Unknown UNKNOWN Verified 07/15/21 07:55 pantoprazole Allergy Unknown UNKNOWN Verified 07/15/21 07:55 Consultations 07/15/21 07:28 ED Decision to Admit Stat Ordered Studies 07/15/21 06:00 CT abd pelvis IV con only Stat CT chest diagnostic wo con Stat Hospital Course (1) Acute UTI: Patient abnormal urinalysis previous ESBL urinary tract infection as well as a Mcbride catheter in place. 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 continues on ertapenem show 60,000 esbl ecoli- > pt with significant improvement with antibiotics Patient has a persistently expanding right renal mass he is followed by [facility]. His appointment in April 2021 did discussed a radical nephrectomy at that time it was felt that watchful waiting would be employed due to comorbid risk of surgery did discuss the mass with family unclear if patient has some metabolic encephalopathy from uti poa did have some improvement but still has some impairment more so than what but to be expected for his age Pt has some post void residuals, will have st cath prn (2) Acute proctitis: Patient has what is described a steracoral colitis seen on imaging. Patient is on ertapenem at this time. His admission in February 2021 similar presentation. Infectious disease consult from [facility] felt his urinary tract infection should be treated and that his proctocolitis was more function of constipation and did not require additional treatment. pt was without sx, given mag citrate prior to going home, exam without much pain (3) Esophagitis: Scription's esophagitis on imaging of the chest. Patient will be on pantoprazole but increase to twice daily. He has a history of a gastric artery embolization in the past at [facility] around 2018 per [facility] (4) HTN (hypertension), benign: Blood pressure is elevated on presentation patient will be maintained on his metoprolol tartrate 100 twice daily (5) COPD (chronic obstructive pulmonary disease): Typically takes Spiriva is not an exacerbation at this time continue albuterol Patient has chronic respiratory failure with hypoxia typically on oxygen therapy at care home facility (6) Parkinson disease: Patient maintained on Sinemet therapy (7) NPH (normal pressure hydrocephalus): Total Time Total Time Spent Total Time Spent (In Minutes): It required greater than 30 minutes to prepare this patient for discharge Discharge Plan Discharge Items Patient Disposition: Transfer Care Home Fac Reason For Visit: UTI POA, RENAL MASS, PROCTOCOLITIS, ESOPHAGITIS Discharge Diagnosis: esbl e coli uti, chronic constipation Activity: Resume your previous activity Non-emergency contact: Primary Care Provider Call non-emergency contact if: your symptoms worsen and you have a fever Follow-up/Referrals: [facility] [Primary Care Provider] - Diet: Regular Addtl Attending Provider Instructions: You have been diagnosed with a recurrent E coli uti that has resistance to many antibiotics, consider repeat testing at end of tx and maybe [facility] urology referal or ID for strategies to help reduce infections in the future plenty of liquids and work to keep from sitting in damp clothes Pending Studies at Discharge: No Stand-Alone Forms: My [facility] Skilled Items Patient informed of condition?: Yes DNR: No Discharge Level of Care: Other Communicable Disease: Yes Discharge Prognosis: Stable Lines: None Urinary Catheter: No Medications and DC Order Prescriptions: New sulfamethoxazole-trimethoprim [Bactrim DS] 800-160 mg tablet 1 tab PO BID 5 Days Qty: 10 RF: 0 polyethylene glycol 3350 [Miralax] 17 gram Powder In Packet 17 g PO DAILY Qty: 30 RF: 0 Continued albuterol sulfate 90 mcg/actuation HFA aerosol inhaler 2 puff inhalation Q6H PRN (Reason: Shortness Of Breath) RF: 0 finasteride 5 mg Tablet 5 mg PO DAILY RF: 0 carbidopa-levodopa 10-100 mg Tablet 1 tab PO DAILY@1800 RF: 0 tramadol 50 mg Tablet 50 mg PO Q8 PRN (Reason: Pain) RF: 0 carbidopa-levodopa 25-250 mg Tablet 1 tab PO BID RF: 0 metoprolol tartrate 50 mg Tablet 100 mg PO BID RF: 0 acetaminophen 325 mg Tablet 650 mg PO Q12 PRN (Reason: Pain) RF: 0 pantoprazole 20 mg Tablet,Delayed Release (Dr/Ec) 20 mg PO DAILY RF: 0 simethicone 80 mg Tablet,Chewable 80 mg PO BID RF: 0 cholecalciferol (vitamin D3) 50 mcg (2,000 unit) Tablet 50 mcg PO DAILY RF: 0 tiotropium bromide 2.5 mcg/actuation Mist 2 puff INHALATION DAILY RF: 0 bisacodyl 10 mg Suppository 10 mg CO DAILY Qty: 0 RF: 0 magnesium hydroxide 400 mg/5 mL Suspension 400 mg PO DAILY PRN (Reason: Constipation) RF: 0 bisacodyl 10 mg Suppository 10 mg CO DAILY PRN (Reason: Constipation) RF: 0 nortriptyline 10 mg Capsule 20 mg PO HS RF: 0 Discharge Orders: Discharge Order (Routine); Ordered 07/18/21 Ordered By: Randell Wren/Other Patient Handouts: Urinary Tract Infections in Men, Understanding Urinary Tract ... Admission Data Admit Date/Time: 07/15/21 08:16 Attending Provider: Randell Jones Admit Provider: Randell Jones Primary Care Provider: [facility] Other Providers: Randell Jones Other Interventions: Discharge Summary Assessment (RN) Last Done: 07/18/21 10:33 Coding Level of Care Code D/C DAY MANAGEMENT >30 MINS Diagnoses Acute UTI N39.0 Acute proctitis K62.89 Esophagitis K20.90 HTN (hypertension), benign I10 COPD (chronic obstructive pulmonary disease) J44.9 Parkinson disease G20 NPH (normal pressure hydrocephalus) G91.2
== END 2021-07-18 11:49 | DRG 689 ==
LOC: ED 02:38 → 3E 08:16